=== PATIENT | female | born 1970 | race Hispanic/Latino ===

== ENCOUNTER 2020-04-23 21:50 | Emergency (ER) | payer MEDICAID, SELFPAY ==
--- NOTE | ~2020-04-23 | CT_ITS ---
EXAMINATION: CTA chest PE protocol EXAM DATE: 04/24/2020 01:19 INDICATION: Shortness of breath and elevated d-dimer. TECHNIQUE: Spiral CTA of the chest (pulmonary arteries) was performed with 100 cc Omnipaque 350 intr avenous contrast injection. Images were acquired during the pulmonary arterial phase. Coronal maxi mum intensity projection 3D-reconstructions were created by the technologist on dedicated workstation . Axial, coronal and sagittal reformatted images were reviewed. The dose-length product (DLP) for t his examination was 865.83 mGy-cm. The exposure was tailored according to patient size (auto mA exp osure control), and iterative reconstruction (ASIR) was used as additional dose reduction technique. There is no prior study for comparison. FINDINGS: There are no pulmonary emboli in the 1st through 3rd order (central and interlobar) pulmon kathy arteries. Some loss of attenuation in the segmental pulmonary arteries due to respiratory motion , but no intraluminal filling defects suspected. No thoracic aortic dissection. Small amount of li ngular postinfectious residua. There are no pleural or pericardial effusions. Tracheobronchial sammy e is patent. There is no mediastinal, hilar or axillary lymphadenopathy. There is no pneumothorax . Heart normal in size. No evidence of coronary arterial calcification. Upper abdomen is unremar kable. There is mild to moderate thoracic spondylosis without osteoblastic or osteolytic lesions id entified. IMPRESSION: 1. Limited segmental evaluation, but no pulmonary emboli are suspected. 2. Lingular postinfectious residua. Reviewed, dictated and finalized at location A. OF DATA
--- NOTE | ~2020-04-23 | XR_ITS ---
EXAMINATION: XR chest 2V DATE: 04/23/2020 23:26 INDICATION: Left-sided chest pain TECHNIQUE: PA and lateral views of the chest were obtained. COMPARISON: None FINDINGS: The lungs are clear with no focal airspace opacities, pulmonary edema, pleural effusion or pneumothor ax. The cardiomediastinal silhouette is normal. Moderate thoracolumbar spondylosis. IMPRESSION: 1. No acute cardiopulmonary disease. Reviewed, dictated and finalized at location A. ME TANNER
[2020-04-23 21:53] VITALS: BP 183/88; PULSE 100; RESP 20; TEMP 36.3; O2SAT 100
--- NOTE | 2020-04-23 21:58 | ECG_ITS ---
Measurements Intervals [place] Rate: 94 P: 57 HI: 137 QRS: 3 QRSD: 92 T: 44 QT: 344 QTc: 432 Interpretive Statements SINUS RHYTHM BASELINE ARTIFACT- I, II, III, AVR, AVL, AVF NORMAL ECG Electronically Signed On 04-24-2020 7:07:27 [employer]VEYOR [employer]ENDER by Joseph Causey D.O.
[2020-04-23 22:19] LABS: Basophils Absolute Auto 0.1 K/mm3 (0.0-0.1); Basophils Percent Auto 0.6 % (0.2-1.2); Eosinophils Absolute Auto 0.5 K/mm3 (0-0.3); Eosinophils Percent Auto 5.2 % (0-4.4); Hematocrit 37.6 % (37.0-47.0); Hemoglobin 11.9 g/dL (12.0-15.0); Immature Granulocyte Absolute 0.03 K/mm3 (0.00-0.031); Immature Granulocyte Percent A 0.3 % (0-0.5); Lymphocytes Percent Auto 27.6 % (18.3-44.2); Mean Corpuscular HGB Conc 31.6 g/dl (32-36); Mean Corpuscular Hemoglobin 26.5 pg (26-34); Mean Corpuscular Volume 83.7 fl (80-100); Mean Platelet Volume 8.7 fl (7.4-10.4); Monocytes Absolute Auto 0.7 K/mm3 (0.1-0.6); Neutrophils Absolute Auto 5.1 K/mm3 (1.3-6.7); Neutrophils Percent Auto 58.3 % (45.5-73.1); Platelet Count Result 280 k/mm3 (150-375); Red Blood Count 4.49 M/mm3 (4.2-5.4); Red Cell Distribution Width 13.3 % (11.5-14.5); White Blood Count 8.7 K/mm3 (4.5-10.0)
[2020-04-23 22:25] LABS: Prothrombin Time 13.6 Seconds (11.1-14.7)
[2020-04-23 22:26] LABS: Partial Thromboplastin Time 28.5 SECONDS (22.3-36.8)
[2020-04-23 22:27] LABS: Anion Gap 7 mmol/L (8-16); Blood Urea Nitrogen 22 mg/dL (7-17); Calcium 9.6 mg/dL (8.4-10.2); Carbon Dioxide 30 mmol/L (22-30); Chloride 101 mmol/L (98-107); Estimated CRCL calculation 66 ml/min; Estimated Glomerular Filt Rate 43; Glucose 124 mg/dL (65-105); Potassium 3.5 mmol/L (3.4-5.0); Sodium 138 mmol/L (137-145)
[2020-04-23 22:39] LABS: Troponin I < 0.012 ng/mL (0.000-0.034)
--- NOTE | 2020-04-23 23:03 | ED.CHESTPAIN ---
HPI - Chest Pain General Chief Complaint: Chest Pain Stated Complaint: Right arm pain, cp for 2 weeks Time Seen by Provider: 04/23/20 23:02 Source: patient Mode of arrival: ambulatory Limitations: no limitations History of Present Illness HPI narrative: Patient is a 50-year-old female complaining of right-sided chest pain, sharp, 7 out of 10, radiating to right upper extremity, worse with movement and palpation, that started approximately 2 weeks ago. Patient denies any shortness of breath, abdominal pain, nausea, vomiting, diaphoresis, fever or chills. Patient also complaining of foul smell in her urine. Denies any low back pain, flank pain or hematuria. Related Data Allergies Allergy/AdvReac Type Severity Reaction Status Date / Time No Known Allergies Allergy Verified 04/23/20 21:58 Review of Systems Review of Systems: All systems reviewed & are unremarkable except as noted in HPI and below Constitutional: Constitutional: Denies body ache(s), Denies chills, Denies excessive sweating, Denies fatigue, Denies fever(s), Denies headache(s), Denies lethargy, Denies malaise, Denies weakness and Denies weight loss Eyes: Eyes: Denies blurry vision, Denies change in vision and Denies loss of vision ENT: Denies dizziness, Denies ear discharge, Denies headache(s), Denies lip swelling, Denies epistaxis, Denies nasal congestion, Denies neck pain, Denies throat swelling and Denies tongue swelling Cardiovascular: Cardiovascular: Denies chest pain, Denies chest pain at rest, Denies chest pain with activity, Denies diaphoresis, Denies rapid heart rate, Denies edema, Denies irregular heart rhythm, Denies lightheadedness, Denies palpitations, Denies dyspnea and Denies dyspnea on exertion Respiratory: Respiratory: Denies chest congestion, Denies cough, Denies hemoptysis, Denies dyspnea and Denies dyspnea on exertion Gastrointestinal: Gastrointestinal: Denies abdominal pain, Denies melena, Denies hematochezia, Denies diarrhea, Denies nausea, Denies vomiting and Denies hematemesis Musculoskeletal: Musculoskeletal: Denies abnormal gait, Denies deformity, Denies joint swelling, Denies limited range of motion, Denies neck pain and Denies numbness Neurologic: Denies Abnormal speech present, Denies abnormal gait, Denies confusion, Denies dizziness, Denies headache(s), Denies focal weakness, Denies loss of vision, Denies numbness, Denies Other visual disturbances, Denies Sensory deficit (Neuro) and Denies weakness Psychiatric: Psychiatric: Denies confusion, Denies depression, Denies auditory hallucinations, Denies homicidal ideation and Denies suicidal ideation Endocrine: Endocrine: Denies cold intolerance, Denies excessive sweating, Denies fatigue, Denies heat intolerance and Denies palpitations Hematologic/Lymphatic: Hematologic/Lymphatic: Denies easy bleeding and Denies easy bruising Allergic/Immunologic: Allergic/Immunologic: Denies lip swelling, Denies throat swelling and Denies tongue swelling Exam Const: General: cooperative, healthy appearing, comfortable, no acute distress, well developed, alert and awake; No confusion Orientation/consciousness: oriented to person, oriented to place, oriented to time, patient oriented x3 and No confusion Limitations: no limitations HENMT: Head: normal to inspection, normocephalic and atraumatic Ears: hearing grossly normal bilaterally, TM normal on the right and TM normal on the left General nose exam: Normal external nose present, Normal nares present and No nasal discharge present Face and sinus: normal facial exam Mouth: Yes Normal oral and palatal mucosa present, Yes lip normal, Yes tongue normal and Yes oropharynx normal Throat: posterior oropharynx normal, tonsils normal and uvula midline Eyes: General: appearance normal, both eyes and all related structures Pupils: Equal, round and reactive pupils present EOM: EOMs intact bilaterally Neck: Neck: normal visual inspection, full ROM, no lymphadenopathy and
[2020-04-23 23:16] LABS: D Dimer 1.01 ug/mL (<0.48)
[2020-04-23 23:17] VITALS: O2SAT 98
[2020-04-23] MEDS: ASPIRIN 81 MG CHEWABLE TABLET 324 MG PO (23:17)
[2020-04-23 23:24] LABS: Add Urine Microscopic? YES; Appearance Urine Cloudy (Clear); Bacteria Urine Trace /hpf; Bilirubin Urine Negative (Negative); Blood Urine Negative (Negative); Color Urine Yellow (Yellow); Glucose Urine UA Negative (Negative); Ketones Urine Negative (Negative); Leukocyte Esterase Ur 2+ LEU/UL (Negative); Mucus Urine Rare /lpf; Nitrate Urine Negative (Negative); Protein Urine 2+ mg/dL (Negative); RBC Urine 0-2 /hpf (0-2); Specific Grav Ur 1.017 (1.001-1.035); Squamous Epithelial Cell Urine Many /hpf (Few); Urobilinogen Urine Negative mg/dL (<2.0); WBC Urine >75 /hpf
[2020-04-23 23:36] VITALS: BP 140/91; PULSE 89; RESP 20; O2SAT 99
[2020-04-24 01:35] VITALS: BP 142/97; PULSE 86; RESP 22; O2SAT 97
[2020-04-24 01:53] LABS: Troponin I < 0.012 ng/mL (0.000-0.034)
[2020-04-24 03:00] VITALS: BP 122/80; PULSE 90; RESP 19; O2SAT 97
== END 2020-04-24 03:05 | disposition home or self-care (01) ==
PROVIDERS: Emergency Provider Emergency Medicine
DX: R07.89 Other chest pain (principal); N30.00 Acute cystitis without hematuria
CPT/HCPCS: 36415; 71046; 71275; 80048; 81001; 84484; 85025; 85380; 85610; 85730; 87086; 87088; 93005; 99284; A9270; Q9967

== ENCOUNTER 2020-06-23 19:43 | Emergency (ER) | payer OTHER, SELFPAY ==
[2020-06-23 19:50] VITALS: BP 148/93; PULSE 108; RESP 16; TEMP 36.6; O2SAT 98
--- NOTE | 2020-06-23 21:13 | ED.GENADULT ---
HPI - General Adult General Chief complaint: Urogenital-Female Stated complaint: VAGINAL PROLAPSE? Time Seen by Provider: 06/23/20 19:55 History of Present Illness HPI narrative: Patient is a 50-year-old female who presents the ER with concerns for vaginal prolapse. She started noticing a mass protruding from her vagina 2 months ago. Today became slightly irritated and had some blood and so she opted to come in for evaluation. Did not seek care earlier because she is embarrassed. Patient has history of 3 vaginal deliveries in the past. No vaginal discharge. Related Data Home Medications Medication Instructions Recorded Confirmed No Home Medications 06/23/20 06/23/20 Allergies Allergy/AdvReac Type Severity Reaction Status Date / Time VINEGAR AdvReac Dyspnea / Uncoded 06/23/20 20:03 SOB Review of Systems Review of Systems: All systems reviewed & are unremarkable except as noted in HPI and below Constitutional: Constitutional: Denies chills, Denies fever(s) and Denies weakness Gastrointestinal: Gastrointestinal: Denies abdominal pain, Denies diarrhea, Denies nausea and Denies vomiting Genitourinary: Genitourinary: Denies abnormal vaginal bleeding, Denies nocturia, Denies dysuria, Denies pelvic pain and Denies vaginal discharge Comments: Possible vaginal prolapse PMFSH Past Medical History Medical History (Updated 06/23/20 @ 21:25 by Frank Girard MD) Diabetes Surgical History Surgical History (Updated 06/23/20 @ 21:19 by Frank Girard MD) No pertinent past surgical history Social History Social History (Updated 06/23/20 @ 21:19 by Frank Girard MD) Social History: History of tobacco use Exam Narrative: Exam Narrative: GENERAL: Well-appearing, well-nourished, and in no acute distress. HEAD: Normocephalic, atraumatic. : No dischage, vaginal mass likely cystocele. No tenderness on digital exam. EXTREMITIES: Normal range of motion. No edema. NEURO: Alert and oriented x3. Course Course Emergency Course: Discussed with Dr. Brennen Gustafson. Recommends follow-up this week in clinic. Discharge home. Vital Signs Vital signs: Vital Signs Temperature 98 F 06/23/20 19:50 Pulse Rate 108 H 06/23/20 19:50 Respiratory Rate 16 06/23/20 19:50 Blood Pressure 148/93 H 06/23/20 19:50 Pulse Oximetry 98 06/23/20 19:50 Temperature 98 F 06/23/20 19:50 Pulse Rate 108 H 06/23/20 19:50 Respiratory Rate 16 06/23/20 19:50 Blood Pressure 148/93 H 06/23/20 19:50 Pulse Oximetry 98 06/23/20 19:50 Medical Decision Making Vital Signs Vital Signs: Vital Signs Temperature 98 F 06/23/20 19:50 Pulse Rate 108 H 06/23/20 19:50 Respiratory Rate 16 06/23/20 19:50 Blood Pressure 148/93 H 06/23/20 19:50 Pulse Oximetry 98 06/23/20 19:50 Temperature 98 F 06/23/20 19:50 Pulse Rate 108 H 06/23/20 19:50 Respiratory Rate 16 06/23/20 19:50 Blood Pressure 148/93 H 06/23/20 19:50 Pulse Oximetry 98 06/23/20 19:50 Discharge Plan Discharge Clinical Impression: Cystocele Patient Disposition: Home, Self-Care Condition: Stable Instructions: Cystocele (ED) Additional Instructions: Contact the regulation supervisor listed below to schedule follow-up appointment this week for further evaluation. Return the ER if you have serious pain, you cannot keep down food or water, you have additional concerns. Avoid any heavy lifting. Prescriptions: No Action No Home Medications RF: 0 Follow-up/Referrals: Jay Madrigal MD [Physician] - 1 Week PHYSICIAN,GLASSWARE FINISHER [Primary Care Provider] -
== END 2020-06-23 21:15 | disposition home or self-care (01) ==
PROVIDERS: Emergency Provider Emergency Medicine
DX: N81.10 Cystocele, unspecified (principal); E11.9 Type 2 diabetes mellitus without complications
CPT/HCPCS: 99281

== ENCOUNTER 2021-12-29 15:28 | Inpatient (IN) | payer OTHER, SELFPAY ==
[2021-12-29] VITALS (25 sets, daily range): BP systolic 106–163; BP diastolic 49–104; PULSE 66–128; RESP 13–39; TEMP 36.5–36.7; O2SAT 97–100; BMI 44.2
--- NOTE | ~2021-12-29 | CT_ITS ---
EXAMINATION: CT abdomen pelvis w con DATE: 12/29/2021 18:10 INDICATION: epigastric pain, GI bleed TECHNIQUE: Computed tomography (CT) of the abdomen and pelvis was performed with 100 mL Omnipaque-350 intravenous contrast. Automated exposure control and iterative reconstruction technique were employe d. The dose-length product was 1585.43 mGy-cm. COMPARISON: [facility] 04/24/2020. FINDINGS: Lower thorax: Bilateral scar/atelectasis Liver: Normal. Biliary/Gallbladder: Gallbladder is normal. No bile duct dilation. Pancreas: No mass or duct dilation. Spleen: Normal. Adrenals:No mass. Kidneys: No mass, stone, or hydronephrosis. GI tract: Fluid-filled stomach. No intraluminal hyperdensity to suggest hemorrhage. Mild antral wall edema and inflammatory change, with minimal surrounding free air. No small or large bowel dilation. N ormal appendix. Diverticulosis without diverticulitis. Mesentery/Peritoneum: No ascites, mass, or free air. Retroperitoneum: No mass. Pelvis: Mild bladder wall thickening and inflammatory change. Organs are within normal limits. Soft Tissues: Uncomplicated appearing recent midline surgical incision. Lower abdominal soft tissue a nchors from prior hernia repair. Bones: No acute osseous finding. IMPRESSION: Mild inflammation, fluid and air at the gastric antrum, consistent with history of recent surgery and within range of expected postsurgical change, noting that early perforation or abscess formation can not be excluded. No obvious intraluminal hyperdensity to suggest large volume gastrointestinal bleedi ng.Possible mild cystitis. Reviewed, dictated and finalized at location K. IMPRESSION: Mild inflammation, fluid and air at the gastric antrum, consistent with history of recent surgery and within range of expected postsurgical change, noting paddy t early perforation or abscess formation cannot be excluded. No obvious intralu antwon hyperdensity to suggest large volume gastrointestinal bleeding.Possible m ild cystitis.
[2021-12-29 16:03] LABS: Basophils Absolute Auto 0.1 K/mm3 (0.0-0.1); Basophils Percent Auto 0.6 % (0.2-1.2); Eosinophils Percent Auto 7.1 % (0-4.4); Hematocrit 30.3 % (37.0-47.0); Hemoglobin 9.3 g/dL (12.0-15.0); Immature Granulocyte Absolute 0.05 K/mm3 (0.00-0.031); Immature Granulocyte Percent A 0.3 % (0-0.5); Lymphocytes Absolute Auto 3.07 K/mm3 (0.9-3.2); Lymphocytes Percent Auto 21.4 % (18.3-44.2); Mean Corpuscular HGB Conc 30.7 g/dl (32-36); Mean Corpuscular Hemoglobin 26.9 pg (26-34); Mean Corpuscular Volume 87.6 fl (80-100); Mean Platelet Volume 8.6 fl (7.4-10.4); Monocytes Absolute Auto 1.1 K/mm3 (0.1-0.6); Monocytes Percent Auto 7.5 % (2.6-8.5); Neutrophils Percent Auto 63.1 % (45.5-73.1); Platelet Count Result 345 k/mm3 (150-375); Red Blood Count 3.46 M/mm3 (4.2-5.4); Red Cell Distribution Width 14.6 % (11.5-14.5); White Blood Count 14.3 K/mm3 (4.5-10.0)
[2021-12-29 16:15] LABS: Alanine Aminotransferase 25 U/L (6-35); Albumin Level 4.3 g/dL (3.5-5.1); Alkaline Phosphatase 104 U/L (38-126); Anion Gap 15 mmol/L (8-16); Aspartate Amino Transferase 35 U/L (14-36); Bilirubin,Total 0.3 mg/dL (0.2-1.3); Blood Urea Nitrogen 33 mg/dL (7-17); Calcium 9.9 mg/dL (8.4-10.2); Carbon Dioxide 21 mmol/L (22-30); Chloride 104 mmol/L (98-107); Estimated Glomerular Filt Rate 32; Glucose 110 mg/dL (65-110); INR 1.2; Partial Thromboplastin Time 32.5 SECONDS (22.3-36.8); Potassium 3.4 mmol/L (3.4-5.0); Prothrombin Time 14.5 Seconds (11.1-14.7); Sodium 140 mmol/L (137-145)
--- NOTE | 2021-12-29 17:22 | ED.GIBLEED ---
HPI - GI Bleed General Chief complaint: GI Bleed Stated complaint: black diarrhea Time Seen by Provider: 12/29/21 16:56 Source: patient Mode of arrival: ambulatory Limitations: no limitations History of Present Illness HPI Narrative: This is a 51-year-old female that presents to the emergency department for black stools present since this morning. Reports she recently had surgery last week at [facility] for a perforated gastric ulcer. She had been taking a lot of anti-inflammatories. Reports this morning she started to have some diarrhea that was dark in color. She is not currently taking any anti-inflammatories or on any blood thinners. She called her surgeon and he told her she should go somewhere that had a GI doctor. Reports some nausea. Denies fever or vomiting. Related Data Home Medications Medication Instructions Recorded Confirmed escitalopram oxalate 10 mg tablet mg 12/29/21 gabapentin 300 mg capsule mg 12/29/21 hydrocodone 5 mg-acetaminophen 325 tablet 12/29/21 mg tablet lisinopril 40 mg tablet mg 12/29/21 metformin 500 mg tablet,extended mg PO 12/29/21 release 24 hr semaglutide 0.25 mg or 0.5 mg (2 mg subcut 12/29/21 mg/1.5 mL) subcutaneous pen injector (Ozempic) Allergies Allergy/AdvReac Type Severity Reaction Status Date / Time VINEGAR AdvReac Dyspnea / Uncoded 12/29/21 17:06 SOB Review of Systems Review of Systems: CONSTITUTIONAL: Denies fever GASTROINTESTINAL: Reports abdominal pain, nausea, and diarrhea. GENITOURINARY: Denies dysuria All systems reviewed & are unremarkable except as noted in HPI and below PMFSH Past Medical History Medical History (Updated 12/29/21 @ 21:23 by Rosangela Friedman PA-C) Chronic kidney disease, stage III (moderate) Depression Diabetes Diabetic peripheral neuropathy Essential hypertension Perforated gastric ulcer Surgical History Surgical History (Updated 12/29/21 @ 21:03 by Dominique Blanco DO) History of laparotomy (12/17/21) For repair of gastric ulcer Social History Social History (Updated 12/29/21 @ 17:23 by Rosangela Friedman PA-C) Social History: History of tobacco use Smoking status: Former smoker Alcohol intake: never Substance use: never Exam Narrative: GENERAL: Well-appearing, well-nourished, and in no acute distress. HEAD: Normocephalic, atraumatic. EYES: EOMI. CHEST: Clear to auscultation. No respiratory distress. No wheezes rales or rhonchi HEART: Regular rate and rhythm. No murmur heard. Normal peripheral pulses. ABDOMEN: Soft, nondistended, normal active bowel sounds. Tender to palpation in the epigastrium. Midline, vertical upper abdominal incision with ade present. No surrounding erythema or warmth. No abnormal drainage EXTREMITIES: Normal range of motion. No edema. SKIN: Warm, dry, no rash. NEURO: No focal deficits. Alert and oriented x3. PSYCH: Normal mood and affect RECTAL: Hemoccult positive Course Vital Signs Vital signs: Vital Signs Temperature 98.0 F 12/29/21 15:41 Pulse Rate 107 H 12/29/21 15:41 Respiratory Rate 14 12/29/21 15:41 Blood Pressure 149/71 H 12/29/21 15:41 Pulse Oximetry 100 12/29/21 15:41 Oxygen Delivery Room Air 12/29/21 15:41 Temperature 97.8 F 12/29/21 21:11 Pulse Rate 72 12/29/21 21:11 Respiratory Rate 22 H 12/29/21 21:11 Blood Pressure 112/4 L 12/29/21 21:11 Pulse Oximetry 100 12/29/21 21:11 Oxygen Delivery Room Air 12/29/21 17:03 MDM - GI Bleed MDM Narrative Medical decision making narrative: Patient presents to the emergency department for dark stools noted today. Recently postop from repair of a perforated gastric ulcer. She is afebrile and nontoxic-appearing. Tachycardic upon arrival, this normalized with IV fluid administration. Her blood pressure has remained stable. CBC with leukocytosis to 14.3. Also shows normocytic anemia with hemoglobin of 9.3. Metabolic panel with kidney function that is likely
[2021-12-29] MEDS: PANTOPRAZOLE SODIUM IV 40 MG VIAL IV PUSH (17:45)
[2021-12-29] MEDS: ONDANSETRON INJ 4 MG/2 ML VIAL IV PUSH (17:45)
[2021-12-29] MEDS: SODIUM CHLORIDE 0.9% IV 1,000 ML 999 ML IV CONT (18:12)
[2021-12-29 19:58] LABS: Appearance Urine Clear (Clear); Bilirubin Urine Negative (Negative); Blood Urine 2+ (Negative); Color Urine Yellow (Yellow); Glucose Urine UA Negative (Negative); Ketones Urine Negative (Negative); Leukocyte Esterase Ur Negative LEU/UL (Negative); Nitrate Urine Negative (Negative); Protein Urine Negative (Negative); Specific Grav Ur <= 1.005 (1.001-1.035); Urobilinogen Urine 0.2 mg/dL (<2.0); pH Urine 5.5 (5.0-9.0)
[2021-12-29 20:05] LABS: Bacteria Urine Trace /hpf; Mucus Urine Rare /lpf; RBC Urine 0-2 /hpf (0-2); Squamous Epithelial Cell Urine Few /hpf (Few); WBC Urine 0-3 /hpf
[2021-12-29 20:06] LABS: Add Urine Microscopic? YES
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
[2021-12-29] MEDS: SODIUM CHLORIDE 0.9% IV 1,000 ML 125 ML IV CONT (21:10)
[2021-12-29 22:02] LABS: Hematocrit 27.7 % (37.0-47.0); Hemoglobin 8.5 g/dL (12.0-15.0)
--- NOTE | 2021-12-29 22:30 | ADMGEN ---
This patient, Aliza Handy, was admitted to 2 Medical Room 249-01. Patient/family oriented to hospital policies and general routines including ID bracelet, bed and alarms, visiting hours, pain management, procedures, bathroom and other care routines, personal items, smoking policy, room service/diet, and visiting hours. Information on how to activate the Rapid Response Team has been discussed. Patient/Family are encouraged to report perceived risks to care and to ask questions if they do not understand what they are told or what they should do.
[2021-12-29 23:36] LABS: Glucose Point of Care 76 mg/dl (65-105)
[2021-12-30] VITALS (12 sets, daily range): BP systolic 90–131; BP diastolic 43–110; PULSE 57–73; RESP 16–34; TEMP 36.2–36.8; O2SAT 94–100
[2021-12-30 02:51] LABS: Hematocrit 24.9 % (37.0-47.0); Hemoglobin 7.6 g/dL (12.0-15.0)
[2021-12-30 03:01] LABS: Anion Gap 11 mmol/L (8-16); Blood Urea Nitrogen 28 mg/dL (7-17); Calcium 8.4 mg/dL (8.4-10.2); Carbon Dioxide 21 mmol/L (22-30); Chloride 108 mmol/L (98-107); Estimated CRCL calculation 55 ml/min; Estimated Glomerular Filt Rate 36; Glucose 87 mg/dL (65-110); Potassium 3.6 mmol/L (3.4-5.0); Sodium 140 mmol/L (137-145)
--- NOTE | 2021-12-30 03:27 | PC.NURSE ---
This RN has supervised Karyn Hill and her documentation for the 7pm to 7am shift.
[2021-12-30] MEDS: SODIUM CHLORIDE 0.9% IV 1,000 ML 125 ML IV CONT ×2 (05:11→17:29)
[2021-12-30 05:14] LABS: Glucose Point of Care 80 mg/dl (65-105)
[2021-12-30 05:46] LABS: Hematocrit 25.8 % (37.0-47.0); Hemoglobin 7.8 g/dL (12.0-15.0)
--- NOTE | 2021-12-30 07:43 | WPDGICN ---
Assessment and Plan Assessment and plan (1) Anemia: Qualifiers: Anemia type: iron deficiency Iron deficiency anemia type: chronic blood loss Qualified Code(s): D50.0 - Iron deficiency anemia secondary to blood loss (chronic) Code(s): D64.9 - Anemia, unspecified Status: Acute Assessment and Plan: with her black tarry stools, she almost certainly has an upper gastrointestinal bleed. She had over-sewing of an ulcer 10 days ago and likely is bleeding from that ulcer base. (2) Acute GI bleeding: Code(s): K92.2 - Gastrointestinal hemorrhage, unspecified Status: Acute Assessment and Plan: the melena suggests upper gastrointestinal bleed as does the rise in her BUN. I discussed with the patient bleeding ulcers. I told her that over-sewing the perforation last week would normally be also curative for bleeding but she most likely has bleeding from somewhere along the ulcer base. At any rate we will schedule her for EGD to be done this morning . We will continue to monitor her blood counts. She may need a blood transfusion if her counts drop any further. (3) Acute kidney injury superimposed on chronic kidney disease: Code(s): N17.9 - Acute kidney failure, unspecified; N18.9 - Chronic kidney disease, unspecified Status: Acute Assessment and Plan: creatinine is up to 1.7 but probably partly due to dehydration (4) Perforated gastric ulcer: Code(s): K25.5 - Chronic or unspecified gastric ulcer with perforation Status: Acute Assessment and Plan: this was treated a [facility] 10 days ago. She had an open procedure, laparotomy. Her wound looks good. oddly, she states that she was not sent home with any medication for the ulcer. GI Consult Note Consult date/time: 12/30/21 07:43 HPI: Aliza Handy is a 51 year old female With chronic kidney disease and DJD. She presented to the emergency room yesterday complaining that since early yesterday morning she had been having black tarry stools. She she had presented to the emergency room at [facility] about 10 days ago with severe abdominal pain. They sent her home and told her to take Tylenol. When her pain became excruciating, she took a leave, 3 tablets and repeated this when she was getting no relief. She finally returned to the emergency room and was being dismissed and told there was nothing else that could be done when, after CT scan showed free air in the abdomen, she was then told that she was going to the operating room. She had over-sewing of an ulcer. She believes that she was told it was a gastric ulcer. She had not been using anti-inflammatory medications prior to her surgery, and had never been having stomach problems like an ulcer in the past. She has past history of diabetes for which she is on metformin and Ozempic. On admission here her hemoglobin was initially 9.3 and has dropped to 7.6. She has had no vomiting or nausea. She states that she called her surgeon yesterday morning when she noticed the black tarry stools and was Finally called back several hours later and told that she could not go to [facility] because they did not have the physicians necessary to treat her. Consequently she came here. Today she states that she has only mild abdominal pain. Review of Systems Review of Systems: All systems reviewed & are unremarkable except as noted in HPI and below PMFSH Past Medical History Medical History Anxiety Chronic anemia Chronic kidney disease, stage III (moderate) Degenerative joint disease (DJD) of lumbar spine Depression Diabetes A1c 6.6% on 12/19/2021 Diabetic peripheral neuropathy Essential hypertension Hepatic steatosis Perforated gastric ulcer PTSD (post-traumatic stress disorder) Surgical History Surgical History (Reviewed 12/30/21 @ 07:46
[2021-12-30] MEDS: PANTOPRAZOLE SODIUM IV 40 MG VIAL IV PUSH ×2 (08:16→16:03)
[2021-12-30 08:41] LABS: Glucose Point of Care 79 mg/dl (65-105)
--- NOTE | 2021-12-30 10:36 | PM.IMPN ---
Progress Note: A&P Assessment and Plan (1) Acute GI bleeding: Code(s): K92.2 - Gastrointestinal hemorrhage, unspecified Status: Acute Assessment and Plan: -in setting of recent surgical repair for perforated gastric ulcer. -GI was consulted and patient will go for EGD today. In reading their note they are suspicious that patient has bleeding around the base of the ulceration. -continue to monitor H&H Q 6 hours. -patient may need transfusion based upon results of trending hemoglobins as her hemoglobin this morning was 7.8. -monitor vital signs (2) Anemia: Qualifiers: Anemia type: iron deficiency Iron deficiency anemia type: chronic blood loss Qualified Code(s): D50.0 - Iron deficiency anemia secondary to blood loss (chronic) Code(s): D64.9 - Anemia, unspecified Status: Acute Assessment and Plan: -acute on chronic -patient's hemoglobin has slowly trended down from 11.0. Today it is 7.8. -continue to monitor q.6 hours. -transfuse as needed. -GI has been consulted and patient will have EGD today as a suspect that patient has some continued bleeding around the base of the ulcer. (3) Acute kidney injury superimposed on chronic kidney disease: Code(s): N17.9 - Acute kidney failure, unspecified; N18.9 - Chronic kidney disease, unspecified Status: Acute Assessment and Plan: -in setting of acute dehydration, as evidenced by acute AIDEE -continue IV fluids of normal saline at 125 ml/hour. -monitor daily labs and continue to monitor vital signs. (4) Diabetes mellitus type 2 in obese: Code(s): E11.69 - Type 2 diabetes mellitus with other specified complication; E66.9 - Obesity, unspecified Status: Acute Assessment and Plan: -continue current medication regimen. She has good control as patient's fasting glucose this morning was 87. -hypoglycemic protocol remains in place. -hold Ozempic (5) Essential hypertension: Code(s): I10 - Essential (primary) hypertension Status: Acute Assessment and Plan: -continue to hold lisinopril in setting of AIDEE on chronic kidney disease. -continue to monitor vital signs. -patient currently with normal BP. Time Spent With Patient Time with patient: 15 - 25 minutes (16 minutes) Subjective Date/time seen: 12/30/21 0859 This pt. is examined at the bedside today in interval assessment. She reports that her pain is still present but is less than it was previously and she is starting to feel a little bit better. She has been evaluated by GI service and will go for an EGD today. VSS, and she has no other acute symptoms or complaints such as chest pain, dyspnea, nausea, vomiting, diarrhea, headache, lightheadedness, dizziness. Review of Systems Review of Systems: All systems reviewed & are unremarkable except as noted in HPI and below Exam Const: General: comfortable and no acute distress Other: Lying supine in bed at this time no acute distress HENMT: General nose exam: Normal nares present and no epistaxis Mouth: Yes moist mucous membranes Eyes: General: appearance normal, both eyes and all related structures Sclera: sclerae normal Pupils: Equal, round and reactive pupils present EOM: EOMs intact bilaterally Neck: Neck: supple and no JVD Resp: Effort & Inspection: normal respiratory effort Auscultation: clear to auscultation bilaterally Cardio: Rate: regular rate Rhythm: regular rhythm Heart sounds: no gallops, no murmurs and no rubs GI: Inspection: non-distended GI Palp: Yes Soft to palpation, Yes Tenderness to palpation present (GI) (Secondary to surgical procedure) and No Guarding due to palpation present (GI) Other: [place] midline about the abdomen, tightly approximated without any signs of erythema, edema or dehiscence. There is no drainage from the midline surgical incision. Neuro: General: gait normal Speech: normal speech Motor exam (neuro): 5/5 motor strength present thr
--- NOTE | 2021-12-30 11:26 | PC.NURSE ---
Patient to GI lab at 1120. All questions answered.
[2021-12-30] MEDS: LACTATED RINGERS 1,000 ML 150 ML IV CONT (11:53)
[2021-12-30 11:58] LABS: Glucose Point of Care 80 mg/dl (65-105)
--- NOTE | 2021-12-30 12:11 | WPDANESEPPF ---
Anes - Initial Pre Proc Eval Procedure: Operation Date: 12/30/21 13:30 Proposed Procedures p Esophagogastroduodenoscopy - Rojelio Stephenson MD Date/Time: 12/30/21 12:11 Surgeon: TAMAR Patrick Pre Op Diagnosis: GI bleed Patient Data Age: 51 Gender: F Height: 1.7 m Weight: 128.1 kg Last Vital Signs Temp 98.1 F 12/30/21 11:50 Pulse 58 L 12/30/21 11:50 Resp 18 12/30/21 11:50 BP 112/43 L 12/30/21 11:50 Pulse Ox 98 12/30/21 11:50 O2 Del Method Room Air 12/30/21 08:18 Allergies Allergy/AdvReac Type Severity Reaction Status Date / Time VINEGAR AdvReac Dyspnea / Uncoded 12/29/21 23:08 SOB Home Medications Medication Instructions Recorded Confirmed Type escitalopram oxalate 10 mg tablet 10 mg PO DAILY 12/29/21 12/29/21 History gabapentin 300 mg capsule 300 mg PO TID 12/29/21 12/29/21 History hydrocodone 5 mg-acetaminophen 325 1 tablet PO Q6H PRN Pain 12/29/21 12/29/21 History mg tablet lisinopril 40 mg tablet 40 mg PO DAILY 12/29/21 12/29/21 History metformin 500 mg tablet,extended 500 mg PO DAILY 12/29/21 12/29/21 History release 24 hr semaglutide 0.25 mg or 0.5 mg (2 0.25 mg subcut WEEKLY 12/29/21 12/29/21 History mg/1.5 mL) subcutaneous pen injector (Ozempic) Laboratory Tests 12/29/21 12/29/21 12/29/21 15:52 15:52 15:52 WBC 14.3 K/mm3 H K/mm3 (4.5-10.0) RBC 3.46 M/mm3 L M/mm3 (4.2-5.4) Hgb 9.3 g/dL L g/dL (12.0-15.0) Hct 30.3 % L % (37.0-47.0) MCV 87.6 fl fl (80-100) MCH 26.9 pg pg (26-34) MCHC 30.7 g/dl L g/dl (32-36) RDW 14.6 % H % (11.5-14.5) Plt Count 345 k/mm3 k/mm3 (150-375) MPV 8.6 fl fl (7.4-10.4) Immature Gran % (Auto) 0.3 % % (0-0.5) Neut % (Auto) 63.1 % % (45.5-73.1) Lymph % (Auto) 21.4 % % (18.3-44.2) [place] % (Auto) 7.5 % % (2.6-8.5) Eos % (Auto) 7.1 % H % (0-4.4) Baso % (Auto) 0.6 % % (0.2-1.2) Lymph # (Auto) 3.07 K/mm3 K/mm3 (0.9-3.2) [place] # (Auto) 1.1 K/mm3 H K/mm3 (0.1-0.6) Eos # (Auto) 1.0 K/mm3 H K/mm3 (0-0.3) Baso # (Auto) 0.1 K/mm3 K/mm3 (0.0-0.1) Abs Immat Gran (auto) 0.05 K/mm3 H K/mm3 (0.00-0.031) Absolute Neuts (auto) 9.0 K/mm3 H K/mm3 (1.3-6.7) Absolute Nucleated RBC 0.0 K/mm3 K/mm3 (0.0-0.012) Nucleated RBC % 0.0 % % (0.0-0.2) PT 14.5 Seconds Seconds (11.1-14.7) INR 1.2 APTT 32.5 SECONDS SECONDS (22.3-36.8) Sodium 140 mmol/L mmol/L (137-145) Potassium 3.4 mmol/L mmol/L (3.4-5.0) Chloride 104 mmol/L mmol/L (98-107) Carbon Dioxide 21 mmol/L L mmol/L (22-30) Anion Gap 15 mmol/L mmol/L (8-16) BUN 33 mg/dL H D mg/dL (7-17) Creatinine 1.70 mg/dL H mg/dL (0.7-1.0) Estim Creat Clear Calc Not Reportable Estimated GFR 32 L (59 - ) Glucose 110 mg/dL mg/dL (65-110) POC Capillary Glucose Calcium 9.9 mg/dL mg/dL (8.4-10.2) Total Bilirubin 0.3 mg/dL mg/dL (0.2-1.3) AST 35 U/L U/L (14-36) ALT 25 U/L U/L (6-35) Alkaline Phosphatase 104 U/L U/L (38-126) Total Protein 9.0 g/dL H g/dL (6.3-8.2) Albumin 4.3 g/dL g/dL (3.5-5.1) Urine Color Urine Appearance Urine pH Ur Specific [place] Urine Protein Urine Glucose (UA) Urine Ketones Ur Blood (Man) Urine Nitrate Urine Bilirubin Urine Urobilinogen Leukocyte Esterase Rfl Urine RBC Urine WBC Ur Squamous Epith Cells Urine Bacteria Urine Mucus Blood Type
[2021-12-30] MEDS: EPINEPHrine INJ 1 MG/10 ML SYRINGE XX (12:55)
[2021-12-30] MEDS: fentaNYL CITRATE INJ (*CRX) 100 MCG/2 ML VIAL 25 MCG IV PUSH ×4 (13:04→13:19)
[2021-12-30] MEDS: HYDROmorphone HCL INJ (*CRX) 1 MG/ML SYR 0.25 MG IV PUSH ×2 (13:22→13:33)
[2021-12-30] MEDS: HYDROcodone/acetaminophen (*CRX) 7.5-325 MG TABLET 1 TAB PO ×2 (14:14→20:41)
--- NOTE | 2021-12-30 14:18 | PC.NURSE ---
Patient returned from GI lab. Report received from JLUIS Looney.
[2021-12-30] MEDS: GABAPENTIN 300 MG CAPSULE PO ×2 (14:57→20:59)
[2021-12-30 15:50] LABS: Hematocrit 26.2 % (37.0-47.0)
[2021-12-30 17:20] LABS: Glucose Point of Care 81 mg/dl (65-105)
[2021-12-30 21:03] LABS: Glucose Point of Care 70 mg/dl (65-105)
[2021-12-31] VITALS (14 sets, daily range): BP systolic 80–125; BP diastolic 40–70; PULSE 59–89; RESP 14–21; TEMP 36.1–36.8; O2SAT 96–100
[2021-12-31 01:06] LABS: Glucose Point of Care 84 mg/dl (65-105)
[2021-12-31] MEDS: SODIUM CHLORIDE 0.9% IV 1,000 ML 125 ML IV CONT ×3 (01:38→23:08)
[2021-12-31] MEDS: DEXTROSE 50% 25 GM/50 ML SYRINGE IV PUSH (01:55)
--- NOTE | 2021-12-31 02:05 | PC.NURSE ---
NOTIFIED BY SPA DIRECTOR/FINANCE THAT PT BP WAS LOW AND PT WAS NOT RESPONDING. PT HAD PREVIOUSLY BEEN A&O X3. ENTERED ROOM AND NOTICED PT WAS CLAMMY AND LIMP. CHECKED PT BLOOD SUGAR AND IT WAS 84. ATTEMPTED TO WAKE THE PT AND SHE WOULD NOT RESPOND. STERNAL RUBBED THE PT AND SHE WOKE UP. PT WAS DROWSY BUT DID ANSWER ORIENTATION QUESTIONS AFTER WAKING UP MORE. CALLED DR STEVENS SHE GAVE ME ORDERS FOR A STAT H/H AND TO GIVE A HALF AMP OF D50 ALSO INSTRUCTED ME TO GET A RECTAL TEMP. VITAL SIGNS AFTER AROUSING WERE BP 111/40 RR 16 O2 96 TEMP 98.2 RECTAL. PT IS MORE ALERT SINCE RECEIVING THE AMP OF GLUCOSE CALLING CASE OPERATOR ASKING TO USE THE RESTROOM. H/H RESULT WAS 7.1/23.8
[2021-12-31 02:07] LABS: Basophils Absolute Auto 0.1 K/mm3 (0.0-0.1); Basophils Percent Auto 0.8 % (0.2-1.2); Eosinophils Percent Auto 11.2 % (0-4.4); Hematocrit 23.8 % (37.0-47.0); Hemoglobin 7.1 g/dL (12.0-15.0); Immature Granulocyte Absolute 0.03 K/mm3 (0.00-0.031); Immature Granulocyte Percent A 0.3 % (0-0.5); Lymphocytes Absolute Auto 2.73 K/mm3 (0.9-3.2); Lymphocytes Percent Auto 31.6 % (18.3-44.2); Mean Corpuscular HGB Conc 29.8 g/dl (32-36); Mean Corpuscular Hemoglobin 26.9 pg (26-34); Mean Corpuscular Volume 90.2 fl (80-100); Mean Platelet Volume 8.1 fl (7.4-10.4); Monocytes Absolute Auto 0.6 K/mm3 (0.1-0.6); Monocytes Percent Auto 6.7 % (2.6-8.5); Neutrophils Absolute Auto 4.3 K/mm3 (1.3-6.7); Neutrophils Percent Auto 49.4 % (45.5-73.1); Platelet Count Result 243 k/mm3 (150-375); Red Blood Count 2.64 M/mm3 (4.2-5.4); White Blood Count 8.6 K/mm3 (4.5-10.0)
[2021-12-31 02:08] LABS: Hypochromasia 1+ (NORMAL); Platelet Estimate Adequate (Adequate)
[2021-12-31] MEDS: NALOXONE HCL 0.4 MG/ML VIAL IV PUSH (02:25)
[2021-12-31] MEDS: flumazeniL 0.5 MG/5 ML VIAL 1 MG IV PUSH (02:32)
[2021-12-31 02:36] LABS: Glucose Point of Care 128 mg/dl (65-105)
--- NOTE | 2021-12-31 02:38 | PM.EVENT ---
Event Note Event Note Event Note: rapid response was called to the patient's room after sudden unresponsiveness prior to this patient had been on the call light and wanted to go to the bathroom had received an amp of D50 she is status post EGD which happened during the daytime earlier in the night her glucose was 80 for and was clammy and obtundent receiving D50 prior to calling to use the bathroom. Objective: Patient is unresponsive subjective: Unresponsive general: Patient is laying in bed in supine position looks comfortable maintaining respirations HEENT: Pupils are 1 mm in diameter extraocular movements intact patient offers resistance to opening her eyes. Cardiovascular: Heart sounds of good tone intensity. Respiratory: Clear to auscultation bilaterally no respiratory distress. ABDOMEN: Soft nontender nondistended, hepatosplenomegaly. muscle skeletal: No edema, no deformity. central nervous system: Patient is unresponsive response to painful stimuli sternal rub no focal sensorimotor deficit. skin: warm and moist. assessment and plan 1. Altered mental status: In view the patient had been awake just prior to these on the call light and wanting to use the bathroom after D50 blood glucose was 120, patient responded intermittently to pain stimulation and offer resistance to opening her eyes receive Narcan 0.4 however no response given Romazicon 0.5 mg which patient responded by opening eyes and extension of upper and lower extremity. Neuro checks q.4 hours, continue supplemental oxygen by nasal cannula, a spot check pulse oximeter. Supportive care.
[2021-12-31 02:53] LABS: Alanine Aminotransferase 16 U/L (6-35); Albumin Level 3.1 g/dL (3.5-5.1); Alkaline Phosphatase 71 U/L (38-126); Anion Gap 7 mmol/L (8-16); Aspartate Amino Transferase 24 U/L (14-36); Bilirubin,Total 0.2 mg/dL (0.2-1.3); Blood Urea Nitrogen 14 mg/dL (7-17); Calcium 7.5 mg/dL (8.4-10.2); Carbon Dioxide 21 mmol/L (22-30); Chloride 111 mmol/L (98-107); Estimated CRCL calculation 63 ml/min; Estimated Glomerular Filt Rate 43; Glucose 214 mg/dL (65-110); Magnesium 1.7 mg/dL (1.6-2.3); Potassium 3.5 mmol/L (3.4-5.0); Sodium 139 mmol/L (137-145)
[2021-12-31] MEDS: GABAPENTIN 300 MG CAPSULE PO ×3 (05:14→21:09)
--- NOTE | 2021-12-31 07:11 | WPDGIPROGNO ---
Progress Note: A&P Assessment and Plan (1) Anemia: Qualifiers: Anemia type: iron deficiency Iron deficiency anemia type: chronic blood loss Qualified Code(s): D50.0 - Iron deficiency anemia secondary to blood loss (chronic) Code(s): D64.9 - Anemia, unspecified Status: Acute Assessment and Plan: with her black tarry stools, she almost certainly has an upper gastrointestinal bleed. She had over-sewing of an ulcer 10 days ago and likely is bleeding from that ulcer base. (2) Acute GI bleeding: Code(s): K92.2 - Gastrointestinal hemorrhage, unspecified Status: Acute Assessment and Plan: the melena suggests upper gastrointestinal bleed as does the rise in her BUN. I discussed with the patient bleeding ulcers. I told her that over-sewing the perforation last week would normally be also curative for bleeding but she most likely has bleeding from somewhere along the ulcer base. At any rate we will schedule her for EGD to be done this morning . We will continue to monitor her blood counts. She may need a blood transfusion if her counts drop any further. 03/14 her EGD did reveal several ulcers. The largest was a 2 cm gastric antral ulcer that had evidence of recent bleed at the distal tip. That was injected with epinephrine and cauterized. Although she had pain immediately afterwards, as was suspected, she feels good today. I think we can advance her diet. (3) Acute kidney injury superimposed on chronic kidney disease: Code(s): N17.9 - Acute kidney failure, unspecified; N18.9 - Chronic kidney disease, unspecified Status: Acute Assessment and Plan: creatinine is up to 1.7 but probably partly due to dehydration (4) Perforated gastric ulcer: Code(s): K25.5 - Chronic or unspecified gastric ulcer with perforation Status: Acute Assessment and Plan: this was treated a [facility] 10 days ago. She had an open procedure, laparotomy. Her wound looks good. oddly, she states that she was not sent home with any medication for the ulcer. 12/31/2021 she is not having any significant pain today. Hemoglobin is 7.1. H pylori was negative. I will advance her diet. I told her that she will need a follow-up EGD in 6 weeks to assess ulcer healing Subjective Date/time seen: Aliza Handy is a 51 year old female ? With chronic kidney disease and DJD.? ? She presented to the emergency room yesterday complaining that since early yesterday morning she had been having black tarry stools.? She she had presented to the emergency room at [facility]? about 10 days ago with severe abdominal pain.? They sent her home and told her to take Tylenol.? When her pain became excruciating, she took a leave, 3 tablets and repeated this when she was getting no relief.? She finally returned to the emergency room and was being dismissed and told there was nothing else that could be done when, after CT scan showed free air in the abdomen, she was then told that she was going to the operating room.? She had over-sewing of an ulcer.? She believes that she was told it was a gastric ulcer.? She had not been using anti-inflammatory medications prior to her surgery, and had never been having stomach problems like an ulcer in the past.? She has past history of diabetes for which she is on metformin and Ozempic.? On admission here her hemoglobin was initially 9.3 and has dropped to 7.6.? She has had no vomiting or nausea.? She states that she called her surgeon yesterday morning when she noticed the black tarry stools and was ? Finally called back several hours later and told that she could not go to [facility] because they did not have the physicians necessary to treat her.? 12/31/21 07:11 She feels good this morning. Denies pain except for very slight discomfort where she had her surgery, her incision. The pain she experienced shortly after her EGD
--- NOTE | 2021-12-31 07:42 | WPDANESPN ---
Anes - Prog Note Post-Op Date/Time: 12/31/21 07:42 Cardiovascular status: other (anemia) Respiratory status: normal Airway patency: baseline Mental status: baseline Post-Op hydration status: normal Vital Signs: Last Vital Signs Temp 97.0 F L 12/31/21 05:00 Pulse 59 L 12/31/21 05:00 Resp 21 H 12/31/21 05:00 BP 101/58 L 12/31/21 05:00 Pulse Ox 100 12/31/21 05:00 O2 Del Method Nasal Cannula 12/31/21 02:39 O2 Flow Rate 2 12/31/21 02:39 Pain Score (VAS): 07/31 I/O: Intake & Output 12/30/21 12/30/21 12/31/21 15:59 23:59 07:59 Intake Total 550 1900 1000 Output Total 800 500 Balance 550 1100 500 Laboratory Tests 12/31/21 02:00 12/31/21 02:00 12/29/21 12/30/21 12/30/21 15:52 08:38 11:55 WBC RBC Hgb Hct MCV MCH MCHC RDW Plt Count MPV Immature Gran % (Auto) Neut % (Auto) Lymph % (Auto) [place] % (Auto) Eos % (Auto) Baso % (Auto) Lymph # (Auto) [place] # (Auto) Eos # (Auto) Baso # (Auto) Abs Immat Gran (auto) Absolute Neuts (auto) Absolute Nucleated RBC Nucleated RBC % Platelet Estimate Hypochromasia Sodium Potassium Chloride Carbon Dioxide Anion Gap BUN Creatinine Estim Creat Clear Calc Estimated GFR Glucose POC Capillary Glucose 79 80 Calcium Magnesium Total Bilirubin AST ALT Alkaline Phosphatase Total Protein Albumin Crossmatch See Detail 12/30/21 12/30/21 12/30/21 15:26 17:17 20:37 WBC RBC Hgb 8.0 L Hct 26.2 L MCV MCH MCHC RDW Plt Count MPV Immature Gran % (Auto) Neut % (Auto) Lymph % (Auto) [place] % (Auto) Eos % (Auto) Baso % (Auto) Lymph # (Auto) [place] # (Auto) Eos # (Auto) Baso # (Auto) Abs Immat Gran (auto) Absolute Neuts (auto) Absolute Nucleated RBC Nucleated RBC % Platelet Estimate Hypochromasia Sodium Potassium Chloride Carbon Dioxide Anion Gap BUN Creatinine Estim Creat Clear Calc Estimated GFR Glucose POC Capillary Glucose 81 70 Calcium Magnesium Total Bilirubin AST ALT Alkaline Phosphatase Total Protein Albumin Crossmatch 12/31/21 12/31/21 12/31/21 01:03 02:00 02:00 WBC 8.6 RBC 2.64 L Hgb 7.1 L Hct 23.8 L MCV 90.2 MCH 26.9 MCHC 29.8 L RDW 15.0 H Plt Count 243 MPV 8.1 Immature Gran % (Auto) 0.3 Neut % (Auto) 49.4 Lymph % (Auto) 31.6 [place] % (Auto) 6.7 Eos % (Auto) 11.2 H Baso % (Auto) 0.8 Lymph # (Auto) 2.73 [place] # (Auto) 0.6 Eos # (Auto) 1.0 H Baso # (Auto) 0.1 Abs Immat Gran (auto) 0.03 Absolute Neuts (auto) 4.3 Absolute Nucleated RBC 0.0 Nucleated RBC % 0.0 Platelet Estimate Adequate Hypochromasia 1+ Sodium 139 Potassium 3.5 Chloride 111 H Carbon Dioxide 21 L Anion Gap 7 L BUN 14 D Creatinine 1.30 H Estim Creat Clear Calc 63 Estimated GFR 43 L Glucose 214 H POC Capillary Glucose 84 Calcium 7.5 L Magnesium 1.7 Total Bilirubin 0.2 AST 24 ALT 16 Alkaline Phosphatase 71 Total Protein 6.0 L Albumin 3.1 L Crossmatch 12/31/21 02:17 WBC RBC Hgb Hct MCV MCH MCHC RDW Plt Count MPV Immature Gran % (Auto) Neut % (Auto) Lymph % (Auto) [place] % (Auto) Eos % (Auto) Baso % (Auto) Lymph # (Auto) [place] # (Auto) Eos # (Auto) Baso # (Auto) Abs Immat Gran (auto) Absolute Neuts (auto) Absolute Nucleated RBC Nucleated RBC % Platelet Estimate Hypochromasia Sodium Potassium Chloride Carbon Dioxide Anion Gap BUN Creatinine Estim Creat Clear Calc Estimated GFR Glucose POC Capillary Glucose 128 H Calcium Magnesium Total Bilirubin AST ALT Alkaline Phosphatase Total Protein Albumin Crossmatch Post-procedural complaints:
[2021-12-31] MEDS: HYDROcodone/acetaminophen (*CRX) 7.5-325 MG TABLET 1 TAB PO ×3 (07:58→20:46)
[2021-12-31] MEDS: ESCITALOPRAM OXALATE 10 MG TABLET PO (08:03)
[2021-12-31] MEDS: metFORMIN HCL XR 500 MG TAB.SR.24H PO (08:03)
[2021-12-31] MEDS: PANTOPRAZOLE SODIUM IV 40 MG VIAL IV PUSH ×2 (08:03→16:48)
--- NOTE | 2021-12-31 08:17 | PM.IMPN ---
Progress Note: A&P Assessment and Plan (1) Acute GI bleeding: Code(s): K92.2 - Gastrointestinal hemorrhage, unspecified Status: Acute Assessment and Plan: -in setting of recent surgical repair for perforated gastric ulcer. -Status post EGD yesterday. Multiple ulcerations were identified. Concern for recently bleeding 1 was also identified. Ulceration and question for bleeding was injected with epinephrine as well as cauterized over. - Hemoglobin continued to decline this morning further to 7.1 from what was 8.0 yesterday. Patient Will receive 1 unit of packed red blood cells given the fact that she is likely symptomatic as the events of last Evening occurred with rapid response. -monitor vital signs (2) Anemia: Qualifiers: Anemia type: iron deficiency Iron deficiency anemia type: chronic blood loss Qualified Code(s): D50.0 - Iron deficiency anemia secondary to blood loss (chronic) Code(s): D64.9 - Anemia, unspecified Status: Acute Assessment and Plan: -acute on chronic -patient's hemoglobin has slowly trended down from 11.0. Today it is 7.1 -continue to monitor q.6 hours. -transfuse today - EGD yesterday revealing multiple ulcerations questionable of whether or not 1 was bleeding. It was injected with epinephrine and cauterized. (3) Acute kidney injury superimposed on chronic kidney disease: Code(s): N17.9 - Acute kidney failure, unspecified; N18.9 - Chronic kidney disease, unspecified Status: Acute Assessment and Plan: -in setting of acute dehydration, as evidenced by acute AIDEE -continue IV fluids of normal saline at 125 ml/hour. -monitor daily labs and continue to monitor vital signs. - Improving. Today's creatinine is 1.30 with BUN of 14. (4) Diabetes mellitus type 2 in obese: Code(s): E11.69 - Type 2 diabetes mellitus with other specified complication; E66.9 - Obesity, unspecified Status: Acute Assessment and Plan: -continue current medication regimen. She has good control as patient's fasting glucose this morning was 87. -hypoglycemic protocol remains in place. -hold Ozempic - Fasting glucose this morning, 12/31/2021 is elevated at 214, however patient received an amp of D50 overnight when her glucose was only 80. Will continue to monitor this. (5) Essential hypertension: Code(s): I10 - Essential (primary) hypertension Status: Acute Assessment and Plan: -continue to hold lisinopril in setting of AIDEE on chronic kidney disease. -continue to monitor vital signs. -patient currently with normal BP. 111/48 currently Time Spent With Patient Time with patient: 15 - 25 minutes Subjective Date/time seen: 12/31/21 0730 This 61-year-old female patient was examined at the bedside today in interval assessment status post EGD yesterday in which several peptic ulcerations were identified, 1 of which had been recently bleeding. Overnight patient had a rapid response called on her for apparently being nonresponsive. Patient was found to have a blood glucose of 80 as well as she was felt to be having a response to anesthesia. She was administered Narcan, Romazicon as well as an amp of D50. Symptoms resolved on their own and patient slept the rest of the evening. Her neurological status remained unchanged. This morning she is wide awake upon my entry into the room she does not appear to be in any acute distress, she does not remember any events of last evening. She does complain of some epigastric abdominal pain, however no nausea, vomiting and she does endorse that she is passing flatus. GI has already evaluated her today and they are going to advance her diet to full liquid. In addition patient's hemoglobin further decline today to 7.1 from 8.0 yesterday. She will be administered a unit of packed red blood cells. Patient has no new complaints today such as chest pain, dyspnea, nausea, vomiting, diarrhea, headache,
--- NOTE | 2021-12-31 08:20 | PC.NURSE ---
Spoke with BRITANY Gaona. Patient's AM blood pressure decreased, orders received to hold morning dose of Lisinopril today only.
[2021-12-31 08:33] LABS: Hematocrit 24.1 % (37.0-47.0); Hemoglobin 7.2 g/dL (12.0-15.0)
[2021-12-31 09:02] LABS: Glucose Point of Care 73 mg/dl (65-105)
[2021-12-31] MEDS: SODIUM CHLORIDE 0.9% IV 250 ML 30 ML IV CONT (10:00)
[2021-12-31 11:46] LABS: Glucose Point of Care 87 mg/dl (65-105)
[2021-12-31 15:06] LABS: Hematocrit 28.4 % (37.0-47.0); Hemoglobin 8.3 g/dL (12.0-15.0)
[2021-12-31 16:51] LABS: Glucose Point of Care 96 mg/dl (65-105)
[2021-12-31 20:52] LABS: Glucose Point of Care 81 mg/dl (65-105)
[2022-01-01] MEDS: GABAPENTIN 300 MG CAPSULE PO ×3 (05:33→21:42)
[2022-01-01] MEDS: HYDROcodone/acetaminophen (*CRX) 7.5-325 MG TABLET 1 TAB PO (05:33)
[2022-01-01] MEDS: SODIUM CHLORIDE 0.9% IV 1,000 ML 125 ML IV CONT (05:35)
[2022-01-01 06:00] VITALS: BP 121/85; PULSE 74; RESP 18; TEMP 36.4; O2SAT 96
[2022-01-01 06:30] LABS: Basophils Absolute Auto 0.1 K/mm3 (0.0-0.1); Basophils Percent Auto 0.6 % (0.2-1.2); Eosinophils Percent Auto 11.8 % (0-4.4); Hematocrit 25.8 % (37.0-47.0); Hemoglobin 7.8 g/dL (12.0-15.0); Immature Granulocyte Absolute 0.02 K/mm3 (0.00-0.031); Immature Granulocyte Percent A 0.2 % (0-0.5); Lymphocytes Absolute Auto 2.39 K/mm3 (0.9-3.2); Mean Corpuscular HGB Conc 30.2 g/dl (32-36); Mean Corpuscular Hemoglobin 27.7 pg (26-34); Mean Corpuscular Volume 91.5 fl (80-100); Mean Platelet Volume 8.8 fl (7.4-10.4); Monocytes Absolute Auto 0.7 K/mm3 (0.1-0.6); Neutrophils Absolute Auto 4.2 K/mm3 (1.3-6.7); Neutrophils Percent Auto 50.4 % (45.5-73.1); Platelet Count Result 280 k/mm3 (150-375); Red Blood Count 2.82 M/mm3 (4.2-5.4); Red Cell Distribution Width 15.1 % (11.5-14.5); White Blood Count 8.2 K/mm3 (4.5-10.0)
[2022-01-01 07:03] LABS: Alanine Aminotransferase 14 U/L (6-35); Alkaline Phosphatase 74 U/L (38-126); Anion Gap 9 mmol/L (8-16); Aspartate Amino Transferase 20 U/L (14-36); Bilirubin,Total 0.2 mg/dL (0.2-1.3); Blood Urea Nitrogen 10 mg/dL (7-17); Calcium 7.8 mg/dL (8.4-10.2); Carbon Dioxide 21 mmol/L (22-30); Chloride 110 mmol/L (98-107); Estimated CRCL calculation 68 ml/min; Estimated Glomerular Filt Rate 47; Glucose 86 mg/dL (65-110); Magnesium 1.7 mg/dL (1.6-2.3); Potassium 3.8 mmol/L (3.4-5.0); Sodium 140 mmol/L (137-145)
--- NOTE | 2022-01-01 07:07 | WPDGIPROGNO ---
Progress Note: A&P Assessment and Plan (1) Anemia: Qualifiers: Anemia type: iron deficiency Iron deficiency anemia type: chronic blood loss Qualified Code(s): D50.0 - Iron deficiency anemia secondary to blood loss (chronic) Code(s): D64.9 - Anemia, unspecified Status: Acute Assessment and Plan: with her black tarry stools, she almost certainly has an upper gastrointestinal bleed. She had over-sewing of an ulcer 10 days ago and likely is bleeding from that ulcer base. (2) Acute GI bleeding: Code(s): K92.2 - Gastrointestinal hemorrhage, unspecified Status: Acute Assessment and Plan: the melena suggests upper gastrointestinal bleed as does the rise in her BUN. I discussed with the patient bleeding ulcers. I told her that over-sewing the perforation last week would normally be also curative for bleeding but she most likely has bleeding from somewhere along the ulcer base. At any rate we will schedule her for EGD to be done this morning . We will continue to monitor her blood counts. She may need a blood transfusion if her counts drop any further. 03/14 her EGD did reveal several ulcers. The largest was a 2 cm gastric antral ulcer that had evidence of recent bleed at the distal tip. That was injected with epinephrine and cauterized. Although she had pain immediately afterwards, as was suspected, she feels good today. I think we can advance her diet. (3) Acute kidney injury superimposed on chronic kidney disease: Code(s): N17.9 - Acute kidney failure, unspecified; N18.9 - Chronic kidney disease, unspecified Status: Acute Assessment and Plan: creatinine is up to 1.7 but probably partly due to dehydration (4) Perforated gastric ulcer: Code(s): K25.5 - Chronic or unspecified gastric ulcer with perforation Status: Acute Assessment and Plan: this was treated a [facility] 10 days ago. She had an open procedure, laparotomy. Her wound looks good. oddly, she states that she was not sent home with any medication for the ulcer. 12/31/2021 she is not having any significant pain today. Hemoglobin is 7.1. H pylori was negative. I will advance her diet. I told her that she will need a follow-up EGD in 6 weeks to assess ulcer healing Subjective Date/time seen: Aliza Handy is a 51 year old female ? With chronic kidney disease and DJD.? ? She presented to the emergency room yesterday complaining that since early yesterday morning she had been having black tarry stools.? She she had presented to the emergency room at [facility]? about 10 days ago with severe abdominal pain.? They sent her home and told her to take Tylenol.? When her pain became excruciating, she took a leave, 3 tablets and repeated this when she was getting no relief.? She finally returned to the emergency room and was being dismissed and told there was nothing else that could be done when, after CT scan showed free air in the abdomen, she was then told that she was going to the operating room.? She had over-sewing of an ulcer.? She believes that she was told it was a gastric ulcer.? She had not been using anti-inflammatory medications prior to her surgery, and had never been having stomach problems like an ulcer in the past.? She has past history of diabetes for which she is on metformin and Ozempic.? On admission here her hemoglobin was initially 9.3 and has dropped to 7.6.? She has had no vomiting or nausea.? She states that she called her surgeon yesterday morning when she noticed the black tarry stools and was ? Finally called back several hours later and told that she could not go to [facility] because they did not have the physicians necessary to treat her.? 12/31/21? 07:11? She feels good this morning.? Denies pain except for very slight discomfort where she had her surgery, her incision.? The pain she experienced shortly after her EGD
[2022-01-01 07:46] LABS: Glucose Point of Care 85 mg/dl (65-105)
[2022-01-01 08:42] VITALS: BP 135/70; PULSE 81; O2SAT 98
[2022-01-01] MEDS: metFORMIN HCL XR 500 MG TAB.SR.24H PO (08:44)
[2022-01-01] MEDS: lisinopriL 20 MG TABLET 40 MG PO (08:44)
[2022-01-01] MEDS: ESCITALOPRAM OXALATE 10 MG TABLET PO (08:44)
[2022-01-01 08:45] VITALS: O2SAT 98
[2022-01-01] MEDS: PANTOPRAZOLE 40 MG TABLET PO ×2 (09:08→20:47)
[2022-01-01] MEDS: ACETAMINOPHEN 500 MG TABLET 1000 MG PO (10:26)
[2022-01-01 11:38] LABS: Glucose Point of Care 87 mg/dl (65-105)
--- NOTE | 2022-01-01 12:44 | PM.IMPN ---
Progress Note: A&P Assessment and Plan (1) Acute GI bleeding: Code(s): K92.2 - Gastrointestinal hemorrhage, unspecified Status: Acute (2) Anemia: Qualifiers: Anemia type: iron deficiency Iron deficiency anemia type: chronic blood loss Qualified Code(s): D50.0 - Iron deficiency anemia secondary to blood loss (chronic) Code(s): D64.9 - Anemia, unspecified Status: Acute (3) Acute kidney injury superimposed on chronic kidney disease: Code(s): N17.9 - Acute kidney failure, unspecified; N18.9 - Chronic kidney disease, unspecified Status: Acute (4) Diabetes mellitus type 2 in obese: Code(s): E11.69 - Type 2 diabetes mellitus with other specified complication; E66.9 - Obesity, unspecified Status: Acute (5) Essential hypertension: Code(s): I10 - Essential (primary) hypertension Status: Acute (6) ABLA (acute blood loss anemia): Code(s): D62 - Acute posthemorrhagic anemia Status: Acute Plan 12/31/21 -in setting of recent surgical repair for perforated gastric ulcer. -Status post EGD yesterday.? Multiple ulcerations were identified.? Concern for recently bleeding 1 was also identified.? Ulceration and question for bleeding was injected with? epinephrine as well as cauterized over. - ? Hemoglobin continued to decline this morning further to 7.1 from what was 8.0 yesterday.? Patient ? Will receive 1 unit of packed red blood cells given the fact that she? is likely symptomatic as the events of last Evening occurred with rapid response. -monitor vital signs -ABLA on chronic anemia -patient's hemoglobin has slowly trended down from 11.0.? Today it is? 7.1 -continue to monitor q.6 hours. -transfuse today - EGD yesterday revealing multiple ulcerations questionable of whether or not 1 was bleeding.? It was injected with epinephrine and cauterized. -in setting of acute dehydration, as evidenced by acute AIDEE -continue IV fluids of normal saline at 125 ml/hour. -monitor daily labs and continue to monitor vital signs. - Improving.? Today's creatinine is 1.30 with BUN of 14. -continue current medication regimen.? She has good control as patient's fasting glucose this morning was 87. -hypoglycemic protocol remains in place. -hold Ozempic - ? Fasting glucose this morning, 12/31/2021 is elevated at 214, however patient received an amp of D50 overnight when her glucose was only 80.? Will continue to monitor this. -continue to hold lisinopril in setting of AIDEE on chronic kidney disease. -continue to monitor vital signs. -patient currently with normal BP. 111/48? currently 01/01/22 Hgb stable pt still not feeling at baseline health status AIDEE improving, will decrease IVF rate GI note reviewed, recs appreciated PPI BID PT consulted as pt reporting difficulty ambulating to restroom independently dc planning home in 24-48hrs Subjective Date/time seen: 01/01/22 12:44 Interval history: pt ok states that she still isn't feeling completely well, asks about her treatment acknowledges she is fearful this will happen again no BM no bleeding tolerating PO all meals today Review of Systems Review of Systems: All systems reviewed & are unremarkable except as noted in HPI and below Exam Narrative: GEN: NAD, AAOx3, cooperative, obese HEENT: NCAT, MMM, EOMI Neck: no JVD Heart: S1S2 RRR Lungs: CTA B/l Abd: soft, mild TTP, ND, midline surgical site healing as anticipated w well proximated borders no drainage or erythema bowel sounds normoactive Ext: moves all, no cyanosis, no clubbing, no edema Neuro: slow cognition, CN intact, no focal neuro deficits appreciated Psych: mood and affect congruent Objective Data Vital Signs Vital Signs: Vital Signs - 24 hr 12/31/21 13:02 12/31/21 14:15 12/31/21 20:00 Temperature 97.9 F 97.9 F Pulse Rate 89 84 Respiratory Rate 16 18 Blood Pressure 101/62 100/60 Pulse Oximetry 99 97 Oxygen Delivery Room Air
[2022-01-01] MEDS: SODIUM CHLORIDE 0.9% IV 1,000 ML 70 ML IV CONT (14:00)
[2022-01-01 14:10] VITALS: BP 136/88; PULSE 81; RESP 16; TEMP 37.1; O2SAT 96
[2022-01-01 16:47] LABS: Glucose Point of Care 75 mg/dl (65-105)
[2022-01-01 20:05] VITALS: BP 112/64; PULSE 74; RESP 20; TEMP 36.6; O2SAT 96
[2022-01-01 21:51] LABS: Glucose Point of Care 94 mg/dl (65-105)
[2022-01-02] MEDS: SODIUM CHLORIDE 0.9% IV 1,000 ML 70 ML IV CONT (02:54)
[2022-01-02 04:32] VITALS: BP 128/73; PULSE 85; RESP 20; TEMP 36.7; O2SAT 96
[2022-01-02] MEDS: GABAPENTIN 300 MG CAPSULE PO (05:31)
[2022-01-02 05:44] LABS: Basophils Absolute Auto 0.1 K/mm3 (0.0-0.1); Basophils Percent Auto 0.7 % (0.2-1.2); Eosinophils Absolute Auto 0.9 K/mm3 (0-0.3); Eosinophils Percent Auto 10.4 % (0-4.4); Hematocrit 26.5 % (37.0-47.0); Immature Granulocyte Absolute 0.03 K/mm3 (0.00-0.031); Immature Granulocyte Percent A 0.3 % (0-0.5); Lymphocytes Absolute Auto 1.93 K/mm3 (0.9-3.2); Lymphocytes Percent Auto 22.2 % (18.3-44.2); Mean Corpuscular HGB Conc 30.2 g/dl (32-36); Mean Corpuscular Hemoglobin 27.4 pg (26-34); Mean Corpuscular Volume 90.8 fl (80-100); Mean Platelet Volume 8.8 fl (7.4-10.4); Monocytes Absolute Auto 0.6 K/mm3 (0.1-0.6); Neutrophils Absolute Auto 5.2 K/mm3 (1.3-6.7); Neutrophils Percent Auto 59.4 % (45.5-73.1); Platelet Count Result 314 k/mm3 (150-375); Red Blood Count 2.92 M/mm3 (4.2-5.4); Red Cell Distribution Width 14.9 % (11.5-14.5); White Blood Count 8.7 K/mm3 (4.5-10.0)
[2022-01-02 05:54] LABS: Anion Gap 7 mmol/L (8-16); Blood Urea Nitrogen 8 mg/dL (7-17); Carbon Dioxide 23 mmol/L (22-30); Chloride 111 mmol/L (98-107); Estimated CRCL calculation 74 ml/min; Estimated Glomerular Filt Rate 52; Glucose 88 mg/dL (65-110); Magnesium 1.6 mg/dL (1.6-2.3); Potassium 3.7 mmol/L (3.4-5.0); Sodium 141 mmol/L (137-145)
[2022-01-02] MEDS: ACETAMINOPHEN 500 MG TABLET 1000 MG PO (06:20)
[2022-01-02 07:40] LABS: Glucose Point of Care 95 mg/dl (65-105)
[2022-01-02] MEDS: PANTOPRAZOLE 40 MG TABLET PO (08:42)
[2022-01-02] MEDS: ESCITALOPRAM OXALATE 10 MG TABLET PO (08:42)
[2022-01-02] MEDS: lisinopriL 20 MG TABLET 40 MG PO (08:42)
[2022-01-02] MEDS: metFORMIN HCL XR 500 MG TAB.SR.24H PO (08:42)
[2022-01-02 08:45] VITALS: O2SAT 98
[2022-01-02] MEDS: polyethylene glycoL 3350 17 GM POWD.PACK PO (10:44)
[2022-01-02 11:49] LABS: Glucose Point of Care 105 mg/dl (65-105)
[2022-01-02 14:00] VITALS: BP 136/86; PULSE 81; RESP 16; TEMP 37.1; O2SAT 97
--- NOTE | 2022-01-02 14:27 | PM.DS ---
DS: Admitting Diagnosis Discharge Date 01/02/22 Admitting Diagnosis (1) Acute GI bleeding: : (2) Anemia: (3) Acute kidney injury superimposed on chronic kidney disease: (4) Diabetes mellitus type 2 in obese: (5) Essential hypertension: DS: Discharge Diagnosis Discharge Diagnosis (1) ABLA (acute blood loss anemia): Code(s): D62 - Acute posthemorrhagic anemia Status: Acute (2) Acute kidney injury superimposed on chronic kidney disease: Code(s): N17.9 - Acute kidney failure, unspecified; N18.9 - Chronic kidney disease, unspecified Status: Acute Assessment and Plan: CKD 3 (3) Essential hypertension: Code(s): I10 - Essential (primary) hypertension Status: Acute (4) Diabetes mellitus type 2 in obese: Code(s): E11.69 - Type 2 diabetes mellitus with other specified complication; E66.9 - Obesity, unspecified Status: Acute (5) Acute GI bleeding: Code(s): K92.2 - Gastrointestinal hemorrhage, unspecified Status: Acute DS: Summary Hospital Course Reason for hospitalization: black diarrhea Hospital Course: 12/29/21 Patient had recent repair of perforated gastric ulcer.? On review of external med history does not appear the patient was discharged on PPI therapy.? Patient likely has upper GI bleeding resulting in melena secondary to recent surgery and gastric ulcer.? Patient has been placed on Protonix IV b.i.d..? She is NPO at midnight until evaluated by Gastroenterology.? Dr. Stephenson has been consulted.? Will trend H&H is q.6 hours. Patient does not have any leukocytosis or fever that would raise concern for abscess or postop infection. The patient has chronic anemia likely in part due to anemia chronic disease given her chronic kidney disease.? However she does have an acute component to her anemia with acute blood loss as her hemoglobin on presentation to the outside facility on the was 11 in trended down to 9.1 postoperatively.? Patient's hemoglobin on presentation here was stable but has again trended down with repeat labs down to 8.5.? Will continue to monitor. Due to dehydration.? Will continue IV fluid hydration and repeat electrolyte panel in a.m. She is currently euglycemic.? Her oral hypoglycemics have been placed on hold.? Her Ozempic has been placed on hold.? Will order Accu-Cheks q.6 hours and hypoglycemia protocol has been ordered as needed. Patient's blood pressures are stable.? Patient's lisinopril is on hold due to her acute on chronic kidney injury.? Will continue to monitor. 12/30/21 recent surgical repair for perforated gastric ulcer. -GI was consulted and patient will go for EGD today.? In reading their note they are suspicious that patient has bleeding around the base of the ulceration. -continue to monitor H&H Q 6 hours. -patient may need transfusion based upon results of trending hemoglobins as her hemoglobin this morning was 7.8. -monitor vital signs -acute on chronic -patient's hemoglobin has slowly trended down from 11.0.? Today it is 7.8. -continue to monitor q.6 hours. -transfuse as needed. -GI has been consulted and patient will have EGD today as a suspect that patient has some continued bleeding around the base of the ulcer. -in setting of acute dehydration, as evidenced by acute AIDEE -continue IV fluids of normal saline at 125 ml/hour. -monitor daily labs and continue to monitor vital signs. -continue current medication regimen.? She has good control as patient's fasting glucose this morning was 87. -hypoglycemic protocol remains in place. -hold Ozempic -continue to hold lisinopril in setting of AIDEE on chronic kidney disease. -continue to monitor vital signs. -patient currently with normal BP. 12/31/21 -Status post EGD yesterday.? Multiple ulcerations were identified.? Concern for recently bleeding 1 was also identified.? Ulceration and question for bleeding was injected with? epinephrine as well as cauterized over. - ? Hemoglobin continued to decline
== END 2022-01-02 14:45 | disposition home or self-care (01) | DRG 241 ==
LOC: ANHED 20:40 → ANH2MED 21:51
PROVIDERS: Internal Medicine Gastroenterology; Nurse Practitioner Adult Health; Physician Assistant; Admitting Provider Internal Medicine; Emergency Provider Emergency Medicine; PCP Physician Assistant; Visit Provider Hospitalist
PROC: 0DJ08ZZ Inspection of Upper Intestinal Tract, Via Natural or Artificial Opening Endoscopic (ICD-10-PCS; CPT 43235; principal; 2021-12-30 13:30)
DX: K25.6 Chronic or unspecified gastric ulcer with both hemorrhage and perforation (principal); N17.9 Acute kidney failure, unspecified; Z68.41 Body mass index [BMI] 40.0-44.9, adult; K21.9 Gastro-esophageal reflux disease without esophagitis; R41.82 Altered mental status, unspecified; E11.22 Type 2 diabetes mellitus with diabetic chronic kidney disease; I12.9 Hypertensive chronic kidney disease with stage 1 through stage 4 chronic kidney disease, or unspecified chronic kidney disease; D62 Acute posthemorrhagic anemia; N18.30 Chronic kidney disease, stage 3 unspecified; E86.0 Dehydration; E11.69 Type 2 diabetes mellitus with other specified complication; E66.9 Obesity, unspecified; E11.42 Type 2 diabetes mellitus with diabetic polyneuropathy; M47.896 Other spondylosis, lumbar region; F43.10 Post-traumatic stress disorder, unspecified; F41.9 Anxiety disorder, unspecified; F32.A Depression, unspecified; Z79.84 Long term (current) use of oral hypoglycemic drugs; Z79.899 Other long term (current) drug therapy; Z98.890 Other specified postprocedural states
CPT/HCPCS: 36415; 36430; 74177; 80048; 80053; 81001; 82948; 83735; 85014; 85018; 85025; 85610; 85730; 86850; 86900; 86901; 86920; 87081; 96361; 96365; 96374; 96375; 97161; 99285; A9270; C9113; G0378; G0379; J0131; J0171; J1170; J2310; J2405; J2704; J3010; J7030; J7050; J7120; P9016; Q9967

== ENCOUNTER 2024-04-06 13:27 | Outpatient (CLI) | payer MEDICARE, SELFPAY ==
--- NOTE | 2024-04-06 15:08 | ECG_ITS ---
Test Date: 2024-04-06 15:29:51 Measurements Intervals [place] Rate: 84 P: 10 DE: 106 QRS: 13 QRSD: 81 T: 21 QT: 345 QTc: 409 Interpretive Statements SINUS RHYTHM WITH SINUS ARRHYTHMIA WITH SHORT DE INTERVAL BASELINE ARTIFACT- I, III, AVR, AVL, AVF, V3 BORDERLINE ECG No previous ECG available for comparison Electronically Signed On 04-06-2024 16:42:27 [employer] by Joseph Causey D.O.
[2024-04-06 16:02] LABS: Basophils Absolute Auto 0.1 K/mm3 (0.0-0.1); Basophils Percent Auto 0.6 % (0.2-1.2); Eosinophils Absolute Auto 0.7 K/mm3 (0-0.3); Eosinophils Percent Auto 7.4 % (0-4.4); Hematocrit 39.8 % (37.0-47.0); Hemoglobin 12.6 g/dL (12.0-15.0); Immature Granulocyte Absolute 0.03 K/mm3 (0.00-0.031); Immature Granulocyte Percent A 0.3 % (0-0.5); Lymphocytes Absolute Auto 3.15 K/mm3 (0.9-3.2); Lymphocytes Percent Auto 31.5 % (18.3-44.2); Mean Corpuscular HGB Conc 31.7 g/dl (32-36); Mean Corpuscular Hemoglobin 26.5 pg (26-34); Mean Corpuscular Volume 83.6 fl (80-100); Mean Platelet Volume 8.9 fl (7.4-10.4); Monocytes Absolute Auto 0.5 K/mm3 (0.1-0.6); Monocytes Percent Auto 5.3 % (2.6-8.5); Neutrophils Absolute Auto 5.5 K/mm3 (1.3-6.7); Neutrophils Percent Auto 54.9 % (45.5-73.1); Platelet Count Result 294 k/mm3 (150-375); Red Blood Count 4.76 M/mm3 (4.2-5.4); Red Cell Distribution Width 14.6 % (11.5-14.5)
[2024-04-06 16:14] LABS: INR 0.9; Prothrombin Time 12.6 Seconds (11.1-14.7)
[2024-04-06 16:15] LABS: Partial Thromboplastin Time 27.5 Seconds (22.3-36.8)
[2024-04-06 17:16] LABS: MRSA (PCR) NOT DETECTED (NOT DETECTE)
[2024-04-06 17:27] LABS: Anion Gap 10 mmol/L (4-12); Blood Urea Nitrogen 27 mg/dL (7-17); Calcium 9.5 mg/dL (8.4-10.2); Carbon Dioxide 19 mmol/L (22-30); Chloride 109 mmol/L (98-107); Estimated Glomerular Filt Rate 47; Glucose 150 mg/dL (65-110); Potassium 4.5 mmol/L (3.4-5.0); Sodium 138 mmol/L (137-145)
[2024-04-06 18:19] LABS: Albumin Level 4.5 g/dL (3.5-5.1)
[2024-04-06 18:58] LABS: Hemoglobin A1C 5.5 % (<5.7)
[2024-04-06 19:52] LABS: Urine Cotinine NEGATIVE
== END 2024-04-06 13:28 | disposition home or self-care (01) ==
PROVIDERS: Anesthesiology; PCP Physician Assistant Medical; Visit Provider Orthopaedic Surgery
DX: Z01.818 Encounter for other preprocedural examination (principal); M17.12 Unilateral primary osteoarthritis, left knee; E11.22 Type 2 diabetes mellitus with diabetic chronic kidney disease; N18.9 Chronic kidney disease, unspecified; N17.9 Acute kidney failure, unspecified; E66.9 Obesity, unspecified
CPT/HCPCS: 36415; 80048; 80307; 82040; 83036; 85025; 85610; 85730; 86850; 86900; 86901; 87641; 93005

== ENCOUNTER 2024-04-19 00:31 | Day surgery (SDC) | payer MEDICARE, MEDICAID, SELFPAY ==
[2024-04-06 14:27] VITALS: BMI 37.0
[2024-04-06 14:42] VITALS: BP 151/95; PULSE 86; RESP 16; TEMP 37.2; O2SAT 98
--- NOTE | 2024-04-06 14:44 | PC.NURSE ---
Report to the Outpatient Waiting Room, entrance under the green pavilion located off [facility], at time __06:00am on date _04/19/24 . Planned Procedure Time: _07:30am .? Time changes happen often and if your time is changed the preop area will call you the afternoon before. - You and your visitor will be asked to self-screen and do not enter if you have any COVID symptoms. Please call surgeon if you need to reschedule. - A mask is optional within the hospital at this time. Patients may have clear liquids (water, carbonated beverages, clear teas, apple juice) until 3 hours prior to surgery with a maximum of 20 ounces. - No food from midnight until time of surgery and no smoking. This includes no chewing gum, candy or mints. Take only the following medications with a SIP of water on the morning of surgery: __Escitalopram, Gabapentin, Fluoxetine, Cyclobenzaprine as needed, Hydrocodone as needed, Tyelenol if needed DO NOT STOP ANY OF YOUR OTHER PRESCRIPTION MEDICATIONS PRIOR TO SURGERY EXCEPT THE FOLLOWING Medications to discontinue per physician None Date to take last dose____None Please no make-up, nail lithuanian, hairspray, perfume, deodorant, or body powder the day of surgery.? No jewelry (including any body piercings) or valuables the day of surgery, leave them at home.? Please take a shower or bath the night before, or the morning of, surgery with an antibacterial soap.? Wear comfortable, loose fitting clothing.? Prep Per Dr Medrano. - Jewelry must be removed prior to entering the operating room.? Rings and piercings that are not removed may be cut off. - The hospital will not accept responsibility for valuables.? - Please leave all valuables, including medications, at home the day of surgery. If you are going home after surgery, a licensed dumpcart driver must drive you home.? - NO public transportation without another adult if you receive anesthesia. - We recommend that an adult stay with you for 24 hours following discharge. - We also recommend that you do not drive, make important decision, drink alcoholic beverages, or take any drugs that were not prescribed by your health care provider for at least 24 hours after your discharge time. Follow any additional instructions given to you from your surgeon. Telephone instructions given to ___patient and asked if any additional questions and then verbalized understanding. Patient advised to call surgeon office or pre surgery nurse liaison [phone] if any additional questions.
--- NOTE | 2024-04-18 07:18 | P.HP_ITS ---
H&P: HPI History of Present Illness Date/Time: 04/18/24 07:18 Chief Complaint: Patient has osteoarthritis of the left knee unresponsive to conservative treatment. She would like to proceed with knee replacement surgery. Review of Systems Musculoskeletal: Musculoskeletal: Reports arthralgias, Reports joint swelling and Reports stiffness [facility] Past Medical History Medical History (Reviewed 03/30/24 @ 08:14 by Joanie Villegas [facility]) Anxiety Chronic anemia Chronic kidney disease, stage III (moderate) Degenerative joint disease (DJD) of lumbar spine Depression Diabetes A1c 6.6% on 12/19/2021 Diabetic peripheral neuropathy Essential hypertension Hepatic steatosis Perforated gastric ulcer Perforated gastric ulcer PTSD (post-traumatic stress disorder) Surgical History Surgical History (Reviewed 03/30/24 @ 08:14 by Joanie Villegas [facility]) History of laparotomy (12/17/21) For repair of gastric ulcer History of tubal ligation (1994) History of ventral hernia repair X2 in 2020 Family History Family History (Reviewed 03/30/24 @ 08:14 by Joanie Villegas [facility]) Father Diabetes mellitus Hypertension Mother Diabetes mellitus Hypertension Sibling Diabetes mellitus Hypertension Social History Social History (Updated 03/30/24 @ 09:17 by Sonam Loyola [facility]) Social History: Code status: Full code Surrogate decision maker: Mother Smoking packs per day: 1 Smoking cigarettes per day: 20.0 Years smoked: 20 Smoking pack-years: 20.00 Smoking status: Former smoker Tobacco type: cigarettes Second hand tobacco smoke exposure: Yes Smoking end date: 05/24/20 Additional smoking assessment comments: No nicotine use at all pt denies Alcohol intake: never Substance use: never Substance use type: does not use Do You Feel Safe in your Home?: Yes Lack of Transportation: No Lack of Food: Never True Current Housing: I Have Housing Concerned About Future Housing: No Difficulty Paying Gas/Electric Bills: No Difficulty Paying for Meds: No Currently Unemployed: No Education: High School Diploma/GED Difficulty w/ Childcare or Family Care: No Living arrangements: with family Additional living arrangements comments: She lives with her mother. She has 3 children the youngest of which was born in 1994. Additional occupation/education comments: She dropped out of high school but went back and got her GED. She got various certificate over a 4 year course at the [employer]. 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 She is now on disability due to her chronic kidney disease, diabetes, DJD and osteoarthritis. Spiritual care concerns: No Meds Home Medications and Allergies Home Medications Medication Instructions Recorded Confirmed Type escitalopram oxalate 10 mg tablet 20 mg PO DAILY 12/29/21 04/06/24 History gabapentin 300 mg capsule 300 mg PO TID 12/29/21 04/06/24 History hydrocodone 5 mg-acetaminophen 325 1 tablet PO Q6H PRN Pain 12/29/21 04/06/24 History mg tablet lisinopril 40 mg tablet 40 mg PO DAILY 12/29/21 04/06/24 History metformin 500 mg tablet,extended 500 mg PO DAILY 12/29/21 04/06/24 History release 24 hr semaglutide 0.25 mg or 0.5 mg (2 0.25 mg subcut WEEKLY 12/29/21 04/06/24 History mg/1.5 mL) subcutaneous pen injector (Ozempic) acetaminophen 500 mg tablet 500 mg PO Q6H PRN Mild Pain (1-3) 01/02/22 04/06/24 Rx Or Fever #20 tabs polyethylene glycol 3350 17 gram 17 g PO QAM PRN Constipation 30 01/02/22 04/06/24 Rx oral powder packet (Miralax) days #30 ea ergocalciferol (vitamin D2) 1,250 1,250 mcg PO WEEKLY 04/06/24 04/06/24 History mcg (50,000 unit) capsule fluoxetine 20 mg capsule 20 mg PO DAILY 04/06/24 04/06/24 History Allergies Allergy/AdvReac Type Severity Reaction Status Date / Time VINEGAR AdvReac Intermediate Dyspnea / Uncoded 04/06/24 14:22 SOB Exam Narrative: An On exam she has motion of her knee from about 5-110 degrees. She has valgus deformity. Grinding crepitus and pain with any manipulation. She walks with an antalgic gait. Neurologically she appears to be grossly intact. Eyes: General: appearance normal, both eyes and all related structures Neck: Neck: supple Resp: Effort & Inspection: normal respiratory effort Cardio: Rate: regular rate Rhythm: regular rhythm Radiology Reports: Comments: Patient: Aliza Handy Date of Service: 03/30/24 Results of Diagnostic Exam (Interpreted Today) Interpretation: AP lateral skyline view both knees demonstrate severe degenerative change. She has got a more arthritis medially on the right laterally on the left so she has a windswept appearance. She does have spurring and sclerosis. Orthopedics Result Report 03/30/24 Assessment and Plan Assessment and plan (1) Osteoarthritis of knees, bilateral: Code(s): M17.0 - Bilateral primary osteoarthritis of knee Status: Acute Assessment and Plan: Patient has osteoarthritis both knees. The right and the left. She has varus deformity on the right valgus on the left. She would like to begin with the left knee as she has failed conservative treatment like to proceed with knee replacement surgery. I have discussed this with her risks benefits limitations and alternatives in detail. She understands and agrees. Will proceed per her request.
[2024-04-19] VITALS (13 sets, daily range): BP systolic 107–133; BP diastolic 60–81; PULSE 76–88; RESP 12–20; TEMP 36.2–36.6; O2SAT 97–100
--- NOTE | ~2024-04-19 | XR_ITS ---
EXAMINATION: [id number] DATE: 04/19/2024 09:47 INDICATION: Total left knee arthroplasty. Postop. TECHNIQUE: 2 views of left knee were obtained. COMPARISON: Left knee radiographs 01/26/2024 FINDINGS: There is a total left knee arthroplasty with patellar resurfacing in near-anatomic alignmen t. No fracture. There is gas in the knee joint and soft tissues, consistent with recent surgery. Ante rior skin ade are noted. IMPRESSION: 1. Total left knee arthroplasty in near-anatomic alignment. Reviewed, dictated and finalized at location A. RITIES BROKER
[2024-04-19] MEDS: VANCOMYCIN 1,500 MG/NS 500 ML BAG 250 MG IVPB (06:30)
[2024-04-19] MEDS: TRANEXAMIC ACID 1,000MG/ISO100 1,000 MG/100 ML BAG 200 MG IVPB (06:30)
[2024-04-19] MEDS: LACTATED RINGERS 1,000 ML 30 ML IV CONT ×2 (06:30→09:25)
[2024-04-19 06:36] LABS: Glucose Point of Care 92 mg/dl (65-105)
[2024-04-19] MEDS: ACETAMINOPHEN 500 MG TABLET 1000 MG PO (06:49)
--- NOTE | 2024-04-19 06:50 | WPDHPUPDATE1 ---
History and Physical Update Update Date/Time: 04/19/24 06:50 History and Physical has been reviewed, including an updated exam of the patient. There are NO changes in the patient's condition. Risks, benefits, and alternatives have been discussed and questions answered. Patient agrees to proceed with procedure.
--- NOTE | 2024-04-19 07:03 | WPDANESEPPF ---
Anes - Initial Pre Proc Eval Procedure: Operation Date: 04/19/24 07:30 Proposed Procedures p Left Total Knee Arthroplasty - Alec Medrano MD Date/Time: 04/19/24 07:03 Surgeon: Alec Medrano MD Pre Op Diagnosis: O A Left Knee Patient Data Age: 54 Gender: F Height: 1.7 m Weight: 109.3 kg Last Vital Signs Temp 37.2 C 04/06/24 14:42 Pulse 86 04/06/24 14:42 Resp 16 04/06/24 14:42 BP 151/95 H 04/06/24 14:42 Pulse Ox 98 04/06/24 14:42 O2 Del Method Room Air 04/06/24 14:42 Allergies Allergy/AdvReac Type Severity Reaction Status Date / Time VINEGAR AdvReac Intermediate Dyspnea / Uncoded 04/19/24 06:11 SOB Home Medications Medication Instructions Recorded Confirmed Type escitalopram oxalate 10 mg tablet 20 mg PO DAILY 12/29/21 04/19/24 History gabapentin 300 mg capsule 300 mg PO TID 12/29/21 04/19/24 History hydrocodone 5 mg-acetaminophen 325 1 tablet PO Q6H PRN Pain 12/29/21 04/19/24 History mg tablet lisinopril 40 mg tablet 40 mg PO DAILY 12/29/21 04/19/24 History metformin 500 mg tablet,extended 500 mg PO DAILY 12/29/21 04/19/24 History release 24 hr semaglutide 0.25 mg or 0.5 mg (2 0.25 mg subcut WEEKLY 12/29/21 04/19/24 History mg/1.5 mL) subcutaneous pen injector (Ozempic) acetaminophen 500 mg tablet 500 mg PO Q6H PRN Mild Pain (1-3) 01/02/22 04/06/24 Rx Or Fever #20 tabs polyethylene glycol 3350 17 gram 17 g PO QAM PRN Constipation 30 01/02/22 04/06/24 Rx oral powder packet (Miralax) days #30 ea ergocalciferol (vitamin D2) 1,250 1,250 mcg PO WEEKLY 04/06/24 04/19/24 History mcg (50,000 unit) capsule fluoxetine 20 mg capsule 20 mg PO DAILY 04/06/24 04/19/24 History Laboratory Tests 04/19/24 06:32 POC Capillary Glucose 92 mg/dl (65-105) Patient hx anesthesia problems: none Family hx anesthesia problems: none Results Review: All pre-operative results and documents have been reviewed as part of the pre-operative evaluation. [facility] Past Medical History Medical History (Updated 04/19/24 @ 07:08 by Chuy Lockett DO) Anxiety Chronic anemia Chronic kidney disease, stage III (moderate) Chronic, continuous use of opioids norcox1 daily Degenerative joint disease (DJD) of lumbar spine Depression Diabetes A1c 6.6% on 12/19/2021 Diabetic peripheral neuropathy Essential hypertension Hepatic steatosis Perforated gastric ulcer Perforated gastric ulcer PTSD (post-traumatic stress disorder) Surgical History Surgical History (Reviewed 03/30/24 @ 08:14 by Joanie Villegas [facility] [address]) History of laparotomy (12/17/21) For repair of gastric ulcer History of tubal ligation (1994) History of ventral hernia repair X2 in 2020 Family History Family History (Reviewed 03/30/24 @ 08:14 by Joanie Villegas [facility] [address]) Father Diabetes mellitus Hypertension Mother Diabetes mellitus Hypertension Sibling Diabetes mellitus Hypertension Social History Social History (Updated 03/30/24 @ 09:17 by Sonam Loyola CMA) Social History: Code status: Full code Surrogate decision maker: Mother Smoking packs per day: 1 Smoking cigarettes per day: 20.0 Years smoked: 20 Smoking pack-years: 20.00 Smoking status: Former smoker Tobacco type: cigarettes Second hand tobacco smoke exposure: Yes Smoking end date: 05/24/20 Additional smoking assessment comments: No nicotine use at all pt denies Alcohol intake: never Substance use: never Substance use type: does not use Do You Feel Safe in your Home?: Yes Lack of Transportation: No Lack of Food: Never True Current Housing: I Have Housing Concerned About Future Housing: No Difficulty Paying Gas/Electric Bills: No Difficulty Paying for Meds: No Currently Unemployed: No Education: High School Diploma/GED Difficulty w/ Childcare or Family Care: No Living arrangements: with family Additional living arrangements comments: She lives with her mother. She has 3 children the youngest of which was born in 1994. Additional occupation/education comments: She dropped out of high school but went back and got her GED. She got various certificate over a 4 year course at the [employer]. 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 She is now on disability due to her chronic kidney disease, diabetes, DJD and osteoarthritis. Spiritual care concerns: No Anes - Eval Final PreProcedure Day of Procedure 04/19/24 07:03 Patient weight: obese Heart: regular rate and rhythm Lungs: clear to auscultation Airway: Mallampati scale class 1 Neurological: alert and oriented Last oral intake: >/= 8 hours ASA classification: III Emergent: no Anesthetic plan: proceed Anesthesia type and monitoring: general LMA and standard monitoring Results Review: All pre-operative results and documents have been reviewed as part of the pre-operative evaluation. Informed Consent: The patient's anesthetic plan and its attendant risks and benefits were discussed with the patient/family/POA. Questions were solicited and answers provided to the satisfaction of the patient/family/POA.
--- NOTE | 2024-04-19 07:09 | WPDANESPNB ---
Anes - Peripheral Nerve Block Date/Time: 04/19/24 07:09 I have discussed with the patient/family/POA the placement of a peripheral nerve block for post-operative pain management, including associated risks, benefits, complications, and side effects. Alternative methods of post-operative analgesia were detailed. Questions were solicited and answers provided to the satisfaction of the patient/family/POA. Time-Out: A pre-procedural Time-Out was completed immediately before starting the procedure and confirmed: Patient Identification, Site, Procedure, Patient Position and the Availability of Requisite Equipment. Clinical Indications: Acute post-operative pain management requested by the operative surgeon. Nerve Block Insertion Note Anes-nerve block: adductor canal left Patient position: supine Skin prep: chlorhexidine Needle: 22 gauge, stimulating, insulated echogenic needle. Needle length: 80 mm Technique: ultrasound Injectate: bupivacaine 0.5% with epi 5 mcg/ml (30cc - no epi) Observations: tolerated well Complications: none Procedure start time:: 726 Procedure end time:: 729
[2024-04-19] MEDS: ceFAZolin 2 GM/D5W 50 ML 2 GM/50 ML BAG IVPB ×3 (07:30→23:28)
[2024-04-19] MEDS: SODIUM CHLORIDE 0.9% IV 37.7 ML, MORPHINE SULFATE INJ (*CRX) 2 MG, ROPivacaine HCL 1% 2... INFILTRATE (08:07)
[2024-04-19] MEDS: TRANEXAMIC ACID 1,000 MG/10 ML AMPUL 1000 MG IV PUSH (08:42)
--- NOTE | 2024-04-19 09:00 | P.OP_ITS ---
Procedure Note - Detailed Date of Procedure 04/19/24 Pre-op Diagnosis Osteoarthritis Left Knee Post-op Diagnosis Same Procedure Performed Left total knee arthroplasty Surgeon Alec Medrano MD [employer] Nito Anthony Anesthesia General Indications Pain and Arthritis Description of Procedure The patient was brought to operating room #7. A general anesthetic was administered. Placed on the operating table and sterilely prepped and draped in usual manner. A longitudinal incision was made. Tourniquet inflated to 300 mmHg for a total of 42 minutes. Dissection was carried down to the fascia. Medial parapatellar incision was made and the patella subluxated laterally. Patella cut from 24 to 15 mm and sized for a 34 mm button. The tibia was cut perpendicular to the long axis and femur cut in 7 degrees of valgus. A 65 femur trialed. 67 tibia was felt to fit the best. The soft tissues balanced, hemostasis obtained. All [address], 67 tibia, 65 femur, 34 mm patella, and 11 mm poly. Motion was 0-125 degrees with good stability in both flexion and extension. The wound was closed with #2 Vicryl, 2-0 Vicryl and ade. [employer] Estimated Blood Loss 200 Drains No Packing No Pathology None sent Complications No immediate complications Condition Stable Disposition PACU [facility] Billing Surgery - Charge Forward: Surgery Billing ([id number] Total Knee)
[2024-04-19 09:32] LABS: Glucose Point of Care 137 mg/dl (65-105)
[2024-04-19] MEDS: fentaNYL CITRATE INJ (*CRX) 100 MCG/2 ML VIAL 25 MCG IV PUSH ×6 (09:34→10:01)
[2024-04-19] MEDS: HYDROmorphone HCL INJ (*CRX) 1 MG/ML SYR 0.5 MG IV PUSH (10:19)
--- NOTE | 2024-04-19 11:18 | ADMGEN ---
This patient, Aliza Handy, was admitted to 3 [facility] Surg Room 313-01. Patient/family oriented to hospital policies and general routines including ID bracelet, bed and alarms, visiting hours, pain management, procedures, bathroom and other care routines, personal items, smoking policy, room service/diet, and visiting hours. Information on how to activate the Rapid Response Team has been discussed. Patient/Family are encouraged to report perceived risks to care and to ask questions if they do not understand what they are told or what they should do.
[2024-04-19] MEDS: SODIUM CHLORIDE 0.9% IV 1,000 ML 125 ML IV CONT (11:46)
[2024-04-19] MEDS: HYDROcodone/acetaminophen (*CRX) 7.5-325 MG TABLET 1 TAB PO ×2 (11:59→17:18)
[2024-04-19] MEDS: ESCITALOPRAM OXALATE 10 MG TABLET 20 MG PO (11:59)
[2024-04-19] MEDS: FLUoxetine HCL 20 MG CAPSULE PO (11:59)
--- NOTE | 2024-04-19 12:10 | PM.IMCN ---
Assessment and Plan Assessment and plan (1) Osteoarthritis of knees, bilateral: Qualifiers: Osteoarthritis type: primary Qualified Code(s): M17.0 - Bilateral primary osteoarthritis of knee Code(s): M17.0 - Bilateral primary osteoarthritis of knee Status: Acute Assessment and Plan: Total left knee arthroplasty done on 04/19 with Mitchell KELLEY. Primary management through orthopedic team. - ambulate with assistance and up to chair - use IS - neurovasc checks - see order for intervals - SCDs and TEDs - analgesics and antiemetics p.r.n. - monitor labs in AM - CBC and BMP - bowel regimen: docusate/senna, polyethylene glycol - maintenance fluids: NS 125 mL/hr x8 hrs - PT/OT (2) Anemia: Qualifiers: Anemia type: iron deficiency Iron deficiency anemia type: chronic blood loss Qualified Code(s): D50.0 - Iron deficiency anemia secondary to blood loss (chronic) Code(s): D64.9 - Anemia, unspecified Status: Chronic Assessment and Plan: - hemoglobin 12.6, previously 8.0 in 2021 - monitor (3) Diabetes mellitus type 2 in obese: Code(s): E11.69 - Type 2 diabetes mellitus with other specified complication; E66.9 - Obesity, unspecified Status: Resolved Assessment and Plan: - no home medications - A1C 5.5% on 04/06/2024 (4) Essential hypertension: Code(s): I10 - Essential (primary) hypertension Status: Chronic Assessment and Plan: - chronic, currently 124/81 - no current home medications - monitor Plan Diet: Regular GI Prophylaxis: Not currently indicated DVT Prophylaxis: SCDs, ROBERT. Starting Xarelto on 04/19. Lines: Peripheral Code Status: Full code HPI Date of Consult Consult date: 04/19/24 Requesting Physician: Alec Medrano MD Primary Care Provider: Javi Brewster, PA Consult Narrative Reason for consult: Medical Managment Narrative: 54 y/o F presents here for a left total knee arthroplasty with PMH of chronic anemia, CKD stage 3, DM, HTN, PTSD, and anxiety/depression. The patient presented here for a total left knee arthroplasty which was done on 04/19 with Mitchell KELLEY. The patient pre-operatively reported bilateral knee pain that has been present for over a year. She reports left worse than right. Pain worsens with activity and is partially alleviated by rest. Now having an effect on her ADLs including walking and working around the house. She has previously trialed physial therapy with minimal result. Given these factors she elected to move forward with surgical management. Post-operatively she is reporting that she is feeling well, having a moderate amount of pain to her left knee, and tolerated PT okay. She did have a brief episode of dizziness and drop in her BP that resolved with sitting/resting. Denies any recent changes to her past medical history or home medications. Preop VS: 90.9? F, HR 86, RR 16, 151/95, and 98% on RA. Preop workup: No leukocytosis, hemoglobin 12.6, creatinine 1.2 and GFR 47 (previously 1.1 and GFR 52 in 2021), glucose 150, A1c 5.5%. Review of Systems Review of Systems: All systems reviewed & are unremarkable except as noted in HPI and below PMFSH Past Medical History Medical History (Updated 04/19/24 @ 12:23 by Yola Rasmussen APRN) Anxiety Chronic anemia Chronic kidney disease, stage III (moderate) Chronic, continuous use of opioids norcox1 daily Degenerative joint disease (DJD) of lumbar spine Depression Diabetes A1c 6.6% on 12/19/2021 Diabetic peripheral neuropathy Essential hypertension Hepatic steatosis Perforated gastric ulcer PTSD (post-traumatic stress disorder) Surgical History Surgical History (Updated 04/19/24 @ 12:19 by Yola Rasmussen APRN) History of laparotomy (12/17/21) For repair of gastric ulcer History of total knee arthroplasty (04/19/24) left History of tubal ligation (1994) History of ventral hernia repair X2 in 2020 Family History Family History Father Diabetes mellitus Hypertension Mother Diabetes mellitus Hypertension Sibling Diabetes mellitus Hypertension Social History Social History Social History: Code status: Full code Surrogate decision maker: Mother Smoking packs per day: 1 Smoking cigarettes per day: 20.0 Years smoked: 20 Smoking pack-years: 20.00 Smoking status: Former smoker Tobacco type: cigarettes Second hand tobacco smoke exposure: Yes Additional smoking assessment comments: No nicotine use at all pt denies Alcohol intake: never Substance use: never Substance use type: does not use Do You Feel Safe in your Home?: Yes Lack of Transportation: No Lack of Food: Never True Current Housing: I Have Housing Concerned About Future Housing: No Difficulty Paying Gas/Electric Bills: No Difficulty Paying for Meds: No Currently Unemployed: No Education: High School Diploma/GED Difficulty w/ Childcare or Family Care: No Living arrangements: with family Additional living arrangements comments: She lives with her mother. She has 3 children the youngest of which was born in 1994. Additional occupation/education comments: She dropped out of high school but went back and got her GED. She got various certificate over a 4 year course at the [employer]. 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 She is now on disability due to her chronic kidney disease, diabetes, DJD and osteoarthritis. Spiritual care concerns: No Meds Home Medications and Allergies Home Medications Medication Instructions Recorded Confirmed Type escitalopram oxalate 10 mg tablet 20 mg PO DAILY 12/29/21 04/19/24 History gabapentin 300 mg capsule 300 mg PO TID 12/29/21 04/19/24 History hydrocodone 5 mg-acetaminophen 325 1 tablet PO Q6H PRN Pain 12/29/21 04/19/24 History mg tablet lisinopril 40 mg tablet 40 mg PO DAILY 12/29/21 04/19/24 History metformin 500 mg tablet,extended 500 mg PO DAILY 12/29/21 04/19/24 History release 24 hr semaglutide 0.25 mg or 0.5 mg (2 0.25 mg subcut WEEKLY 12/29/21 04/19/24 History mg/1.5 mL) subcutaneous pen injector (Ozempic) acetaminophen 500 mg tablet 500 mg PO Q6H PRN Mild Pain (1-3) 01/02/22 04/06/24 Rx Or Fever #20 tabs polyethylene glycol 3350 17 gram 17 g PO QAM PRN Constipation 30 01/02/22 04/06/24 Rx oral powder packet (Miralax) days #30 ea ergocalciferol (vitamin D2) 1,250 1,250 mcg PO WEEKLY 04/06/24 04/19/24 History mcg (50,000 unit) capsule fluoxetine 20 mg capsule 20 mg PO DAILY 04/06/24 04/19/24 History Allergies Allergy/AdvReac Type Severity Reaction Status Date / Time VINEGAR AdvReac Intermediate Dyspnea / Uncoded 04/19/24 06:11 SOB Vital Signs Vital Signs - 24 hr 04/19/24 09:25 04/19/24 09:40 04/19/24 09:55 Temperature 97.2 F L Pulse Rate 85 82 77 Respiratory Rate 14 17 12 Blood Pressure 133/69 123/74 120/66 Pulse Oximetry 100 99 100 Oxygen Delivery Simple Face Mask Simple Face Mask Simple Face Mask Oxygen Flow Rate 8 8 8 04/19/24 10:10 04/19/24 10:25 04/19/24 10:40 Temperature 97.2 F L Pulse Rate 78 86 85 Respiratory Rate 12 20 18 Blood Pressure 118/72 124/78 132/77 Pulse Oximetry 97 97 100 Oxygen Delivery Nasal Cannula Nasal Cannula Nasal Cannula Oxygen Flow Rate 2 2 2 04/19/24 10:48 04/19/24 11:03 04/19/24 11:20 Temperature 97.6 F 97.6 F 97.6 F Pulse Rate 76 79 76 Respiratory Rate 16 16 16 Blood Pressure 122/70 132/78 122/70 Pulse Oximetry 100 100 100 Oxygen Delivery Oxygen Flow Rate 04/19/24 11:50 Temperature 97.6 F Pulse Rate 76 Respiratory Rate 16 Blood Pressure 124/81 Pulse Oximetry 100 Oxygen Delivery Oxygen Flow Rate Exam Const: General: comfortable and no acute distress Other: , female, nontoxic appearance HENMT: Face/Nose/Sinus: Normal nares present Mouth: Yes moist mucous membranes Eyes: General: appearance normal, both eyes and all related structures Sclera: sclerae normal Pupils: Equal, round and reactive pupils present EOM: EOMs intact bilaterally Resp: Effort & Inspection: normal respiratory effort Auscultation: clear to auscultation bilaterally Cardio: Rate: regular rate Rhythm: regular rhythm Other: S1-S2 present without murmur, rub, ectopy GI: Other: Abdomen soft, nondistended, nontender. Normal to hypoactive bowel sounds in all quadrants. Skin: General skin exam: normal color and no rashes or lesions noted Wounds: wounds noted (Postoperative incision to left knee. Joe bandage CDI.) Neuro: Speech: normal speech Motor exam (neuro): 5/5 motor strength present throughout Sensory Exam: normal sensation Other: A&O x4. Mild somnolence. Extrem: General: normal exam except as noted Other: Moderate amount of edema to left knee with tenderness. Psych: Mental Status: mental status grossly normal Affect: normal affect Other: Good insight and judgment, pleasant. Quality VTE Prophylaxis VTE prophylaxis: mechanical ordered and pharmacologic ordered Hospitalist MIPS Advance Care Plan I have confirmed that the patient's Advanced Care Plan is present, code status is documented, or surrogate decision maker is listed in patient medical record.: Yes Medication Reconciliation I have utilized all available resources to obtain, update and review the patients current medications (includes all prescriptions, OTC, herbals, cannabis, and nutritional supplements).: Yes
[2024-04-19] MEDS: GABAPENTIN 300 MG CAPSULE PO ×2 (12:33→17:11)
--- NOTE | 2024-04-19 14:20 | PC.NURSE ---
Patient became light headed and returned to bed with therapy.
[2024-04-19] MEDS: CYCLOBENZAPRINE HCL 10 MG TABLET PO (15:43)
[2024-04-19] MEDS: CELECOXIB 200 MG CAPSULE PO (17:11)
[2024-04-19] MEDS: SENNA/DOCUSATE SODIUM TABLET 2 TAB PO (17:11)
[2024-04-19] MEDS: RIVAROXABAN 10 MG TABLET PO (17:12)
[2024-04-19] MEDS: HYDROcodone/acetaminophen (*CRX) 5-325 MG TABLET 1 TAB PO (23:50)
[2024-04-20 00:12] VITALS: BP 105/69; PULSE 91; RESP 16; TEMP 36.6; O2SAT 98
[2024-04-20 04:33] VITALS: BP 103/59; PULSE 92; RESP 18; TEMP 36.4; O2SAT 97
[2024-04-20] MEDS: HYDROcodone/acetaminophen (*CRX) 7.5-325 MG TABLET 1 TAB PO ×2 (06:11→09:43)
[2024-04-20 06:48] LABS: Basophils Percent Auto 0.4 % (0.2-1.2); Eosinophils Absolute Auto 0.1 K/mm3 (0-0.3); Eosinophils Percent Auto 0.6 % (0-4.4); Hematocrit 31.3 % (37.0-47.0); Hemoglobin 9.6 g/dL (12.0-15.0); Immature Granulocyte Absolute 0.02 K/mm3 (0.00-0.031); Immature Granulocyte Percent A 0.2 % (0-0.5); Lymphocytes Absolute Auto 2.05 K/mm3 (0.9-3.2); Lymphocytes Percent Auto 22.1 % (18.3-44.2); Mean Corpuscular HGB Conc 30.7 g/dl (32-36); Mean Corpuscular Hemoglobin 26.1 pg (26-34); Mean Corpuscular Volume 85.1 fl (80-100); Mean Platelet Volume 8.7 fl (7.4-10.4); Monocytes Absolute Auto 0.8 K/mm3 (0.1-0.6); Monocytes Percent Auto 8.4 % (2.6-8.5); Neutrophils Absolute Auto 6.3 K/mm3 (1.3-6.7); Neutrophils Percent Auto 68.3 % (45.5-73.1); Platelet Count Result 248 k/mm3 (150-375); Red Blood Count 3.68 M/mm3 (4.2-5.4); Red Cell Distribution Width 14.9 % (11.5-14.5); White Blood Count 9.3 K/mm3 (4.5-10.0)
[2024-04-20 06:55] LABS: Anion Gap 10 mmol/L (4-12); Blood Urea Nitrogen 30 mg/dL (7-17); Calcium 8.8 mg/dL (8.4-10.2); Carbon Dioxide 19 mmol/L (22-30); Chloride 107 mmol/L (98-107); Estimated CRCL calculation 56 ml/min; Estimated Glomerular Filt Rate 43; Glucose 85 mg/dL (65-110); Potassium 4.3 mmol/L (3.4-5.0); Sodium 136 mmol/L (137-145)
--- NOTE | 2024-04-20 07:47 | P.PNOP_ITS ---
Progress Note: A&P Assessment and Plan (1) History of knee replacement procedure of left knee: Code(s): Z96.652 - Presence of left artificial knee joint Status: Acute Assessment and Plan: S/P TKA for osteoarthritis Left Knee. Doing well. Therapy and then home. Subjective Subjective Date/Time Seen: 04/20/24 07:47 Post Op day: 1 Principal diagnosis: Left Total Knee for osteoarthritis Review of Systems Review of Systems: All systems reviewed & are unremarkable except as noted in HPI and below Exam Narrative: Wiggles toes NVI Dressing intact Resp: Effort & Inspection: normal respiratory effort Cardio: Rate: regular rate Rhythm: regular rhythm Objective Data Vital Signs Vital Signs: Vital Signs - 24 hr 04/19/24 09:25 04/19/24 09:40 04/19/24 09:55 Temperature 97.2 F L Pulse Rate 85 82 77 Respiratory Rate 14 17 12 Blood Pressure 133/69 123/74 120/66 Pulse Oximetry 100 99 100 Oxygen Delivery Simple Face Mask Simple Face Mask Simple Face Mask Oxygen Flow Rate 8 8 8 04/19/24 10:10 04/19/24 10:25 04/19/24 10:40 Temperature 97.2 F L Pulse Rate 78 86 85 Respiratory Rate 12 20 18 Blood Pressure 118/72 124/78 132/77 Pulse Oximetry 97 97 100 Oxygen Delivery Nasal Cannula Nasal Cannula Nasal Cannula Oxygen Flow Rate 2 2 2 04/19/24 10:48 04/19/24 11:03 04/19/24 11:20 Temperature 97.6 F 97.6 F 97.6 F Pulse Rate 76 79 76 Respiratory Rate 16 16 16 Blood Pressure 122/70 132/78 122/70 Pulse Oximetry 100 100 100 Oxygen Delivery Oxygen Flow Rate 04/19/24 11:50 04/19/24 11:15 04/19/24 14:15 Temperature 97.6 F Pulse Rate 76 88 Respiratory Rate 16 Blood Pressure 124/81 109/69 Pulse Oximetry 100 98 Oxygen Delivery Room Air Oxygen Flow Rate 04/19/24 16:00 04/19/24 20:15 04/20/24 00:12 Temperature 97.9 F 97.5 F L 97.9 F Pulse Rate 79 79 91 Respiratory Rate 16 20 16 Blood Pressure 120/68 107/60 105/69 Pulse Oximetry 98 97 98 Oxygen Delivery Oxygen Flow Rate 04/20/24 04:33 Temperature 97.5 F L Pulse Rate 92 Respiratory Rate 18 Blood Pressure 103/59 L Pulse Oximetry 97 Oxygen Delivery Oxygen Flow Rate Intake/Output Intake/Output: Intake & Output 04/17/24 04/18/24 04/19/24 04/20/24 23:59 23:59 23:59 23:59 Intake Total 800 400 Balance 800 400 Meds/Results Medications: Active Medications Generic Name Dose Route Start Last Admin Trade Name Freq PRN Reason Stop Dose Admin Hydrocodone Bitart/Acetaminophen 1 tab 04/19/24 10:48 04/19/24 23:50 Hydrocodone/Acetaminophen (*Crx) 5-325 Mg Tablet PO 1 tab Q4H PRN Administration Pain Rated 4-6 Hydrocodone Bitart/Acetaminophen 1 tab 04/19/24 10:48 04/20/24 06:11 Hydrocodone/Acetaminophen (*Crx) 7.5-325 Mg Tablet PO 1 tab Q4H PRN Administration Pain Rated 7-10 Celecoxib 200 mg 04/19/24 17:00 04/19/24 17:11 Celecoxib 200 Mg Capsule PO 200 mg BIDWM GREG Administration Cyclobenzaprine HCl 10 mg 04/19/24 10:48 04/19/24 15:43 Cyclobenzaprine Hcl 10 Mg Tablet PO 10 mg Q8H PRN Administration Spasms Diphenhydramine HCl 25 mg 04/19/24 10:48 Diphenhydramine Hcl Inj 50 Mg/Ml Vial IV PUSH Q6H PRN Itching Escitalopram Oxalate 20 mg 04/19/24 12:00 04/19/24 11:59 Escitalopram Oxalate 10 Mg Tablet PO 20 mg DAILY GREG Administration Fluoxetine HCl 20 mg 04/19/24 12:00 04/19/24 11:59 Fluoxetine Hcl 20 Mg Capsule PO 20 mg DAILY GREG Administration Gabapentin 300 mg 04/19/24 13:00 04/19/24 17:11 Gabapentin 300 Mg Capsule PO 300 mg TID GREG Administration Hydromorphone HCl 1 mg 04/19/24 10:48 Hydromorphone Hcl Inj (*Crx) 1 Mg/Ml Syr IV PUSH Q2H PRN Breakthrough Pain Rated 7-10 or NPO Hydromorphone HCl 0.5 mg 04/19/24 10:48 Hydromorphone Hcl Inj (*Crx) 1 Mg/Ml Syr IV PUSH Q2H PRN Breakthrough Pain Rated 4-6 or NPO Cefazolin Sodium 2 gm in 50 mls @ 100 mls/hr 04/19/24 16:00 04/20/24 07:43 Ancef 2 Gm/D5w 50 Ml IVPB 04/20/24 08:29 Infused Q8H [facility] Infusion Ibuprofen 800 mg in 200 mls @ 400 mls/hr 04/19/24 10:48 Caldolor 800 Mg/200 Ml IVPB Q6H PRN Breakthrough Pain Rated 1-3 or NPO Lisinopril 40 mg 04/20/24 09:00 Lisinopril 20 Mg Tablet PO DAILY [facility] Metformin HCl 500 mg 04/20/24 09:00 Metformin Hcl Xr 500 Mg Tab.Sr.24h PO DAILY [facility] Miscellaneous Information 1 each 04/19/24 00:01 Ozempic Nonformulary. Can Patient Bring From Home Or Hold Till Discharge? XX 05/19/24 00:00 CLARIFY [facility] Naloxone HCl 0.1 mg 04/19/24 10:48 Naloxone Hcl 0.4 Mg/Ml Vial IV PUSH Q2M PRN Opiate Reversal Non-Formulary Medication 0.25 mg 04/26/24 09:00 Semaglutide [Ozempic] SUB-Q 05/26/24 08:59 WEEKLY [facility] Ondansetron HCl 4 mg 04/19/24 10:48 Ondansetron Inj 4 Mg/2 Ml Vial IV PUSH Q4H PRN Nausea And Vomiting Polyethylene Glycol 17 gm 04/20/24 09:00 Polyethylene Glycol 3350 17 Gm Powd.Pack PO QAM [facility] Rivaroxaban 10 mg 04/19/24 17:00 04/19/24 17:12 Rivaroxaban 10 Mg Tablet PO 04/30/24 17:01 10 mg DAILY@17 [facility] Administration Senna/Docusate Sodium 2 tab 04/19/24 17:00 04/19/24 17:11 Senna/Docusate Sodium Tablet PO 2 tab BID [facility] Administration Tramadol HCl 50 mg 04/19/24 10:48 Tramadol Hcl (*Crx) 50 Mg Tablet PO Q4H PRN Pain Rated 1-3 Radiology Results: ITS Impressions Knee X-Ray 04/19/24 10:01 IMPRESSION: 1. Total left knee arthroplasty in near-anatomic alignment. Labs Labs: Laboratory Results - last 24 hr 04/19/24 04/20/24 09:29 06:23 WBC 9.3 RBC 3.68 L Hgb 9.6 L D Hct 31.3 L MCV 85.1 MCH 26.1 MCHC 30.7 L RDW 14.9 H Plt Count 248 MPV 8.7 Immature Gran % (Auto) 0.2 Neut % (Auto) 68.3 Lymph % (Auto) 22.1 [place] % (Auto) 8.4 Eos % (Auto) 0.6 Baso % (Auto) 0.4 Lymph # (Auto) 2.05 [place] # (Auto) 0.8 H Eos # (Auto) 0.1 Baso # (Auto) 0.0 Abs Immat Gran (auto) 0.02 Absolute Neuts (auto) 6.3 Absolute Nucleated RBC 0.000 Nucleated RBC % 0.0 Sodium 136 L Potassium 4.3 Chloride 107 Carbon Dioxide 19 L Anion Gap 10 BUN 30 H Creatinine 1.30 H Estim Creat Clear Calc 56 Estimated GFR 43 L Glucose 85 POC Capillary Glucose 137 H Calcium 8.8
--- NOTE | 2024-04-20 07:51 | P.DS_ITS ---
DS: Admitting Diagnosis Discharge Date 04/20/2024 Admitting Diagnosis Osteoarthritis Left Knee DS: Discharge Diagnosis Discharge Diagnosis (1) History of knee replacement procedure of left knee: Code(s): Z96.652 - Presence of left artificial knee joint Status: Acute Assessment and Plan: Patient underwent Left Total Knee for Osteoarthritis Left knee. Postoperative course has been typical. Will discharge home today. Full Weight Bearing DS: Summary Hospital Course Hospital Course: Patient underwent Left TKA for Osteoarthritis. Some pain issues, but doing well. Home today. Status at Discharge Functional status at discharge: uses cane/walker Time Spent with Patient Time attestation: Total time spent providing and/or coordinating discharge services: Exam Narrative: Dressing intact NIV Ambulates with a walker Eyes: General: appearance normal, both eyes and all related structures Neck: Neck: supple Resp: Effort & Inspection: normal respiratory effort Cardio: Rate: regular rate Rhythm: regular rhythm DS: Data Data Completed and Pending Labs on day of discharge: Labs from last 24 hours 04/20/24 04/19/24 06:23 09:29 WBC 9.3 RBC 3.68 L Hgb 9.6 L D Hct 31.3 L MCV 85.1 MCH 26.1 MCHC 30.7 L RDW 14.9 H Plt Count 248 MPV 8.7 Immature Gran % (Auto) 0.2 Neut % (Auto) 68.3 Lymph % (Auto) 22.1 [place] % (Auto) 8.4 Eos % (Auto) 0.6 Baso % (Auto) 0.4 Lymph # (Auto) 2.05 [place] # (Auto) 0.8 H Eos # (Auto) 0.1 Baso # (Auto) 0.0 Abs Immat Gran (auto) 0.02 Absolute Neuts (auto) 6.3 Absolute Nucleated RBC 0.000 Nucleated RBC % 0.0 Sodium 136 L Potassium 4.3 Chloride 107 Carbon Dioxide 19 L Anion Gap 10 BUN 30 H Creatinine 1.30 H Estim Creat Clear Calc 56 Estimated GFR 43 L Glucose 85 POC Capillary Glucose 137 H Calcium 8.8 Discharge Plan Discharge Patient Disposition: Home, Self-Care Discharge Instructions: Dr. Alec Medrano M.D [id number] [address] POST-OPERATIVE DISCHARGE INSTRUCTIONS TOTAL KNEE ARTHROPLASTY 1. When resting, do not rest in the chair.When resting, lie on your back, with back flat on the couch or bed, with leg elevated above heart to minimize swelling. You may put a pillow under your head. . Significant swelling could indicate a blood clot and if this occurs call the office (or go to the ER) to have a venous ultrasound. Therefore, do not rest in a chair. 2. At least five times a day spend several minutes stretching your knee into flexion while sitting in the chair and also stretching your knee out straight The abilities to bend your knee fulling and straighten your knee fully are two most important knee functions to focus on during your recovery. 3. It is ok to sit in chair to eat, use the toilet and receive a guest and to do your stretching exercises, but, sitting in a chair will cause your leg to swell. Therefore, avoid additional time sitting in the chair. and don't rest in the chair. 4. Wound Care: Nursing will give you an additional Mepilex dressing at the time of discharge. Patient to remove the dressing and apply a new Mepilex dressing at home 7 days after surgery and leave the dressing on until seen in office. 5. May shower with a Mepilex dressing in place.The water will run off the dressing. 6. Unless you are told otherwise, you may put full weight on your operated leg. Use a walker for balance and practice walking as normally as you can, ideally for a few minutes every hour while you are awake. 7. I would advise against putting ice packs on your knee incision. Ice constricts blood flow which can impar healing of the knee incision. IMPORTANT: Remember not to sit in the chair for more than 30 minutes at a time. As a rule, during the first 14 days after surgery, only sit in the chair to work on the chair knee bending stretch exercise, for meals or for use of the restroom. Sitting in the chair promotes significant swelling in the knee and leg which will make your knee stiff and more painful and which simulates having a blood clot in the veins of the leg. If this type of significant diffuse swelling occurs, an ultrasound at the hospital will be necessary to rule out a blood clot. Be up walking around with the walker for a few minutes every hour while awake and then rest laying on your back on the couch or in bed with your leg elevated on cushions or pillows. Do not rest in the chair. Patient Instructions: Rivaroxaban (By mouth) Follow-up/Referrals: Alec Medrano MD [Physician] - Discharge Medications: New doxycycline hyclate 100 mg tablet 100 mg PO DAILY Qty: 10 0RF hydrocodone-acetaminophen 7.5-325 mg tablet 1 tablet PO Q4H PRN (Reason: pain) Qty: 40 0RF Xarelto 10 mg tablet 10 mg PO DAILY Qty: 10 0RF Rx Instructions: for 35 days Continued gabapentin 300 mg capsule 300 mg PO TID lisinopril 40 mg tablet 40 mg PO DAILY metformin 500 mg tablet extended release 24 hr 500 mg PO DAILY escitalopram oxalate 10 mg tablet 20 mg PO DAILY Ozempic 0.25 mg or 0.5 mg(2 mg/1.5 mL) pen injector 0.25 mg SUBCUT WEEKLY Rx Instructions: PT TAKES EVERY WEDNESDAY polyethylene glycol 3350 [Miralax] 17 gram Powder In Packet 17 g PO QAM PRN (Reason: Constipation) 30 Days Qty: 30 0RF acetaminophen 500 mg Tablet 500 mg PO Q6H PRN (Reason: Mild Pain (1-3) Or Fever) Qty: 20 0RF ergocalciferol (vitamin D2) 1,250 mcg (50,000 unit) capsule 1,250 mcg PO WEEKLY fluoxetine 20 mg capsule 20 mg PO DAILY Discontinued hydrocodone-acetaminophen 5-325 mg tablet 1 tablet PO Q6H PRN (Reason: Pain)
[2024-04-20 07:56] VITALS: BP 98/60; PULSE 82; RESP 16; TEMP 36.2; O2SAT 98
--- NOTE | 2024-04-20 08:55 | PCOTNOTE ---
Attempted OT treatment, patient with PT
[2024-04-20] MEDS: polyethylene glycoL 3350 17 GM POWD.PACK PO (09:42)
[2024-04-20] MEDS: lisinopriL 20 MG TABLET 40 MG PO (09:43)
[2024-04-20] MEDS: CELECOXIB 200 MG CAPSULE PO (09:43)
[2024-04-20] MEDS: ceFAZolin 2 GM/D5W 50 ML 2 GM/50 ML BAG IVPB (09:43)
[2024-04-20] MEDS: SENNA/DOCUSATE SODIUM TABLET 2 TAB PO (09:45)
[2024-04-20] MEDS: metFORMIN HCL XR 500 MG TAB.SR.24H PO (09:46)
[2024-04-20] MEDS: FLUoxetine HCL 20 MG CAPSULE PO (09:46)
[2024-04-20] MEDS: GABAPENTIN 300 MG CAPSULE PO ×2 (09:46→12:11)
[2024-04-20] MEDS: ESCITALOPRAM OXALATE 10 MG TABLET 20 MG PO (09:47)
--- NOTE | 2024-04-20 09:57 | WPDANESPN ---
Anes - Prog Note Post-Op Date/Time: 04/20/24 09:57 Cardiovascular status: normal Respiratory status: normal Airway patency: baseline Mental status: baseline Post-Op hydration status: normal Vital Signs: Last Vital Signs Temp 36.2 C L 04/20/24 07:56 Pulse 82 04/20/24 07:56 Resp 16 04/20/24 07:56 BP 98/60 L 04/20/24 07:56 Pulse Ox 98 04/20/24 07:56 O2 Del Method Room Air 04/19/24 11:15 O2 Flow Rate 2 04/19/24 10:40 Pain Score (VAS): 10 I/O: Intake & Output 04/19/24 04/20/24 04/20/24 23:59 07:59 15:59 Intake Total 600 400 150 Balance 600 400 150 Laboratory Tests 04/20/24 06:23 04/20/24 06:23 04/20/24 06:23 WBC 9.3 RBC 3.68 L Hgb 9.6 L D Hct 31.3 L MCV 85.1 MCH 26.1 MCHC 30.7 L RDW 14.9 H Plt Count 248 MPV 8.7 Immature Gran % (Auto) 0.2 Neut % (Auto) 68.3 Lymph % (Auto) 22.1 [place] % (Auto) 8.4 Eos % (Auto) 0.6 Baso % (Auto) 0.4 Lymph # (Auto) 2.05 [place] # (Auto) 0.8 H Eos # (Auto) 0.1 Baso # (Auto) 0.0 Abs Immat Gran (auto) 0.02 Absolute Neuts (auto) 6.3 Absolute Nucleated RBC 0.000 Nucleated RBC % 0.0 Sodium 136 L Potassium 4.3 Chloride 107 Carbon Dioxide 19 L Anion Gap 10 BUN 30 H Creatinine 1.30 H Estim Creat Clear Calc 56 Estimated GFR 43 L Glucose 85 Calcium 8.8 Post-procedural complaints: none Patient Feedback: Patient satisfied with anesthetic care.
--- NOTE | 2024-04-20 11:39 | PCOTNOTE ---
Attempted OT treatment at 8:55- Pt with PT.
--- NOTE | 2024-04-20 12:02 | PC.NURSE ---
Pt discharged to home. Worked well with PT/OT. Belongings sent with pt. Condition stable.
[2024-04-20] MEDS: traMADol HCL (*CRX) 50 MG TABLET PO (12:11)
[2024-04-20] MEDS: CYCLOBENZAPRINE HCL 10 MG TABLET PO (12:12)
[2024-04-20 12:33] VITALS: BP 94/74; PULSE 77; RESP 16; TEMP 36.6; O2SAT 100
== END 2024-04-20 13:14 | disposition home or self-care (01) ==
LOC: ANHSURGERY 05:54 → ANH3MEDSUR 10:51
PROVIDERS: Orthopaedic Surgery; PCP Physician Assistant Medical; Visit Provider Nurse Practitioner Acute Care
PROC: (CPT 27447; principal; 2024-04-19 07:30)
DX: M17.12 Unilateral primary osteoarthritis, left knee (principal); G89.18 Other acute postprocedural pain; F41.9 Anxiety disorder, unspecified; D64.9 Anemia, unspecified; E11.22 Type 2 diabetes mellitus with diabetic chronic kidney disease; I12.9 Hypertensive chronic kidney disease with stage 1 through stage 4 chronic kidney disease, or unspecified chronic kidney disease; N18.30 Chronic kidney disease, stage 3 unspecified; F32.A Depression, unspecified; E11.42 Type 2 diabetes mellitus with diabetic polyneuropathy; M47.896 Other spondylosis, lumbar region; F43.10 Post-traumatic stress disorder, unspecified; E66.9 Obesity, unspecified; Z68.37 Body mass index [BMI] 37.0-37.9, adult; Z79.891 Long term (current) use of opiate analgesic; Z79.84 Long term (current) use of oral hypoglycemic drugs; Z79.85 Long-term (current) use of injectable non-insulin antidiabetic drugs; Z98.890 Other specified postprocedural states; Z98.51 Tubal ligation status; Z87.891 Personal history of nicotine dependence; Z87.11 Personal history of peptic ulcer disease
CPT/HCPCS: 64447; 27447; 36415; 73560; 80048; 80307; 82040; 82948; 83036; 85025; 85610; 85730; 86850; 86900; 86901; 87641; 93005; 97110; 97116; 97161; 97165; 97530; 97535; A9270; C1713; C1776; J0171; J0690; J1100; J1171; J1885; J1940; J2250; J2270; J2371; J2405; J2704; J2795; J3010; J3370; J7030; J7120

== ENCOUNTER 2024-07-27 10:08 | Outpatient (CLI) | payer MEDICARE, SELFPAY ==
[2024-07-27 11:28] LABS: Basophils Absolute Auto 0.1 K/mm3 (0.0-0.1); Basophils Percent Auto 0.7 % (0.2-1.2); Eosinophils Absolute Auto 0.4 K/mm3 (0-0.3); Eosinophils Percent Auto 4.4 % (0-4.4); Hematocrit 37.3 % (37.0-47.0); Hemoglobin 11.5 g/dL (12.0-15.0); Immature Granulocyte Absolute 0.02 K/mm3 (0.00-0.031); Immature Granulocyte Percent A 0.2 % (0-0.5); Lymphocytes Percent Auto 34.7 % (18.3-44.2); Mean Corpuscular HGB Conc 30.8 g/dl (32-36); Mean Corpuscular Hemoglobin 26.2 pg (26-34); Mean Platelet Volume 8.9 fl (7.4-10.4); Monocytes Absolute Auto 0.7 K/mm3 (0.1-0.6); Monocytes Percent Auto 7.3 % (2.6-8.5); Neutrophils Absolute Auto 4.7 K/mm3 (1.3-6.7); Neutrophils Percent Auto 52.7 % (45.5-73.1); Platelet Count Result 271 k/mm3 (150-375); Red Blood Count 4.39 M/mm3 (4.2-5.4); Red Cell Distribution Width 14.6 % (11.5-14.5); White Blood Count 8.9 K/mm3 (4.5-10.0)
--- OUTSIDE RECORDS SUMMARY | 2024-07-27 11:35 | XMS_ITS | Clinical Summary ---
Author Organization [facility] [employer] Address [address] [place] [address] [place] [address] Care Team Providers Care Warehouse Logistics Manager Name Role Phone Unavailable Primary Care Provider Unavailabl e Source Comments [facility] [employer],non-owned Affiliates and Associated Physician Practices is amultiple site organization consisting of ambulatory clinics and hospital sitesin [place], [place], [place] and [place]. This disclosure is being madepursuant to the Care Everywhere program and may not contain all information available regarding this patient. Last updated 18.[employer] Allergies No known active allergies Medications * Be aware that medications may not be up to date on this document. Alwaysverify current medications with the patient. Medication Sig Dispensed Refills Start Date End Date Status metFORMIN ER 24hr (GLUCOPHAGE XR) 500 MG tablet Take 500 mg by mouth once daily 06/26/2020 Active nicotine (NICODERM CQ) 14 MG/24HR patch Apply 1 (one) patch to skin once daily 28 patch 1 12/31/2020 Active ondansetron (ZOFRAN) 4 MG tablet Take 1 (one) tablet by mouth every 6 hours as needed for Nausea/Vomiting 10 tablet 05/06/2021 Active acetaminophen (MAPAP) 500 MG tablet Mapap Extra Strength 500 mg tablet 01/17/2021 Active ergocalciferol (DRISDOL) 1.25 MG (27465 UT) capsule ergocalciferol (vitamin D2) 1,250 mcg (50,000 unit) capsule 02/17/2021 Active lisinopril (PRINIVIL; ZESTRIL) 40 MG tablet lisinopril 40 mg tablet 02/17/2021 Active oxyCODONE, immediate release, (ROXICODONE) 5 MG tablet Take 1 (one) tablet by mouth every 6 hours as needed for Pain 30 tablet 05/14/2021 Active docusate sodium (COLACE) 50 MG capsule Take 1 (one) capsule by mouth once daily 30 capsule 05/14/2021 Active Active Problems Problem Noted Date Diagnosed Date Periumbilical abdominal pain 12/27/2020 Umbilical hernia without obstruction and without gangrene 12/27/2020 Immunizations Name Administration Dates Next Due Elizabeth [employer] primary monoval ent 12+ yr 0.3mL Purple cap 12/30/2020(Deferred: Patient Refused) INFLUENZA VACCINE 03/07/2021 Family History Medical History Relation Name Comments Cancer - Stomach Daughter Diabetes; unknown type Maternal Aunt 1 Diabetes; unknown type Maternal Aunt 2 Diabetes; unknown type Maternal Aunt 3 Diabetes; unknown type Paternal Aunt 1 Diabetes; unknown type Paternal Aunt 2 Diabetes; unknown type Paternal Aunt 3 Relation Name Status Comments Daughter Maternal Aunt 1 Maternal Aunt 2 Maternal Aunt 3 Paternal Aunt 1 Paternal Aunt 2 Paternal Aunt 3 Social History Tobacco Use Types Packs/Day Years Used Date Smoking Tobacco: Every Day Cigarettes Smokeless Tobacco: Never Tobacco Cessation:Ready to Q uit: Yes; Counseling Given: Yes Alcohol Use Standard Drinks/Week Comments Not Currently 0 (1 standard drink = 0.6 oz pur e alcohol) Sex and Gender Information Value Date Recorded Sex Assigned at Not on file Gender Identity Not on file Sexual Orientation Not on file Last Filed Vital Signs Vital Sign Reading Time Taken Comments Blood Pressure 147/92 07/02/2021 1:34 PM CAN TECHNICIAN Pulse 88 07/02/2021 1:34 PM CAN TECHNICIAN Temperature 36.8 C (98.2 F) 07/02/2021 1:34 PM CAN TECHNICIAN Respiratory Rate 20 07/02/2021 1:34 PM CAN TECHNICIAN Oxygen Saturation 96% 05/14/2021 12:54 PM CAN TECHNICIAN Inhaled Oxygen Concentration - - Weight 127.5 kg (281 lb) 07/02/2021 1:34 PM CAN TECHNICIAN Height 165.1 cm (5' 5 ) 07/02/2021 1:34 PM CAN TECHNICIAN Body Mass Index 46.76 07/02/2021 1:34 PM CAN TECHNICIAN Plan of Treatment Health Maintenance Due Date Last Done Comments COLOGUARD (AGES 45-75) - COLON CA SCREENING 1969 COLON MONITORING 1969 COLONOSCOPY - COLON CA SCREENING 1969 CT COLONOGRAPHY - COLON CA SCREENING 1969 Colorectal Cancer Screening 1969 FIT - COLON CA SCREENING 1969 FLEX SIG - COLON CA SCREENING 1969 LIPID TESTING 1969 MAMMOGRAM 1969 HIV SCREENING 1984 HEPATITIS C SCREENING 04/04/1987 DTAP/TDAP/TD VACCINES (1 - Tdap) 1988 HEPATITIS B VACCINE (1 of 3 - 19+ 3-dose series) 1988 PNEUMOCOCCAL VACCINE 50+ (1 of 2 - PCV) 1988 ZOSTER VACCINE (1 of 2) 2019 COVID-19 VACCINE (1 - 2023- season) 2024 INFLUENZA VACCINE (#1) 2024 03/07/2021 SCREENING FOR DIABETES 05/14/2024 , 05/14/2021, 05/13/2021, Additional history exists DEPRESSION SCREENING 05/24/2024 PAP with HPV 07/11/2025 07/11/2020 HIB VACCINE Aged Out No longer eligi ble based on patient's age to complete this topic HPV VACCINE Aged Out No longer eligi ble based on patient's age to complete this topic MENINGOCOCCAL (Group B) VACCINE Aged Out No longer eligible based on patient's age to complete this topic MENINGOCOCCAL VACCINE Aged Out No syed ivan eligible based on patient's age to complete this topic Medical Devices Implanted Type Area Dehydration Plant Operator Device Identifier Shelf Expiration Date Model / Serial / Lot Mesh Srg Ventralight St Sepra 8x6in Implanted:Qty: 1 on 05/12/2021 by Baldemar Abdi MD at [facility] [employer] 02/18/2022 [id number] / / [id number] Sys Fx 37cm Cpsr Str Ss Peek Perm Hndl Implanted:Qty: 1 on 05/12/2021 by Baldemar Abdi MD at [facility] [employer] 03/20/2023 [id number] / / [id number] Sys Fx Optifix 15 Absb Fstnr Artc Implanted:Qty: 1 on 05/12/2021 by Baldemar Abdi MD at [facility] [employer] 11/18/2022 [id number] / / [id number] Procedures Procedure Name Priority Date/Time Associated Diagnosis Comments GLUCOSE - POINT OF CARE Routine 05/14/2021 11:40 AM CAN TECHNICIAN HPV DETECTION HIGH RISK SOWMYA Routine 07/11/2020 4:00 PM CAN TECHNICIAN Cervical cancer screening from Last 3 Months or Most Recently Relevant to Health Maintenance Results * (ABNORMAL) GLUCOSE - POINT OF CARE (05/14/2021 11:40 AM CAN TECHNICIAN) Pathologist [facility] Glucose WB/POC 118(H) 70 - 106 mg/dL 05/14/2021 11:46 AM CAN TECHNICIAN [facility] Specimen Type Cap Fingerstick 2020 11:46 AM CAN TECHNICIAN [facility] Blood BLOOD SPECIMEN / Unknown 05/14/2021 11:40 AM CAN TECHNICIAN 05/14/2021 11:46 AM CAN TECHNICIAN Baldemar Abdi MD LAB - POINT OF CARE ORDERABLES Performing Organization Address City/State/[facility] Co de Phone Number [facility] [address] [phone] * HPV DETECTION HIGH RISK SOWMYA (07/11/2020 4:00 PM CAN TECHNICIAN) Pathologist [facility] High Risk Human Papilloma Result Not detected Not detected 07/17/2020 2:51 PM CAN TECHNICIAN [facility] High Risk Human Papilloma Interp 07/17/2020 2:51 PM CAN TECHNICIAN [facility] Comment:High Risk Human Ryder lloma Virus was Not Detected. Pathology/Cytolo gy MISCELLANEOUS SAMPLES / Unknown 07/11/2020 4:00 PM CAN TECHNICIAN 07/15/2020 8:50 AM CAN TECHNICIAN Narrative [facility] - 07/17/2020 2:51 PM CAN TECHNICIAN Nucleic acid isolated from the specimen was analyzed with a nucleic acid amplification test (FDA approved Gen-Probe HPV Assay) to detect high risk human papilloma virus (Types: 16, 18, 31, 33, 35, 39, 45, 51, 52, 56, 58, 59, 66, and 68). The reference range is Not Detected . Comment: These test results should not be used as the sole basis for clinical assessment and treatment of patients. These results should always be correlated with other available data (cytology, histology, and clinical information). Ritika Sims MD LAB - MICROBIOLOGY ORDERABLES [facility] [address] [phone] from Last 3 Months or Most Recently Relevant to Health Maintenance Advance Directives * Full Code (Latest Code Status on File) Date Activated Date Inactivated Comments 05/12/2021 6:57 PM 05/14/2021 7:23 PM * Full Code Date Activated Date Inactivated Comments 12/27/2020 8:36 AM 12/30/2020 6:49 PM
--- OUTSIDE RECORDS SUMMARY | 2024-07-27 11:35 | XMS_ITS | Patient Health Summary ---
Author Organization [facility] [employer] Address [address] [place] [address] [place] [address] Care Team Providers Care Ice Rink Attendant Name Role Phone Unavailable Primary Care Provider Unavailabl e Note from [facility] [employer] [facility],non-owned Affiliates and Associated Physician Practices is amultiple site organization consisting of ambulatory clinics and hospital sitesin [place], [place], [place] and [place]. This disclosure is being madepursuant to the Care Everywhere program and may not contain all information available regarding this patient. Last updated 18.[facility] [employer] Allergies No known active allergies Medications * Be aware that medications may not be up to date on this document. Alwaysverify current medications with the patient. * metFORMIN ER 24hr (GLUCOPHAGE XR) 500 MG tablet(Started 06/26/2020) Take 500 mg by mouth once daily * nicotine (NICODERM CQ) 14 MG/24HR patch(Started 12/31/2020) Apply 1 (one) patch to skin once daily 1 refill by 12/30/2021 * ondansetron (ZOFRAN) 4 MG tablet(Started 05/06/2021) Take 1 (one) tablet by mouth every 6 hours as needed for Nausea/Vomiting * acetaminophen (MAPAP) 500 MG tablet(Started 01/17/2021) Mapap Extra Strength 500 mg tablet * ergocalciferol (DRISDOL) 1.25 MG (01060 UT) capsule(Started 02/17/2021) ergocalciferol (vitamin D2) 1,250 mcg (50,000 unit) capsule * lisinopril (PRINIVIL; ZESTRIL) 40 MG tablet(Started 02/17/2021) lisinopril 40 mg tablet * oxyCODONE, immediate release, (ROXICODONE) 5 MG tablet(Started 05/14/2021) Take 1 (one) tablet by mouth every 6 hours as needed for Pain * docusate sodium (COLACE) 50 MG capsule(Started 05/14/2021) Take 1 (one) capsule by mouth once daily Active Problems Problem Noted Date Diagnosed Date Periumbilical abdominal pain 12/27/2020 Umbilical hernia without obstruction and without gangrene 12/27/2020 Immunizations * INFLUENZA VACCINE(Given 03/07/2021) Social History Tobacco Use Types Packs/Day Years [...] Comments Blood Pressure 147/92 07/02/2021 1:34 PM GREENHOUSE WORKER Pulse 88 07/02/2021 1:34 PM GREENHOUSE WORKER Temperature 36.8 C (98.2 F) 07/02/2021 1:34 PM GREENHOUSE WORKER Respiratory Rate 20 07/02/2021 1:34 PM GREENHOUSE WORKER Oxygen Saturation 96% 05/14/2021 12:54 PM GREENHOUSE WORKER Inhaled Oxygen Concentration - - Weight 127.5 kg (281 lb) 07/02/2021 1:34 PM GREENHOUSE WORKER Height 165.1 cm (5' 5 ) 07/02/2021 1:34 PM GREENHOUSE WORKER Body Mass Index 46.76 07/02/2021 1:34 PM GREENHOUSE WORKER Medical Devices Implanted Type Area Data Network Architect Device Identifier Shelf Expiration Date Model / Serial / Lot Mesh Srg Ventralight St Sepra 8x6in Implanted:Qty: 1 on 05/12/2021 by Baldemar Abdi MD at [facility] Abdomen [employer] 02/18/2022 [id number] / / [id number] Sys Fx 37cm Cpsr Str Ss Peek Perm Hndl Implanted:Qty: 1 on 05/12/2021 by Baldemar Abdi MD at [facility] Abdomen [employer] 03/20/2023 [id number] / / [id number] Sys Fx Optifix 15 Absb Fstnr Artc Implanted:Qty: 1 on 05/12/2021 by Baldemar Abdi MD at [facility] Abdomen [employer] 11/18/2022 [id number] / / [id number] Procedures * CARDIAC RHYTHM STRIP ORDER(Performed 05/15/2021) * GLUCOSE - POINT OF CARE(Performed 05/14/2021) * GLUCOSE - POINT OF CARE(Performed 05/14/2021) * GLUCOSE - POINT OF CARE(Performed 05/13/2021) * GLUCOSE - POINT OF CARE(Performed 05/13/2021) * GLUCOSE - POINT OF CARE(Performed 05/13/2021) * GLUCOSE - POINT OF CARE(Performed 05/13/2021) * GLUCOSE - POINT OF CARE(Performed 05/12/2021) * GLUCOSE - POINT OF CARE(Performed 05/12/2021) * ENDOTRACHEAL TUBE NOTE(Performed 05/12/2021) * LAPAROSCOPIC REPAIR INCISIONAL HERNIA(Performed 05/12/2021) Performed for Diagnosis unknown * GLUCOSE - POINT OF CARE(Performed 05/12/2021) * SARS-COV-2 (COVID-19) RAPID(Performed 05/12/2021) Performed for Pre-op testing * CT ABDOMEN PELVIS W CONTRAST(Performed 05/06/2021) Performed for Abdominal pain, generalized * URINALYSIS REFLEX MICROSCOPIC REFLEX CULTURE(Performed 05/06/2021) * LIPASE BLOOD(Performed 05/05/2021) * COMPREHENSIVE METABOLIC PANEL(Performed 05/05/2021) * CBC W AUTO DIFFERENTIAL(Performed 05/05/2021) * CARDIAC RHYTHM STRIP ORDER(Performed 12/31/2020) * GLUCOSE - POINT OF CARE(Performed 12/30/2020) * GLUCOSE - POINT OF CARE(Performed 12/30/2020) * GLUCOSE - POINT OF CARE(Performed 12/29/2020) * GLUCOSE - POINT OF CARE(Performed 12/29/2020) * BASIC METABOLIC PANEL (CALCIUM TOTAL)(Performed 12/29/2020) Performed for Periumbilical abdominal pain * GLUCOSE - POINT OF CARE(Performed 12/29/2020) * GLUCOSE - POINT OF CARE(Performed 12/29/2020) * GLUCOSE - POINT OF CARE(Performed 12/28/2020) * GLUCOSE - POINT OF CARE(Performed 12/28/2020) * GLUCOSE - POINT OF CARE(Performed 12/28/2020) * HEMOGLOBIN A1C(Performed 12/28/2020) Performed for Umbilical hernia without obstruction and without gangrene * MAGNESIUM BLOOD(Performed 12/28/2020) Performed for Umbilical hernia without obstruction and without gangrene * CBC W AUTO DIFFERENTIAL(Performed 12/28/2020) Performed for Umbilical hernia without obstruction and without gangrene * BASIC METABOLIC PANEL (CALCIUM TOTAL)(Performed 12/28/2020) Performed for Umbilical hernia without obstruction and without gangrene * GLUCOSE - POINT OF CARE(Performed 12/27/2020) * GLUCOSE - POINT OF CARE(Performed 12/27/2020) * GLUCOSE - POINT OF CARE(Performed 12/27/2020) * ENDOTRACHEAL TUBE NOTE(Performed 12/27/2020) * HCG BETA BLOOD QUANTITATIVE(Performed 12/27/2020) Performed for Umbilical hernia without obstruction and without gangrene * LAPAROSCOPIC REPAIR INCISIONAL HERNIA(Performed 12/27/2020) * CT ABDOMEN PELVIS W CONTRAST(Performed 12/27/2020) Performed for Periumbilical abdominal pain * LACTIC ACID BLOOD REFLEX TO REPEAT(Performed 12/27/2020) * LACTIC ACID REPEAT REFLEX(Performed 12/26/2020) * LACTIC ACID BLOOD REFLEX TO REPEAT(Performed 12/26/2020) * COMPREHENSIVE METABOLIC PANEL(Performed 12/26/2020) * CBC W AUTO DIFFERENTIAL(Performed 12/26/2020) * NJ PESSARY, NON RUBBER,ANY TYPE(Performed 08/30/2020) Performed for Cystocele, midline, Uterovaginal prolapse, incomplete, Rectocele * NJ FIT/INSERT INTRAVAG SUPPORT DEVICE(Performed 08/30/2020) Performed for Cystocele, midline, Uterovaginal prolapse, incomplete, Rectocele * NJ PESSARY, NON RUBBER,ANY TYPE(Performed 08/02/2020) Performed for Cystocele, midline, Uterovaginal prolapse, incomplete, Rectocele, Mixed stress and urge urinary incontinence * NJ FIT/INSERT INTRAVAG SUPPORT DEVICE(Performed 08/02/2020) Performed for Cystocele, midline, Uterovaginal prolapse, incomplete, Rectocele, Mixed stress and urge urinary incontinence * NJ BIOPSY OF CERVIX(Performed 07/11/2020) Performed for Cervical polyp * NJ INSERT NON-INDWELLING BLADDER(Performed 07/11/2020) Performed for Mixed stress and urge urinary incontinence * PATHOLOGY TISSUE(Performed 07/11/2020) Performed for Cervical polyp * URINALYSIS W/MICROSCOPIC NO CULTURE(Performed 07/11/2020) Performed for Abnormal urinalysis * CULTURE URINE COMPREHENSIVE(Performed 07/11/2020) Performed for Abnormal urinalysis * PAP IMAGE-GUIDED W HPV(Performed 07/11/2020) Performed for Cervical cancer screening * HPV DETECTION HIGH RISK SOWMYA(Performed 07/11/2020) Performed for Cervical cancer screening * URINALYSIS AUTO - POINT OF CARE (AMB) SLU(Performed 07/11/2020) Performed for Mixed stress and urge urinary incontinence Results * CARDIAC RHYTHM STRIP ORDER (05/15/2021 4:42 PM GREENHOUSE WORKER) Only the most recent of2 resultswithin the time period is included. Narrative 05/15/2021 4:42 PM GREENHOUSE WORKER Ordered by an unspecified provider. Scanned Document CARDIAC SERVICES ORD ERABLES * (ABNORMAL) GLUCOSE - POINT OF CARE (05/14/2021 11:40 AM GREENHOUSE WORKER) Only the most recent of21 resultswithin the time period is included. Glucose WB/POC 118(H) 70 - 106 mg/dL 05/14/2021 11:46 AM GREENHOUSE WORKER [facility] Specimen Type Cap Fingerstick 2020 11:46 AM GREENHOUSE WORKER [facility] Blood BLOOD SPECIMEN / Unknown 05/14/2021 11:40 AM GREENHOUSE WORKER 05/14/2021 11:46 AM GREENHOUSE WORKER Baldemar Abdi MD LAB - POINT OF CARE ORDERABLES [facility] [address] [place] [address] * ETT LINE PERFORMABLE (05/12/2021 3:36 PM GREENHOUSE WORKER) Narrative Marlon Muro APRN-CRNA - 05/12/2021 3:36 PM GREENHOUSE WORKER Marlon Muro APRN-CRNA 05/12/2021 3:37 PM Endotracheal Tube Placement: Patient Location: OR. Intubation Event Date/Time: 05/12/2021 3:24 PM Procedure: intubation ([id number]). Procedure Section: Sedation: under general anesthesia. Indications for Airway Management: anesthesia Induction: modified rapid sequence Patient Position: supine Mask Ventilation: easy. Blade Type: Reji Blade Size: 3 Laryngoscopy View: grade 2 (partial cords) Intubation Adjuncts: stylet Tube: endotracheal tube Placement: oral Tube type: cuff - inflated Tube Size (MM): 7 Depth of Insertion (CM): 20 Measured From: teeth Cuff volume (mL): 4 Cuff Inflated With: air Number of Attempts: 1. Placement Verified By: direct visualization, bilateral breath sounds, chest auscultation and CO2 monitor Tube secured with: adhesive tape. Dentition unchanged? Yes Difficult Airway? No. Procedure Start Time: 05/12/2021 3:24 PM. Procedure End Time: 05/12/2021 3:25 PM. Procedure Total Time: 1 minutes. Staff Section Anesthesia Provider: Marlon Muro APRN-SAJI, Performed the procedure Zoltan Orellana MD GENERAL ANESTHESIA ORDERABLES * SARS-COV-2 (COVID-19) RAPID (05/12/2021 1:02 PM GREENHOUSE WORKER) COVID-19 PCR Not detected Not detected 05/12/20 2:08 PM GREENHOUSE WORKER [facility] Microbiology SPECIMEN FROM NASOPHARYNGEAL STRUCTURE / Unknown Collection / Unknown 05/12/2021 1:02 PM GREENHOUSE WORKER 05/12/2021 1:25 PM GREENHOUSE WORKER Narrative [facility] - 05/12/2021 2:08 PM GREENHOUSE WORKER The Cepheid Xpert Xpress SARS-COV-2 has been authorized by the Food and Drug Administration (FDA) under an Emergency Use Authorization (EUA). This test has been validated in accordance with the FDA's guidance document Policy for Diagnostic Testing in Laboratories Certified to perform High Complexity Testing under CLIA prior to Emergency Use Authorization for Coronavirus Disease-2019 during the Public Health Emergency issued on July 22, 2019. FDA independent review of this validation is pending. This test is only authorized for the duration of the time the declaration that circumstances exist justifying the authorization of emergency use of in vitro diagnostic tests for detection of SARS-COV-2 virus and/or diagnosis of COVID-19 infection under 564(b) (1) of the Act. 21 U.S.C. 360bbb-3 (b) (1), unless the authorization is terminated or revoked sooner. Fact Sheets for this EUA assay are available upon request. Baldemar Abdi MD LAB - MICROBIOLOGY O RDERABLES [facility] [address] [place], [place] [id number] * CT ABDOMEN AND PELVIS WITH IV CONTRAST - Acute Abdomen (05/06/2021 4:26 AM GREENHOUSE WORKER) Only the most recent of2 resultswithin the time period is included. Anatomical Region Laterality Modality Abdomen, Pelvis Computed Tomogra phy 05/06/2021 8:37 AM GREENHOUSE WORKER Impressions 05/06/2021 9:11 AM GREENHOUSE WORKER 1. Fatty infiltration of the liver. 2. Lobulated appearance of the kidneys may be related to prior scarring. Consider sonogram for follow-up if clinically indicated. 3. No evidence of acute appendicitis. Edited by Alysa Motley on 05/06/2021 8:54 AM *Reading Radiologist: Tuan Hernández on 05/06/2021 at 9:11 AM Narrative 05/06/2021 9:[address] ABDOMEN AND PELVIS WITH CONTRAST TECHNIQUE: Multislice helical was performed after the administration of 100 mL of Isovue-370. HISTORY: Abdominal pain. FINDINGS: No focal consolidation is seen. The heart appears normal in size. There is diffuse hepatic steatosis. The kidneys have a lobulated contour but otherwise appear unremarkable. No hydronephrosis is seen in the kidneys. A large fat-containing periumbilical hernia is noted. The appendix appears normal. The urinary bladder is normal. The uterus is unremarkable. Bone windows demonstrate no definite destructive lesions. Procedure Note Tuan Hernández MD - 05/06/2021 CT ABDOMEN AND PELVIS WITH CONTRAST TECHNIQUE: Multislice helical was performed after the administration of 100 mL of Isovue-370. HISTORY: Abdominal pain. FINDINGS: No focal consolidation is seen. The heart appears normal in size. There is diffuse hepatic steatosis. The kidneys have a lobulated contour but otherwise appear unremarkable. No hydronephrosis is seen in the kidneys. A large fat-containing periumbilical hernia is noted. The appendix appears normal. The urinary bladder is normal. The uterus is unremarkable. Bone windows demonstrate no definite destructive lesions. IMPRESSION 1. Fatty infiltration of the liver. 2. Lobulated appearance of the kidneys may be related to prior scarring. Consider sonogram for follow-up if clinically indicated. 3. No evidence of acute appendicitis. Edited by Alysa Motley on 05/06/2021 8:54 AM *Reading Radiologist: Tuan Hernández on 05/06/2021 at 9:11 AM Jacquelinemary Schmittnetolory [employer] CT ORDERABLE S * URINALYSIS REFLEX MICROSCOPIC REFLEX CULTURE (05/06/2021 1:35 AM GREENHOUSE WORKER) Color UA Yellow Straw, Yellow 05/06/2021 1:50 AM GREENHOUSE WORKER [facility] Clarity UA Clear Clear 05/06/2021 1:50 AM GREENHOUSE WORKER [facility] Glucose UA Negative Negative 05/06/2021 1:50 AM GREENHOUSE WORKER [facility] Bilirubin UA Negative Negative 05/06/2021 1:50 AM GREENHOUSE WORKER [facility] Ketone UA Negative Negative 05/06/2021 1:50 AM GREENHOUSE WORKER [facility] Specific [place] UA 1.013 1.005 - 1.030 05/06/2021 1:50 AM GREENHOUSE WORKER [facility] Blood UA Negative Negative 05/06/2021 1:50 AM GREENHOUSE WORKER [facility] pH UA 5.0 5.0 - 8.0 pH 05/06/2021 1:50 AM GREENHOUSE WORKER [facility] Protein UA Negative Negative 05/06/2021 1:50 AM GREENHOUSE WORKER [facility] Urobilinogen UA Negative Negative mg/dL 05/06/2021 1:50 AM GREENHOUSE WORKER [facility] Nitrite UA Negative Negative 05/06/2021 1:50 AM GREENHOUSE WORKER [facility] Leukocyte UA Negative Negative 05/06/2021 1:50 AM GREENHOUSE WORKER [facility] Urine Microscopy Urine microscopy not indicated 05/06/2021 1:50 AM GREENHOUSE WORKER [facility] Reflex Status Culture not indicated 05/06/2021 1:50 AM GREENHOUSE WORKER [facility] Urine URINE SPECIMEN OBTAINED BY CLEAN CATCH PROCEDURE / Unknown Collection / Unknown 05/06/2021 1:35 AM GREENHOUSE WORKER 05/06/2021 1:44 AM GREENHOUSE WORKER Narrative [facility] - 05/06/2021 1:50 AM GREENHOUSE WORKER Jacqueline Christopher APRN-[employer]AN[employer] LAB - URINAL YSIS ORDERABLES [facility] [address] [place] [id number] * (ABNORMAL) CBC W AUTO DIFFERENTIAL (05/05/2021 11:12 PM GREENHOUSE WORKER) Only the most recent of3 resultswithin the time period is included. WBC 8.4 4.4 - 10.7 x10E9/L 05/05/2021 11:[address] [facility] WBC Corrected 05/05/2021 11:[address] [facility] RBC 4.14 3.80 - 5.20 x10E12/L 05/05/2021 11:[address] [facility] Hemoglobin 11.5(L) 12.0 - 15.6 gm/dL 05/05/2021 11:[address] [facility] Hematocrit 36.8 35.9 - 45.5 % 05/05/2021 11:[address] [facility] MCV 88.9 80.7 - 98.3 fl 05/05/2021 11:[address] [facility] MCH 27.8 26.7 - 34.0 pg 05/05/2021 11:[address] [facility] MCHC 31.3 30.8 - 35.9 gm/dL 05/05/2021 11:[address] [facility] Platelet Count 265 153 - 416 x10E9/L 05/05/2021 11:[address] [facility] RDW-CV 13.8 12.1 - 14.9 % 05/05/2021 11:[address] [facility] MPV 9.2(L) 9.4 - 12.9 fl 05/05/2021 11:[address] [facility] Neutrophils % 55.0 44.0 - 73.0 % 05/05/2021 11:[address] [facility] Lymphocytes % 32.8 20.0 - 43.0 % 05/05/2021 11:[address] [facility] Monocytes % 5.3 5.0 - 13.0 % 05/05/2021 11:[address] [facility] Eosinophils % 6.0 0.0 - 6.0 % 05/05/2021 11:[address] [facility] Basophils % 0.7 0.0 - 2.0 % 05/05/2021 11:[address] [facility] Immature Granulocytes 0.2 0 - 1 % 05/05/2021 11:[address] [facility] Neutrophil Absolute 4.59 2.01 - 7.14 x10E9/L 05/05/2021 11:[address] [facility] Lymphocytes Absolute 2.74 1.07 - 3.94 x10E9/L 05/05/2021 11:[address] [facility] Monocytes Absolute 0.44 0.26 - 1.07 x10E9/L 05/05/2021 11:[address] [facility] Eosinophils Absolute 0.50(H) 0 - 0.47 x10E9/L 05/05/2021 11:[address] [facility] Basophils Absolute 0.06 0 - 0.08 x10E9/L 05/05/2021 11:[address] [facility] Immature Granulocytes Absolute 0.02 0.00 - 0.06 x10E9/L 05/05/2021 11:[address] [facility] nRBC Auto 0 /100 WBC 05/05/2021 11:[address] [facility] Blood BLOOD SPECIMEN / Unknown Venipuncture / Unknown 05/05/2021 11:12 PM GREENHOUSE WORKER 05/05/2021 11:43 PM [facility] Jacqueline Christopher [employer] LAB - HEMATO LOGY ORDERABLES [facility] [address] [place] [address] * (ABNORMAL) COMPREHENSIVE METABOLIC PANEL (05/05/2021 11:12 PM GREENHOUSE WORKER) Only the most recent of2 resultswithin the time period is included. [facility] Signature Glucose 108(H) 70 - 105 mg/dL 05/05/2021 11:[address] [facility] Sodium 135(L) 136 - 145 mmol/L 05/05/2021 11:[address] [facility] Potassium 4.9 3.5 - 5.1 mmol/L 05/05/2021 11:[address] [facility] Chloride 106 98 - 107 mmol/L 05/05/2021 11:[address] [facility] CO2 16(L) 23 - 31 mmol/L 05/05/2021 11:[address] [facility] Calcium 9.4 8.4 - 10.4 mg/dL 05/05/2021 11:[address] [facility] Anion Gap 13 8 - 18 mmol/L 05/05/2021 11:[address] [facility] BUN 25(H) 9.8 - 20.1 mg/dL 05/05/2021 11:[address] [facility] Creatinine 1.72(H) 0.57 - 1.11 mg/dL 05/05/2021 11:[address] [facility] Alkaline Phosphatase 101 40 - 150 U/L 05/05/2021 11:[address] [facility] ALT 27 0 - 61 U/L 05/05/2021 11:[address] [facility] AST 27 5 - 34 U/L 05/05/2021 11:[address] [facility] Protein Total 8.4(H) 6.4 - 8.3 gm/dL 05/05/2021 11:[address] [facility] Albumin 4.1 3.5 - 5.2 gm/dL 05/05/2021 11:[address] [facility] Bilirubin Total 0.4 0.2 - 1.2 mg/dL 05/05/2021 11:[address] [facility] eGFR by MDRD 31(L) >60 mL/min/1.7 3m2 05/05/2021 11:[address] [facility] eGFR by MDRD 38(L) >60 mL/min/1.7 3m2 05/05/2021 11:[address] [facility] Blood BLOOD SPECIMEN / Unknown Venipuncture / Unknown 05/05/2021 11:12 PM GREENHOUSE WORKER 05/05/2021 11:22 PM [facility] Jacqueline Christopher [employer] LAB - CHEMIS TRY ORDERABLES Performing Organization Address City/[facility]/ZIP Co de Phone Number [facility] [address] [place] [address] * LIPASE BLOOD (05/05/2021 11:12 PM GREENHOUSE WORKER) [facility] Lipase 58 8 - 78 U/L 05/05/2021 11:45 PM GREENHOUSE WORKER [facility] Blood BLOOD SPECIMEN / Unknown Venipuncture / Unknown 05/05/2021 11:12 PM GREENHOUSE WORKER 05/05/2021 11:22 PM GREENHOUSE WORKER Jacqueline Tiera Ashwin [employer] LAB - CHEMIS TRY ORDERABLES Performing Organization Address [facility] Co de Phone Number [facility] [address] [place] [address] * (ABNORMAL) BASIC METABOLIC PANEL (CALCIUM TOTAL) (12/29/2020 2:01 PM CDT) Only the most recent of2 resultswithin the time period is included. [facility] Glucose 137(H) 70 - 105 mg/dL 12/29/2020 2:32 PM CDT [facility] Sodium 139 136 - 145 mmol/L 12/29/2020 2:32 PM CDT [facility] Potassium 3.8 3.5 - 5.1 mmol/L 12/29/2020 2:32 PM CDT [facility] Chloride 104 98 - 107 mmol/L 12/29/2020 2:32 PM CDT [facility] CO2 20(L) 23 - 31 mmol/L 12/29/2020 2:32 PM CDT [facility] Calcium 8.9 8.4 - 10.4 mg/dL 12/29/2020 2:32 PM CDT [facility] Anion Gap 15 8 - 18 mmol/L 12/29/2020 2:32 PM CDT [facility] BUN 26(H) 9.8 - 20.1 mg/dL 12/29/2020 2:32 PM CDT [facility] Creatinine 1.40(H) 0.57 - 1.11 mg/dL 12/29/2020 2:32 PM CDT [facility] eGFR by MDRD 40(L) >60 mL/min/1.7 3m2 12/29/2020 2:32 PM CDT [facility] eGFR by MDRD 48(L) >60 mL/min/1.7 3m2 12/29/2020 2:32 PM CDT [facility] Blood BLOOD SPECIMEN / Unknown Lab Venipuncture / Unknown 12/29/2020 2:01 PM CDT 12/29/2020 2:11 PM CDT Silvia Green MD LAB - CHEMISTRY SANTIAGO HERNANDEZ [facility] [address] [place] [address] * (ABNORMAL) HEMOGLOBIN A1C (12/28/2020 3:28 AM CDT) Hemoglobin A1c 6.2(H) 4.2 - 5.6 % 12/28/2020 4:31 AM CDT [facility] Estimated Average Glucose 131 mg/dL 12/28/2020 4:31 AM CDT [facility] Blood BLOOD SPECIMEN / Unknown Lab Venipuncture / Unknown 12/28/2020 3:28 AM CDT 12/28/2020 3:56 AM CDT Narrative [facility] - 12/28/2020 4:31 AM CDT The following cutoff levels are recommended by [place] [employer]. A1c > 6.5% : considered as diabetes if two separate tests >6.5% or in an appropriate clinical setting. A1c 5.7% - 6.4% : considered as prediabetes (suggest increased risk for diabetes and cardiovascular disease) Control target level: Should be individualized. < 7 for general (non-) , < 8% less stringent goal, < 6.5 more stringent goal. Hemoglobin A1c measurements are used as an aid in the diagnosis of diabetic mellitus, as an aid to identify patients who may be at the risk for developing diabetic mellitus, and for the monitoring long-term blood glucose control in individuals with diabetes mellitus. This test should not replace glucose testing for patients with Type 1 diabetes, pediatric patients, or women. Falsely low HbA1c results may be observed in patients with clinical conditions that shorten erythrocyte life span or decrease mean erythrocyte age such as the presence of unstable hemoglobin variants, elevated hemoglobin F level or other causes of hemolytic anemia . HbA1c may not accurately reflect glycemic control when clinical conditions that affect erythrocyte survival are present. Severe Iron deficiency anemia may yield falsely high results. Hemoglobin A1c assay should not be used to diagnose or monitor diabetes in patients with malignancy, recent blood transfusion, chronic kidney or liver disease. This method may yield falsely low results when hemoglobin (HbF) exceeds 5% in the specimen. Johanna Nichols APRN-[employer] [employer] LAB - CHEMIS TRY ORDERABLES Performing Organization Address [facility] de Phone Number [facility] [address] [place] [id number] * MAGNESIUM BLOOD (12/28/2020 3:28 AM CDT) [facility] Magnesium 2.1 1.6 - 2.6 mg/dL 12/28/2020 4:31 AM CDT [facility] Blood BLOOD SPECIMEN / Unknown Lab Venipuncture / Unknown 12/28/2020 3:28 AM CDT 12/28/2020 3:56 AM CDT Johanna Nichols [id number] LAB - CHEMIS TRY ORDERABLES Performing Organization Address [facility] de Phone Number [facility] [address] [place] [id number] * ETT LINE PERFORMABLE (12/27/2020 12:00 PM CDT) Narrative Rubia Iglesias APRN-CRNA - 12/27/2020 12:00 PM CDT Rubia Iglesias APRN-CRNA 12/27/2020 12:01 PM Endotracheal Tube Placement: Patient Location: OR. Intubation Event Date/Time: 12/27/2020 11:36 AM Procedure: intubation (46065). Procedure Section: Sedation: under general anesthesia. Indications for Airway Management: anesthesia Induction: standard IV Patient Position: supine and sniffing Mask Ventilation: easy. Blade Type: Reji Blade Size: 3 Laryngoscopy View: grade 1 (full cords) Intubation Adjuncts: stylet Tube: endotracheal tube Placement: oral Tube type: cuff - inflated Tube Size (MM): 7 Depth of Insertion (CM): 22 Measured From: lips Cuff volume (mL): 7 Cuff inflation pressure (CM H20): 20 Cuff Inflated With: air Number of Attempts: 1. Placement Verified By: direct visualization, bilateral breath sounds, chest auscultation and CO2 monitor Tube secured with: adhesive tape. Procedure Start Time: 12/27/2020 11:36 AM. Staff Section Anesthesia Provider: Rubia Iglesias APRN-SAJI, Performed the procedure Additional Comments: Atraumatic intubation. All mouth, lips, tongue, teeth same condition as baseline. Ritika Valencia MD GENERAL ANESTHESIA O RDERABLES * HCG BETA BLOOD QUANTITATIVE (12/27/2020 10:42 AM CDT) hCG Quantitative <1.20 mIU/mL 12/28/19 21 11:16 AM CDT [facility] Blood BLOOD SPECIMEN / Unknown Venipuncture / Unknown 12/27/2020 10:42 AM CDT 12/27/2020 10:41 AM CDT Narrative [facility] - 12/27/2020 11:16 AM CDT hCG Reference Range, mIU/mL: Males 0-2.0 Non Females 0-6.0 Perimenopausal Females ages 41-55* 0-7.7 Postmenopausal Females age >55* 0-14 Females, Weeks after Last Menstrual Period 0.2-1 week 5-50 1 - 2 weeks 50-500 2 - 3 weeks 100-5000 3 - 4 weeks 500-10,000 4 - 5 weeks 1000-50,000 5 - 6 weeks 10,000-100,000 6 - 8 weeks 15,000-200,000 2 - 3 months 10,000-100,000 Trophoblastic Disease >100,000 *In higher than expected hCG in females > age 40, a serum FSH >20 IU/L makes unlikely. Baldemar Abdi MD LAB - CHEMISTRY SANTIAGO HERNANDEZ [facility] Organization Address City/State/ZIP Co de Phone Number [facility] [address] [place] [address] * LACTIC ACID BLOOD REFLEX TO REPEAT (12/27/2020 12:38 AM CDT) Only the most recent of2 resultswithin the time period is included. Lactic Acid 1.6 0.5 - 2.2 mmol/L 12/27/2020 12:55 AM CDT [facility] Blood BLOOD SPECIMEN / Unknown Venipuncture / Unknown 12/27/2020 12:38 AM CDT 12/27/2020 12:44 AM CDT Cheri Elena PA-C LAB - CHEMISTRY OR DERABLES Performing Organization Address [facility] de Phone Number [facility] [address] [place] [phone] * LACTIC ACID REPEAT REFLEX (12/26/2020 8:56 PM CDT) Pathologist [facility] Lactic Acid Repeat Reflex Order LACTIC ACID REPEAT HAS BEEN ORDERED 12/26/2020 11:00 PM CDT [facility] Blood BLOOD SPECIMEN / Unknown Venipuncture / Unknown 12/26/2020 8:56 PM CDT 12/26/2020 9:27 PM CDT Cheri Elena PA-C LAB - CHEMISTRY OR DERABLES Performing Organization Address [facility] de Phone Number [facility] [address] [place] [phone] * NJ FIT/INSERT INTRAVAG SUPPORT DEVICE, NJ PESSARY, NON RUBBER,ANY TYPE (08/30/2020 2:49 PM CDT) Narrative Ritika Sims MD - 08/30/2020 2:49 PM CDT Ritika Sims MD 08/30/2020 4:26 PM Pessary Fitting: She was fitted with: 2 1/2 LSG which fit comfortably without pain/undue tension on the vaginal tissues. She ambulated around the clinic and was able to retain the pessary comfortably. > attempted to fit with a 2 3/4 SSG which was uncomfortable and had flipped in the vagina. Ritika Sims MD PROCEDURE/MINOR ELISHA GICAL ORDERABLES * NJ FIT/INSERT INTRAVAG SUPPORT DEVICE, NJ PESSARY, NON RUBBER,ANY TYPE (08/02/2020 5:46 PM GREENHOUSE WORKER) Ritika Lanier MD - 08/02/2020 5:46 PM GREENHOUSE WORKER Ritika Sims MD 08/04/2020 2:42 PM Pessary Fitting: She was fitted with: # 3 RWS with knob which fit comfortably without pain/undue tension on the vaginal tissues. She ambulated around the clinic and was able to retain the pessary comfortably. Attempted to fit with a #4 RWS with knob but it was uncomfortable. Ritika Sims MD PROCEDURE/MINOR ELISHA GICAL ORDERABLES * NJ BIOPSY OF CERVIX (07/11/2020 6:02 PM GREENHOUSE WORKER) Ritika Lanier MD - 07/11/2020 6:02 PM GREENHOUSE WORKER Ritika Sims MD 07/11/2020 6:23 PM There was a 1cm polyp arising from 6 o'clock at the external os. Verbal consent for removal was obtained. The cervix was prepped with betadine. A tanya clamp was used to grasp the polyp and twist. The stalk of the polyp was transected with scissors. Silver nitrate and monsels was used for hemostasis and excellent hemostasis was achieved. The patient tolerated the procedure well. Ritika Sims MD PROCEDURE/MINOR ELISHA GICAL ORDERABLES * NJ INSERT NON-INDWELLING BLADDER (07/11/2020 6:01 PM GREENHOUSE WORKER) Ritika Lanier MD - 07/11/2020 6:01 PM GREENHOUSE WORKER Ritika Sims MD 07/11/2020 6:23 PM Procedure note: Straight catheterization was performed after swabbing the urethra with betadine. A 14 Fr urethral catheter was inserted without difficulty and the bladder was drained for 120 mL. The patient tolerated the procedure well. Ritika Sims MD PROCEDURE/MINOR ELISHA GICAL ORDERABLES * PATHOLOGY TISSUE (07/11/2020 4:49 PM GREENHOUSE WORKER) Case Report Surgical Pathology Report Case: [id number] Authorizing Provider: Ritika Sims MD Collected: 07/11/2020 04:49 PM Ordering Location: [facility] Obstetrics Received: 07/15/2020 11:00 AM Gynecology and Women's Health Pathologist: Jose Juan Kolb MD Specimen: Cervix, 6:00 07/16/2020 9:38 AM [facility] Final Diagnosis Cervix, polypectomy: - Benign cervical polyp with squamous metaplasia and reactive changes. - Negative for intraepithelial lesions and carcinoma. 07/16/2020 9:38 AM [facility] Microscopic Description and Comment Microscopic examination substantiates the final diagnosis. 07/16/2020 9:38 AM [facility] Clinical History The patient is a 50-year-old woman with a cervical polyp. 07/16/2020 9:38 AM [facility] Gross Description The requisition and specimen(s) are identified with the patient's name, Aliza Handy. Received in formalin, labeled cervical biopsy specimen A, is a 1.2 x 1.0 x 0.3 cm singh-white smooth irregular nodule with a prominent clamp srinivasan. A distinct resection margin is not identified. The specimen is sectioned and entirely submitted in cassette A1. 07/16/2020 9:38 AM [facility] Disclaimer The performance characteristics of all immunohistochemical and indirect immunofluorescence stains (if any) cited in this report were determined by the Histopathology Laboratory of [facility]. Some of these tests were developed by our own laboratory and have not been cleared or approved by the US Food and Drug Administration. The FDA does not require this test to go through premarket FDA review. These tests are used for clinical purposes. They should not be regarded as investigational or for research. This laboratory is certified under the Clinical Laboratory Improvement Amendments (CLIA) as qualified to perform high complexity clinical laboratory testing. This case has been personally reviewed and interpreted by the attending (teaching) pathologist. 07/16/2020 9:38 AM [facility] Embedded Images 07/16/2020 9:38 AM [facility] Pathology/Cytolo gy PART OF UTERINE CERVIX / Unknown 07/11/2020 4:49 PM GREENHOUSE WORKER 07/15/2020 11:00 AM GREENHOUSE WORKER Ritika Sims MD LAB - PATHOLOGY/CYT OLOGY ORDERABLES Performing Organization Address City/State/[facility] Co de Phone Number [facility] [address] [phone] * (ABNORMAL) URINALYSIS W/MICROSCOPIC NO CULTURE (07/11/2020 4:48 PM GREENHOUSE WORKER) Color UA YELLOW YELLOW [facility] Appearance CLOUDY(A) CLEAR [facility] Specific [place] UA 1.014 1.001 - 1.035 [facility] pH UA 6.0 5.0 - 8.0 [facility] Glucose UA NEGATIVE NEGATIVE [facility] Bilirubin UA NEGATIVE NEGATIVE [facility] Ketone UA NEGATIVE NEGATIVE [facility] Blood UA NEGATIVE NEGATIVE [facility] Protein UA 1+(A) NEGATIVE [facility] Nitrite UA POSITIVE(A) NEGATIVE [facility] Leukocyte UA 2+(A) NEGATIVE [facility] WBC UA > OR = 60(A) < OR = 5 /HPF [facility] RBC UA NONE SEEN < OR = 2 /HPF [facility] Epithelial Cell UA NONE SEEN < OR = 5 /HPF [facility] Bacteria UA MANY(A) NONE SEEN /HPF [facility] Hyaline Casts NONE SEEN NONE SEEN /LPF [facility] Comment: Test Performed at: [facility] [id number] GERRY GIL MD Urine URINE SPECIMEN COLLECTION, CATHETERIZED / Unknown 07/11/2020 4:48 PM GREENHOUSE WORKER 07/12/2020 2:12 AM GREENHOUSE WORKER Ritika Sims MD LAB - URINALYSIS OR DERABLES Performing Organization Address [facility] Co de Phone Number [address] [address] * (ABNORMAL) CULTURE URINE COMPREHENSIVE (07/11/2020 4:48 PM GREENHOUSE WORKER) Culture (A) [facility] Comment: CULTURE, URINE, SPECIAL Micro Number: [id number] Test Status: Final Specimen Source: URINE, CATHETER Specimen Quality: Adequate Result: Greater than 100,000 CFU/mL of Escherichia coli E.coli INT GEMA AMOX/CLAVULANATE S 8 AMPICILLIN R >=32 AMP/SULBACTAM I 16 CEFAZOLIN NR <=4 2 CEFEPIME S <=1 CEFTRIAXONE S <=1 CIPROFLOXACIN S <=0.25 ERTAPENEM S <=0.5 GENTAMICIN S <=1 IMIPENEM S <=0.25 LEVOFLOXACIN S <=0.12 NITROFURANTOIN S <=16 PIP/TAZOBACTAM S <=4 TOBRAMYCIN S <=1 TRIMETHOPRIM/SULFA R >=320 S=Susceptible I=Intermediate R=Resistant * = Not Tested NR = Not Reported NN = See Therapy Comments THERAPY COMMENTS Note 1: For infections other than uncomplicated UTI caused by E. coli, K. pneumoniae or P. mirabilis: Cefazolin is resistant if GEMA > or = 8 mcg/mL. (Distinguishing susceptible versus intermediate for isolates with GEMA < or = 4 mcg/mL requires additional testing.) Note 2: For uncomplicated UTI caused by E. coli, K. pneumoniae or P. mirabilis: Cefazolin is susceptible if GEMA <32 mcg/mL and predicts susceptible to the oral agents cefaclor, cefdinir, cefpodoxime, cefprozil, cefuroxime, cephalexin and loracarbef. Test Performed at: [facility] [address] GERRY GIL MD Microbiology URINE SPECIMEN COLLECTION, CATHETERIZED / Unknown 07/11/2020 4:48 PM GREENHOUSE WORKER 07/12/2020 2:12 AM GREENHOUSE WORKER Ritika Sims MD LAB - MICROBIOLOGY ORDERABLES [address] [address] * HPV DETECTION HIGH RISK SOWYMA (07/11/2020 4:00 PM GREENHOUSE WORKER) High Risk Human Papilloma Result Not detected Not detected 07/17/2020 2:51 PM GREENHOUSE WORKER [facility] High Risk Human Papilloma Interp 07/17/2020 2:51 PM GREENHOUSE WORKER [facility] Comment:High Risk Human Ryder lloma Virus was Not Detected. Pathology/Cytolo gy MISCELLANEOUS SAMPLES / Unknown 07/11/2020 4:00 PM GREENHOUSE WORKER 07/15/2020 8:50 AM GREENHOUSE WORKER Narrative [facility] - 07/17/2020 2:51 PM GREENHOUSE WORKER Nucleic acid isolated from the specimen was [...] Ritika Sims MD LAB - MICROBIOLOGY ORDERABLES [facility] [address] [phone] * PAP IMAGE-GUIDED W HPV (07/11/2020 4:00 PM GREENHOUSE WORKER) Case Report Gynecologic Cytology Report Case: [id number] Authorizing Provider: Ritika Sims MD Collected: 07/11/2020 04:00 PM Ordering Location: [facility] Obstetrics Received: 07/15/2020 08:50 AM Gynecology and Women's Health First Screen: Dion Wolfe Pathologist: Jose Juan Kolb MD Specimen: THINPREP - NON IMAGE GUIDED, Cervix/Endocervix 07/16/2020 9:33 AM [facility] LMP 2019 07/16/2020 9:33 AM [facility] Menstrual Status Postmenopausal 06/25 9:33 AM [facility] Specimen Adequacy Satisfactory for evaluation, endocervical/trans formation zone component present. 07/16/2020 9:33 AM [facility] Categorization Epithelial cell abnormality. 07/16/2020 9:33 AM [facility] Interpretation DIRECTOR OF MEDICAL STAFF SERVICES Atypical squamous cells of undetermined significance (ASC-US). 07/16/2020 9:33 AM [facility] Pap Footnote The Pap Smear is a screening test. False positive and false negative results occur. Negative results do not preclude abnormalities, thus clinical correlation is required. This specimen was evaluated by the ThinPrep Imaging System along with an additional manual rescreening by a pants closer and/or pathologist. 07/16/2020 9:33 AM GREENHOUSE WORKER [facility] Embedded Images 9:33 AM GREENHOUSE WORKER [facility] Pathology/Cytolo gy MISCELLANEOUS SAMPLES / Unknown 07/11/2020 4:00 PM GREENHOUSE WORKER 07/15/2020 8:50 AM GREENHOUSE WORKER Ritika Sims MD LAB - PATHOLOGY/CYT OLOGY ORDERABLES Performing Organization Address City/State/[facility] Co de Phone Number [facility] [address] [place] [address], [facility] [phone] * URINALYSIS AUTO - POINT OF CARE (AMB) [facility] (07/11/2020) Glucose UA N Bilirubin UA POCT N Ketones UA POCT N Specific [place] UA 1.020 Blood Urine POCT N pH UA 6.0 Protein UA TRACE Urobilinogen UA N Nitrite UA + WBC UA N Urine URINE / Unknown 07/11/2020 Ritika Sims MD LAB - POINT OF CARE ORDERABLES
--- OUTSIDE RECORDS SUMMARY | 2024-07-27 11:35 | XMS_ITS | Referral Summary ---
Author Organization [facility] [employer] Address [address] [place] [address] [place] [address] Care Team Providers Care Nutritional Yeast Supervisor Name Role Phone Unavailable Primary Care Provider Unavailabl e Source Comments [facility] [employer],non-owned Affiliates and Associated Physician Practices is amultiple site organization consisting of ambulatory clinics and hospital sitesin [place], [place], [place] and [place]. This disclosure is being madepursuant to the Care Everywhere program and may not contain all information available regarding this patient. Last updated 18.[employer] Allergies No known active allergies Medications * [...] tablet 01/17/2021 Active ergocalciferol (DRISDOL) 1.25 MG (74713 UT) capsule ergocalciferol (vitamin D2) 1,250 mcg [...] Immunizations Name Administration Dates Next Due Elizabeth Fontenot primary monoval ent 12+ yr 0.3mL Purple cap 12/30/2020(Deferred: Patient Refused) INFLUENZA VACCINE 03/07/2021 Social History Tobacco Use Types Packs/Day Years [...] Comments Blood Pressure 147/92 07/02/2021 1:34 PM AIRCRAFT ENGINE TECHNICIAN Pulse 88 07/02/2021 1:34 PM AIRCRAFT ENGINE TECHNICIAN Temperature 36.8 C (98.2 F) 07/02/2021 1:34 PM AIRCRAFT ENGINE TECHNICIAN Respiratory Rate 20 07/02/2021 1:34 PM AIRCRAFT ENGINE TECHNICIAN Oxygen Saturation 96% 05/14/2021 12:54 PM AIRCRAFT ENGINE TECHNICIAN Inhaled Oxygen Concentration - - Weight 127.5 kg (281 lb) 07/02/2021 1:34 PM AIRCRAFT ENGINE TECHNICIAN Height 165.1 cm (5' 5 ) 07/02/2021 1:34 PM AIRCRAFT ENGINE TECHNICIAN Body Mass Index 46.76 07/02/2021 1:34 PM AIRCRAFT ENGINE TECHNICIAN Functional Status Functional Status Response Date of Assess ment Is person deaf or have serious hearing difficult y? No 05/13/2021 Is person blind or have serious difficulty seein g? No 05/13/2021 Does person have serious dif ficulty walking/climbing stairs? No 05/13/2021 Does person have difficulty dressing/bathing? No 05/13/2021 Does person have difficulty doing errands alone? No 05/13/2021 Cognitive Status Response Date of Assessm ent Does person have difficulty concentrating/remembering/making decisions? No 05/13/2021 Plan of Treatment Not on file Medical Devices Implanted Type Area Cement Side Laster Device Identifier Shelf Expiration Date Model / Serial / Lot Mesh Srg Ventralight St Sepra 8x6in Implanted:Qty: 1 on 05/12/2021 by Baldemar Abdi MD at [facility] Abdomen [employer] 02/18/2022 [id number] / / [id number] Sys Fx 37cm Cpsr Str Ss Peek Perm Hndl Implanted:Qty: 1 on 05/12/2021 by Baldemar Abdi MD at [facility] [employer]dom[employer] 03/20/2023 [id number] / / [id number] Sys Fx Optifix 15 Absb Fstnr Artc Implanted:Qty: 1 on 05/12/2021 by Baldemar Abdi MD at [facility] [employer]domen [employer] 11/18/2022 [id number] / / [id number] Procedures Procedure Name Priority Date/Time Associated Diagnosis Comments GLUCOSE - POINT OF CARE Routine 05/14/2021 11:40 AM AIRCRAFT ENGINE TECHNICIAN HPV DETECTION HIGH RISK SOWMYA Routine 07/11/2020 4:00 PM AIRCRAFT ENGINE TECHNICIAN Cervical cancer screening from Last 3 Months or Most Recently Relevant to Health Maintenance Results * (ABNORMAL) GLUCOSE - POINT OF CARE (05/14/2021 11:40 AM AIRCRAFT ENGINE TECHNICIAN) [facility] Glucose WB/POC 118(H) 70 - 106 mg/dL 05/14/2021 11:46 AM AIRCRAFT ENGINE TECHNICIAN [facility] Specimen Type Cap Fingerstick 2020 11:46 AM AIRCRAFT ENGINE TECHNICIAN [facility] Blood BLOOD SPECIMEN / Unknown 05/14/2021 11:40 AM AIRCRAFT ENGINE TECHNICIAN 05/14/2021 11:46 AM AIRCRAFT ENGINE TECHNICIAN Baldemar Abdi MD LAB - POINT OF CARE ORDERABLES [facility] [address] [place] [address] * HPV DETECTION HIGH RISK SOWMYA (07/11/2020 4:00 PM AIRCRAFT ENGINE TECHNICIAN) High Risk Human Papilloma Result Not detected Not detected 07/17/2020 2:51 PM AIRCRAFT ENGINE TECHNICIAN [facility] High Risk Human Papilloma Interp 07/17/2020 2:51 PM AIRCRAFT ENGINE TECHNICIAN [facility] Comment:High Risk Human Ryder lloma Virus was Not Detected. Pathology/Cytolo gy MISCELLANEOUS SAMPLES / Unknown 07/11/2020 4:00 PM AIRCRAFT ENGINE TECHNICIAN 07/15/2020 8:50 AM AIRCRAFT ENGINE TECHNICIAN Narrative [facility] - 07/17/2020 2:51 PM AIRCRAFT ENGINE TECHNICIAN Nucleic acid isolated from the specimen [...] Ritika Sims MD LAB - MICROBIOLOGY ORDERABLES [facility] [address] [phone] from Last 3 Months or Most Recently Relevant to Health Maintenance Advance Directives * Full Code (Latest Code Status on File) Date Activated Date Inactivated Comments 05/12/2021 6:57 PM 05/14/2021 7:23 PM * Full Code Date Activated Date Inactivated Comments 12/27/2020 8:36 AM 12/30/2020 6:49 PM
--- OUTSIDE RECORDS SUMMARY | 2024-07-27 11:35 | XMS_ITS | CONTINUITY OF CARE DOCUMENT ---
Author Name luc calle Address Unknown Organization [facility] Address [address] [place] [address] Phone [phone] Care Team Providers Care Curtain Fitter Name Role Phone Willy Cleaning MD Unavailable [phone] BRE LINDA MD Unavailable [phone] INSURANCE PROVIDERS Payer name Policy type / Coverage type Funmilayo red democrat [place] FAY MEDICAID Medicaid [id number]
--- OUTSIDE RECORDS SUMMARY | 2024-07-27 11:35 | XMS_ITS | Referral Summary ---
Author Organization [facility] al Address [address] [place] [address] Care Team Providers Care Junior Mechanical Engineer Name Role Phone Leonor Graves Primary Care Provider [phone] Allergies Active Allergy Reactions Criticality Noted Date Comments Other Shortness of breath High 02/25/2022 Vinegar Hyperventilate and pass out Medications metFORMIN XR (GLUCOPHAGE XR) 500 mg 24 hr tabletIndication s:type 2 diabetes mellitus Take 1 tablet (500 mg total) by mouth daily with breakfast 1 Active atorvastatin (LIPITOR) 40 mg tabletIndication s:hyperlipidemia Take 1 tablet (40 mg total) by mouth nightly [address] (PROTONIX) 40 mg EC tablet Take 1 tablet (40 mg total) by mouth 2 (two) times a day Active gabapentin (NEURONTIN) 300 mg capsuleIndicatio ns:Diabetic Peripheral Neuropathy Take 1 capsule (300 mg total) by mouth 3 (three) times a day Active lancets 30 gauge [facility] OneTouch Delica Plus Lancet 30 gauge USE TO CHECK BLOOD SUGAR EVERY DAY Active blood-glucose meter [facility] OneTouch Verio Flex Meter USE TO CHECK BLOOD SUGAR EVERY DAY Active alcohol swabs pads, medicated USE TO CLEAN THE INJECTION SITE OF INSULIN AND WHEN CHECKING BLOOD SUGAR 3 Active OneTouch Verio test strips strip USE TO CHECK BLOOD SUGAR EVERY DAY 3 Active cyclobenzaprine (FLEXERIL) 10 mg tabletIndication s:Muscle Spasm Take 1 tablet (10 mg total) by mouth nightly 3 Active ergocalciferol (VITAMIN D) 50,000 unit capsuleIndicatio ns:Vitamin D Deficiency Take 1 capsule (50,000 Units total) by mouth once a week Wednesday 4 Active FLUoxetine (PROzac) 20 mg capsuleIndicatio ns:depression Take 1 capsule (20 mg total) by mouth company controller before breakfast 4 Active triamcinolone (KENALOG) 0.1 % ointmentIndicati ons:Skin Inflammation Apply 1 Application topically 2 (two) times a day as needed for irritation 4 Active Ozempic 2 mg/dose (8 mg/3 mL) pen injector injectionIndicat ions:type 2 diabetes mellitus Inject 2 mg under the skin once a week 4 Active acetaminophen 500 mg capsule Take 2 capsules (1,000 mg total) by mouth 3 (three) times a day 4 Active bisacodyl EC (DULCOLAX EC) 5 mg EC tabletIndication s:constipation Take 1 tablet (5 mg total) by mouth daily 4 Active heparin 5,000 unit/mL injectionIndicat ions:Deep Vein Thrombosis Prevention Inject 1 mL (5,000 Units total) under the skin every 8 (eight) hours 4 Active Additional Information Patient not taking.Reported on 12/15/2023 oxyCODONE (ROXICODONE) 5 mg immediate release tabletIndication s:Pain Take 1 tablet (5 mg total) by mouth every 4 (four) hours as needed for pain 20 tablet 4 Active dextrose 15 gram/32 mL gel in packetIndication s:hypoglycemic disorder Take 32 mL (15 g total) by mouth every 15 (fifteen) minutes as needed (blood glucose less than 70 mg/dL) 4 Active HYDROcodone-acet aminophen (NORCO) 5-325 mg per tabletIndication s:Pain Take 1 tablet by mouth every 4 (four) hours as needed for pain Active cyclobenzaprine (FLEXERIL) 5 mg tabletIndication s:Muscle spasm TAKE 1 TABLET(5 MG) BY MOUTH THREE TIMES DAILY NEEDED FOR MUSCLE SPASMS 30 tablet 4 Active Active Problems Problem Noted Date Diagnosed Date Intra-abdominal fluid collection 11/17/2023 Assessment & Plan (11/17/2023 8:12 AM CDT): 11/15 hold on IR drain placement, surgical drain near abdominal fluid collection 11/16 surgical STEVE drain dislodged overnight; IR consulted for drain placement Wound dehiscence 11/16/2023 Assessment & Plan (11/19/2023 11:00 AM CDT): S/p open repair of incarcerated abdominal hernia with resection of omentum, TAR, retrorectus mesh placement (09/26, [facility]). Readmitted for purulent, foul- smelling drainage from middle of lower transverse incision. CT with abdominal rim enhancing lesion c/f abscess vs seroma with drain adjacent to collection. - wound care: WTD Vaschristina santadrianne 11/15 continue antibiotic and local wound care 11/17 updated pictures, wound care on rounds 11/18 Pt educated on wound care and HH consulted for wound care Antibiotics: Vancomycin 11/14-11/18 Cefepime 11/14-11/18 Flagyl 11/14-11/18 Antibiotics titrated to PO Bactrim for DC, Pathology NGTD and she was added to the Pathology list. Cultures: Blood 11/14: pending HLD (hyperlipidemia) 11/16/2023 Assessment & Plan (11/16/2023 12:26 AM CDT): Resume home atorvastin Abscess after procedure 11/15/2023 Encounter for medication review 10/01/2023 Assessment & Plan (11/16/2023 9:52 AM CDT): 5/10 home medications confirmed and updated in ADMISSIONS tab Assessment & Plan (10/01/2023 10:28 AM CDT): 5/10 home medications confirmed and updated in ADMISSIONS tab Hypovolemic shock 09/29/2023 Assessment & Plan (09/30/2023 12:55 PM CDT): 5/8 hypotensive overnight requiring initiation of neosynephrine, 1L LR (3L total/24h) + scheduled 25% albumin for prerenal fena, PRBC x1 for drop in hgb without signs of active bleeding, weaned joaquim to 0.2 today, continue albumin, echo ordered, UA positive however favor non-infectious etiology of hypotension CV: echo pending, weaning from neosynephrine, improved UOP, art line + IVC POCUS if unable to wean off Heme: no e/o active bleeding, hgb drop after 2L IVFs, hgb stable after 1un PRBC overnight, JPs low output serosang, recheck H&H ID: wbc 16, afebrile, blood ngtd, urine ngtd - continue ceftriaxone pending cultures 09/29 Tmax 102 overnight, HDS off of pressors, bcx ngtd, ucx negative - stop rocephin, no signs of active bleeding s/p PRBC x1 yesterday SHOCK RESOLVED Leukocytosis 09/29/2023 Assessment & Plan (10/01/2023 10:47 AM CDT): 09/28 hypotensive overnight with ulytes grossly pre-renal, UA and blood cultures obtained iso wbc 16 in 24h periop period, UA+ and reflex to culture, rocephin initiated, patient remains afebrile 09/29 Tmax 102 overnight, improved with IS utlization, wbc 10 from 12, stable on 1L NC with nonproductive cough, Ucx negative - stop rocephin, vac intact, JPs serosang 09/30 afebrile, wbc 11 from 10, weaned to RA RESOLVED CULTURES 09/27 blood: NGTD 09/27 urine: negative ANTIBIOTICS 09/27 periop erta 09/27 intra-op clinda+gent 09/27-09/29 Ceftriaxone Acute pain 09/29/2023 Assessment & Plan (10/04/2023 12:18 PM CDT): 09/28 periop epidural placed, decreased to 1ml/h for hypotension, continue BATTERY CHARGER TESTER 09/29 pain controlled, epidural resumed @ 6ml/h + BATTERY CHARGER TESTER 09/30 hypotensive with epidural titration, discussed with pain team, plan to remove today, oralizing regimen 10/01 Oxycodone 5-10 mg PO Q 3 hr PRN, pain well controlled. 10/03 Pain controlled on PO regimen Drop in hemoglobin 09/29/2023 Assessment & Plan (10/04/2023 12:19 PM CDT): 09/28 PRBC x1 overnight for hgb 9.2 from 11 iso hypotension - no e/o active bleeding, hgb decreased iso multiple LR boluses, JPs low output serosang, repeat H&H today 09/29 overnight hgb 7.1, repeat 7.8, off pressors, AIDEE resolved, transfuse for <7 10 hgb 7.5 from 7.7, remains off pressors, Cr baseline, transfuse for <7 10/01 HGB remains stable 8.8 10/03 Hgb stable, 8.5 Depression 09/28/2023 Assessment & Plan (11/16/2023 12:25 AM CDT): Resume home fluoxetine Assessment & Plan (10/01/2023 10:40 AM CDT): Home regimen: prozac (held while NPO) - resumed 09/30 Chronic pain 09/28/2023 Assessment & Plan (11/16/2023 12:26 AM CDT): Resume home flexeril: 10mg qhs, 5mg TID PRN Home medication: oxycodone 5mg q8h Assessment & Plan (10/01/2023 10:41 AM CDT): Home regimen: flexeril, gabapentin, lidocaine, norco (held while NPO) 09/30 flexeril and gabapentin resumed Discharge planning issues 09/28/2023 Assessment & Plan (11/18/2023 2:20 PM CDT): 11/15 wound dehiscence abdominal fluid collection, continue antibiotics, blood cultures pending 11/17: medical mgmt, IV antibiotics and local wound care, Cultures in process. Health Insurance Coverage: [facility] Medicare Solutions and IDPA Prescription Coverage: yes Pharmacy: [id number] - [place] [address] [id number] [place] [place] [facility] [phone] No PCP noted Assessment & Plan (10/04/2023 3:06 PM CDT): Per case management, patient's mother assists with decision making but is not formal POA 09/27 PT/OT post-op eval, ARBF, ADD early next week 09/28 no change 09/29 OT recommendation: SNF, pending PT eval, ADD early next week 09/30 pending PT eval for coordination of dispo, ADD early next week 10/01 WV removed. Awaiting bowel function and placement in SNF next week. 10/02 Tolerating diet. Ready for SNF on Tuesday 10/03. 10/03 Patient is medically stable for discharge, SW/CM updated. Discharge pending facility bed availability > can dispo today Ventral hernia without obstruction or gangrene 0 08/31/2023 Assessment & Plan (10/04/2023 3:05 PM CDT): 09/26 OR ([facility]icchio): open repair of incarcerated abdominal hernia with resection of omentum, bilateral posterior component separation with TAR, retrorectus mesh --- NPO/NGT, epidural, public interviewer, hernandez, arbf 09/27 AFVSS, wbc 9 from , hgb 11 from 13, no signs of active bleeding, NGT 100cc/24h, no flatus, vac intact, STEVE L 86cc/24h serosang, STEVE R 105cc/24h serosang 09/28 afebrile, wbc 16, hgb 8.4, no signs of active bleeding, NGT 125cc/24h, no nausea, no flatus, vac intact, STEVE L 97cc/24h serosang, STEVE R 75cc/24h serosang 09/29 Tmax 102, wbc 10 from 12, NGT 425cc/24h - clamp trial, no nausea, +flatus, L STEVE 102cc/24h serosang, R STEVE 101cc/24h serosang, vac intact 09/30 afebrile, wbc 11 from , NGT removed yesterday, hgb stable, L STEVE 95cc/24h serosang, R STEVE 151cc/24h serosang, +flatus, advance diet, vac intact, binder 10/01 WV removed today. Mid abdomen bruising noted. STEVE drains bloody tinged 60 (L) and 265 ml (R) output. Tolerating a carb consistent diet, passing flatus but no BM. Bisacodyl started. 10/02 Mid abdomen incision has bruising and some tissue loss above incision in mid abdomen. Steve drains SS. Tolerating a diet. Passing flatus and having BM. 10/03 POD7, pain controlled, tolerating regular diet, +BM, STEVE drains serous output; incision clean. Dispo pending SNF Follow up with Dr Jha for post-op check and potential STEVE drain removal CULTURES 09/27 blood: NG final 09/27 urine: negative ANTIBIOTICS 09/27 periop erta 09/27 intra-op clinda+gent 09/27-09/29 Ceftriaxone PATHOLOGY: none Abdominal pain 12/10/2022 Assessment & Plan (12/11/2022 12:53 PM CDT): Presents with chronic abdominal pain with intermittent flares primarily located in upper abdominal area in the region of ventral hernia. Seems like her symptoms are likely related to hernia. She is scheduled to see surgery team outpatient in March but presented to ED with flares of abdominal pain and surgical input given that her appointment is too far out. - On admission, CT abdomen pelvis without contrast shows ventral abdominal hernia above the level of prior abdominal wall mesh repair containing loops of nonobstructed small and large bowel. No evidence of bowel obstruction noted. Labs with normal white count, normal liver chemistries, normal lipase and AIDEE (likely prerenal). - Pt positive for UTI in 10/2022- completed 7 day course of MacroBid - UA completed on 12/10/22-- awaiting culture results. - Pt is asymptomatic for UTI. - Continue pain control with p.r.n. Tylenol, Nuevo - General surgery consulted in ED, per Surgery note no acute intervention needed, recommended continued wt.loss and f/u as outpatient. Acute kidney injury superimposed on chronic kidn ey disease 12/10/2022 Assessment & Plan (10/01/2023 10:49 AM CDT): Baseline Cr 1.2-1.6 09/27 Cr 2.1 from 1.8, received 1L bolus yesterday and 1L bolus this AM, continue hernandez, daily labs 09/28 Cr 2.6 from 2.1, 1L LR bolus + scheduled albumin overnight, FENa: prerenal, continue hernandez, UOP improving 09/29 Cr at baseline, UOP adequate - RESOLVED AIDEE, Cr remains at/below baseline Assessment & Plan (12/11/2022 12:38 PM CDT): Labs notable for AIDEE with creatinine of 2.7 compared to baseline of around 1.6, elevated BUN of 48. Likely prerenal. CT abdomen without evidence of hydro and decompressed bladder. - Follows Nephrology as outpatient - Received LR x 2L upon admission - BUN/Creat down trending to 43/2.05 - Give LR 1L bolus today and repeat BMP this afternoon HTN (hypertension) 12/10/2022 Assessment & Plan (10/04/2023 3:05 PM CDT): Home regimen: lisinopril - IV surrogates PRN - resume as indicated pending VS trend, liberalization of PO intake and renal function 10/01 Holding home lisinopril due to SBP 80-110, will resume when improves. 10/03 continue to hold, HDS Follow up with PCP for potential restarting of medication Assessment & Plan (12/10/2022 11:54 PM CDT): Hold home lisinopril in view of AIDEE. Resume when appropriate. T2DM (type 2 diabetes mellitus) 12/10/2022 Assessment & Plan (11/16/2023 12:23 AM CDT): Insulin: lantus 16u, LDSSI Assessment & Plan (10/01/2023 10:49 AM CDT): 09/09/23 A1c: 5.4 Home regimen: metformin (held), ozempic (held) BG goal <180, SSI Assessment & Plan (12/11/2022 12:54 PM CDT): Taking metformin and Ozempic (not refilled recently due to multiple pharmacies being out of stock)-- patient reports Ozempic was prescribed for weight loss, she is working to find at other local pharmacies - Hold home medications - Continue to monitor glucose on BMP UTI symptoms 11/16/2022 Hyperkalemia 10/24/2022 Vaginal atrophy 04/14/2021 Pelvic floor dysfunction in female 04/14/2021 Obesity (BMI 35.0-39.9 without comorbidity) 03/25 Assessment & Plan (11/16/2023 9:51 AM CDT): BMI 36.68 kg/m Assessment & Plan (09/28/2023 1:35 PM CDT): Body mass index is 38.53 kg/m . Periumbilical abdominal pain 12/27/2020 Umbilical hernia without obstruction and without gangrene 12/27/2020 Resolved Problems Problem Noted Date Diagnosed Date Resolved Date GERD (gastroesophageal reflux disease) 09/28/2023 11/16/2023 Assessment & Plan (11/16/2023 9:56 AM CDT): Home protonix 40mg BID resumed- stopped, patient no longer takes Assessment & Plan (09/28/2023 1:38 PM CDT): Home regimen: PPI (continued) Obesity 12/10/2022 11/18/2023 Assessment & Plan (11/16/2023 12:23 AM CDT): BMI 36.68 Assessment & Plan (12/11/2022 12:55 PM CDT): Has obesity with BMI of 43.85. Reports that she lost some weight on Ozempic but has been having some trouble getting it refilled. She did not mention she had adverse effects from the medicine. Given that she has osteoarthritis of knees and chronic low back pain from degenerative disc disease, weight loss strategy predominantly needs to be dietary over physical activity. - Encouraged patient to follow up for Ozempic outpatient as able - Consulted RD for a diet plan for weight loss Postoperative state 07/23/2022 11/17/19 23 Post-operative state 11/27/2021 022 Uterovaginal prolapse 04/14/20212022 Mixed stress and urge urinary incontinence 04/14/2021 11/16/2022 Social History Tobacco Use Types Packs/Day Years Used Date Smoking Tobacco: Former Cigarettes 0.1 21.9 2 002 - 04/23/2023 Passive Smoke Exposure: Current Smokeless Tobacco: Never Tobacco Cessation:Counseling Given: Not Answered [facility] Utilities Answer Date Recorded In the past 12 months has e Rupture, gas, oil, or water [employer] threatened to shut off services in your home? No 10/03/2023 Humiliation, Afraid, Rape, and Kick questionnair e Answer Date Recorded Within the last year, have y ou been afraid of your partner or ex-partner? No 10/03/2023 Within the last year, have y ou been humiliated or emotionally abused in other ways by your partner or ex-partner? No Within the last year, have y ou been kicked, hit, slapped, or otherwise physically hurt by your partner or ex-partner? No 10/03/2023 Within the last year, have y ou been raped or forced to have any kind of sexual activity by your partner or ex-partner? No 10/03/2023 Social Connection and Isolat ion Panel [NHANES] Answer Date Recorded In a typical week, how many times do you talk on the phone with family, friends, or neighbors? More than three times a week 10/03/2023 How often do you get togethe r with friends or relatives? More than three times a week 10/03/2023 How often do you attend chur ch or religion services? Never 10/03/2023 Do you belong to any clubs o r organizations such as zoroastrianism groups, unions, fraternal or athletic groups, or school groups? No 10/03/2023 How often do you attend meet ings of the clubs or organizations you belong to? Never 10/03/2023 Are you , , di vorced, , never , or living with a partner? 10/03/2023 AUDIT-C Answer Date Recorded Q1: How often do you have a drink containing alcohol? Never 12/01/2023 Q2: How many drinks containi ng alcohol do you have on a typical day when you are drinking? Patient does not drink Q3: How often do you have si x or more drinks on one occasion? Never 12/01/2023 Overall Financial Resource Strain (CARDIA) Answe r Date Recorded How hard is it for you to pa y for the very basics like food, housing, medical care, and heating? Not very hard 10/03/2023 [facility] - Occupational Stress Questionnaire Answer Date Recorded Do you feel stress - tense, restless, nervous, or anxious, or unable to sleep at night because your mind is troubled all the time - these days? To some extent 10/03/2023 Exercise Vital Sign Answer Date Recorde d On average, how many days pe r week do you engage in moderate to strenuous exercise (like a brisk walk)? 0 days 10/03/2023 On average, how many minutes do you engage in exercise at this level? 0 min 10/03/2023 Hunger Vital Sign Answer Date Recorded Within the past 12 months, y ou worried that your food would run out before you got the money to buy more. Never true 10/03/19 24 Within the past 12 months, t he food you bought just didn't last and you didn't have money to get more. Never true 10/03/2023 PRAPARE - Transportation Answer Date Re corded In the past 12 months, has l ack of transportation kept you from medical appointments or from getting medications? No 09/21 In the past 12 months, has l ack of transportation kept you from meetings, work, or from getting things needed for daily living? No 10/03/2023 Housing Stability Vital Sign Answer Odell e Recorded In the last 12 months, was t here a time when you were not able to pay the mortgage or rent on time? Yes 10/03/2023 In the last 12 months, how many places have you lived? 1 10/03/2023 In the last 12 months, was t here a time when you did not have a steady place to sleep or slept in a custodial (including now)? No 10/03/2023 Personal Safety Answer Date Recorded Have you ever been in or are you currently in a harmful physical or emotional relationship or is someone making you feel afraid or unsafe? Denies 12/15/2023 Comments No Sex and Gender Information Value Date Recorded Sex Assigned at Not on file Legal Sex Female 7:01 PM [employer]IP MECH[employer] Gender Identity Not on file Sexual Orientation Not on file Last Filed Vital Signs Vital Sign Reading Time Taken Comments Blood Pressure 148/88 03/21/2024 9:58 AM CDT Pulse 94 03/21/2024 9:58 AM CDT Temperature 36.4 C (97.6 F) 03/21/2024 9:58 AM CDT Respiratory Rate 16 03/21/2024 9:58 AM CDT Oxygen Saturation 99% 03/21/2024 9:58 AM CDT Inhaled Oxygen Concentration - - Weight 106.6 kg (235 lb) 03/21/2024 9:58 AM CDT Height 170.2 cm (5' 7 ) 03/21/2024 9:58 AM CDT Body Mass Index 36.81 03/21/2024 9:58 AM CDT Plan of Treatment Not on file Medical Devices Implanted Type Area Brick Tosser Device Identifier Shelf Expiration Date Model / Serial / Lot [employer]/C R Bard [id number] Monofilament Soft Lightweight Low Profile Square - [id number] Implanted:Qty: 1 on 09/27/2023 by Benito Jha MD at [facility] N/A: Abdomen [employer] [id number] 12/19/2027 [id number] / / [id number] Procedures Procedure Name Priority Date/Time Associated Diagnosis Comments EGFR Routine 11/19/2023 3:07 AM CDT POCT HEMOGLOBIN A1C Routine 09/09/2023 3 :08 PM CDT LIPID PANEL Routine 07/24/2022 5:20 AM WEATHER STRIP MECHANIC PAP AND HIGH RISK HPV, REFLEX TO GENOTYPING Routine 10/06/2021 1:55 PM CDT Uterovaginal prolapse from Last 3 Months or Most Recently Relevant to Health Maintenance Results * (ABNORMAL) eGFR (11/19/2023 3:07 AM CDT) eGFR 45(L) >=60 mL/min/1. 73 m2 Comment: Interpretive Data Reference Interval Normal >/= 90 mL/min/1.73m2 Mildly decreased* 60 - 89 mL/min/1.73m2 Mildly to moderately decreased 45 - 59 mL/min/1.73m2 Moderately to severely decreased 30 - 44 mL/min/1.73m2 Severely decreased 15 - 29 mL/min/1.73m2 Kidney Failure < 15 mL/min/1.73m2 *Relative to young adult level Estimated glomerular filtration rate is determined by the 2020 CKD-EPI equation recommended by the National Kidney Foundation (A Unifying Approach to GFR Estimation: Recommendations of the NKF-ASK Task Force on Reassessing the Inclusion of Race in Diagnosing Kidney Disease, JASN 2020). The CKD-EPI equation should not be used for patients with unstable renal function and has not been validated in children and those over 70. Current interpretive data was last reviewed 2021. Blood 11/19/2023 3:07 AM CDT 11/19/2023 3:40 AM CDT Jesus Kelley MD LAB BLOOD ORDERABLES Final Result [facility] [place] [address] * POCT hemoglobin A1c (09/09/2023 3:08 PM CDT) Hgb A1C, POC 5.4 4.0 - 5.6 % Est Average Gluc POC 108 mg/dL [facility] Comment: The ADA recommends reporting an estimated Average Glucose (eAG) with all Hemoglobin A1c results using the equation derived from a study of 507 normal and diabetic adults. Minority populations were underrepresented and children were not included. (Diabetes Care 31:5641-6645, 2008). The eAG is not equivalent to a fasting glucose. Blood 09/09/2023 3:08 PM CDT 09/09/2023 3:08 PM CDT Benito Grady Jha MD POINT OF CARE TEST O RDERABLES Final Result [facility] [place] [address] * (ABNORMAL) Lipid panel (07/24/2022 5:20 AM WEATHER STRIP MECHANIC) Cholesterol 135 30 - 199 mg/dL [facility] Comment: Interpretive Data Ages < or = 19 years Acceptable: <170 mg/dL Borderline high: 170-199 mg/dL High: >or= 200 mg/dL Ages > or = 20 years Desirable: <200 mg/dL Borderline high: 200-239 mg/dL High: >or= 240 mg/dL Literature References: 1. Expert Panel on Integrated Guidelines for Cardiovascular Health and Risk Reduction in Children and Adolescents. Pediatrics 2011;128:S213 2. NCEP Expert Panel. Circulation 2004;110:227 Current Interpretive Data was last revised on 2018. Triglycerides 155(H) <=149 mg/dL [facility] Comment: Interpretive Data Ages < or = 9 years Acceptable: <75 mg/dL Borderline high: 75-99 mg/dL High: >or= 100 mg/dL Ages 10 to 20 years Acceptable: <90 mg/dL Borderline high: 90-129 mg/dL High: >or= 130 mg/dL Ages > or = 20 years Desirable: <150 mg/dL Borderline high: 150-199 mg/dL High: 200-499 mg/dL Very high: >or= 499 mg/dL Literature References: 1. Expert Panel on Integrated Guidelines for Cardiovascular Health and Risk Reduction in Children and Adolescents. Pediatrics 2011;128:S213 2. NCEP Expert Panel. Circulation 2004;110:227 Current Interpretive Data was last revised on 2018. HDL 36(L) >=40 mg/dL [facility] Comment: Interpretive Data Ages < or = 19 years Acceptable: >45 mg/dL Borderline low: 40-45 mg/dL Low: <40 mg/dL Ages > or = 20 years Desirable: >or= 60 mg/dL Low: <40 mg/dL Literature References: 1. Expert Panel on Integrated Guidelines for Cardiovascular Health and Risk Reduction in Children and Adolescents. Pediatrics 2011;128:S213 2. NCEP Expert Panel. Circulation 2004;110:227 Current Interpretive Data was last revised on 2018. LDL, calculated 68 <=129 mg/dL [facility] Comment: Interpretive Data Ages < or = 19 years Acceptable: <110 mg/dL Borderline high: 110-129 mg/dL High: >or= 130 mg/dL Ages > or = 20 years Optimal: <100 mg/dL Near optimal: 100-129 mg/dL Borderline high: 130-159 mg/dL High: >160 mg/dL Literature References: 1. Expert Panel on Integrated Guidelines for Cardiovascular Health and Risk Reduction in Children and Adolescents. Pediatrics 2011;128:S213 2. NCEP Expert Panel. Circulation 2004;110:227 Current Interpretive Data was last revised on 2018. Non-HDL Cholesterol 99 mg/dL HAYDEE TERRAZAS Comment: Interpretive Data Ages < or = 19 years Acceptable: <120 mg/dL Borderline high: 120-144 mg/dL High: >145 mg/dL Ages > or = 20 years When triglycerides are >200 mg/dL, Non-HDL cholesterol is a secondary target of therapy with treatment goals that are 30 mg/dL greater than the LDL cholesterol target. Literature References: 1. Expert Panel on Integrated Guidelines for Cardiovascular Health and Risk Reduction in Children and Adolescents. Pediatrics 2011;128:S213 2. NCEP Expert Panel. Circulation 2004;110:227 Current Interpretive Data was last revised on 2018. Chol/HDL ratio 4 [facility] Blood 07/24/2022 5:20 AM WEATHER STRIP MECHANIC 07/24/2022 6:24 AM WEATHER STRIP MECHANIC us Jamie Reyes MD LAB BLOOD ORDERABLES Final Result HAYDEE TERRAZAS [facility] [place] [address] * Pap and High Risk HPV, reflex to Genotyping (10/06/2021 1:55 PM CDT) Thin prep (Pap test) 10/06/2021 1:55 PM CDT 10/06/2021 3:55 PM CDT Narrative PATHOLOGY [facility] - 10/10/2021 2:16 PM CDT EPIC results best viewed via link to PDF [facility] [place] [address] Note to Patients: This report may contain a detailed description of human tissue sent by a health care provider to the laboratory for pathologic evaluation. The content of this report is essential for diagnosis and may provide important critical findings. This information may be unfamiliar to patients to review without a medical professional present. It is advised that the patient review this report in the presence of a health care provider who can answer questions and explain the details. CYTOPATHOLOGY REPORT FINAL Patient Name: ALTA HANDY Gender: F : 1970 (Age: 51) Address: [address] [place] [address] Hospital #: [id number] Service: MEDICAL NUMERICAL CONTROL OPERATOR Location: [facility] Patient Type: [facility] Ref Lab Taken: 10/06/2021 Received: 10/06/2021 Accessioned: 10/07/2021 Reported: 10/10/2021 Physician(s): Ama Byrnes M.D. FINAL INTERPRETATION SOURCE OF SPECIMEN: Liquid based Thin Prep pap with HPV STATEMENT OF ADEQUACY: - Satisfactory for evaluation - Endocervical cells/transformation zone sample present GENERAL CATEGORY: - Negative for squamous intraepithelial lesion or malignancy DESCRIPTION: - Acute inflammation Comments HPV Result: NEGATIVE for high risk types of Human Papilloma Virus (HPV) RNA This probe detects the presence of HPV types: 16, 18, 31, 33, 35, 39, 45, 51, 52, 56, 58, 59, 66 and 68. This HPV test was performed at [facility] in [place], [place] utilizing the Gen-Probe Aptima assay. j/10/10/2021 14:16 MARION Loyd(ASCP), CMIA Report Electronically Reviewed and Signed Out By MARION Loyd(ASCP), CMIAC 10/10/2021 14:16:07 Cervicovaginal Cytology (Pap Test) Disclaimer: The Pap test is a screening test used to detect cervical cancer and its precursors; it is not a diagnostic procedure. False negative and false positive results do occur. Pap test results should be interpreted in the context of pertinent clinical information and biopsy results as indicated. Gross Description A. Liquid based Thin Prep pap with HPV: Cervical/vaginal - Screening ThinPrep Clinical Diagnosis and History Last Menstrual Period: unknown Menstrual History: Post-menopausal The patient is a 51 year old female with ASCUS HPV negative. The HPV test was performed by [facility], [address] [place] [address]. Report Images and scanned documents, if included only viewable in PDF version The performance characteristics of some immunohistochemical stains, in-situ hybridization and fluorescence in-situ hybridization tests and immunophenotyping by flow cytometry cited in this report (if any) were determined by the Surgical Pathology Department at [facility] as part of an ongoing quality assurance tester program and in compliance with federally mandated regulations drawn from the Clinical Laboratory Improvement Act of 1988 (CLIA '88). Some of these tests rely on the use of analyte specific reagents and are subject to specific labeling requirements by the US Food and Drug Administration. Such diagnostic tests may only be performed in a facility that is certified by the Department of Health and Human Services as a high complexity laboratory under CLIA '88. The FDA has determined that such clearance or approval is not necessary. This test is used for clinical purposes. It should not be regarded as investigational or for research. Nevertheless, federal rules concerning the medical use of analyte specific reagents require that the following disclaimer be attached to the report: This test was developed and its performance characteristics determined by the Surgical Pathology Department of [facility]. It has not been cleared or approved by the U. S. Food and Drug Administration. Ama Byrnes MD LAB CYTOLOGY ORDERABLES Final Re sult PATHOLOGY [facility] 3rd Floor [place], [place] [phone] from Last 3 Months or Most Recently Relevant to Health Maintenance Insurance MEDICARE SOLUTIONS MEDICARE SOLUTIONS Advance Directives For more information, please contact: [phone] * Full Code (Latest Code Status on File) Date Activated Date Inactivated Comments 12/15/2023 10:53 AM 12/16/2023 5:23 AM * Full Code Date Activated Date Inactivated Comments 12/01/2023 9:33 AM 12/02/2023 5:23 AM * Full Code Date Activated Date Inactivated Comments 11/15/2023 11:24 PM 11/19/2023 8:03 PM * Full Code Date Activated Date Inactivated Comments 09/27/2023 8:07 PM 10/04/2023 9:53 PM * Full Code Date Activated Date Inactivated Comments 12/10/2022 11:20 PM 12/11/2022 8:38 PM Care Teams Junior Mechanical Engineer Relationship Specialty [place] [address] [place] [address] PCP - General 03/04/21
--- OUTSIDE RECORDS SUMMARY | 2024-07-27 11:35 | XMS_ITS | Clinical Summary ---
Author Organization [facility] Address [address] [place] [address] Care Team Providers Care Pond Tender Name Role Phone Leonor Graves Primary Care Provider [phone] Allergies Active Allergy Reactions Criticality Noted Date [...] times a day Active lancets 30 gauge [facility] OneTouch Delica Plus Lancet 30 gauge USE TO CHECK BLOOD SUGAR EVERY DAY Active blood-glucose meter [facility] OneTouch Verio Flex Meter USE TO CHECK [...] 1 capsule (20 mg total) by mouth insole bottom filler before breakfast 4 Active triamcinolone (KENALOG) 0.1 [...] placed, decreased to 1ml/h for hypotension, continue MOBILE QA TESTER 09/29 pain controlled, epidural resumed @ 6ml/h + MOBILE QA TESTER 09/30 hypotensive with epidural titration, discussed [...] care, Cultures in process. Health Insurance Coverage: [facility] Medicare Solutions and IDPA Prescription Coverage: yes Pharmacy: [id number] - [place] [address] [address] [facility] [phone] No PCP noted Assessment & Plan (10/04/2023 [...] with TAR, retrorectus mesh --- NPO/NGT, epidural, cocktail server, hernandez, arbf 09/27 AFVSS, wbc 9 from [...] - Continue pain control with p.r.n. Tylenol, [place] - General surgery consulted in ED, per [...] stress and urge urinary incontinence 04/14/2021 11/16/2022 Surgical History Surgery Date Site/Laterality Comments UMBILICAL HERNIA REPAIR 12/22/2020 - 01/21/2021 COLONOSCOPY EXPLORATORY LAPAROTOMY 2021 VAGINAL HYSTERECTOMY INCISIONAL HERNIA REPAIR 04/23/2021 - 05/23/2021 FLUID DRAIN SOFT TISSUE 11/17/2023 N/A ABSCESS CATHETER INJECTION 12/01/2023 N/A ABSCESS CATHETER INJECTION 12/15/2023 N/A Medical History Medical History Date Comments T2DM (type 2 diabetes mellitus) (HCC) Peripheral neuropathy Bilateral knee pain Steatosis of liver Galactorrhea Mixed stress and urge urinary incontinence History of tobacco abuse CKD (chronic kidney disease) stage 3, GFR 30-59 ml/min (HCC) Obesity HTN (hypertension) Ventral hernia GERD (gastroesophageal reflux disease) Social History Tobacco Use Types Packs/Day Years Used Date Smoking Tobacco: Former Cigarettes 0.1 21.9 2 002 - 04/23/2023 Passive Smoke Exposure: Current Smokeless Tobacco: Never Tobacco Cessation:Counseling Given: Not Answered [employer] Answer Date Recorded In the past 12 months has [employer] gas, oil, or water [employer] threatened to shut off services in your [...] often do you attend chur ch or church services? Never 10/03/2023 Do you belong to any clubs o r organizations such as scientologist groups, unions, fraternal or athletic groups, or [...] care, and heating? Not very hard 10/03/2023 [facility] - Occupational Stress [...] place to sleep or slept in a fci (including now)? No 10/03/2023 Personal Safety Answer Date Recorded Have you ever been in or are you currently in a harmful physical or emotional relationship or is someone making you feel afraid or unsafe? Denies 12/15/2023 Comments No Sex and Gender Information Value Date Recorded Sex Assigned at Not on file Legal Sex Female 7:01 PM BUREAU DIRECTOR Gender Identity Not on file Sexual Orientation Not on file Obstetrics History Para Term AB IAB SAB Ectopic Multiple Livin g Live Births 3 3 3 3 Date Outcome GA Total Labor Labor/2nd/3rd Weight Sex Type Anes PTL Kanchan A1 A5 Name Clin Para Vag-S pont Living Para Vag-S pont Living Para CS-Un spec Living Last Filed Vital Signs Vital Sign Reading [...] 03/21/2024 9:58 AM CDT Plan of Treatment Health Maintenance Due Date Last Done Comments Albumin Creatinine Ratio, Urine 1970 Breast Cancer Screening-Mammogram 1970 Colon Cancer Screening-Colonoscopy 1970 Depression Screening 1970 Hepatitis C Screening 1970 Dilated Eye Exam 1970 Foot Exam 1969 DTaP/Tdap/Td Vaccine (1 - Tdap) 1980 Hepatitis B Screening 1987 Regular Well Visit/Exam 18-64 1987 Pneumococcal vaccine <65 (1 of 2 - PCV) 1988 Zoster Vaccine (1 of 2) 2019 Cervical Cancer Screening 10/06/2022 10/06/2021 Lipid Panel 07/25/2023 07/24/2022, 01/16/2021 Influenza Vaccine (#1) 2024 03/07/2021 Hemoglobin A1C 03/10/2024 09/09/2023, 06/0 08/2022, 07/10/2022, Additional history exists eGFR 11/18/2024 11/19/2023, 10/23, 11/17/2023, Additional history exists Medical Devices Implanted Type Area Melter Operator Device Identifier Shelf Expiration Date Model / Serial / Lot [employer]/C R Bard [id number] Monofilament Soft Lightweight Low Profile Square - [id number] Implanted:Qty: 1 on 09/27/2023 by Benito Jha MD at [facility] N/A: Abdomen [employer]/C R Bard [id number] 12/19/2027 [id number] / / [id number] Procedures Procedure Name Priority Date/Time Associated Diagnosis Comments EGFR Routine 11/19/2023 3:07 AM CDT POCT HEMOGLOBIN A1C Routine 09/09/2023 3 :08 PM CDT LIPID PANEL Routine 07/24/2022 5:20 AM BUREAU DIRECTOR PAP AND HIGH RISK HPV, REFLEX TO [...] Kelley MD LAB BLOOD ORDERABLES Final Result [facility] [place] [address] * POCT hemoglobin A1c (09/09/2023 3:08 PM CDT) Hgb A1C, POC 5.4 4.0 - 5.6 % Est Average Gluc POC 108 mg/dL HAYDEE [facility] Comment: The ADA recommends reporting an estimated Average Glucose (eAG) with all Hemoglobin A1c results using the equation derived from a study of 507 normal and diabetic adults. Minority populations were underrepresented and children were not included. (Diabetes Care 31:6221-7163, 2008). The eAG is not equivalent to a fasting glucose. Blood 09/09/2023 3:08 PM CDT 09/09/2023 3:08 PM CDT us Benito Grady Jha MD POINT OF CARE TEST O RDERABLES Final Result HAYDEE TERRAZAS [facility] [place] [address] * (ABNORMAL) Lipid panel (07/24/2022 5:20 AM BUREAU DIRECTOR) Cholesterol 135 30 - 199 mg/dL HAYDEE [...] on 2018. HDL 36(L) >=40 mg/dL HAYDEE [facility] Comment: Interpretive Data Ages < or = [...] 2018. LDL, calculated 68 <=129 mg/dL HAYDEE [facility] Comment: Interpretive Data Ages < or = [...] revised on 2018. Non-HDL Cholesterol 99 mg/dL [facility] Comment: Interpretive Data Ages < or = [...] last revised on 2018. Chol/HDL ratio 4 [facility] Blood 07/24/2022 5:20 AM BUREAU DIRECTOR 07/24/2022 6:24 AM BUREAU DIRECTOR us Jamie Reyes MD LAB BLOOD ORDERABLES Final Result [facility] [place] [address] * Pap and High Risk HPV, reflex to Genotyping (10/06/2021 1:55 PM CDT) Thin prep (Pap test) 10/06/2021 1:55 PM CDT 10/06/2021 3:55 PM CDT Narrative PATHOLOGY [facility] - 10/10/2021 2:16 PM CDT EPIC results best viewed via link to PDF [facility] Carly Maher Laboratory [place] [address] Note to Patients: This report may contain [...] Gender: F : 1970 (Age: 51) Address: [address] [place] [address] Hospital #: [id number] Service: PIG HANDLER Location: [facility] Patient Type: [facility] Ref Lab Taken: 10/06/2021 Received: 10/06/2021 Accessioned: [...] 67. This HPV test was performed at [facility] in [place], [place] utilizing the Gen-Probe Aptima assay. j/10/10/2021 [...] negative. The HPV test was performed by [facility], [address] [place] [address]. Report Images and scanned documents, if included only viewable in PDF version The performance characteristics of some immunohistochemical stains, in-situ hybridization and fluorescence in-situ hybridization tests and immunophenotyping by flow cytometry cited in this report (if any) were determined by the Surgical Pathology Department at [facility] as part of an ongoing advanced quality engineer program and in compliance with federally mandated [...] determined by the Surgical Pathology Department of [facility]. It has not been cleared or approved by the U. S. Food and Drug Administration. Ama Byrnes MD LAB CYTOLOGY ORDERABLES Final Re sult PATHOLOGY [facility] 3rd Floor [place], [place] [phone] from Last 3 Months or Most Recently Relevant to Health Maintenance Insurance MEDICARE SOLUTIONS MEDICARE SOLUTIONS Advance Directives For more information, please contact: [phone] * Full Code (Latest Code Status on [...] 11:20 PM 12/11/2022 8:38 PM Care Teams Pond Tender Relationship Specialty [place] [address] [place] [address] PCP - General 03/04/21
--- OUTSIDE RECORDS SUMMARY | 2024-07-27 11:36 | XMS_ITS | Clinical Summary ---
Author Organization [facility] Facility Address [address] [place] [address] Care Team Providers Care Electronics Mechanic Apprentice Name Role Phone Leonor Graves PA-C Primary Care Provider [phone] Allergies No known active allergies Medications acetaminophen (TYLENOL) 500 MG tablet Take 1,000 mg by mouth every 8 (eight) hours Active metFORMIN (GLUCOPHAGE) 500 MG tablet Take 500 mg by mouth 2 (two) times a day Active famotidine (PEPCID) 20 MG tablet Take 20 mg by mouth every 12 (twelve) hours Active Alcohol Swabs pads Active ergocalciferol 1.25 MG (20354 UT) capsule Take 50,000 Units by mouth 1 (one) time per week Active lisinopril 40 MG tablet Take 40 mg by mouth 1 (one) time each day Active glucose blood test strip 1 each by Other route if needed Use as instructed Active TRUEplus Lancets 33G misc Active HYDROcodone-jennifer taminophen (NORCO) 5-325 MG per tablet Take 1 tablet by mouth every 6 (six) hours if needed for moderate pain Active cyclobenzaprine (FLEXERIL) 10 MG tablet Take 10 mg by mouth every night Active escitalopram (LEXAPRO) 10 MG tablet Take 10 mg by mouth 1 (one) time each day Active Semaglutide,0.2 5 or 0.5MG/DOS, (Ozempic, 0.25 or 0.5 MG/DOSE,) 2 MG/1.5ML solution pen-injector Inject under the skin per week Active hydrocortisone 0.5 % cream Apply topically 2 (two) times a day Active oxyCODONE-aceta minophen (PERCOCET) 10-325 MG per tablet Take 1 tablet by mouth 1 (one) time each day if needed for moderate pain Active metroNIDAZOLE (METROCREAM) 0.75 % cream Apply topically 2 (two) times a day Active amoxicillin (AMOXIL) 875 MG tablet Take 875 mg by mouth in the morning and 875 mg in the evening. Oral abscess. Active HYDROcodone-jennifer taminophen (NORCO) 5-325 MG per tablet Take 1 tablet by mouth every 6 (six) hours if needed for moderate pain Active Active Problems No known active problems Family History Medical History Relation Comments Cancer Daughter Diabetes Father Hypertension Father Diabetes Maternal Grandmother Diabetes Mother Hypertension Mother Relation Status Comments Daughter Alive Father Alive Maternal Grandmother Mother Alive Social History Tobacco Use Types Packs/Day Years Used Date Smoking Tobacco: Former Cigarettes 1 - 05/23/2021 Smokeless Tobacco: Never Tobacco Cessation:Counseling Given: Not Answered Alcohol Use Standard Drinks/Week Comments Yes 0 (1 standard drink = 0.6 oz pur e alcohol) Comments Unknown Sex and Gender Information Value Date Recorded Sex Assigned at Not on file Legal Sex Female 7:57 PM EDT Gender Identity Not on file Sexual Orientation Not on file Last Filed Vital Signs Vital Sign Reading Time Taken Comments Blood Pressure 142/93 09/01/2022 1:46 PM CDT Pulse 110 09/01/2022 1:46 PM CDT Temperature 36.7 C (98.1 F) 09/01/2022 1:46 PM CDT Respiratory Rate - - Oxygen Saturation 98% 09/01/2022 1:46 PM CDT Inhaled Oxygen Concentration - - Weight 124 kg (273 lb) 09/01/2022 1:46 PM CDT Height 170.2 cm (5' 7 ) 09/01/2022 1:46 PM CDT Body Mass Index 42.76 09/01/2022 1:46 PM CDT Plan of Treatment Health Maintenance Due Date Last Done Comments Breast Cancer Screening 1970 Pneumococcal Vaccine: Pediat rics (0 to 5 Years) and At-Risk Patients (6 to 64 Years) (1 of 2 - PCV) 1975 Hepatitis B Vaccine (1 of 3 - 19+ 3-dose series) 1988 Colorectal Cancer Screening: Annual FOBT 2018 Colorectal Cancer Screening: Colonoscopy 2018 Colorectal Cancer Screening: Sigmoidoscopy 2018 Diabetes: Ophthalmology Exam 03/04/2021 Diabetes: Pedal Pulse Checked 03/04/2021 Diabetes: Sensory Foot Exam 03/04/2021 Diabetes: Visual Foot Exam 03/04/2021 Diabetes: Hemoglobin A1C 12/09/2023 024, 10/25/2022, 08/28/2022, Additional history exists Influenza Vaccine (#1) 2024 03/07/2021 Procedures Procedure Name Priority Date/Time Associated Diagnosis Comments HEMOGLOBIN A1C Routine 08/28/2022 from Last 3 Months or Most Recently Relevant to Health Maintenance Results * Hemoglobin A1c (08/28/2022) Hemoglobin A1C 5.7 4.0 - 6.0 Blood (Blood, Venous) 08/28/2022 [facility] Provider LAB BLOOD ORDERABLES Juani l Result from Last 3 Months or Most Recently Relevant to Health Maintenance Insurance [employer] Care Teams Electronics Mechanic Apprentice Relationship Specialty Start Date End Date Leonor Graves PA-C PCP - General Physician Duct Maker 04/15/21
--- OUTSIDE RECORDS SUMMARY | 2024-07-27 11:36 | XMS_ITS | Data Portability ---
Author Organization [facility] Address [address] [place] [address] Care Team Providers Care Tip Printer Name Role Phone [facility] Orthopedist JAVI BREWSTER Primary Care Provider [phone] Assessment Encounter Date Assessment Date Assessment LastModified by Organization Details LastModified Time 05/03/2024 05/03/2024 ROGER Khalil [email or web address] Not available 05/03/2024 14:59:53 Plan of Treatment Reminders Order Date Submit Date Provider Last Modified By Organization Details Last Modified Time Details Appointments ANY 30 2024 02:30P M JAVI BREWSTER PA-C Not available Not available Not available Lab HbA1c (hemogl obin A1c), blood 2024 025 [email or web address] In-Office Order, Internal Use Only DO Not Attach Compendium DO Not Attach Compendium, Do Not Delete/merge, [id number] 07/24/2024 16:45:58 albumin /creati nine, mass ratio, urine 2024 025 [facility], [address], [address], [place], [address], 07/24/2024 16:46:05 CMP, serum or plasma 2024 025 [facility], [address], [address], [place], [address], 07/24/2024 16:46:04 CBC w/ auto diff 2024 025 [facility], [address], [address], [place], [address], 07/24/2024 16:46:04 TSH, ultra-s ensitiv e, serum 2024 025 [facility], [address] [place] [address], [address], [place], [address], 07/24/2024 16:46:03 lipid panel, serum 2024 025 [facility], [address] [place], [place] [address]plac[address] Alan[address], [address], [place], [address], 07/24/2024 16:46:04 drug screen, urine 2023 024 [facility], [address] [place] [address], [address], [place], [address], 05/05/2024 06:17:07 culture , wound 2023 024 [facility], [address] [place], [place] [address], [address], [place], [address], 10/19/2023 13:08:09 Referral diabeti c ophthal mology referra l 2024 025 [facility], [address], [place], [address], 07/26/2024 11:00:53 Procedures None recorde d. Surgeries None recorde d. Imaging None recorde d. Medication Orders Ozempic 2 mg/dose (8 mg/3 mL) subcuta neous pen injecto r 2024 025 [facility]80, [address], [place], [place], [id number], 07/24/2024 16:46:17 metform in ER 500 mg tablet, extende d release 24 hr 2024 025 [facility] #87873, [address] , [place], [place], [id number], 07/24/2024 16:46:28 atorvas tatin 40 mg tablet 2024 025 [facility] #78213, [address] , [place], [place], [id number], 07/24/2024 16:46:28 hydroco done 5 mg-acet aminoph en 325 mg tablet 2024 025 [facility] #71291, [address] [place], [place], [id number], 07/24/2024 16:46:49 ergocal ciferol (vitami n D2) 1,250 mcg (50,000 unit) capsule 2024 025 [facility]99361, [address] [place], [place], [id number], 07/24/2024 16:46:16 lisinop ril 40 mg tablet 2024 025 [facility] #16306, [address], [id number], 07/24/2024 16:46:19 fluoxet ine 20 mg capsule 2024 025 [facility] #70401, [address] [place], [place], [id number], 07/24/2024 16:46:27 gabapen tin 300 mg capsule 2024 025 [facility] #64004, [address] [place], [place], [id number], 07/24/2024 16:46:18 cyclobe nzaprin e 10 mg tablet 2024 025 [facility] #37501, [address], [place], [place], [id number], 07/24/2024 16:46:17 hydroco done 5 mg-acet aminoph en 325 mg tablet 2023 024 [facility] #25506, [address], [place], [place], [id number], 05/03/2024 15:06:28 hydroco done 5 mg-acet aminoph en 325 mg tablet 2023 024 [facility] #08524, [address], [place], [place], [id number], 05/03/2024 14:36:18 Mederma topical gel 2023 025 [facility] #22880, [address], [place], [place], [id number], 07/24/2024 16:42:10 hydroco done 5 mg-acet aminoph en 325 mg tablet 2023 024 [facility] #93480, [address], [place], [place], [id number], 05/03/2024 14:36:18 Ozempic 2 mg/dose (8 mg/3 mL) subcuta neous pen injecto r 2023 024 [facility] #98215, [address], [place], [place], [id number], 10/12/2023 15:22:29 metform in ER 500 mg tablet, extende d release 24 hr 2023 024 [facility] #16863, [address] , [place], [place], [id number], 10/12/2023 15:22:26 atorvas tatin 40 mg tablet 2023 024 [facility] #12469, [address], [id number], 10/12/2023 15:22:31 mupiroc in 2 % topical ointmen t [email or web address] [facility]73147, [address] [place], [id number], 07/24/2024 16:41:39 cephale cody 500 mg capsule 2023 024 [facility] #05371, [address], [place], [id number], 12/06/2023 14:32:24 ergocal ciferol (vitami n D2) 1,250 mcg (50,000 unit) capsule 2023 024 [facility] #66349, [address], [place], [id number], 10/12/2023 15:22:27 lisinop ril 40 mg tablet 2023 024 [facility] #24966, [address], [place], [id number], 10/12/2023 15:22:30 fluoxet ine 20 mg capsule 2023 024 [facility] #94469, [address], [place], [id number], 10/12/2023 15:22:28 gabapen tin 300 mg capsule 2023 024 [facility]88833, [address] , [place], [place], [id number], 10/12/2023 15:22:29 Patient TargetsNo targets recorded. Patient Instructions Encounter Date Encounter Id Patient Instructions Last Modified By Organization Details Last Modified Time 10/12/2023 [id number] knee arthritis: care instructions Not available 10/12/2023 15:22:17 learning about type 2 diabetes [email or web address] Not available 10/12/2023 15:22:16 type 2 diabetes: care instructions [email or web address] Not available 10/12/2023 15:22:16 hernia: care instructions [email or web address] Not available 10/12/2023 15:22:16 When You Want to Lose Weight: Care Instructions [email or web address] Not available 10/12/2023 15:22:16 12/06/2023 [id number] opened cut after surgery: care instructions [email or web address] Not available 12/06/2023 15:19:36 A healthy lifestyle: care instructions [email or web address] Not available 12/06/2023 15:19:36 01/13/2024 [id number] A healthy lifestyle: care instructions [email or web address] Not available 01/13/2024 10:59:50 05/03/2024 [id number] A healthy lifestyle: care instructions [email or web address] Not available 05/03/2024 15:06:11 07/24/2024 [id number] learning about type 2 diabetes [email or web address] Not available 07/24/2024 16:45:58 type 2 diabetes: care instructions [email or web address] Not available 07/24/2024 16:45:58 A healthy lifestyle: care instructions [email or web address] Not available 07/24/2024 16:45:59 Reason for Referral Diabetic Ophthalmology Refer ral for Type 2 diabetes mellitus Referring Physician: Javi Brewster, Family Medicine, Encounter Date: 07/24/2024 Results Created Date Observation Date Name Description Value Unit Range Abnormal Flag Note LastModifiedBy Organization Detail LastModifiedTime 10/12/19 24 10/18/2023 ANAER OBIC AND AEROB IC CULTU RE aerobic culture FINAL REPORT abnormal Not Available [facility] ([facility]) [address] [facility], [place], [address], 10/19/2023 13:08:09 10/12/19 24 10/18/2023 ANAER OBIC AND AEROB IC CULTU RE result 1 COMMEN T abnormal Staph yloco ccus epide rmidi s Based on resis tance to oxaci llin this isola te would be resis tant to all curre ntly avail able beta- lacta m antim icrob ial agent s, with the excep tion of the newer cepha lospo rins with anti- MRSA activ ity, such as Cefta rolin e Moder ate growt h Not Available [facility] ([facility]) [address], [place], [address], 10/19/2023 13:08:09 10/12/19 24 10/18/2023 ANAER OBIC AND AEROB IC CULTU RE result 2 STAPHY LOCOCC US AUREUS abnormal Moder ate growt h Based on susce ptibi lity to oxaci llin this isola te would be susce ptibl e to: *Peni cilli nase- stabl e penic illin s, such as: Cloxa cilli n, Diclo xacil gissel, Nafci llin *Beta -lact am combi natio n agent s, such as: Amoxi cilli n-cla vulan ic acid, Ampic illin -sulb actam , Piper acill in-ta zobac villegas *Oral cephe ms, such as: Cefac brian, Cefdi stanford, Cefpo doxim e, Cefpr ozil, Cefur oxime , Cepha lexin , Lorac arbef *Pare ntera l cephe ms, such as: Cefaz gosia, Cefep alyx, Cefot axime , Cefot ronald, Cefta rolin e, Cefti zoxim e, Ceftr iaxon e, Cefur oxime *Carb apene ms, such as: Dorip enem, Ertap enem, Imipe nem, Merop enem Most isola shonna of Staph yloco ccus sp. produ ce a beta- lacta yasmeen enzym e rende ring them resis tant to penic illin . Pleas e conta ct the labor atory if penic illin is being consi dered for thera py. Not Available [facility] ([facility]) [address] [facility], [place], [address], 10/19/2023 13:08:09 10/12/19 24 10/18/2023 ANAER OBIC AND AEROB IC CULTU RE result 3 ENTERO COCCUS FAECAL IS abnormal For Enter ococc us speci es, amino glyco sides (exce pt for high- level resis tance scree tyrell) , cepha lospo rins, clind amyci n, and trime thopr im-tinoco lfame thoxa zole are not effec tive clini jules . (CLSI , M100- S26, 2016) Moder ate growt h Not Available [facility] ([facility]) [address] [facility], [place], [address], 10/19/2023 13:08:09 10/12/19 24 10/18/2023 ANAER OBIC AND AEROB IC CULTU RE result 4 CANDID A ALBICA NS abnormal Moder ate growt h Not Available [facility] ([facility]) [address] [facility], [place], [address], 10/19/2023 13:08:09 10/12/19 24 10/18/2023 ANAER OBIC AND AEROB IC CULTU RE antimicrobia l susceptibili ty COMMEN T S = Susce ptibl e; I = Inter media te; R = Resis tant P = Posit dawson; N = Negat dawson MICS are expre ssed in micro grams per mL Antib iotic RSLT# 1 RSLT# 2 RSLT# 3 RSLT# 4 Cipro floxa olegario R S Clind amyci n R R Eryth romyc in R R Genta micin S R Levof loxac in I S Linez olid S S Moxif loxac in I S Oxaci llin R S Penic illin R S Quinu prist in/Da lfopr istin S S Rifam pin S S Tetra cycli ne S S Trime thopr im/Tinoco lfa R S Vanco mycin S S S Not Available [facility] ([facility]) [address] [facility], [place], [address], 10/19/2023 13:08:09 10/12/19 24 10/19/2023 ANAER OBIC AND AEROB IC CULTU RE anaerobic culture FINAL REPORT Not Available [facility] ([facility]) [address] [facility], [place], [address], 10/19/2023 13:08:09 10/12/19 24 10/19/2023 ANAER OBIC AND AEROB IC CULTU RE result 1 COMMEN T No anaer obic growt h in five days. Not Available [facility] ([facility]) [address] [facility], [place], [address], 10/19/2023 13:08:09 05/03/20 24 05/04/2024 [id number] 9 10 DRUG- BUND amphetamines , urine NEGATI VE NG/mL cutoff =1000 Amphe tamin e test inclu karli Amphe tamin e and Metha mphet amine . Not Available [facility] ([facility]) [address] [facility], [place], [address], 05/05/2024 06:17:07 05/03/20 24 05/04/2024 [id number] 9 10 DRUG- BUND barbiturates NEGATI VE NG/mL cutoff =200 Not Available [facility] ([facility]) [address] [facility], [place], [address], 05/05/2024 06:17:07 05/03/20 24 05/04/2024 [id number] 9 10 DRUG- BUND benzodiazepi ananth NEGATI VE NG/mL cutoff =200 Not Available [facility] ([facility]) [address] [facility], [place], [address], 05/05/2024 06:17:07 05/03/20 24 05/04/2024 [id number] 9 10 DRUG- BUND cannabinoid NEGATI VE NG/mL cutoff =50 Not Available [facility] ([facility]) [address] [place], [address], 05/05/2024 06:17:07 05/03/20 24 05/04/2024 [id number] 9 10 DRUG- BUND cocaine (metab.) NEGATI VE NG/mL cutoff =300 Not Available [facility] ([facility]) [address] [place], [address], 05/05/2024 06:17:07 05/03/20 24 05/04/2024 [id number] 9 10 DRUG- BUND methaqualone NEGATI VE NG/mL cutoff =300 Not Available [facility] ([facility]) [address] [place], [address], 05/05/2024 06:17:07 05/03/20 24 05/04/2024 [id number] 9 10 DRUG- BUND opiates NEGATI VE NG/mL cutoff =2000 Opiat e test inclu karli Codei ne and Morph ine only. Not Available [facility] ([facility]) [address] [place], [address], 05/05/2024 06:17:07 05/03/20 24 05/04/2024 [id number] 9 10 DRUG- BUND phencyclidin e NEGATI VE NG/mL cutoff =25 Not Available [facility] ([facility]) [address] [place], [address], 05/05/2024 06:17:07 05/03/20 24 05/04/2024 [id number] 9 10 DRUG- BUND methadone screen, urine NEGATI VE NG/mL cutoff =300 Not Available [facility] ([facility]) [address] [place], [address], 05/05/2024 06:17:07 05/03/20 24 05/04/2024 [id number] 9 10 DRUG- BUND propoxyphene , urine NEGATI VE NG/mL cutoff =300 Not Available [facility] ([facility]) [address] [place], [address], 05/05/2024 06:17:07 07/25/19 25 07/24/2024 HbA1c (hemo globi n A1c), blood HbA1c 5.7% Not Available In-Office Order Internal Use Only DO Not Attach Compendium DO Not Attach Compendium, Do Not Delete/merge, [id number] 07/24/2024 16:27:31 04/19/20 24 04/19/2024 XR, knee No observ ation record ed. [address], [place], [address], 04/25/2024 17:44:01 Result Notes None recorded. Problems Name Problem SNOMED Code Status Onset Date Resolution Date Notes Provider Name and Address Organization Details Recorded Time Liver enzymes level above referenc e range 124721240 Active 2019 Not Available [facility] 4 15:41:48 Type 2 diabetes mellitus 35717067 Active 2019 Not Available [facility] 4 15:41:48 History of pneumoni a 672591018 Active 2019 Not Available [facility] 4 15:41:47 Smoker 30509004 Active 2019 Not Available [facility] 4 15:41:48 Nodule of lung 649394788 Active 2019 4.5 mm RUL noncalci fied pulmonar y nodule seen at the hospital Not Available [facility] 4 15:41:48 Steatosi s of liver 131327747 Active [address] in the hospital . Negative hepatiti s panel. 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 34170934 Active 2019 Not Available [facility] 4 15:41:48 Umbilica l hernia 458501010 Active 2019 Not Available [facility] 4 15:41:48 Osteoart hritis of knee 568305339 Active 2020 Not Available [facility] 4 15:41:48 Uterine prolapse 96759789 Active 2021 Not Available [facility] 4 15:41:48 Degenera tion of lumbar interver tebral disc 43053831 Active 2021 Not Available [facility] 4 15:41:48 Bilatera l arthriti s of sacroili ac joint 46366246411 867349 Active 2021 Not Available [facility] 4 15:41:47 Chronic kidney disease stage 3 371668366 Active 2021 Not Available [facility] 4 15:41:48 Anemia of chronic disease 126969073 Active 2021 Not Available [facility] 4 15:41:47 Morbid obesity 840638885 Active 2022 Not Available [facility] 4 15:41:47 Rosacea 854740131 Active 2022 JAVI BREWSTER PA-C Attn: Accounting ,[address] [place], [place], [address] [place] [address] , [place] - [facility] 4 10:50:28 Ventral incision al hernia 788159796 Active 2022 Not Available [facility] 4 15:41:48 History of total hysterec ana paula 473756726 Active 2022 Not Available [facility] 4 15:41:48 Urinary complica tion 08995988 Active 2023 JAVI BREWSTER PA-C Attn: Accounting ,[address] [place], [place], [address] [place] [address] , [place] [facility] 4 15:50:30 Urinary incontin ence 123172225 Active 2023 AJVI BREWSTER PA-C Attn: Accounting ,[address] [place], [place], [address] [place] [address] , [place] [facility] 4 15:50:39 History of total knee arthropl asty 69681493813 05 Active 2024 JAVI BREWSTER PA-C Attn: Accounting ,[address] [place] [address] , [place] - [facility] 5 16:32:20 [facility]icky 49534222 Active 2024 JAVI BREWSTER PA-C Attn: Accounting ,[address] [facility], [place], [address] , [facility] - [facility] 5 16:34:20 Disorder of nipple 639391538 Active 2014 both breasts Not Available [facility] 4 15:41:47 Galactor tawnya [facility]at [facility] 85960243 Active Not Available [facility] 4 15:41:48 Urinary tract infectio us disease 49739062 Completed 12/06/2019 BRITANY VALENTINO Attn: Accounting ,[address] [facility], [place], [address] , [facility] - [facility] 0 15:19:10 Notes:Some problems listed i n Documents: #[id number], #[id number] could not be added to this patient's chart. Please review these documents and add these problems to the patient's chart manually as needed. Problem Notes None recorded. Procedures Surgical History Date Name Laterality Status Provider Name and Address Organization Details Recorded Time 04/19/20 24 Knee Surgery completed Yelena Sinclair [place] 05/03/2024 14:37:55 09/27/19 24 Hernia Repair completed Zaida Gomez [place] 10/12/2023 14:37:03 07/24/19 23 total hysterectomy via vaginal approach completed BRITANY VAELNTINO Attn: Accounting,[address] [facility], [place], [address], [place] [facility] 07/24/2022 14:05:30 05/12/20 21 Hernia repair w/mesh completed BRITANY VALENTINO Attn: Accounting,[address] [facility], [place], [address], [facility] - [facility] 05/29/2021 19:06:01 01/10/20 21 hernia repair completed BRITANY VALENTINO Attn: Accounting,[address] [facility], [place], [address], [facility] - [facility] 01/16/2021 13:14:09 02/07/20 15 Date of Last Pap Smear completed Yelena Sinclair [place] 02/06/2015 13:07:19 05/13/19 94 Caesarean Section completed Yelena Sinclair [place] 02/06/2015 10:46:24 Imaging Results Imaging Date Name Status LastModified by Organiz ation Details LastModified Time 04/19/2024 XR, knee [address], [place], [address], 04/25/2024 17:44:01 Procedure Notes None recorded. Medical Equipment None Reported. Allergies No known drug allergies Medications Name Sig Start Date Stop Date Status Note LastModified by Organization Details LastModified Time Prescriptio n - Change 02/09 completed Not Available Not Available Not Available cyclobenzap rine 10 mg tablet Take 1 tablet every day by oral route at bedtime for 30 days. 2024 active Not Available Not Available Not Avai lable atorvastati n 40 mg tablet Take 1 tablet every day by oral route at bedtime for 30 days. 2024 active Not Available Not Available Not Avai lable metformin 500 mg tablet Take 1 tablet twice a day by oral route. 10/11 completed Not Available Not Available Not Available nystatin 100,000 unit/mL oral suspension take 5ml BY MOUTH FOUR TIMES DAILY DIRECTED FOR SEVEN DAYS 11/27 completed Not Available Not Available Not Available nicotine 14 mg/24 hr daily transdermal patch UNWRAP AND APPLY 1 PATCH TO SKIN ONCE DAILY 10/10 completed Not Available Not Available Not Available hydrocodone 5 mg-acetamin ophen 325 mg tablet TAKE ONE TABLET BY MOUTH EVERY DAY NEEDED FOR SEVERE pain, must last 30 DAYS 2024 active Not Available Not Available Not Avai lable ondansetron HCl 8 mg tablet TAKE ONE TABLET BY MOUTH AT 11AM FOR NAUSEA. TAKE ONE ADDITIONA L TABLET EVERY 6 HOURS NEEDED FOR NAUSEA 05/03 completed Not Available Not Available Not Available dextrometho morris-guaif enesin 10 mg-100 mg/5 mL oral liquid Take 10 mL every 4 hours by oral route as needed for 7 days. 01/16 completed Not Available Not Available Not Available ondansetron HCl 4 mg tablet TAKE 1 TABLET BY MOUTH EVERY 6 HOURS NEEDED FOR NAUSEA OR VOMITING 05/29 completed Not Available Not Available Not Available metronidazo le 500 mg tablet TAKE TWO TABLETS BY MOUTH AT 1PM, 2PM, AND 10PM THE DAY PRIOR TO SURGERY DIRECTED 10/11 completed Not Available Not Available Not Available ciprofloxac in 250 mg tablet 05/05 completed Not Available Not Available Not Available ciprofloxac in 500 mg tablet Take 1 tablet every 12 hours by oral route as directed for 7 days. 04/21 completed Not Available Not Available Not Available sulfamethox azole 800 mg-trimetho prim 160 mg tablet TAKE 1 TABLET BY MOUTH TWICE DAILY FOR 7 DAYS 07/24 completed Not Available Not Available Not Available tramadol 50 mg tablet TAKE 1 TABLET BY MOUTH EVERY DAY FOR PAIN 10/10 completed Not Available Not Available Not Available acetaminoph en 500 mg tablet TAKE ONE TABLET BY MOUTH EVERY 6 HOURS NEEDED FOR mild pain (1-3) OR FEVER 10/11 completed Not Available Not Available Not Available oxycodone-a cetaminophe n 5 mg-325 mg tablet TAKE 1 TABLET BY MOUTH EVERY 6 HOURS NEEDED FOR PAIN 04/21 completed Not Available Not Available Not Available amoxicillin 875 mg tablet TAKE 1 TABLET BY MOUTH TWICE DAILY UNTIL ALL TAKEN 10/11 completed Not Available Not Available Not Available famotidine 20 mg tablet TAKE 1 TABLET BY MOUTH EVERY 12 HOURS 01/16 completed Not Available Not Available Not Available benzonatate 100 mg capsule Take 1 capsule 3 times a day by oral route as needed for 7 days. 06/17 completed Not Available Not Available Not Available doxycycline monohydrate 100 mg capsule TAKE 1 CAPSULE BY MOUTH EVERY 12 HOURS FOR 5 DAYS 01/16 completed Not Available Not Available Not Available hydrocodone 7.5 mg-acetamin ophen 325 mg tablet 06/06 completed Not Available Not Available Not Available cephalexin 500 mg capsule TAKE 1 CAPSULE BY MOUTH EVERY 6 HOURS FOR 7 DAYS 12/05 completed Not Available Not Available Not Available pantoprazol e 40 mg tablet,elissa yed release TAKE 1 TABLET BY MOUTH EVERY 12 HOURS 03/02 completed Not Available Not Available Not Available cyanocobala min (vit B-12) 1,000 mcg/mL injection solution Inject 1 mL every month by subcutane ous route. 05/03 completed Not Available Not Available Not Available fluoxetine 20 mg tablet 10/11 completed Not Available Not Available Not Available triamcinolo ne acetonide 0.1 % topical ointment APPLY THIN LAYER TO AFFECTED AREAS TWICE DAILY FOR 7 DAYS TAKE 7 DAY BREAK BETWEEN USE 07/24 completed Not Available Not Available Not Available lidocaine 5 % topical patch APPLY ONE PATCH TO THE SKIN EVERY DAY (MAY WEAR UP TO 12 HOURS) 05/03 completed Not Available Not Available Not Available metronidazo le 0.75 % topical cream APPLY THIN LAYER TO AFFECTED AREAS TOPICALLY TWICE DAILY IN THE MORNING AND EVENING AVOID THE EYES 10/11 completed Not Available Not Available Not Available gabapentin 300 mg capsule TAKE 1 CAPSULE BY MOUTH THREE TIMES DAILY DIRECTED 2024 active Not Available Not Available Not Avai lable hydrocortis one 2.5 % topical cream apply a thin layer TO AFFECTED AREAS TWICE DAILY FOR 7 to 10 DAYS during flare, take break between USE 08/25 completed Not Available Not Available Not Available bisacodyl 5 mg tablet,elissa yed release TAKE TWO TABLETS BY MOUTH AT 10AM AND 12 NOON THE DAY BEFORE SURGERY DIRECTED 05/03 completed Not Available Not Available Not Available Mederma topical gel Apply 1 applicati on every day by topical route for 30 days. 07/24 completed Not Available Not Available Not Available mupirocin 2 % topical ointment APPLY A SMALL AMOUNT TO THE TO THE AFFECTED AREA THREE TIMES DAILY 07/24 completed Not Available Not Available Not Available ergocalcife rol (vitamin D2) 1,250 mcg (50,000 unit) capsule TAKE 1 CAPSULE BY MOUTH KELSEY FOR VITAMIN DEFICIENC Y 2024 active Not Available Not Available Not Avai lable polyethylen e glycol 3350 17 gram/dose oral powder MIX 17 GRAMS (1 CAPFUL) IN 8 OUNCES OF LIQUID AND DRINK STARTING AT 11AM, MIX AND DRINK 17GM EVERY 15 MINUTES UNTIL ENTIRE BOTTLE IS GONE DIRECTED 05/03 completed Not Available Not Available Not Available estradiol 0.01% (0.1 mg/gram) vaginal cream 02/09 completed Not Available Not Available Not Available levofloxaci n 750 mg tablet Take 1 tablet every day by oral route around the clock for 7 days. 03/02 completed Not Available Not Available Not Available methylpredn isolone 4 mg tablets in a dose pack FOLLOW PACKAGE DIRECTION S 12/08 completed Not Available Not Available Not Available neomycin 500 mg tablet 01/12 completed Not Available Not Available Not Available lisinopril 40 mg tablet TAKE 1 TABLET BY MOUTH EVERY DAY TO LOWER BLOOD PRESSURE 2024 active Not Available Not Available Not Avai lable ondansetron 4 mg disintegrat ing tablet DISSOLVE ONE TABLET BY MOUTH EVERY 6 NEEDED FOR FORNAUSEA AND VOMITING 04/21 completed Not Available Not Available Not Available fluoxetine 20 mg capsule Take 1 capsule every day by oral route for 30 days. 2024 active Not Available Not Available Not Avai lable metformin ER 500 mg tablet,exte nded release 24 hr TAKE 1 TABLET EVERY DAY BY MOUTH WITH A MEAL FOR DIABETES 2024 active Not Available Not Available Not Avai lable heparin (porcine) 5,000 unit/mL injection solution 07/24 completed Not Available Not Available Not Available doxycycline hyclate 100 mg tablet 07/24 completed Not Available Not Available Not Available nicotine 7 mg/24 hr daily transdermal patch Apply 1 patch every day by transderm al route as directed for 14 days. 01/16 completed Not Available Not Available Not Available oxycodone 5 mg tablet TAKE TWO TABLETS BY MOUTH EVERY 4 HOURS NEEDED FOR PAIN 01/12 completed Not Available Not Available Not Available escitalopra m 10 mg tablet TAKE ONE TABLET BY MOUTH EVERY MORNING 11/27 completed Not Available Not Available Not Available escitalopra m 20 mg tablet TAKE 1 TABLET BY MOUTH EVERY MORNING 10/11 completed Not Available Not Available Not Available cyclobenzap rine 5 mg tablet 06/06 completed Not Available Not Available Not Available Alcohol Prep Pads USE TO CLEAN INJECTION SITE OF INSULIN AND WHEN CHECKING BLOOD SUGAR active Not Available Not Available No t Available nitrofurant oin monohydrate /macrocryst als 100 mg capsule TAKE ONE CAPSULE BY MOUTH TWICE DAILY FOR 7 DAYS 11/27 completed Not Available Not Available Not Available diclofenac 1 % topical gel APPLY 2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 herself. Umbilical hernia 1976263 07 K42.9 Patient underwent umbilical hernia repair on 12/26/20. Surgery went well, but she presents today with severe pain in the umbilical region x 2 weeks. Worse with valsalva and standing, admits to having diarrhea only x 2 weeks since pain started. On PE: large umbilical hernia noted, severely TTP, skin appears bruised- Patient advised to go to ED due to severe pain Morbid obesity 512091691 E66.01 BMI 44.8 todayAurelia is approved for a Gastric Sleeve and is suppose to schedule the procedure with [facility] in April 2021. Reports that the surgery has been delayed, and she needs to lose 50 lbs before it can be done. Patient provided healthy lifestyle modificati ons to aid in weight loss. Osteoarthr itis of knee [id number] M17.9 Patient is asking for a parking placard today for osteoarthr itis, but we have no record of imaging.- Notes and imaging to be requested from orthopedis t.- will fill out temporary parking placard once ortho notes are reviewed and then will mail to patient Depressive disorder [phone] B79.A Patient became tearful while talking about her current medical situation, and admitted to suicidal thoughts. She does not currently have a plan.Not interested in medication at this time but rather counseling - Discussed at length with patient about the importance of good mental health. Encouraged follow up with counselor and discussed medication adjuncts.- will reach out to counseling to see if they can see her adrian- f/u in 2 weeks, sending to ER today for magnus [id number] BRITANY VALENTINO (Adult Med) [address] [place] [address] 04/28/2021 10:00:36 04/29/2021 10:40:45 Umbilical hernia [id number] K42.9 Patient underwent umbilical hernia repair on 12/26/20. Went to ER on 04/21/[address] abdomen/pe lvis. She reports abdominal pain has worsened since last visit. Pain is located at her umbilicus with radiation laterally on both sides.Pain is worse with bowel movements, urination, and any movement. She has been having ongoing diarrhea since last visit. Notes 3 episodes of emesis yesterday. Denies any hematemesi s or hematochez ia. She has an appointmen t to see the surgeon on 05/01/2021. CT 04/21/2021 : Large umbilical fat filled hernia without bowel content. Fascial defect measuring 2.4 cm in AP direction and 5.3 cm in transverse direction. On PE: large umbilical hernia noted, severely TTP, skin appears bruised - Appointmen t with surgeon on 05/01/2021. - if symptoms get worse before appointmen t with surgeon, go to the ER Cramp in lower limb 3190 [id number] R25.2 Bilateral leg cramping x 1-1.5 weeks. Cramping is located in anterior portion of lower extremity below the knee and into her forefoot. Cramping is episodic, occurring 3-4x/day and lasting about 15 minutes. Cramping occurs at rest and with activity, perhaps occurring more at night. She endorses paresthesi a of bilateral feet that is not new. She states she has been drinking plenty of fluids. When she feels cramps coming on, she tries to move her feet around or eat mustard to prevent the cramps. - Will check electrolyt es given ongoing diarrhea- Check CK given cramping in the setting of CKD 3- Instructed patient to stay hydrated Pain of le ft ankle joint [id number] M25.572 Left ankle pain x 2-3 weeks. Denies known injury, but has been bed bound for the past month. No warmth, or erythema noted. XR done by ER on 04/21/2021 . Pain stable since last visit. XR: OA of ankle with Achilles tendinosis - Order Left lower extremity doppler to rule out DVT since immobile over the last month Diarrhea 15548624 R19.7 Ongoing diarrhea x few weeks with umbilical hernia. Will check labs to assess hydration status. Scheduled to see surgeon for hernia repair on 05/01/2021. Depressive disorder 8165 9001 F32.A Mood remains unchanged. Notes days of praying she doesn't wake up due to pain and medical conditions . - Discussed at length with patient about the importance of good mental health. Encouraged follow up with counselor and discussed medication adjuncts.- Appointmen t with counseling in 2 days. Re-iterate d importance that patient keeps this appointmen t. [id number] BRITANY VALENTINO (Adult Med) [address] [place] [phone] 05/29/2021 10:32:04 05/30/2021 13:24:37 Umbilical hernia [id number] K42.9 Patient underwent umbilical hernia repair on 12/26/20.CT 04/21/2021 : Large umbilical fat filled hernia without bowel content. Fascial defect measuring 2.4 cm in AP direction and 5.3 cm in transverse direction. Hernia repaired for a second time at [facility] [place] on 05/12/21 by same physician who performed her first surgery, states mesh was used this time. Surgery went well, was released a few days later with oxycodone. She has been doing well at home, surgical scar is healing well, and still having mild pain near her surgery site.Ran out of her pain medication a few days ago, tylenol not helping. Does not have a f/u appointmen t scheduled with surgeon.St ill having diarrhea like she was before the surgery.- will send short course of tramadol to help with residual pain but pain should only continue to improve over the next few weeks- f/u with me after quarantine so I can evaluate post-op Cramp in lower limb 8054 47870 R25.2 Was complainin g of bilateral leg cramping after being in bed for almost an entire month due to the pain from the herniaCK and Cr both elevated but levels were improving with fluids, stopping cholestero l medication , and increased movement- plan to repeat labs again to monitor once she can return to office after quarantine SARS-CoV-2 [id number] U07 .1 She had COVID exposure over the weekend and then developed symptoms of COVID herself on Wednesday including weakness, sore throat, hot sweats, body aches, cough and worsening stomach pain. She took a home COVID test which came back positive yesterday. She has not taken anything besides tylenol for her symptoms.- cough medication sent to pharmacy- due to her multiple co-morbidi ties including T2DM, HLD, recent surgery, and morbid obesity, will get her scheduled for BAM infusion Vitamin D deficiency 347 20334 E55.9 -cont Vit. D supplement s- plan to recheck levels in 6 months [id number] BRITANY VALENTINO (Adult Med) [address] [place] [address] 06/17/2021 13:50:12 06/18/2021 11:41:33 Pkgxe-vo-pitdcpx renal failure 156798052 N17.9 She went to [facility] ER about 1 week ago for severe low back pain and dysuria, CT scan showed no acute findings, labs showed AIDEE, and urine showed possible UTI. IV fluids given in the ER- plans to call nepology for f/u appointmen t- UA and repeat BMP today to check levels and make sure they came back down Creatine k inase level above reference range 749061082 R74.8 CK recently elevated to 700 after being immobile due to complicati ons from 1st hernia surgeryRec ent AIDEE again in the hospital- recheck again today with other labs- She needs to avoid being immobile in the bed, that will increase the risk of developing rhabdo (severe break down of muscles), blood clots, etc. She needs to continue to stay active. Please drink lots of water 8-10 glasses per day to stay hydrated. Please hold her cholestero l medication for now.- repeat in 1 week Low back pain 438992429 M54.50 She went to [facility] ER about 1 week ago for severe low back pain and dysuria, CT scan showed no acute findings, labs showed AIDEE, and urine showed possible UTI.Sent home on oral abx for the UTI, states her urinary symptoms improved with the medication which she did finish but her back pain is still present and causing her lots of pain.The back pain is keeping her from sleeping at night. Tylenol is not helping, even took some OTC ibuprofen which also did not help.ON PE: lumbar spine and paraspinal muscles TTP- will get xray of lumbar spine- avoid NSAIDs due to CKD- tramadol daily for pain, needs to sign pain contract at next visit- topical diclofenac okay to use on low back and knees- topical lidocaine also to use as needed- will likely need PT Acute urin kathy tract infection [id number] N39.0 She went to [facility] ER about 1 week ago for severe low back pain and dysuria, CT scan showed no acute findings, labs showed AIDEE, and urine showed possible UTI.Sent home on oral abx for the UTI, states her urinary symptoms improved with the medication which she did finish but her back pain is still present and causing her lots of pain.- explained low back pain not likely from the UTI, will repeat UA and get xray of lumbar spine Uterine prolapse 2882780 5 N81.4 History of uterine prolapse, plan is to complete hysterecto my after she completed her hernia repair surgery- encouraged her to call OBGYN for f/u, plan to get this surgery completed next Osteoarthr itis of knee 592879119 M17.9 Severe OA of both knees causing severe pain, patient has to walk with walkerWork ing with disability currentlyF ollowing with ortho, knee surgery is possible but patient needs weight loss before procedure- after hysterecto my, plan to help patient with weight loss via medication to get her in range goal per ortho's recs so she can have knee replacemen t surgery [id number] BRITANY VALENTINO (Adult Med) [address] [place] [phone] 10/10/2021 15:00:09 10/13/2021 17:47:21 Degeneration of lumbar intervertebral disc 93485320 M51.36 MRI of lumbar spine showed Severe DDD with disc herniation of each disc and foraminal stenosisPM and neurosurge ry referrals given to patient at last appointmen t, she had to cancel her recent PM appointmen t because she could not walk on painful feet to get to appointmen t. She does not remember hearing from neurosurge ry referral.- will help treat acute pain for now- plan to get appointmen ts reschedule d once pain is better controlled for patient and she can ambulate without severe pain Neuropathy [id number] G62 .9 Patient says since last visit 4 months ago she has experience d intermitte nt severe foot pain. She says she is in a current flare up of foot pain that is described as walking on glass, feels like the bottom of my feet are bubbling up. Feet do not typically hurt at the same time, one foot will hurt one week and then she will have a few days without pain and then the other foot will begin to hurt. She notices the pain is worse when her feet get swollen. Now she feels like she cannot even walk to the bathroom due to severe pain.Went to ER 07/2021 for severe left foot pain, xray of foot show no acute injury, mild OA and calcaneal bone spur, was discharged home with hydrocodon e which did help the painShe took a hydrocodon e 10mg pill from an unknown source and says that helped with her pain but has not taken it since. She has not tried ibuprofen due to poor kidney function. She also has not seen pain specialist since last visit due to not being able to walk because of foot pain. - start gabapentin 300mg TID- start hydrocodon e 5mg-acetam inophen 325mg q6 as needed for pain, d/c tramadol for now, continue to avoid NSAIDS- start medrol 4mg dose pack to help with possible acute inflammati on- plan to call patient Wednesday to check in on response to medication s prescribed today before the weekend [id number] BRITANY VALENTINO (Adult Med) [address] [place] [address] 12/08/2021 10:38:56 12/09/2021 09:04:52 Fatigue 57372124 R53.83 Pt has been fatigued for several months. Pt endorses that she is not able to participat e in ADLs because she becomes dyspneic so easily. Increased shortness of breath performing any activities outside of bed. Pt endorses to feel depressed and has only been outside of her room in the past several months. Is depressed about not having surgeries as well. Needs to lose additional weight to have surgery. -Order CBC for evaluate for anemia. Given increased depressed mood, Rx Escitalopr am to improve mood and motivation to perform ADLs, this option will avoid additional weight gain as well. Rx Ozempic to facilitate further weight loss.- PT referral given to patient to help build strength and help with philomena santillan Swelling of lower leg 44 8515978 R22.40 Pt endorses swelling of bilateral legs for 3wks. Pt has been elevating legs frequently to alleviate swelling. Upon physical exam, left lower extremity is minimally swollen at medial portion at left ankle. Negative for pitting edema.- Monitor leg swelling and f/u if worsens.- plan to check labs to ensure labs are stable- need to get up and move around more, PT to help with deconditio tyrell Creatine k inase level above reference range 962464334 R74.8 CK was elevated to 700 after being immobile due to complicati ons from 1st hernia surgery. Last CK 245 on 06-17-2021 .Recent AIDEE again in the hospital- recheck again today with other labs- She needs to avoid being immobile in the bed, that will increase the risk of developing rhabdo (severe break down of muscles), blood clots, etc. She needs to continue to stay active. Please drink 8-10 glasses of water per day to stay hydrated. Uterine prolapse 9385013 5 N81.4 History of uterine prolapse, plan is to complete hysterecto my after she completed her hernia repair surgery.Sa ramos OBOSMANN 09/2021, plan is for surgery but patient is upset because she has not heard from them regarding scheduling surgery yet after a few months- per OBGYN note, appears possible surgery clearance is needed. Unsure if that is all they are waiting on, will call OBGYN and ask what they all need from me and will get labs for pre-op testing if needed Osteoarthr itis of knee [id number] M17.9 Severe OA of both knees causing severe pain, patient has to walk with walkerWork ing with disability currently. Following with ortho, knee surgery is possible but patient needs weight loss before procedure. - Rx Ozempic to facilitate weight loss, per orthopedic s recs Type 2 margo betes mellitus 02623674 E11.9 Last Hgb A1C: 6.1 ( 1), 6.8 (01/14/21) 6.6 (11/2019) Fasting BS: patient is checking sugars w/ afternoon values approximat rosemary low 200s. Current Therapy: Metformin 500 mg qD Statin: Atorvastat in 40 mg qd JEMIMA/ARB: lisinopril 40 mg qd Foot Exam: Completed performed 01/16/21, slightly abnormal Microalbum in: slightly elevated 02/17/2021 Eye exam: none yet completed, referral placed Pneumovax 23: Will ask at next visit Diet: pt cont to decrease bread consumptio n, and has incorporat ed more veggies and fruits into diet Encouraged regular exercise of 30-60 minutes most days of the week. Pt was encouraged to get yearly diabetic eye exams and feet exams as well. Continue with lifestyle changes and Metformin 500 mg, daily.- Will provide patient with glucometer , test strips, and lancets as needed.- held atorvastat in 40 mg due to rhado concern, will check levels- refilled Metformin 500 mg qD for continued blood sugar control-Rx Ozempic 0.25mg weekly to facilitate weight loss. Weight loss recommende d for future surgeries. Depressive disorder 4831 6735 F32.A Mood continues to remain in a depressed state. Pt endorses she does not leave room very often, has little motivation , and does not feel motivated to engage in normal ADLs given continued condition. - Agreeable to starting SSRI; discussed common AE including worsening depression /anxiety. Call if any prob w/ meds. Call or go to ER if she feels she is a danger to self or others.- started her with escitalopr am, patient aware to be patient because it takes 4-6 weeks for drug to reach full efficacy, and do not stop drug without contacting us first- f/u in 1 month Essential hypertension 71143343 I10 BP today 110/72. -Continue w/ lisinopril 40mg Neuropathy 394828241 G62 .9 Severe DDD with disc herniation and foraminal stenosis at lumbar level. PM and neurosurge ry referrals given at lat visit.H/o intermitte nt severe foot pain. Previous flare up of foot pain described as walking on glass, feels like the bottom of my feet are bubbling up. - Continue gabapentin 300mg TID- Continue Hydrocodon e 5mg-acetam inophen 325mg PRN for pain. Avoid NSAIDS.- Work on weight loss Vitamin D deficiency 347 21279 E55.9 -cont Vit. D supplement s- plan to recheck levels as needed. Chronic ki dney disease stage 3 815041059 N18.30 Uncontroll ed HTN and controlled diabetes- keep blood pressure controlled w/ lisinopril 40mg qd- Continue following with Nephrology , who are currently treating CKD- will try to get recent records from Nephrology and labs, need to consider stopping Metformin due kidney function [id number] BRITANY VALENTINO (Adult Med) [address] [place] [phone] 01/09/2022 10:55:07 01/13/2022 08:32:24 Gastric ulcer with perforation 3651027 K25.5 Pt presenting for f/u from ER visit. Pt admitted on 01/02/22 due to melena s/p emergency stomach ulcer perforatio n surgery done on 12/19/21. In ER, pt underwent EGD which noted numerous stomach ulcers that were cauterized . Pt also had transfusio n due to Hgb level of 7.1. Pt was discharged the next day. Pt states she has GI appt 01/30/22. Today pt reports persistent abdominal pain. Abdomen TTP in all quadrants. Scar on abdomen appears to be healing well and is not showing any signs of active infection. -pantopraz ole rx renewed as below-Hydr ocodone-ac etaminophe n rx as below for pain; pt educated that constipati on is a common side effect and encouraged to drink lots of water and eat fiber-rich foods while taking medication -Pt educated to not use high amounts of NSAIDs as these will exacerbate ulcers-RTC in 1 month to assess sx-Go to ER if abdominal pain worsens Anemia 725388845 D64.9 While in hospital, pt;s Hgb dropped to 7.1 and she received a transfusio n.-Repeat labs as below to assess for persistent vs resolved anemia; will contact pt with results and proceed accordingl y Serum crea tinine above reference range 073571772 R79.89 At hospital; serum creatinine raised to 1.30-Repea t BMP to assess for persistent vs resolved elevation of serum creatinine Muscle weakness 19732775 M62.81 Pt reporting muscle weakness due to continual abdominal pain and inability to ambulate well-PT referral sent [id number] BRITANY VALENTINO (Adult Med) [facility] [place] [address] 02/09/2022 11:19:20 02/10/2022 08:58:23 Osteoarthritis of knee 563726733 M17.9 Severe OA of both knees causing severe pain, patient has to walk with walkerWork ing with disability currently. Following with ortho, knee surgery is possible but patient needs weight loss before procedure. - Rx Ozempic to facilitate weight loss, per orthopedic s recs- c/w pain medication PRN for now, pt states it is helping- c/w PT Type 2 margo betes mellitus 73993810 E11.9 Last Hgb A1C: 6.5 (12/10/21), 6.1 (), 6.8 (01/14/21) 6.6 (11/2019) Fasting BS: patient is checking sugars w/ afternoon values approximat rosemary low 200s. Current Therapy: Metformin 500 mg qD Statin: Atorvastat in 40 mg qd JEMMIA/ARB: lisinopril 40 mg qd Foot Exam: Completed performed 01/16/21, slightly abnormal Microalbum in: slightly elevated 02/17/2021 Eye exam: none yet completed, referral placed Pneumovax 23: Will ask at next visit Diet: pt cont to decrease bread consumptio n, and has incorporat ed more veggies and fruits into diet Encouraged regular exercise of 30-60 minutes most days of the week. Pt was encouraged to get yearly diabetic eye exams and feet exams as well. Continue with lifestyle changes and Metformin 500 mg, daily.- Will provide patient with glucometer , test strips, and lancets as needed.- atorvastat in 40 mg removed due to rhado concern. Will restart in future once patient gets stronger and more mobile.- refilled Metformin 500 mg qD for continued blood sugar control-Rx Ozempic 0.25mg weekly to facilitate weight loss. Weight loss recommende d for future surgeries. Gastric ul cer with perforation 0287523 K25.5 Pt admitted on 01/02/22 due to melena s/p emergency stomach ulcer perforatio n surgery done on 12/19/21. In ER, pt underwent EGD which noted numerous stomach ulcers that were cauterized . Pt also had transfusio n due to Hgb level of 7.1. Pt was discharged the next day. Taking PPI and following with GI. Surgical wound healed well since last visit, no longer having pain at this location. -pantopraz ole rx renewed as below-Pt educated to not use high amounts of NSAIDs as these will exacerbate ulcers Anemia 010985211 D64.9 While in hospital, pt;s Hgb dropped to 7.1 and she received a transfusio n.Hgb back to 10.1 01/09/22Sti ll complainin g of generalize d weakness and fatigue- will repeat levels to ensure they did not drop again Serum crea tinine above reference range 121644580 R79.89 At hospital; serum creatinine raised to 1.30, repeat was 1.25- will check today with other labs Muscle weakness 26989021 M62.81 Has been attending regularly to help regain strength. States she has been able to walk faster, better.- keep up with PT and home exercises Morbid obesity 351638992 E66.01 BMI 41.6 today, lost 18 pounds in the last month by eating healthyShe was approved for Gastric Sleeve 05/13 but was told she needed to lose 50 lbs before it can be done. Patient provided healthy lifestyle modificati ons to aid in weight loss.- c/w good work Depressive disorder 2028 1190 F32.A Escitalopr am helping greatly, feeling more positive and has more motivation to get her health back on track. Patient appears overall very happy today and in great spirits compared to prior visits - c/w medication Atopic dermatitis 957239 01 L20.9 Complainin g of new onset of itchy, red, and flaky rash on entire face, extending to bilateral ears.Tried Vaseline, which only helps reducing flakes. Started after her last surgery.On PE: scattered patches of erythemato us, dry skin on face including nose, hairline, jaw, cheeks and external ears. Flakes present with excoriatio n also present- appears inflammato ry, atopic dermatitis vs psoriasis. Will start with topical hydrocorti sone cream, use daily during flares. Use good face lotion such as Cetaphil, Aquaphor, etc.- avoid long-term daily use of steroid cream- f/u if rash does not improve [id number] BRITANY VALENTINO (Adult Med) [address] [place] [phone] 03/04/2022 10:47:50 03/05/2022 11:14:39 Chronic kidney disease stage 3 [id number] N18.30 Uncontroll ed HTN and controlled diabetesSp amaya to nephrology team about AIDEE, Dr. Cervantes was unable to discuss patient and recommenda tions because he only saw patient once 07/2021, missed her last appointmen t while hospitaliz ed, and missing a few tests for a complete CKD work-up- keep blood pressure controlled w/ lisinopril 40mg qd- need to get back in tough with nephrology for further labs and evaluation after surgery Uterine prolapse [id number] 5 N81.4 History of uterine prolapse, [facility] tomorrowFe eling well today with no complaints , vitals are stable in the office today Acute inju ry of kidney [id number] N17.9 Acute on chronic kidney diseaseAKI seen on pre-op labs, Cr jumped up to 2.2Pre-op labs also showed + Ecoli UTICurrent ly being treated for UTI with cephalexin , already seen an improvemen t in her symptomsRe peat labs yesterday showed Cr back down to 1.56 and eGFR 40Rental US normal- discussed results with patient- will fax records to [facility] team- c/w abx [id number] BRITANY VALENTINO (Adult Med) [address] [place] [phone] 03/18/2022 11:01:34 03/19/2022 12:08:53 Chronic kidney disease stage 3 [id number] N18.30 Uncontroll ed HTN and controlled diabetesSa w Dr. Cervantes once 07/2021, missed her last appointmen t while hospitaliz ed, and missing a few tests for a complete CKD work-upCom pleted a few tests last week and scheduled for an appointmen t next week- keep blood pressure controlled w/ lisinopril 40mg qd- keep upcoming appointmen t, stay positive and hopefully after nephrology work-up is complete, hysterecto my can be reconsider ed Uterine prolapse [id number] 5 N81.4 She was scheduled for a total hysterecto my at [facility] for her uterine prolapse a few weeks ago but it got cancelled last minute which really upset her. She was really looking forward to having the surgery. She has not followed up with them yet for pessary care, having trouble getting a hold of them.- will contact her surgeon to see if they can reach out to patient for f/u appointmen t- bring old pessary with her to clinic so they are aware of which one she has already tried Morbid obesity [id number] E66.01 Gained a few pounds back since last visit, admits her mood has been decreased since surgery was cancelled which has caused her to eat differentl y and move lessShe was approved for Gastric Sleeve 05/13 but was told she needed to lose 50 lbs before it can be done. Patient provided healthy lifestyle modificati ons to aid in weight loss.- encouraged her to stay positive, keep moving, eat healthy, c/w ozempic Osteoarthr itis of knee [id number] M17.9 Severe OA of both knees causing severe pain, patient has to walk with walkerWork ing with disability currently. Following with ortho, knee surgery is possible but patient needs weight loss before procedure. - Rx Ozempic to facilitate weight loss, per orthopedic s recs- c/w pain medication PRN for now, pt states it is helping- c/w PT Cramp in lower limb [id number] R25.2 Having cramps in her lower extremitie s at night intermitte ntly after long days of traveling or walking- discussed supportive care to help with muscle spasms including massage, stretching , gradual increase in activity, and muscle relaxer PRN at night Atopic dermatitis 131651 01 L20.9 - appears inflammato ry, atopic dermatitis vs psoriasis. C/w topical hydrocorti sone cream PRN, use daily during flares. Use good face lotion such as Cetaphil, Aquaphor, etc.- avoid long-term daily use of steroid cream- f/u if rash does not improve [id number] BRITANY VALENTINO (Adult Med) [facility] [place] [address] 07/16/2022 12:11:54 07/20/2022 14:16:16 Osteoarthritis of knee 326985025 M17.9 Severe OA of both knees causing severe pain, patient has to walk with walkerWork ing with disability currently. Following with ortho, knee surgery is possible but patient needs weight loss before procedure. - Rx Ozempic to facilitate weight loss, per orthopedic s recs- c/w pain medication PRN for now, pt states it is helping Type 2 margo betes mellitus 66161985 E11.9 Last Hgb A1C: 5.8 today (07/16/2022 ) 6.5 (12/10/21), 6.1 (), 6.8 (01/14/21) 6.6 (11/2019) Fasting BS: patient is checking sugars w/ afternoon values approximat rosemary low 200s. Current Therapy: Metformin 500 mg qD and Ozempic .5 mg weekly Statin: Atorvastat in 40 mg qd JEMIMA/ARB: lisinopril 40 mg qd Foot Exam: Completed performed 01/16/21, slightly abnormal. due at next visit Microalbum in: slightly elevated 02/17/2021, due at next visit, consider Farxiga for kidney protection Eye exam: none yet completed, referral placed Pneumovax 23: Will ask at next visit Diet: pt cont to decrease bread consumptio n, and has incorporat ed more veggies and fruits into diet Encouraged regular exercise of 30-60 minutes most days of the week. Pt was encouraged to get yearly diabetic eye exams and feet exams as well. Continue with lifestyle changes and Metformin 500 mg, daily.- Will provide patient with glucometer , test strips, and lancets as needed.- c/w atorvastat in 40 mg- refilled Metformin 500 mg qD for continued blood sugar control- c/w Rx Ozempic to 0.5 mg weekly to facilitate weight loss. Weight loss recommende d for future surgeries. Uterine prolapse 1027762 5 N81.4 She is scheduled for her hysterecto my finally 07/23/2022, she is very excited to get this surgery completed. She has completed all the necessary steps and believes surgery clearance has already been approved.- f/u with me in 08/2022 after surgery and after f/u with OBGYN team early 08/2022 Morbid obesity 363601099 E66.01 Gained a few pounds back since last visit, admits her mood has been decreased since surgery was cancelled which has caused her to eat differentl y and move lessShe was approved for Gastric Sleeve 05/13 but was told she needed to lose 50 lbs before it can be done. Patient provided healthy lifestyle modificati ons to aid in weight loss.- encouraged her to stay positive, keep moving, eat healthy, c/w ozempic for now- plan to work more on weight loss after her upcoming surgery Sore throat [id number] J0 2.9 Complainin g of sore throat x 2 months. States the pain is worse at night and in the mornings. No other symptoms including fever, chills, LAD, nasal congestion , ear pain, or cough.- rapid strep negative- other swab completed in the office today for yeast but it was incorrect swab, start oral nystatin due to concern for candidiasi s. Have her reach out in a few days to let us know if any better Neuropathy [id number] G62 .9 Severe DDD with disc herniation and foraminal stenosis at lumbar level. PM and neurosurge ry referrals given at lat visit.H/o intermitte nt severe foot pain. Previous flare up of foot pain described as walking on glass, feels like the bottom of my feet are bubbling up. - Continue gabapentin 300mg TID- Continue Hydrocodon e 5mg-acetam inophen 325mg PRN for pain. Avoid NSAIDS.- Work on weight loss Essential hypertension 85439796 I10 BP today 124/80 -Continue w/ lisinopril 40mg Vitamin D deficiency 347 71667 E55.9 -cont Vit. D supplement s- plan to recheck levels as needed. Depressive disorder 8086 2606 F32.A Escitalopr am helping greatly, feeling more positive and has more motivation to get her health back on track. Patient appears overall very happy today and in great spirits compared to prior visits - c/w medication [id number] [facility] (Adult Med) [address] [place] [address] 08/25/2022 10:18:50 08/31/2022 10:06:16 Uterine prolapse 82581378 N81.4 She underwent a total hysterecto my and pelvic floor reconstruc tion on 07/23/2022 with [facility]. The procedure went well and has upcoming apt with OBGYN. She is still having mild urinary incontinen ce but much improved compared to before her surgery.- keep upcoming f/u with OBGYN team Gay [id number] L71.9 Hx of intermitte nt redness and pimples to her cheeks on her face over the last few years. States she has been trying to put hydorcorti sone cream on the bumps but states it is making her skin burn.- likely rosacea- stop the steroid cream on the face- start metronidaz ole cream BID Ventral in cisional hernia 587748722 K43.2 About 1 week after surgery she developed a large painful knot in her abdomen above her belly-butt on, states it is most noticeable when changing positions and that is usually when it is most painful too. Hx of multiple abdominal surgeries and prior hernias.- likely ventral hernia- will order CT scan of abdomen due to body habitus- discussed red flag symptoms to watch out for in the meantime, if they develop, go to the ER Xerostomia [id number] R68. 2 Complainin g of very dry mouth over the last few weeks, states she has been drinking much more water recently due to the dry mouth.Taki ng oxycodone over the last few weeks for her pain from surgery- likely due to the pain medication , patient is titrating off them currently so advised to monitor for improvemen t of dry mouth Morbid obesity 128243726 E66.01 Gained a few pounds back since last visit, has been less mobile after her surgeryShe was approved for Gastric Sleeve 05/13 but was told she needed to lose 50 lbs before it can be done. Patient provided healthy lifestyle modificati ons to aid in weight loss.- encouraged her to stay positive, keep moving, eat healthy, c/w ozempic for now- plan to work more on weight loss after her upcoming surgery [id number] BRITANY VALENTINO (Adult Med) [address] [place] [address] 11/27/2022 10:10:57 11/30/2022 16:14:14 Ventral incisional hernia 606947495 K43.2 About 1 week after surgery she developed a large painful knot in her abdomen above her belly-butt on, states it is most noticeable when changing positions and that is usually when it is most painful too. Hx of multiple abdominal surgeries and prior hernias.CT showed 10 cm ventral incisional hernia - [facility], frustrated with prolonged wait for surgical repair, and saw second surgeon- advised to wait for [place] surgeon instead of [place] for safety concerns with size of herniation , but do not cancel [place] appointmen t in case need comes up- will consider abdominal binder to aid in slowing increase in size- Reviewed red flags (fever, drastic increase in pain, prolonged time without pooping) that would mean she needs to go to the ER- will increase amount of hydrocodon e short-term until hernia surgery Acute inju ry of kidney [id number] 7840529 N17.9 Acute on chronic kidney diseaseAKI seen in the ER, recommende d f/u BMP after dischargeP rior renal US normal- redraw labs today History of total hysterectomy 798119962 Z90.710 States went well without complicati ons, had recent f/u with OBGYN which went well Depressive disorder 3548 9007 F32.A Escitalopr am no longer helping, struggling with mood and hope during these health complicati ons. - increase dose from 10mg to 20mg Constipation 74060670 K5 9.00 Current narcotic pain medication while awaiting surgical fixation of hernia, having to strain for BMs with possible hemorrhoid s, Miralax has provided relief. Samples given in office as well. Type 2 margo betes mellitus 78664934 E11.9 Needs medication s refilled today, will recheck her levels again at next visit Neuropathy 210599361 G62 .9 Severe DDD with disc herniation and foraminal stenosis at lumbar level. PM and neurosurge ry referrals given at lat visit.H/o intermitte nt severe foot pain. Previous flare up of foot pain described as walking on glass, feels like the bottom of my feet are bubbling up. - Continue gabapentin 300mg TID- Continue Hydrocodon e 5mg-acetam inophen 325mg PRN for pain. Avoid NSAIDS.- Work on weight loss Vitamin D deficiency 347 08006 E55.9 -cont Vit. D supplement s- plan to recheck levels as needed. Essential hypertension 95484575 I10 BP today 118/78 -Continue w/ lisinopril 40mg Osteoarthr itis of knee 865052441 M17.9 Severe OA of both knees causing severe pain, patient has to walk with walkerWork ing with disability currently. Following with ortho, knee surgery is possible but patient needs weight loss before procedure. - Rx Ozempic to facilitate weight loss, per orthopedic s recs- c/w pain medication PRN for now, pt states it is helping Gastric ul cer with perforation 6498289 K25.5 Hx of ulcer on 01/02/22 due to melena s/p emergency stomach ulcer perforatio n surgery done on 12/19/21. Taking PPI and following with GI. -pantopraz ole rx renewed as below-Pt educated to not use high amounts of NSAIDs as these will exacerbate ulcers Nummular eczema 42238493 L30.0 Physical exam suggestive of nummular eczema, did not resolve with topical hydrocodon e.-begin triamcinol one applicatio ns, take week break between use and avoid eyelids Morbid obesity 303743794 E66.01 - encouraged her to stay positive, keep moving, eat healthy, c/w ozempic for now- plan to work more on weight loss after her upcoming surgery [id number] BRITANY VALENTINO (Adult Med) [address] [place] [phone] 03/02/2023 14:47:57 03/05/2023 14:57:14 Ventral incisional hernia 488092417 K43.2 CT showed 10 cm ventral incisional herniaSaw the general surgeon who is willing to complete surgery but needs to have BMI less than 40 before. Patient notes the surgeon is also willing to do a tummy tuck at the time of the procedure so she is really wanting to get this done. She has lost 7 pounds since last visit. Admits to general fatigue but feels like she is doing well otherwise. Wearing abdominal binder which is helping.- keep up awesome work on weight loss- c/w abdominal binder- increase ozempic and add b12 injection today to see if we can help with energy a bit over the next month Type 2 margo betes mellitus 10833528 E11.9 HgbA1c is 5.9 todayCurre nt taking Ozempic 0.5 mg once weekly and metformin 500 mg once dailyStati n: atorvastat in 40 mgACE: lisinopril 40 mgFoot exam: NL today, 03/03/2023 Eye exam: 11/24/2021No longer drinking soda and has stopped eating fast food- keep up awesome work- increase ozempic up to 1 mg once weekly to help with weight loss, consider coming off Metformin if needed Neuropathy 225811538 G62 .9 Severe DDD with disc herniation and foraminal stenosis at lumbar level. PM and neurosurge ry referrals given at lat visit.H/o intermitte nt severe foot pain. Previous flare up of foot pain described as walking on glass, feels like the bottom of my feet are bubbling up. - Continue gabapentin 300mg TID- Continue Hydrocodon e 5mg-acetam inophen 325mg PRN for pain. Avoid NSAIDS.- Work on weight loss Osteoarthr itis of knee 792158128 M17.9 Severe OA of both knees causing severe pain, patient has to walk with walkerWork ing with disability currently. Following with ortho, knee surgery is possible but patient needs weight loss before procedure. - Rx Ozempic to facilitate weight loss, per orthopedic s recs- c/w pain medication PRN for now, pt states it is helping Morbid obesity 235391063 E66.01 - encouraged her to stay positive, keep moving, eat healthy, c/w ozempic for now- plan to work more on weight loss after her upcoming surgery- b12 injection given today to help with energy and metabolism Long-term current use of opiate analgesic drug [id number] 61474 Z79.891 Due for UDS- ordered today [id number] LATA MI (Adult Med) [facility] [place] [address] 06/03/2023 10:58:36 06/04/2023 15:53:56 Type 2 diabetes mellitus 18267089 E11.9 A1C: 5.8 today, 5.9 (03/02/23) Current taking Ozempic 1 mg once weekly and metformin 500 mg once dailyStati n: atorvastat in 40 mgACE: lisinopril 40 mgFoot exam: NL 03/03/2023 Eye exam: 11/24/2021No longer drinking soda and has stopped eating fast food- keep up great work- increase ozempic up to 2 mg once weekly to help with weight loss, consider coming off Metformin if needed Morbid obesity 869919923 E66.01 Has lost 4 pounds since last visit in FebruaryMI 41.8 Depression screening 171 852275 Z13.31 PHQ9- Positive (17 out of 27) [facility] screening 899188425 Z13.39 GAD7- Positive (13 out of 21) Osteoarthr itis of knee 928627826 M17.9 Severe OA of both knees causing severe pain, patient has to walk with walkerWork ing with disability currently. Following with ortho, knee surgery is possible but patient needs weight loss before procedure. - Rx Ozempic to facilitate weight loss, per orthopedic s recs- c/w pain medication PRN for now, pt states it is helping- patient to get drug screen done today and will send RX once normal results come in-Sign new pain med agreement- Discussed water aerobics to help with joint health and weight loss Neuropathy 662537041 G62 .9 Essential hypertension 77882910 I10 BP 122/84BP Goal: {{Less than 140/90* Le ss than 150/90}}BP Controlled : {{yes* no} }Healthy Weight: {{4'10= 91-118 lbs 4'11= 94-123 lbs 5'= 97-127 lbs 5'1= 100-131 lbs 5'2= 104-135 5' 3= 107-140 lbs 5'4= 110-144 lbs 5'5= 115-149 lbs 5'6= 118-154 lbs 5'7= 121-158 lbs* 5'8= 125-163 lbs 5'9= 128-168 lbs 5'10= 132-173 lbs 5'11= 136-178 lbs 6'= 140-183 lbs 6'1= 144-188 lbs 6'2= 148-193 lbs 6'3= 152-199 lbs 6'4= 156-204 lbs}}Discu ssed: Low sodium balanced diet, moderate exercise at least 3-4 times per week for an average of 40 minutes, limiting alcohol to 1 drink per day (F) or 2 drinks per day (M), and smoking cessation if currently smoking. Next Visit: {{1 2 3 4 5 6* 7 8 9 10 11 12} }{{week(s) month(s)* }} Uncontroll ed Hypertensi on potential risks, heart attack, , stroke, kidney failure etc. Hypertensi on is the silent Killer Take your Hypertensi on medication daily keep appointmen ts stop concentrat ed sugars--fo llow 1500 meal plan exercise 50-60 minutes daily on most days see eye doctor once a year see dentist every 6 months Depressive disorder 0237 9431 F32.A Be physically active. Getting 30 minutes of exercise each day is good for your body and your mind. Begin slowly if it is hard for you to get started, If you already exercise, keep it up. Plan something pleasant for yourself every day. Include activities that you have enjoyed in the past. Get enough sleep. Eat a balanced diet. If you do not feel hungry, eat small snacks rather than large meals. Do not drink alcohol, use illegal drugs, or take medicines that your doctor has not prescribed for you. They may interfere with your treatment. Spend time with family and friends. It may help to speak openly about your depression with people you trust. Take your medicines exactly as prescribed . Do not make major life decisions while you are depressed. Depression may change the way you think. You will be able to make better decisions after you feel better. Think positively . Challenge negative thoughts with statements such as I am hopeful ; Things will get better ; and I can ask for the help I need. Write down these statements and read them often, even if you don't believe them yet. Be patient with yourself. It took time for your depression to develop, and it will take time for your symptoms to improve. Do not take on too much or be too hard on yourself. Learn all you can about depression from written and online materials. Check out behavioral health classes to learn more about dealing with depression . Keep the numbers for these national suicide hotlines: 0-615-273- TALK (9-107-506 -7519) and 0-974-SUIC CARLOS (5-756-590 -5321). If you or someone you know talks about suicide or feeling hopeless, get help right away. -D/C escitalopr am-start fluoxetine 20mg-rtc 6 weeks Vitamin D deficiency 347 34456 E55.9 Ventral in cisional hernia 293454624 K43.2 CT showed 10 cm ventral incisional hernia Saw the general surgeon who is willing to complete surgery but needs to have BMI less than 40 before. Patient notes the surgeon is also willing to do a tummy tuck at the time of the procedure so she is really wanting to get this done. She has lost 4 pounds since last visit. Admits to general fatigue but feels like she is doing well otherwise. Wearing abdominal binder which is helping. - keep up awesome work on weight loss- c/w abdominal binder- increase ozempic to help with weight loss goal [id number] LATA MI (Adult Med) [address] [place] [phone] 07/15/2023 14:25:27 07/20/2023 12:23:32 Depression screening 942508947 Z13.31 PHQ9- Positive (14 out of 27) Mental [facility]a lth screening 535636130 Z13.39 GAD7- Positive (16 out of 21) Body mass index 30+ - obesity 282759561 Z68.39 BMI 39.4 was 41.8 on 06/03/23-16 lbs since last visit on 06/14/23 Depressive disorder 8708 9007 F32.A Be physically active. Getting 30 minutes of exercise each day is good for your body and your mind. Begin slowly if it is hard for you to get started, If you already exercise, keep it up. Plan something pleasant for yourself every day. Include activities that you have enjoyed in the past. Get enough sleep. Eat a balanced diet. If you do not feel hungry, eat small snacks rather than large meals. Do not drink alcohol, use illegal drugs, or take medicines that your doctor has not prescribed for you. They may interfere with your treatment. Spend time with family and friends. It may help to speak openly about your depression with people you trust. Take your medicines exactly as prescribed . Do not make major life decisions while you are depressed. Depression may change the way you think. You will be able to make better decisions after you feel better. Think positively . Challenge negative thoughts with statements such as I am hopeful ; Things will get better ; and I can ask for the help I need. Write down these statements and read them often, even if you don't believe them yet. Be patient with yourself. It took time for your depression to develop, and it will take time for your symptoms to improve. Do not take on too much or be too hard on yourself. Learn all you can about depression from written and online materials. Check out behavioral health classes to learn more about dealing with depression . Keep the numbers for these national suicide hotlines: 0-257-859- TALK () and 4-232-SUIC CARLOS (9-249-875 -9143). If you or someone you know talks about suicide or feeling hopeless, get help right away. - fluoxetine 20mg-rtc 3 months Osteoarthr itis of knee 320879216 M17.9 Severe OA of both knees causing severe pain, patient has to walk with walkerWork ing with disability currently. Following with ortho, knee surgery is possible but patient needs weight loss before procedure. - Rx Ozempic to facilitate weight loss, per orthopedic s recs- has lost 16 pounds since 06/03/23- was told she needs to lose 10 more pounds- c/w pain medication PRN for now, pt states it is helping-Di scussed water aerobics to help with joint health and weight loss [id number] [facility] [address] [place] [phone] 10/12/2023 14:26:09 10/15/2023 14:30:15 Type 2 diabetes mellitus 75890205 E11.9 A1C: 5.8 (06/03/23), 5.9 (03/02/23) Current taking Ozempic 1 mg once weekly and metformin 500 mg once dailyStati n: atorvastat in 40 mgACE: lisinopril 40 mgFoot exam: NL 03/03/2023 Eye exam: 11/24/2021 No longer drinking soda and has stopped eating fast food- keep up great work- C/w ozempic 2 mg once weeklyRTC 6 months Essential hypertension 71761340 I10 BP today: 128/82BP Goal: {{Less than 140/90* Le ss than 150/90}}BP Controlled : {{yes* no} }Healthy Weight: {{4'10= 91-118 lbs 4'11= 94-123 lbs 5'= 97-127 lbs 5'1= 100-131 lbs 5'2= 104-135 5' 3= 107-140 lbs 5'4= 110-144 lbs 5'5= 115-149 lbs 5'6= 118-154 lbs 5'7= 121-158 lbs* 5'8= 125-163 lbs 5'9= 128-168 lbs 5'10= 132-173 lbs 5'11= 136-178 lbs 6'= 140-183 lbs 6'1= 144-188 lbs 6'2= 148-193 lbs 6'3= 152-199 lbs 6'4= 156-204 lbs}}Discu ssed: Low sodium balanced diet, moderate exercise at least 3-4 times per week for an average of 40 minutes, limiting alcohol to 1 drink per day (F) or 2 drinks per day (M), and smoking cessation if currently smoking. Next Visit: {{1 2 3 4 5 6* 7 8 9 10 11 12} }{{week(s) month(s)* }} Uncontroll ed Hypertensi on potential risks, heart attack, , stroke, kidney failure etc. Hypertensi on is the silent Killer Take your Hypertensi on medication daily keep appointmen ts stop concentrat ed sugars--fo llow 1500 meal plan exercise 50-60 minutes daily on most days see eye doctor once a year see dentist every 6 months Osteoarthr itis of knee [id number] M17.9 Severe OA of both knees causing severe pain, patient has to walk with walkerWork ing with disability currently. Following with ortho, knee surgery is possible but patient needs weight loss before procedure. - Rx Ozempic to facilitate weight loss, per orthopedic s recs- c/w pain medication PRN for now, pt states it is helping- patient to get drug screen done today and will send RX once normal results come in-Discuss ed water aerobics to help with joint health and weight loss Will refill pain medication today, last refill 09/15/23 Morbid obesity 629934283 E66.01 Has lost 44 pounds since last visit in June3BMI 37.2 Neuropathy 359755913 G62 .9 Ventral in cisional hernia 031479066 K43.2 CT showed 10 cm ventral incisional hernia-Her maylin was repaired Depressive disorder 0180 1580 F32.A Be physically active. Getting 30 minutes of exercise each day is good for your body and your mind. Begin slowly if it is hard for you to get started, If you already exercise, keep it up. Plan something pleasant for yourself every day. Include activities that you have enjoyed in the past. Get enough sleep. Eat a balanced diet. If you do not feel hungry, eat small snacks rather than large meals. Do not drink alcohol, use illegal drugs, or take medicines that your doctor has not prescribed for you. They may interfere with your treatment. Spend time with family and friends. It may help to speak openly about your depression with people you trust. Take your medicines exactly as prescribed . Do not make major life decisions while you are depressed. Depression may change the way you think. You will be able to make better decisions after you feel better. Think positively . Challenge negative thoughts with statements such as I am hopeful ; Things will get better ; and I can ask for the help I need. Write down these statements and read them often, even if you don't believe them yet. Be patient with yourself. It took time for your depression to develop, and it will take time for your symptoms to improve. Do not take on too much or be too hard on yourself. Learn all you can about depression from written and online materials. Check out behavioral health classes to learn more about dealing with depression . Keep the numbers for these national suicide hotlines: 9-495-124- TALK (5-413-199 -4138) and 4-108-SUIC CARLOS (8-047-199 -9470). If you or someone you know talks about suicide or feeling hopeless, get help right away. -C/W fluoxetine 20mg Vitamin D deficiency 347 33558 E55.9 Depression screening 171 721731 Z13.31 PHQ9- {{Negative Positive Mild Moder ate* Sever e}} (11 out of 27) Mental [facility] screening 523173131 Z13.39 GAD7- {{Negative * Positive Mild Mode rate Sever e}} (0 out of 21) Wound of skin 693376176 T14.8XXA Culture of wound taken and sent to labWound cleaned using normal saline and bandaged- instructed patient to clean with warm water and soapPt to call surgeons office to get seen sooner than Wednesday10/15/23Sta rt mupirocin 2% TIDStart cephalexin 500mg every 6 hours x 7 days [id number] [facility] (Adult Med) [address] [place] [address] [phone] 12/06/2023 14:25:53 12/11/2023 15:13:25 Depression screening 260007129 Z13.31 PHQ9- {{Negative Positive Mild Moder ate* Sever e}} (15 out of 27) Mental hea lt screening 633902204 Z13.39 GAD7- {{Negative Positive Mild* Mode rate Sever e}} (8 out of 21) Obesity 642537152 E66.8 BMI 35.3 History of hernia repair 4548261188 9109 Z98.890 Ventral hernia repair on 09/27/23Woun d dehiscence - admitted to [place] 11/15/23- Dehiscence of surgical wound 57108899 T81.30XA Ventral hernia repair wound dehiscence , 2cmPatient to keep clean and packedAdvi sed patient to return to ER if signs of infectionC /W antibiotic s given at hospitalKe ep appointmen t on Wednesday12/10/23 with surgeon [id number] [facility] (Adult Med) [address] [place] [address] [phone] 01/13/2024 10:04:11 01/14/2024 12:14:18 Osteoarthritis of knee 827086349 M17.9 Severe OA of both knees causing severe pain, patient has to walk with walkerWork ing with disability currently. - Rx Ozempic to facilitate weight loss, per orthopedic s recs- c/w pain medication PRN for now, pt states it is helping- patient to get drug screen done today and will send RX once normal results come in-Discuss ed water aerobics to help with joint health and weight loss Will refill pain medication today-Pt to call ortho and start process for knee replacemen t Scar of skin 16245740 L9 0.5 Apply mederma topical gel daily x 8 weeks. Obesity 704006852 E66.8 BMI 35.1 Depression screening 171 408409 Z13.31 PHQ9- {{Negative Positive Mild Moder ate Severe *}} (20 out of 27) Mental hea lth screening 815297764 Z13.39 GAD7- {{Negative Positive Mild Moder ate Severe *}} (16 out of 21) [id number] [facility] (Adult [facility]) [address] [place] [address] [phone] 05/03/2024 14:23:02 05/04/2024 14:50:27 Obesity 002453817 E66.9 BMI 37.5 History of total knee arthroplasty 9661115010 105 Z96.659 L knee- c/w PT and with appts with orthoNo signs of infectionP t taking 2 hydrocodon e 7.5 mg every 2 hours for pain currentlyW ill increase hydrocodon e 5mg to BID instead of ONCE a day for 30 days.Labs ordered today Depression screening 171 500864 Z13.31 PHQ9- {{Negative Positive Mild Moder ate* Sever e}} (13 out of 27) Mental hea lth screening 633183807 Z13.39 GAD7- {{Negative Positive Mild Moder ate* Sever e}} (11 out of 21) [id number] [facility] (Adult Med) [address] [place] [address] [phone] 07/24/2024 15:45:50 07/25/2024 13:45:34 Type 2 diabetes mellitus 79663780 E11.9 A1C: 5.7 (07/24/24), 5.8 (06/03/23), 5.9 (03/02/23) Current taking Ozempic 2mg once weekly and metformin 500 mg once dailyStati n: atorvastat in 40 mgACE: lisinopril 40 mgFoot exam: NL 03/03/2023 Eye exam: 11/24/2021 No longer drinking soda and has stopped eating fast food- keep up great work- C/w ozempic 2 mg once weeklyRTC 6 months Essential hypertension 68088072 I10 BP today: 134/82BP Goal: {{Less than 140/90* Le ss than 150/90}}BP Controlled : {{yes* no} }Healthy Weight: {{4'10= 91-118 lbs 4'11= 94-123 lbs 5'= 97-127 lbs 5'1= 100-131 lbs 5'2= 104-135 5' 3= 107-140 lbs 5'4= 110-144 lbs 5'5= 115-149 lbs 5'6= 118-154 lbs 5'7= 121-158 lbs* 5'8= 125-163 lbs 5'9= 128-168 lbs 5'10= 132-173 lbs 5'11= 136-178 lbs 6'= 140-183 lbs 6'1= 144-188 lbs 6'2= 148-193 lbs 6'3= 152-199 lbs 6'4= 156-204 lbs}}Discu ssed: Low sodium balanced diet, moderate exercise at least 3-4 times per week for an average of 40 minutes, limiting alcohol to 1 drink per day (F) or 2 drinks per day (M), and smoking cessation if currently smoking. Next Visit: {{1 2 3 4 5 6* 7 8 9 10 11 12} }{{week(s) month(s)* }} Uncontroll ed Hypertensi on potential risks, heart attack, , stroke, kidney failure etc. Hypertensi on is the silent Killer Take your Hypertensi on medication daily keep appointmen ts stop concentrat ed sugars--fo llow 1500 meal plan exercise 50-60 minutes daily on most days see eye doctor once a year see dentist every 6 months Neuropathy 240924479 G62 .9 Depressive disorder 3548 9007 F32.A Be physically active. Getting 30 minutes of exercise each day is good for your body and your mind. Begin slowly if it is hard for you to get started, If you already exercise, keep it up. Plan something pleasant for yourself every day. Include activities that you have enjoyed in the past. Get enough sleep. Eat a balanced diet. If you do not feel hungry, eat small snacks rather than large meals. Do not drink alcohol, use illegal drugs, or take medicines that your doctor has not prescribed for you. They may interfere with your treatment. Spend time with family and friends. It may help to speak openly about your depression with people you trust. Take your medicines exactly as prescribed . Do not make major life decisions while you are depressed. Depression may change the way you think. You will be able to make better decisions after you feel better. Think positively . Challenge negative thoughts with statements such as I am hopeful ; Things will get better ; and I can ask for the help I need. Write down these statements and read them often, even if you don't believe them yet. Be patient with yourself. It took time for your depression to develop, and it will take time for your symptoms to improve. Do not take on too much or be too hard on yourself. Learn all you can about depression from written and online materials. Check out behavioral health classes to learn more about dealing with depression . Keep the numbers for these national suicide hotlines: 8-821-273- TALK (3-140-729 -9976) and 2-632-SUIC CARLOS (0-013-124 -8814). If you or someone you know talks about suicide or feeling hopeless, get help right away. -C/W fluoxetine 20mg Vitamin D deficiency 347 39547 E55.9 Depression screening 171 758575 Z13.31 PHQ9- {{Negative Positive Mild* Mode rate Sever e}} (6 out of 27) Mental [facility] screening 208585564 Z13.39 GAD7- {{Negative * Positive Mild Mode rate Sever e}} (3 out of 21) History of total knee arthroplasty 9004698739 105 Z96.659 L knee- c/w PT and with appts with orthoNo signs of infectionc /w hydrocodon e 5mg to BID instead of ONCE a day for 30 days. Obesity 934643386 E66.9 BMI 37.9 Health Concerns Section Related Observation LastModified by Organization Detai ls LastModified Time None Recorded Concern Status LastModified by Organization Details LastModified Time None Recorded Advance Directives Directive N: Payers Encounter Date Sequence Insurance Name Policy Number Policy Gilmore Covered Member ID Gilmore Member ID Guarantor Name 10/12/2023 2 [place] WHEN MEDICARE OR MEDICARE REPLACEMENT PRIMARY) Aliza Handy [id number] Aliza Handy 10/12/2023 1 [facility] (MEDICARE REPLACEMENT/AD VANTAGE - PPO) [id number] Aliza M Handy [id number] Aliza Handy 12/06/2023 2 [place] WHEN [place]ARE [place] MEDICARE REPLACEMENT [place]) Aliza Handy [id number] Aliza Handy 12/06/2023 1 [facility] (MEDICARE REPLACEMENT/AD VANTAGE - PPO) [id number] Aliza M Handy [id number] Aliza Handy 01/13/2024 2 [place] WHEN [place] OR MEDIC[place]PLACEMENT PRIMARY) Aliza Handy [id number] Aliza Handy 01/13/2024 1 [facility] (MEDICARE REPLACEMENT/AD VANTAGE - PPO) [id number] Aliza M Handy [id number] Aliza Handy 05/03/2024 2 [place] OR MEDICARE REPLACEMENT [place]IMARY) Aliza Handy [id number] Aliza Handy 05/03/2024 1 [facility] (MEDICARE REPLACEMENT/AD VANTAGE - PPO) [id number] Aliza M Handy [id number] Aliza Handy 07/24/2024 1 [facility] (MEDICARE REPLACEMENT/AD VANTAGE - PPO) [id number] Aliza M Handy [id number] Aliza Handy Notes Date Note Type Note Provider Name and Address Organization Details Recorded Time 10/12/2023 text/html 53 y/o F here fo r IM f/u. Pt has been taking medication as prescribed, no complaints.Pt had hernia repair at the beginning of September, was in rehab for 1 week post surgery and signed herself out, states they did not clean her wound or anything in the time that she was in there. Pt has f/u with surgeon on 10/15/23. Pt states has had a little bit of pain since last night, but is not able to check herself. JAVI BREWSTER PA-C Attn: Accounting[address] [place], [address], [place] [facility] 10/12/2023 15:22:37 12/06/2023 text/html 53 y/o F here fo r hospitalization f/u. Pt went to ER as advised after last OV and results from wound culture. Pt states she was sent home after 15 hours in ER and told she did not have an infection. She then went back and was admitted for her drainage tube being clogged. She was given antibiotics and had some procedure done. Was discharged and told to keep her wound clean. States she has not had issues since discharge. Does admit that her appetite has been less since leaving the hospital. Denies fever, chills, SOB, CP, MAGALLANES, N/V/D. JAVI BREWSTER PA-C Attn: Accounting, [address] [place], [address], [facility] - [facility] 12/06/2023 15:20:06 01/13/2024 text/html 53 y/o F here fo r f/u wound care. Pt is worried d/t her wound not closing. She is also wanting to get refills on pain medication. JAVI BREWSTER PA-C Attn: Accounting, [address] [place], [address], [facility] - [facility] 01/13/2024 11:00:46 05/03/2024 text/html A 54 y/o Hispani c F is here for a f/u on L knee reconstruction surgery. Pt has no complaints with the recovery so far. Pt states she saw physical therapy and her flexion was at 85 degrees when there goal was 70 degrees, so above goal. She sees ortho tomorrow for her first follow up. Pt says she was told to take 1 hydrocodone 7.5 mg every 4 hours, but she needs to take 2 every two hours to cope with the pain. Pt denies CP, SOB, NVD, MAGALLANES JAVI BREWSTER PA-C Attn: Accounting, [address] [place], [address], [place] [facility] 05/03/2024 17:20:04 07/24/2024 text/html 54 y/o F here for f/u chronic conditions. Pt states she is doing well on all current medications. Pt has surgery scheduled for this month for R knee replacement. Pt denies SOB, CP, MAGALLANES, N/V/D at this time. JAVI BREWSTER PA-C Attn: Accounting, [address] [place], [address], [place] [facility] 07/24/2024 16:47:03 OBGyn Episode No OBEpisode recorded.
--- OUTSIDE RECORDS SUMMARY | 2024-07-27 11:36 | XMS_ITS | Encounter Summary ---
Author Organization [facility] Address [address] [facility] [place] [address] Care Team Providers Care Hospice Admitting Clerk Name Role Phone Unavailable Primary Care Provider Unavailabl e Encounter Details Date Type Department Care Team (Late st Contact Info) Description 05/08/2021 Telephone [facility] [address] [place] [address] Baldemar Abdi MD [address] [facility] [address] [facility] [place] [phone] Social History Tobacco Use Types Packs/Day Years Used Date Smoking Tobacco: Every Day Cigarettes Smokeless Tobacco: Never Alcohol Use Standard Drinks/Week Comments Not Currently 0 (1 standard drink = 0.6 oz pur e alcohol) Sex and Gender Information Value Date Recorded Sex Assigned at Not on file Gender Identity Not on file Sexual Orientation Not on file documented as of this encounter Plan of Treatment Not on file documented as of this encounter Visit Diagnoses Not on filedocumented in this encounter
--- OUTSIDE RECORDS SUMMARY | 2024-07-27 11:36 | XMS_ITS | Encounter Summary ---
Author Organization [facility] Address [address] [facility] [place] [address] Care Team Providers Care Corporate Statistical Financial Analyst Name Role Phone Unavailable Primary Care Provider Unavailabl e Encounter Details Date Type Department Care Team (Late st Contact Info) Description 05/09/2021 Telephone [facility] [address] [place] [address] Baldemar Abdi MD [address] [facility] [address] [facility] [place] [phone] Social History Tobacco Use Types Packs/Day Years [...]
--- OUTSIDE RECORDS SUMMARY | 2024-07-27 11:36 | XMS_ITS | Clinical Summary ---
Author Organization [facility] Address [address] [place] [address] Phone Care Team Providers Care Aluminum Shingle Roofer Name Role Phone Star Leonor Brett PAC Primary Care Provider Social History Tobacco Use Types Packs/Day Years Used Date Smoking Tobacco: Never Assessed Comments Unknown Sex and Gender Information Value Date Recorded Sex Assigned at Not on file Legal Sex Female 3:01 PM CDT Gender Identity Not on file Sexual Orientation Not on file Plan of Treatment Health Maintenance Due Date Last Done Comments Hepatitis C Virus (HCV) Screening 1970 TdaP Immunization 1970 Hepatitis B Immunization (1 of 3 - 19+ 3-dose series) 1988 Pap Smear 1990 Cervical Cancer Screening (CCS) 1999 HPV/Cotest 1999 Colonoscopy 2014 Colorectal Cancer Screening 2014 Cologuard 2019 Immunochemical Fecal Occult Blood 2019 Mammogram 2019 Pneumococcal Immunization (5 0+ years) (1 of 1 - PCV) 2019 Zoster Immunization (1 of 2) 2019 Influenza Immunization (#1) 2024 SARS-COV-2 Immunization ( - season) 2024 Respiratory Syncytial Virus (RSV) Immunization (Adult) (1 - 1-dose 75+ series) 2044 Meningococcal Immunization (ACWY) Aged Out No longer eligible based on patient's age to complete this topic Pneumococcal Immunization Combined Aged Out No longer eligible based on patient's age to complete this topic Rotavirus Immunization Aged Out No lo nger eligible based on patient's age to complete this topic Insurance [place]ICAID [place] Care Teams Aluminum Shingle Roofer Relationship Specialty Start Date End Date Leonor Graves, PAC [address] [place] [address] PCP - General Physician Metal Rolling Mill Operator 03/07/21
[2024-07-27 11:38] LABS: Albumin Level 4.2 g/dL (3.5-5.1)
[2024-07-27 11:40] LABS: Anion Gap 14 mmol/L (4-12); Blood Urea Nitrogen 27 mg/dL (7-17); Calcium 9.6 mg/dL (8.4-10.2); Carbon Dioxide 21 mmol/L (22-30); Chloride 104 mmol/L (98-107); Estimated Glomerular Filt Rate 42; Glucose 88 mg/dL (65-110); Potassium 4.2 mmol/L (3.4-5.0); Sodium 139 mmol/L (137-145)
[2024-07-27 11:41] LABS: Prothrombin Time 13.9 Seconds (11.1-14.7)
[2024-07-27 11:42] LABS: Partial Thromboplastin Time 26.7 Seconds (22.3-36.8)
[2024-07-27 12:49] LABS: Urine Cotinine NEGATIVE
[2024-07-27 12:57] LABS: MRSA (PCR) NOT DETECTED (NOT DETECTE)
[2024-07-27 15:29] LABS: Hemoglobin A1C 5.4 % (<5.7)
== END 2024-07-27 10:09 | disposition home or self-care (01) ==
LOC: ANHSURGERY 10:15
PROVIDERS: Anesthesiology; PCP Physician Assistant Medical; Visit Provider Orthopaedic Surgery
DX: Z01.812 Encounter for preprocedural laboratory examination (principal); M17.11 Unilateral primary osteoarthritis, right knee; N17.9 Acute kidney failure, unspecified; E11.9 Type 2 diabetes mellitus without complications
CPT/HCPCS: 36415; 80048; 80307; 82040; 83036; 85025; 85610; 85730; 86850; 86900; 86901; 87641

== ENCOUNTER 2024-10-11 12:40 | Outpatient (CLI) | payer MEDICARE, SELFPAY ==
--- OUTSIDE RECORDS SUMMARY | 2024-10-11 12:45 | XMS_ITS | CONTINUITY OF CARE DOCUMENT ---
Author Name luc calle Address Unknown Organization [facility] Address [address] [place] [address] Phone [phone] Care Team Providers Care Special Events Fundraiser Name Role Phone Willy Cleaning MD Unavailable BRE LINDA MD Unavailable INSURANCE PROVIDERS Payer name Policy type / Coverage type [employer] red libertarian [place] Medicaid [id number]
--- OUTSIDE RECORDS SUMMARY | 2024-10-11 12:45 | XMS_ITS | Referral Summary ---
Author Organization [facility] al Address [address] [place] [address] Care Team Providers Care Drug Department Worker Name Role Phone Leonor Graves Primary Care Provider [phone] Encounters Date Type Department Care Team Description 09/02/2024 10:35 AM CDT Lab [address] [phone] from Last 3 Months Allergies Active Allergy Reactions Criticality Noted Date [...] times a day Active lancets 30 gauge [facility] OneTouch Delica Plus Lancet 30 gauge USE TO CHECK BLOOD SUGAR EVERY DAY Active blood-glucose meter [facility] OneTouch Verio Flex Meter USE TO CHECK [...] 1 capsule (20 mg total) by mouth manufacturing technician before breakfast 4 Active triamcinolone (KENALOG) 0.1 [...] DAILY NEEDED FOR MUSCLE SPASMS 30 tablet Active Active Problems Problem Noted Date Diagnosed [...] of omentum, TAR, retrorectus mesh placement (09/26, Yudelka). Readmitted for purulent, foul- smelling drainage from middle of lower transverse incision. CT with abdominal rim enhancing lesion c/f abscess vs seroma with drain adjacent to collection. - wound care: WTD irving Thompson 11/15 continue antibiotic and local wound care [...] Assessment & Plan (09/30/2023 12:55 PM CDT): / hypotensive overnight requiring initiation of neosynephrine, 1L [...] placed, decreased to 1ml/h for hypotension, continue MITTEN SEWER 09/29 pain controlled, epidural resumed @ 6ml/h + MITTEN SEWER 09/30 hypotensive with epidural titration, discussed with [...] off pressors, AIDEE resolved, transfuse for <7 09/30 hgb 7.5 from 7.7, remains off pressors, [...] care, Cultures in process. Health Insurance Coverage: [facility] Medicare Solutions and IDPA Prescription Coverage: yes Pharmacy: [id number] - [place], [place] - [address] [facility] [phone] No PCP noted Assessment & Plan (10/04/2023 [...] with TAR, retrorectus mesh --- NPO/NGT, epidural, engagement director, hernandez, arbf 09/27 AFVSS, wbc 9 from 10, hgb 11 from 13, no signs of [...] vac intact 09/30 afebrile, wbc 11 from 10, NGT removed yesterday, hgb stable, L STEVE [...] - Continue pain control with p.r.n. Tylenol, [place] - General surgery consulted in ED, per [...] - Encouraged patient to follow up for [facility] outpatient as able - Consulted RD for [...] Tobacco: Never Tobacco Cessation:Counseling Given: Not Answered [facility] Utilities Answer Date Recorded In the past 12 months has e [employer], gas, oil, or water [employer] threatened to shut off services in your [...] often do you attend chur ch or worship services? Never 10/03/2023 Do you belong to any clubs o r organizations such as taoist groups, unions, fraternal or athletic groups, or [...] care, and heating? Not very hard 10/03/2023 [facility] - Occupational [...] place to sleep or slept in a long term (including now)? No 10/03/2023 Personal Safety Answer Date Recorded Have you ever been in or are you currently in a harmful physical or emotional relationship or is someone making you feel afraid or unsafe? 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 Gender Identity Not on file Sexual Orientation [...] on file Medical Devices Implanted Type Area Bottle Capping Machine Operator Device Identifier Shelf Expiration Date Model / Serial / Lot [employer]/C R Bard [id number] Bard [id number] Monofilament Soft Lightweight Low Profile Square - [id number] Implanted:Qty: 1 on 09/27/2023 by Benito Jha MD at [facility] N/A: Abdomen [employer]/C R Bard [id number] 12/19/2027 [id number] / / [id number] Procedures Procedure Name Priority Date/Time Associated Diagnosis Comments EGFR Routine 09/02/2024 10:47 AM CDT EGFR Routine 09/02/2024 10:47 AM CDT URINALYSIS, MICROSCOPIC ONLY Routine 09/02/2024 10:47 AM CDT DIFFERENTIAL AUTO Routine 09/02/2024 10: 47 AM CDT HEMOGLOBIN A1C Routine 09/02/2024 10:47 AM CDT CREATININE Routine 09/02/2024 10:47 AM CDT URINALYSIS AND REFLEX TO MICROSCOPIC Routine 09/02/2024 10:47 AM CDT PROTEIN / CREATININE RATIO, URINE, RANDOM Routine 09/02/2024 10:47 AM CDT IRON PROFILE W/ IBC Routine 09/02/2024 1 0:47 AM CDT CBC WITH AUTO DIFFERENTIAL Routine 09/02/2024 10:47 AM CDT PTH Routine 09/02/2024 10:47 AM CDT RENAL FUNCTION PANEL Routine 09/02/2024 10:47 AM CDT VOLUME AND PERIOD, URINE, 24 HOUR Routine 09/02/2024 9:06 AM CDT CREATININE CLEARANCE, URINE, 24 HOUR RESULT Routine 09/02/2024 9:06 AM CDT LIPID PANEL Routine 07/24/2022 5:20 AM NAIL ASSEMBLY MACHINE OPERATOR PAP AND HIGH RISK HPV, REFLEX TO GENOTYPING Routine 10/06/2021 1:55 PM CDT Uterovaginal prolapse from Last 3 Months or Most Recently Relevant to Health Maintenance Results * (ABNORMAL) eGFR (09/02/2024 10:47 AM CDT) eGFR 51(L) >=60 mL/min/1. 73 m2 Comment: Interpretive Data Reference Interval Normal >/= 90 mL/min/1.73m2 Mildly decreased* 60 - 89 mL/min/1.73m2 Mildly to moderately decreased 45 - 59 mL/min/1.73m2 Moderately to severely decreased 30 - 44 mL/min/1.73m2 Severely decreased 15 - 29 mL/min/1.73m2 Kidney Failure < 15 mL/min/1.73m2 *Relative to young adult level Estimated glomerular filtration rate is determined by the 202 CKD-EPI equation recommended by the National Kidney Foundation (A Unifying Approach to GFR Estimation: Recommendations of the NKF-ASK Task Force on Reassessing the Inclusion of Race in Diagnosing Kidney Disease, JASN 2021). The CKD-EPI equation should not be used for patients with unstable renal function and has not been validated in children and those over 70. Current interpretive data was last reviewed 2021. Blood 09/02/2024 10:4 7 AM CDT 09/02/2024 11:07 AM CDT us Murray Cervantes MD LAB BLOOD ORDERABLES Final Re sult [facility] ([place]) 1 [facility] Department of Laboratories [place], [place] [id number] * (ABNORMAL) eGFR (09/02/2024 10:47 AM CDT) eGFR 51(L) >=60 mL/min/1. 73 m2 Comment: Interpretive Data Reference Interval Normal >/= 90 mL/min/1.73m2 Mildly decreased* 60 - 89 mL/min/1.73m2 Mildly to moderately decreased 45 - 59 mL/min/1.73m2 Moderately to severely decreased 30 - 44 mL/min/1.73m2 Severely decreased 15 - 29 mL/min/1.73m2 Kidney Failure < 15 mL/min/1.73m2 *Relative to young adult level Estimated glomerular filtration rate is determined by the 202 CKD-EPI equation recommended by the National Kidney Foundation (A Unifying Approach to GFR Estimation: Recommendations of the NKF-ASK Task Force on Reassessing the Inclusion of Race in Diagnosing Kidney Disease, JASN 2021). The CKD-EPI equation should not be used for patients with unstable renal function and has not been validated in children and those over 70. Current interpretive data was last reviewed 2021. Urine/Blood 09/02/2024 10:4 7 AM CDT 09/02/2024 11:07 AM CDT us Murray Cervantes MD LAB BLOOD ORDERABLES Final Re sult HAYDEE [facility] ([place]) 1 [facility] [place] [address] * Differential, auto (09/02/2024 10:47 AM CDT) Neutrophil abs 6.00 1.50 - 6.50 K/cumm Imm gran abs 0.03 0.00 - 0.10 K/cumm [facility] ([place]) Lymphocyte abs 3.15 0.80 - 3.30 K/cumm [facility] ([place]) Monocyte abs 0.60 0.20 - 0.80 K/cumm [facility] ([place]) Eosinophil abs 0.43 0.00 - 0.50 K/cumm [facility] ([place]) Basophil abs 0.06 0.00 - 0.10 K/cumm [facility] ([place]) Neutrophil pct 58.4 % [facility] ([place]) Comment: Interpretive Data Percent cell count reference ranges are not reported, since discordance with absolute values may lead to misinterpretation of CBC data. Current Interpretive Data was last revised on 2017. Imm gran pct 0.3 % [facility] ([place]) Comment: Interpretive Data Percent cell count reference ranges are not reported, since discordance with absolute values may lead to misinterpretation of CBC data. Current Interpretive Data was last revised on 2017. Lymphocyte pct 30.7 % [facility] ([place]) Comment: Interpretive Data Percent cell count reference ranges are not reported, since discordance with absolute values may lead to misinterpretation of CBC data. Current Interpretive Data was last revised on 2017. Monocyte pct 5.8 % [facility] ([place]) Comment: Interpretive Data Percent cell count reference ranges are not reported, since discordance with absolute values may lead to misinterpretation of CBC data. Current Interpretive Data was last revised on 2017. Eosinophil pct 4.2 % [facility] ([place]) Comment: Interpretive Data Percent cell count reference ranges are not reported, since discordance with absolute values may lead to misinterpretation of CBC data. Current Interpretive Data was last revised on 2017. Basophil pct 0.6 % [facility] ([place]) Comment: Interpretive Data Percent cell count reference ranges are not reported, since discordance with absolute values may lead to misinterpretation of CBC data. Current Interpretive Data was last revised on 2017. Blood 09/02/2024 10:4 7 AM CDT 09/02/2024 11:07 AM CDT Murray Cervantes MD LAB BLOOD ORDERABLES Final Re sult Performing Organization Address City/[facility]/ZIP Co de Phone Number HAYDEE M[facility]DE[facility] ([place]) [address] [place] [address] [place] [address] * (ABNORMAL) Iron profile w/ IBC (09/02/2024 10:47 AM CDT) Iron 58 35 - 145 mcg/dL TIBC 332 250 - 400 mcg/dL [facility] ([place]) Transferrin saturation 17(L) 20 - 50 % [facility] ([place]) Blood 09/02/2024 10:4 7 AM CDT 09/02/2024 11:07 AM CDT Murray Cervantes MD LAB BLOOD ORDERABLES Final Re sult Performing Organization Address City/[facility]/ZIP Co de Phone Number [facility]E [facility]DE[facility] ([place]) [address] [place] [address] [place] [address] * (ABNORMAL) Urinalysis reflex to microscopic (09/02/2024 10:47 AM CDT) Color, ur Yellow Yellow Clarity, ur Clear Clear [facility]E [facility] ([place]) Specific gravity, ur 1.016 1.003 - 1.030 [facility] ([place]) pH, urine 6.5 [facility] ([place]) Comment: Interpretive Data U rine pH is affected by diet, medications, systemic acid-base disturbances, and renal tubular function. pH may affect urinary stone formation. For example, urine pH below 6.0 may help reduce the tendency for calcium phosphate stones and pH greater than 6.0 may reduce the tendency for uric acid stone formation. Source: [facility] t-Art Current Interpretive Data was last revised on 2017 Protein, ur ql Trace Negative [facility] ([place]) Glucose, ur ql Negative Negative [facility] ([place]) Ketones, ur Negative Negative [facility] ([place]) Bilirubin, ur Negative Negative [facility] ([place]) Blood, ur Negative Negative [facility] ([place]) Urobilinogen, ur <2.0 <2.0 mg/dL [facility] ([place]) Nitrite, ur Negative Negative [facility] ([place]) Leukocyte esterase, ur 2+(A) Negative [facility] ([place]) UA reflex comment Reflex to microscopic UA will be performed. [facility] ([place]) Urine 09/02/2024 10:4 7 AM CDT 09/02/2024 11:23 AM CDT us Murray Cervantes MD LAB URINE ORDERABLES Final Re sult [facility] ([place]) 1 [facility] [place] [address] * (ABNORMAL) CBC with auto differential (09/02/2024 10:47 AM CDT) WBC 10.27(H) 3.80 - 9.90 K/cumm Hgb 12.5 11.9 - 15.5 g/dL [facility] ([place]) Hct 39.2 35.6 - 45.5 % [facility] ([place]) Plt 242 150 - 400 K/cumm [facility] ([place]) MPV 8.8(L) 9.1 - 12.3 fL [facility] ([place]) RBC 4.69 3.90 - 5.20 M/cumm [facility] ([place]) MCV 83.6 81.3 - 96.4 fL [facility] ([place]) MCH 26.7(L) 27.1 - 33.3 pg [facility] ([place]) MCHC 31.9(L) 32.3 - 35.7 g/dL [facility] ([place]) RDW CV 14.5 11.1 - 14.9 % [facility] ([place]) RDW SD 43.8 35.7 - 48.1 fL [facility] ([place]) NRBC abs 0.00 0.00 - 0.01 K/cumm [facility] ([place]) Blood 09/02/2024 10:4 7 AM CDT 09/02/2024 11:07 AM CDT Murray Cervantes MD LAB BLOOD ORDERABLES Final Re sult Performing Organization Address City/[facility]/ZIP Co de Phone Number [facility] ([place]) 1 [facility] [address] [place] [address] * (ABNORMAL) Protein / creatinine ratio, urine, random (09/02/2024 10:47 AM CDT) Protein, ur, quant 32.3 mg/dL Comment: Interpretive Data No reference range established. Current interpretive data was last revised 2018. Creatinine Ur 144.5 mg/dL [facility] ([place]) Comment: Interpretive Data No reference range established. Current interpretive data was last revised 2018. Protein/creatinin e ratio 223.5(H) 0.0 - 180.0 mg/g CR [facility] ([place]) Urine 09/02/2024 10:4 7 AM CDT 09/02/2024 11:23 AM CDT Murray Cervantes MD LAB URINE ORDERABLES Final Re sult [facility] ([place]) 1 [facility] [place] [address] * (ABNORMAL) Urinalysis, microscopic only (09/02/2024 10:47 AM CDT) WBC, ur 11-20(A) 0 - 5 /HPF RBC, ur 0-2 0 - 2 /HPF [facility] ([place] Epithelial cells, squamous, ur 1-5 0 - 5 /HPF [facility] ([place]) Bacteria, ur 1+(A) [facility] ([place]) Mucous, ur Present(A) [facility] ([place]) Hyaline casts, ur 1-5 0 - 10 /LPF [facility] ([place]) Urine 09/02/2024 10:4 7 AM CDT 09/02/2024 11:23 AM CDT Murray Cervantes MD LAB URINE ORDERABLES Final Re sult [facility] ([place]) 1 [facility] [place] [address] * (ABNORMAL) PTH (09/02/2024 10:47 AM CDT) PTH 66(H) 15 - 65 pg/mL Blood 09/02/2024 10:4 7 AM CDT 09/02/2024 11:07 AM CDT Murray Cervantes MD LAB BLOOD ORDERABLES Final Re sult Performing Organization Address [facility] Co de Phone Number [facility] ([place] 1 [facility] [place] [address] * Hemoglobin A1c (09/02/2024 10:47 AM CDT) Hgb A1C 5.4 4.0 - 5.6 % Estimated Average Glucose 108 mg/dL [facility] ([place]) Comment: The ADA recommends reporting an estimated Average Glucose (eAG) with all Hemoglobin A1c results using the equation derived from a study of 507 normal and diabetic adults. Minority populations were underrepresented and children were not included. (Diabetes Care 31:2001-5654, 2008). The eAG is not equivalent to a fasting glucose. Blood 09/02/2024 10:4 7 AM CDT 09/02/2024 11:07 AM CDT us Murray Cervantes MD LAB BLOOD ORDERABLES Final Re sult [facility]DEE MENDE[facility] ([place]) [address] [facility] [place] [address] * (ABNORMAL) Creatinine (09/02/2024 10:47 AM CDT) Creatinine 1.25(H) 0.60 - 1.10 mg/dL Urine/Blood 09/02/2024 10:4 7 AM CDT 09/02/2024 11:07 AM CDT Murray Cervantes MD LAB BLOOD ORDERABLES Final Re sult Performing Organization Address [facility] Co de Phone Number [facility]E [facility]DE[facility] ([place]) [address] [facility] [place] [address] * (ABNORMAL) Renal function panel (09/02/2024 10:47 AM CDT) Sodium 137 135 - 145 mmol/L Potassium, pl 4.5 3.3 - 4.9 mmol/L [facility] ([place]) Chloride 101 97 - 110 mmol/L [facility] ([place]) CO2 23 22 - 32 mmol/L [facility] [place]) Anion gap 14 2 - 15 mmol/L [facility] ([place]) BUN 25 6 - 25 mg/dL [facility] ([place]) Creatinine 1.24(H) 0.60 - 1.10 mg/dL [facility] ([place]) Glucose 97 70 - 199 mg/dL [facility] Comment: Interpretive Data Fasting glucose >/= 126 mg/dl is diagnostic for diabetes. Fasting is defined as no caloric intake for at least 8 hours. Fasting glucose between 100 mg/dl to 125 mg/dl is diagnostic of prediabetes. In a patient with classic symptoms of hyperglycemia or hyperglycemic crisis, a random glucose >/= 200 mg/dl is diagnostic for diabetes. In the absence of unequivocal hyperglycemia, results should be confirmed by repeat testing. The classification and Diagnosis of Diabetes Diabetes Care 2021; 46: S19-S40. Current interpretive data was last revised 2022. Calcium 9.5 8.5 - 10.3 mg/dL [facility] ([place]) Phosphorus, pl 3.3 2.3 - 4.5 mg/dL [facility] ([place]) Albumin 3.9 3.5 - 5.0 g/dL [facility] ([place]) Blood 09/02/2024 10:4 7 AM CDT 09/02/2024 11:07 AM CDT Murray Cervantes MD LAB BLOOD ORDERABLES Final Re sult [facility] ([place]) 1 [facility] [place] [address] * Volume and period, urine, 24 hour (09/02/2024 9:06 AM CDT) Volume, ur 2,300 mL Period, Urine Collection 1,416 min [facility] ([place]) Urine/Blood 09/02/2024 9:06 AM CDT 09/02/2024 12:06 PM CDT Murray Cervantes MD LAB URINE ORDERABLES Final Re sult Performing Organization Address [facility] Co de Phone Number [facility] ([place]) 1 [facility] [place] [address] * Creatinine clearance, urine, 24 hour (09/02/2024 9:06 AM CDT) Creatinine Clearance 73 60 - 130 mL/min Creatinine, 24 hr, ur 1.3 0.6 - 1.5 g/24H [facility] ([place]) Urine/Blood 09/02/2024 9:06 AM CDT 09/02/2024 12:06 PM CDT us Murray Cervantes MD LAB URINE ORDERABLES Final Re sult Performing Organization Address City/[facility]/ZIP Co de Phone Number [facility]E [facility] ([place]) [address] [facility] [place] [address] * (ABNORMAL) Lipid panel (07/24/2022 5:20 AM NAIL ASSEMBLY MACHINE OPERATOR) Cholesterol 135 30 - 199 mg/dL [facility] Comment: Interpretive Data Ages < or = [...] revised on 2018. Triglycerides 155(H) <=149 mg/dL [facility] Comment: Interpretive Data Ages < or = [...] revised on 2018. HDL 36(L) >=40 mg/dL [facility] Comment: Interpretive Data Ages < or = [...] 2018. LDL, calculated 68 <=129 mg/dL HAY[facility] Comment: Interpretive Data Ages < or = [...] revised on 2018. Non-HDL Cholesterol 99 mg/dL [facility] Comment: Interpretive Data Ages < [...] [facility] Blood 07/24/2022 5:20 AM NAIL ASSEMBLY MACHINE OPERATOR 07/24/2022 6:24 AM NAIL ASSEMBLY MACHINE OPERATOR us Jamie Reyes MD LAB BLOOD ORDERABLES Final Result [facility] Department [place] [address] * Pap and High Risk HPV, reflex to Genotyping (10/06/2021 1:55 PM CDT) Thin prep (Pap test) 10/06/2021 1:55 PM CDT 10/06/2021 3:55 PM CDT Narrative PATHOLOGY [facility] - 10/10/2021 2:16 PM CDT EPIC results best viewed via link to PDF [facility] [place] [address] Note to Patients: This report may contain [...] Gender: F : 1970 (Age: 51) Address: [address] [place] [address] Hospital #: [id number] Service: MANAGER ANDROID Location: [facility] Patient Type: [facility] Ref Lab Taken: 10/06/2021 Received: 10/06/2021 Accessioned: [...] 67. This HPV test was performed at [facility] in [place], [place] utilizing the Gen-Probe Aptima assay. jx/10/10/2021 14:16 MARION Loyd(ASCP), CMIAC Report Electronically Reviewed and Signed Out By [...] negative. The HPV test was performed by [facility], [address] [place] [address]. Report Images and scanned documents, if included only viewable in PDF version The performance characteristics of some immunohistochemical stains, in-situ hybridization and fluorescence in-situ hybridization tests and immunophenotyping by flow cytometry cited in this report (if any) were determined by the Surgical Pathology Department at [facility] as part of an ongoing coding quality coordinator program and in compliance with federally mandated [...] determined by the Surgical Pathology Department of [facility]. It has not been cleared or approved by the U. S. Food and Drug Administration. Ama Byrnes MD LAB CYTOLOGY ORDERABLES Final Re sult PATHOLOGY [facility] 3rd Floor [place], [place] [phone] from Last 3 Months or Most Recently Relevant to Health Maintenance Insurance [facility] MEDICARE ADVANTAGE [facility] MEDICARE ADVANTAGE [facility] Address: [address] [address] [place] [address] Advance Directives For more information, please contact: [phone] * Full Code (Latest Code Status on [...] 11:20 PM 12/11/2022 8:38 PM Care Teams Drug Department Worker Relationship Specialty [place] [address] [place] [id number] PCP - General 03/04/21
--- OUTSIDE RECORDS SUMMARY | 2024-10-11 12:45 | XMS_ITS | Clinical Summary ---
Author Organization [facility] Address [address] [place] [address] Care Team Providers Care Aerotriangulation Specialist Name Role Phone Leonor Graves Primary Care Provider [phone] Allergies Active Allergy Reactions Criticality Noted Date [...] times a day Active lancets 30 gauge [facility] OneTouch Delica Plus Lancet 30 gauge USE TO CHECK BLOOD SUGAR EVERY DAY Active blood-glucose meter [facility] OneTouch Verio Flex Meter USE TO CHECK [...] 1 capsule (20 mg total) by mouth regional marketing director before breakfast 4 Active triamcinolone (KENALOG) 0.1 [...] placed, decreased to 1ml/h for hypotension, continue STRATEGIC ACCOUNT MANAGER 09/29 pain controlled, epidural resumed @ 6ml/h + STRATEGIC ACCOUNT MANAGER 09/30 hypotensive with epidural titration, discussed [...] care, Cultures in process. Health Insurance Coverage: [facility] Medicare Solutions and IDPA Prescription Coverage: yes Pharmacy: [id number] - [place] [address] [facility] [id number] No PCP noted Assessment & Plan (10/04/2023 [...] with TAR, retrorectus mesh --- NPO/NGT, epidural, cement tester assistant, hernandez, arbf 09/27 AFVSS, wbc 9 from [...] - Continue pain control with p.r.n. Tylenol, [place] - General surgery consulted in ED, per [...] stress and urge urinary incontinence 04/14/2021 11/16/2022 Encounters Date Type Department Care Team Description 09/02/2024 10:35 AM CDT Lab [address] [phone] from Last 3 Months Surgical History Surgery Date Site/Laterality Comments UMBILICAL [...] Tobacco: Never Tobacco Cessation:Counseling Given: Not Answered [facility] hereOities Answer Date Recorded In the past [address] [facility] [employer], oil, or water [employer] threatened to shut off services in your [...] 10/03/2023 How often do you attend chur or mu-ism services? Never 10/03/2023 Do you belong to any clubs o r organizations such as baptism groups, unions, fraternal or athletic groups, or [...] care, and heating? Not very hard 10/03/2023 [facility] [place] [facility] - Occupational Stress Questionnaire Answer Date [...] place to sleep or slept in a care home (including now)? No 10/03/2023 Personal Safety Answer Date Recorded Have you ever been in or are you currently in a harmful physical or emotional relationship or is someone making you feel afraid or unsafe? Denies 12/15/2023 Comments No Sex and Gender Information Value Date Recorded Sex Assigned at Not on file Legal Sex Female 7:01 PM ADMIRALTY LAWYER Gender Identity Not on file Sexual Orientation [...] Lipid Panel 07/25/2023 07/24/2022, 01/16/2021 Influenza Vaccine (Season Ended) 2025 03/07/20 21 Hemoglobin A1C 03/04/2025 09/02/2024, 08/22, 10/25/2022, Additional history exists eGFR 09/02/2025 09/02/2024, 08/22, 11/19/2023, Additional history exists Medical Devices Implanted Type Area Senior Pensions Administrator Device Identifier Shelf Expiration Date Model / Serial / Lot [employer]ol Inc/C R Bard [id number] Monofilament Soft Lightweight Low Profile Square - [id number] Implanted:Qty: 1 on 09/27/2023 by Benito Jha MD at [facility] N/A: Abdomen [employer]/C R Bard [id number] 12/19/2027 [id number] / / [id number] Procedures Procedure Name Priority Date/Time Associated Diagnosis [...] CDT LIPID PANEL Routine 07/24/2022 5:20 AM ADMIRALTY LAWYER PAP AND HIGH RISK HPV, REFLEX TO [...] LAB BLOOD ORDERABLES Final Re sult [facility] ([place]) 1 [facility] [place] [address] * (ABNORMAL) eGFR (09/02/2024 10:47 AM CDT) [...] CDT 09/02/2024 11:07 AM CDT us Murray Cervatnes MD LAB BLOOD ORDERABLES Final Re sult [facility] ([place]) 1 [facility] [place] [address] * Differential, auto (09/02/2024 10:47 AM CDT) Neutrophil abs 6.00 1.50 - 6.50 K/cumm Imm gran abs 0.03 0.00 - 0.10 K/cumm [facility] ([place]) Lymphocyte abs 3.15 0.80 - 3.30 K/cumm [facility] ([place]) Monocyte abs 0.60 0.20 - 0.80 K/cumm [facility] ([place]) Eosinophil abs 0.43 0.00 - 0.50 K/cumm [facility] ([place]) Basophil abs 0.06 0.00 - 0.10 K/cumm [facility] ([place]) Neutrophil pct 58.4 % [facility] ([place]) Comment: Interpretive Data Percent cell count reference ranges are not reported, since discordance with absolute values may lead to misinterpretation of CBC data. Current Interpretive Data was last revised on 2017. Imm gran pct 0.3 % [facility] ([place]) Comment: Interpretive Data Percent cell count reference ranges are not reported, since discordance with absolute values may lead to misinterpretation of CBC data. Current Interpretive Data was last revised on 2017. Lymphocyte pct 30.7 % [facility] ([place]) Comment: Interpretive Data Percent cell count reference ranges are not reported, since discordance with absolute values may lead to misinterpretation of CBC data. Current Interpretive Data was last revised on 2017. Monocyte pct 5.8 % [facility] ([place]) Comment: Interpretive Data Percent cell count reference ranges are not reported, since discordance with absolute values may lead to misinterpretation of CBC data. Current Interpretive Data was last revised on 2017. Eosinophil pct 4.2 % [facility] ([place]) Comment: Interpretive Data Percent cell count reference ranges are not reported, since discordance with absolute values may lead to misinterpretation of CBC data. Current Interpretive Data was last revised on 2017. Basophil pct 0.6 % [facility] ([place]) Comment: Interpretive Data Percent cell count reference ranges are not reported, since discordance with absolute values may lead to misinterpretation of CBC data. Current Interpretive Data was last revised on 2017. Blood 09/02/2024 10:4 7 AM CDT 09/02/2024 11:07 AM CDT Murray Cervantes MD LAB BLOOD ORDERABLES Final Re sult Performing Organization Address [facility] Co de Phone Number [facility] ([place]) 1 [facility] [place] [address] * (ABNORMAL) Iron profile w/ IBC (09/02/2024 10:47 AM CDT) Iron 58 35 - 145 mcg/dL TIBC 332 250 - 400 mcg/dL [facility] ([place]) Transferrin saturation 17(L) 20 - 50 % [facility] ([place]) Blood 09/02/2024 10:4 7 AM CDT 09/02/2024 11:07 AM CDT Murray Cervantes MD LAB BLOOD ORDERABLES Final Re sult Performing Organization Address [facility] Co de Phone Number [facility] ([place] 1 [facility] [place] [address] * (ABNORMAL) Urinalysis reflex to microscopic (09/02/2024 10:47 AM CDT) Color, ur Yellow Yellow Clarity, ur Clear Clear [facility] Michelle ([place]) Specific gravity, ur 1.016 1.003 - 1.030 [facility] ([place]) pH, urine 6.5 [facility] ([place]) Comment: Interpretive Data U rine pH is affected by diet, medications, systemic acid-base disturbances, and renal tubular function. pH may affect urinary stone formation. For example, urine pH below 6.0 may help reduce the tendency for calcium phosphate stones and pH greater than 6.0 may reduce the tendency for uric acid stone formation. Source: [facility] Current Interpretive Data was last revised on [...] MD LAB URINE ORDERABLES Final Re sult [facility] ([place]) 1 [facility] [place] [address] * (ABNORMAL) CBC with auto differential (09/02/2024 10:47 AM CDT) WBC 10.27(H) 3.80 - 9.90 K/cumm Hgb 12.5 11.9 - 15.5 g/dL [facility] ([place]) Hct 39.2 35.6 - 45.5 % [facility] ([place]) Plt 242 150 - 400 K/cumm [facility] ([place]) MPV 8.8(L) 9.1 - 12.3 fL [facility] ([place]) RBC 4.69 3.90 - 5.20 M/cumm [facility] ([place]) MCV 83.6 81.3 - 96.4 fL [facility] ([place]) MCH 26.7(L) 27.1 - 33.3 pg [facility] ([place]) MCHC 31.9(L) 32.3 - 35.7 g/dL [facility] ([place]) RDW CV 14.5 11.1 - 14.9 % [facility] ([place]) RDW SD 43.8 35.7 - 48.1 fL [facility] ([place]) NRBC abs 0.00 0.00 - 0.01 K/cumm [facility] ([place]) Blood 09/02/2024 10:4 7 AM CDT 09/02/2024 11:07 AM CDT Murray Cervantes MD LAB BLOOD ORDERABLES Final Re sult Performing Organization Address City/[facility]/ZIP Co de Phone Number [facility] ([place]) 1 [facility] [place] [address] * (ABNORMAL) Protein / creatinine ratio, urine, random (09/02/2024 10:47 AM CDT) Protein, ur, quant 32.3 mg/dL Comment: Interpretive Data No reference range established. Current interpretive data was last revised 2018. Creatinine Ur 144.5 mg/dL [facility] ([place]) Comment: Interpretive Data No reference range established. Current interpretive data was last revised 2018. Protein/creatinin e ratio 223.5(H) 0.0 - 180.0 mg/g CR [facility] ([place]) Urine 09/02/2024 10:4 7 AM CDT 09/02/2024 11:23 AM CDT Murray Cervantes MD LAB URINE ORDERABLES Final Re sult [facility] ([place]) 1 [facility] [employer] [place] [address] * (ABNORMAL) Urinalysis, microscopic only (09/02/2024 10:47 AM CDT) WBC, ur 11-20(A) 0 - 5 /HPF RBC, ur 0-2 0 - 2 /HPF [facility] ([place]) Epithelial cells, squamous, ur 1-5 0 - 5 /HPF [facility] ([place]) Bacteria, ur 1+(A) [facility] ([place]) Mucous, ur Present(A) [facility] A ([place]) Hyaline casts, ur 1-5 0 - 10 /LPF [facility] ([place]) Urine 09/02/2024 10:4 7 AM CDT 09/02/2024 11:23 AM CDT Murray Cervantes MD LAB URINE ORDERABLES Final Re sult Performing Organization Address [email or web address]] de Phone Number [facility] ([place]) 1 [facility] [place] [address] * (ABNORMAL) PTH (09/02/2024 10:47 AM CDT) PTH 66(H) 15 - 65 pg/mL Blood 09/02/2024 10:4 7 AM CDT 09/02/2024 11:07 AM CDT Murray Cervantes MD LAB BLOOD ORDERABLES Final Re sult Performing Organization Address [facility] de Phone Number [facility] ([place]) 1 [facility] [place] [address] * Hemoglobin A1c (09/02/2024 10:47 AM CDT) Hgb A1C 5.4 4.0 - 5.6 % Estimated Average Glucose 108 mg/dL [facility] ([place]) Comment: The ADA recommends reporting an estimated Average Glucose (eAG) with all Hemoglobin A1c results using the equation derived from a study of 507 normal and diabetic adults. Minority populations were underrepresented and children were not included. (Diabetes Care 31:8303-2249, 2008). The eAG is not equivalent to a fasting glucose. Blood 09/02/2024 10:4 7 AM CDT 09/02/2024 11:07 AM CDT us Murray Cervantes MD LAB BLOOD ORDERABLES Final Re sult [facility] ([place]) 1 [facility] [place] [address] * (ABNORMAL) Creatinine (09/02/2024 10:47 AM CDT) Creatinine 1.25(H) 0.60 - 1.10 mg/dL Urine/Blood 09/02/2024 10:4 7 AM CDT 09/02/2024 11:07 AM CDT Murray Cervantes MD LAB BLOOD ORDERABLES Final Re sult Performing Organization Address City/[facility]/ZIP Co de Phone Number [facility] ([place]) 1 [facility] [place] [address] * (ABNORMAL) Renal function panel (09/02/2024 10:47 AM CDT) Sodium 137 135 - 145 mmol/L Potassium, pl 4.5 3.3 - 4.9 mmol/L [facility] ([place]) Chloride 101 97 - 110 mmol/L [facility] ([place]) CO2 23 22 - 32 mmol/L [facility] ([place]) Anion gap 14 2 - 15 mmol/L [facility] ([place]) BUN 25 6 - 25 mg/dL [facility] ([place]) Creatinine 1.24(H) 0.60 - 1.10 mg/dL [facility] ([place]) Glucose 97 70 - 199 mg/dL [facility] ([place]) Comment: Interpretive Data Fasting glucose [...] 2022. Calcium 9.5 8.5 - 10.3 mg/dL [facility] ([place]) Phosphorus, pl 3.3 2.3 - 4.5 mg/dL [facility] ([place]) Albumin 3.9 3.5 - 5.0 g/dL [facility] ([place]) Blood 09/02/2024 10:4 7 AM CDT 09/02/2024 11:07 AM CDT Murray Cervantes MD LAB BLOOD ORDERABLES Final Re sult [facility] ([place]) 1 [facility] [place] [address] * Volume and period, urine, 24 hour (09/02/2024 9:06 AM CDT) Volume, ur 2,300 mL Period, Urine Collection 1,416 min [facility] ([place]) Urine/Blood 09/02/2024 9:06 AM CDT 09/02/2024 12:06 PM CDT Murray Cervantes MD LAB URINE ORDERABLES Final Re sult Performing Organization Address [facility] Co de Phone Number [facility] ([place]) 1 [facility] [place] [address] * Creatinine clearance, urine, 24 hour (09/02/2024 9:06 AM CDT) Creatinine Clearance 73 60 - 130 mL/min Creatinine, 24 hr, ur 1.3 0.6 - 1.5 g/24H [facility] ([place]) Urine/Blood 09/02/2024 9:06 AM CDT 09/02/2024 12:06 PM CDT Murray Cervantes MD LAB URINE ORDERABLES Final Re sult Performing Organization Address City/[facility]/ZIP Co de Phone Number [facility] ([place]) 1 [facility] [place] [address] * (ABNORMAL) Lipid panel (07/24/2022 5:20 AM ADMIRALTY LAWYER) Cholesterol 135 30 - 199 mg/dL [facility] Comment: Interpretive Data Ages < or = [...] revised on 2018. Triglycerides 155(H) <=149 mg/dL [facility] Comment: Interpretive Data Ages < or = [...] revised on 2018. HDL 36(L) >=40 mg/dL [facility] Comment: Interpretive Data Ages < or = [...] on 2018. LDL, calculated 68 <=129 mg/dL [facility] Comment: Interpretive Data Ages < or = [...] revised on 2018. Non-HDL Cholesterol 99 mg/dL [facility] Comment: Interpretive Data Ages < or = [...] last revised on 2018. Chol/HDL ratio 4 [facility] Blood 07/24/2022 5:20 AM ADMIRALTY LAWYER 07/24/2022 6:24 AM ADMIRALTY LAWYER Jamie Reyes MD LAB BLOOD ORDERABLES Final Result 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 This HPV test was performed at [facility] in [place], [place] utilizing the Gen-Probe Aptima assay. jx/10/10/2021 [...] negative. The HPV test was performed by [facility], [address] [place] [address]. Report Images and scanned documents, if included only viewable in PDF version The performance characteristics of some immunohistochemical stains, in-situ hybridization and fluorescence in-situ hybridization tests and immunophenotyping by flow cytometry cited in this report (if any) were determined by the Surgical Pathology Department at [facility] as part of an ongoing senior software quality analyst program and in compliance with [...] determined by the Surgical Pathology Department of [facility]. It has not been cleared or approved by the U. S. Food and Drug Administration. Ama Byrnes MD LAB CYTOLOGY ORDERABLES Final Re sult PATHOLOGY [facility] 3rd Floor [place], [place] [phone] from Last 3 Months or Most Recently Relevant to Health Maintenance Insurance [facility] MEDICARE [facility] Address: [address] [address] [place] [address] [facility] MEDICARE [facility] Address: [facility] [address] [place] [address] Advance Directives For more information, please contact: [phone] * Full Code (Latest Code Status on [...] 11:20 PM 12/11/2022 8:38 PM Care Teams Aerotriangulation Specialist Relationship Specialty [place] [address] [place] [id number] PCP - General 03/04/21
--- OUTSIDE RECORDS SUMMARY | 2024-10-11 12:45 | XMS_ITS | Clinical Summary ---
Author Organization [facility] [employer] Address [address] [place] [address] [place] [address] Care Team Providers Care Sheet Metal Work Furnace Installer Name Role Phone Unavailable Primary Care Provider Unavailabl e Source Comments [facility] [employer],non-owned Affiliates and Associated Physician Practices is amultiple site organization consisting of ambulatory clinics and hospital sitesin [place], [place], [place] and [place]. This disclosure is being madepursuant to the Care Everywhere program and may not contain all information available regarding this patient. Last updated 18.[employer] Allergies No known active allergies Medications * Be aware that medications may not be up to date on this document. Alwaysverify current medications with the patient. metFORMIN ER 24hr (GLUCOPHAGE XR) 500 MG tablet Take 500 mg by mouth once daily 1 Active nicotine (NICODERM CQ) 14 MG/24HR patch Apply 1 (one) patch to skin once daily 28 patch 1 1 Active ondansetron (ZOFRAN) 4 MG tablet Take 1 (one) tablet by mouth every 6 hours as needed for Nausea/Vomiting 10 tablet 1 Active acetaminophen (MAPAP) 500 MG tablet Mapap Extra Strength 500 mg tablet 1 Active ergocalciferol (DRISDOL) 1.25 MG (29426 UT) capsule ergocalciferol (vitamin D2) 1,250 mcg (50,000 unit) capsule 1 Active lisinopril (PRINIVIL; ZESTRIL) 40 MG tablet lisinopril 40 mg tablet 1 Active oxyCODONE, immediate release, (ROXICODONE) 5 MG tablet Take 1 (one) tablet by mouth every 6 hours as needed for Pain 30 tablet Active docusate sodium (COLACE) 50 MG capsule Take 1 (one) capsule by mouth once daily 30 capsule 1 Active Active Problems Problem Noted Date Diagnosed Date Periumbilical abdominal pain 12/27/2020 Umbilical hernia without obstruction and without gangrene 12/27/2020 Immunizations Immunization Administration Dates Next Due Giant Swarm primary monoval ent 12+ yr 0.3mL Purple [...] = 0.6 oz pur e alcohol) Comments No Sex and Gender Information Value Date Recorded Sex Assigned at Not on file Legal Sex Female 6:14 AM TRAUMA DIRECTOR Gender Identity Not on file Sexual Orientation Not on file Last Filed Vital Signs Vital Sign Reading Time Taken Comments Blood Pressure 147/92 07/02/2021 1:34 PM TRAUMA DIRECTOR Pulse 88 07/02/2021 1:34 PM TRAUMA DIRECTOR Temperature 36.8 C (98.2 F) 07/02/2021 1:34 PM TRAUMA DIRECTOR Respiratory Rate 20 07/02/2021 1:34 PM TRAUMA DIRECTOR Oxygen Saturation 96% 05/14/2021 12:54 PM TRAUMA DIRECTOR Inhaled Oxygen Concentration - - Weight 127.5 kg (281 lb) 07/02/2021 1:34 PM TRAUMA DIRECTOR Height 165.1 cm (5' 5 ) 07/02/2021 1:34 PM TRAUMA DIRECTOR Body Mass Index 46.76 07/02/2021 1:34 PM TRAUMA DIRECTOR Plan of Treatment Health Maintenance Due Date Last Done Comments FELICITY (AGES 45-75) - COLON CA SCREENING 1970 [...] series) 1988 PNEUMOCOCCAL VACCINE 50+ (1 of 1 - PCV) 2019 ZOSTER VACCINE (1 of 2) 2019 COVID-19 VACCINE (1 - 2023- season) 2024 SCREENING FOR DIABETES 05/14/2024 , 05/14/2021, 05/13/2021, Additional history exists DEPRESSION SCREENING 05/24/2024 INFLUENZA VACCINE (Season Ended) 2025 03/07/2021 PAP with HPV 07/11/2025 07/11/2020 HIB VACCINE [...] this topic Medical Devices Implanted Type Area Call Center Recruiter Device Identifier Shelf Expiration Date Model / Serial / Lot Mesh Srg Ventralight St Sepra 8x6in Implanted:Qty: 1 on 05/12/2021 by Baldemar Abdi MD at [facility] Abdomen [employer] 02/18/2022 [id number] / / [id number] Sys Fx 37cm Cpsr Str Ss Peek Perm Hndl Implanted:Qty: 1 on 05/12/2021 by Baldemar Abdi MD at [facility] Abdomen [employer] 03/20/2023 [id number] / / [id number] Sys Fx Optifix 15 Absb Fstnr Artc Implanted:Qty: 1 on 05/12/2021 by Baldemar Abdi MD at [facility] Abdomen [employer] 11/18/2022 [id number] / / [id number] Procedures Procedure Name Priority Date/Time Associated Diagnosis Comments GLUCOSE - POINT OF CARE Routine 05/14/2021 11:40 AM TRAUMA DIRECTOR HPV DETECTION HIGH RISK SOWMYA Routine 07/11/2020 4:00 PM TRAUMA DIRECTOR Cervical cancer screening from Last 3 Months or Most Recently Relevant to Health Maintenance Results * (ABNORMAL) GLUCOSE - POINT OF CARE (05/14/2021 11:40 AM TRAUMA DIRECTOR) Pathologist [facility] Glucose WB/POC 118(H) 70 - 106 mg/dL 05/14/2021 11:46 AM TRAUMA DIRECTOR [facility] Specimen Type Cap Fingerstick 2020 11:46 AM TRAUMA DIRECTOR [facility] Blood BLOOD SPECIMEN / Unknown 05/14/2021 11:40 AM TRAUMA DIRECTOR 05/14/2021 11:46 AM TRAUMA DIRECTOR Baldemar Abdi MD LAB - POINT OF CARE ORDERABLES F inal Result Performing Organization Address City/State/[facility] Co de Phone Number [facility] [address] [place] [address] * HPV DETECTION HIGH RISK SOWMYA (07/11/2020 4:00 PM TRAUMA DIRECTOR) [facility] High Risk Human Papilloma Result Not detected Not detected 07/17/2020 2:51 PM TRAUMA DIRECTOR [facility] High Risk Human Papilloma Interp 07/17/2020 2:51 PM TRAUMA DIRECTOR [facility] Comment:High Risk Human Ryder lloma Virus was Not Detected. Pathology/Cytolo gy MISCELLANEOUS SAMPLES / Unknown 07/11/2020 4:00 PM TRAUMA DIRECTOR 07/15/2020 8:50 AM TRAUMA DIRECTOR Narrative [facility] PATHOLOGY LAB - 07/17/2020 2:51 PM TRAUMA DIRECTOR Nucleic acid isolated from the specimen was [...] information). Ritika Sims MD LAB - MICROBIOLOGY ORDERABL ES Final Result [facility] LAB [address] [facility] [place] [address], [facility] [phone] from Last 3 Months or Most Recently Relevant to Health Maintenance Insurance Advance Directives * Full Code (Latest Code Status on File) Date Activated Date Inactivated Comments 05/12/2021 6:57 PM 05/14/2021 7:23 PM * Full Code Date Activated Date Inactivated Comments 12/27/2020 8:36 AM 12/30/2020 6:49 PM
--- OUTSIDE RECORDS SUMMARY | 2024-10-11 12:46 | XMS_ITS | Data Portability ---
Author Organization [facility] Address [address] [place] [address] Care Team Providers Care Wood Grinder Name Role Phone [facility] Orthopedist JAVI BREWSTER Primary Care Provider Assessment Encounter Date Assessment Date Assessment LastModified by Organization Details LastModified Time 05/03/2024 05/03/2024 ROGER Khalil [email or web address] Not available 05/03/2024 14:59:53 Plan of Treatment Reminders Order Date Submit Date Provider Last Modified By Organization Details Last Modified Time Details Appointments ANY 30 2024 02:30P M JAVI BREWSTER PA-C Not available Not available Not available Lab noninva sive colorec mary cancer DNA + occult blood screeni ng, QL, stool [facility]24 [facility] [address], [address], [place], [address], 09/11/2024 16:35:29 uric acid, serum or plasma 2024 025 [facility], [address] [facility], [address], [place], [address], 08/24/2024 08:29:54 HbA1c (hemogl obin A1c), blood 2024 025 [email or web address] In-Office Order, Internal Use Only DO Not Attach Compendium DO Not Attach Compendium, Do Not Delete/merge, [id number] 07/24/2024 16:45:58 albumin /creati nine, mass ratio, urine 2024 025 FELIPE [facility], [address], [address], [place], [address], 08/24/2024 11:14:48 CMP, serum or plasma 2024 025 [facility], [address] [place], [place] [address], [address], [place], [address], 08/24/2024 11:14:50 CBC w/ auto diff 2024 025 [facility], [address] [place] [address], [address], [place], [address], 08/24/2024 11:14:53 TSH, ultra-s ensitiv e, serum 2024 025 [facility], [address] [place] [address], [address], [place], [address], 08/24/2024 11:14:52 lipid panel, serum 2024 025 [facility], [address] [place], [place] [address], [address], [place], [address], 08/24/2024 11:14:49 drug screen, urine 2023 024 F[facility], [address] [place] [address], [address], [place], [address], 05/05/2024 06:17:07 Referral nutriti onist/d nelsy mccarthy 2024 025 [facility] Rifle Case Repairer, [address] [place] [address], [address], 10/05/2024 10:56:50 diabeti c ophthal mology referra l 2024 025 FELIPE [facility], [address] , [place], [address], 09/15/2024 14:32:03 Procedures None recorde d. Surgeries None recorde d. Imaging MAMMO, screeni ng, bilater al [email or web address] ([facility]), [address], [place], [address], 10/11/2024 10:30:32 Medication Orders Depo-Me drol 40 mg/mL suspens ion for injecti on 2024 025 [email or web address] Not available 08/23/2024 10:48:01 colchic ine 0.6 mg tablet 2024 025 [facility] #98479, [address], [place], [place], [id number], 08/23/2024 10:26:20 allopur inol 100 mg tablet 2024 025 [facility] #30931, [address], [place], [place], [id number], 08/02/2024 16:34:58 hydroco done 5 mg-acet aminoph en 325 mg tablet 2024 025 [facility] #45213, [address], [place], [place], [id number], 08/02/2024 16:43:06 ketocon azole 2 % topical cream 2024 025 [facility] #36764, [address], [place], [place], [id number], 08/02/2024 16:34:58 Ozempic 2 mg/dose (8 mg/3 mL) subcuta neous pen injecto r 2024 025 [facility] #27145, [address] , [place], [place], [id number], 07/24/2024 16:46:17 metform in ER 500 mg tablet, extende d release 24 hr 2024 [facility] #70260, [address] , [place], [place], [id number], 07/24/2024 16:46:28 atorvas tatin 40 mg tablet 2024 [facility] #39885, [address] , [place], [place], [id number], 07/24/2024 16:46:28 hydroco done 5 mg-acet aminoph en 325 mg tablet 2024 [facility] #71287, [address] , [place], [place], [id number], 07/24/2024 16:46:49 ergocal ciferol (vitami n D2) 1,250 mcg (50,000 unit) capsule 2024 [facility] #66155, [address] , [place], [place], [id number], 07/24/2024 16:46:16 lisinop ril 40 mg tablet 2024 [facility] #43522, [address] , [place], [place], [id number], 07/24/2024 16:46:19 fluoxet ine 20 mg capsule 2024 025 [facility] #82084, [address] , [place], [place], [id number], 07/24/2024 16:46:27 gabapen tin 300 mg capsule 2024 025 [facility] #81963, [address], [place], [place], [id number], 07/24/2024 16:46:18 cyclobe nzaprin e 10 mg tablet 2024 025 [facility] #10312, [address], [place], [place], [id number], 07/24/2024 16:46:17 hydroco done 5 mg-acet aminoph en 325 mg tablet 2023 024 [facility] #14236, [address], [place], [place], [id number], 05/03/2024 15:06:28 Patient TargetsNo targets recorded. Patient Instructions Encounter Date Encounter Id Patient Instructions Last Modified By Organization Details Last Modified Time 05/03/2024 [id number] A healthy lifestyle: care instructions [email or web address] Not available 05/03/2024 15:06:11 07/24/2024 [id number] learning about type 2 diabetes [email or web address] Not available 07/24/2024 16:45:58 type 2 diabetes: care instructions Not available 07/24/2024 16:45:58 A healthy lifestyle: care instructions [email or web address] Not available 07/24/2024 16:45:59 08/02/2024 [id number] gout: care instructions [email or web address] Not available 08/02/2024 16:34:49 A healthy lifestyle: care instructions Not available 08/02/2024 17:55:07 seborrheic dermatitis: care instructions [email or web address] Not available 08/02/2024 16:34:50 08/23/2024 [id number] A healthy lifestyle: care instructions [email or web address] Not available 08/23/2024 17:39:11 gout: care instructions [email or web address] Not available 08/23/2024 10:27:13 purine-restricte d diet: care instructions [email or web address] Not available 08/23/2024 10:27:13 09/11/2024 [id number] A healthy lifestyle: care instructions Not available 09/11/2024 16:35:19 mammogram: about this test Not available 09/11/2024 16:35:19 tooth decay: car e instructions [email or web address] Not available 09/11/2024 16:35:19 learning about type 2 diabetes [email or web address] Not available 09/11/2024 16:35:19 type 2 diabetes: care instructions [email or web address] Not available 09/11/2024 16:35:19 Reason for Referral Diabetic Ophthalmology Refer ral for Type 2 diabetes mellitus Referring Physician: Javi Brewster [facility], Encounter Date: 07/24/2024 Lacquer Pin Press Operator/dietitian Refer ral for Obesity Referring Physician: Javi Brewster [facility], Encounter Date: 09/11/2024 Results Created Date Observation Date Name Description Value Unit Range Abnormal Flag Note LastModifiedBy Organization Detail LastModifiedTime 05/03/20 24 05/04/2024 [id number] 9 10 DRUG- BUND amphetamines , urine NEGATI VE NG/mL cutoff =1000 Amphe tamin e test inclu karli Amphe tamin e and Metha mphet amine . Not Available [facility] ([facility]) [address] [place], [address], 05/05/2024 06:17:07 05/03/20 24 05/04/2024 [id number] 9 10 DRUG- BUND barbiturates NEGATI VE NG/mL cutoff =200 Not Available [facility] ([facility]) [address] [place], [address], 05/05/2024 06:17:07 05/03/20 24 05/04/2024 [id number] 9 10 DRUG- BUND benzodiazepi ananth NEGATI VE NG/mL cutoff =200 Not Available [facility] ([facility]) [address] [place], [address], 05/05/2024 06:17:07 05/03/20 24 05/04/2024 [id number] 9 10 DRUG- BUND cannabinoid NEGATI VE NG/mL cutoff =50 Not Available [facility] ([facility]) [address] [place], [address], 05/05/2024 06:17:07 05/03/20 24 05/04/2024 [id number] 9 10 DRUG- BUND cocaine (metab.) NEGATI VE NG/mL cutoff =300 Not Available [facility] ([facility]) [address] [facility], [place], [address], 05/05/2024 06:17:07 05/03/20 24 05/04/2024 [id number] 9 10 DRUG- BUND methaqualone NEGATI VE NG/mL cutoff =300 Not Available [facility] ([facility]) [address] [facility], [place], [address], 05/05/2024 06:17:07 05/03/20 24 05/04/2024 [id number] 9 10 DRUG- BUND opiates NEGATI VE NG/mL cutoff =2000 Opiat e test inclu karli Codei ne and Morph ine only. Not Available [facility] ([facility]) [address] [place], [address], 05/05/2024 06:17:07 05/03/20 24 05/04/2024 [id number] 9 10 DRUG- BUND phencyclidin e NEGATI VE NG/mL cutoff =25 Not Available [facility] ([facility]) [address] [place], [address], 05/05/2024 06:17:07 05/03/20 24 05/04/2024 [id number] 9 10 DRUG- BUND methadone screen, urine NEGATI VE NG/mL cutoff =300 Not Available [facility] ([facility]) [address] [place], [address], 05/05/2024 06:17:07 05/03/20 24 05/04/2024 [id number] 9 10 DRUG- BUND propoxyphene , urine NEGATI VE NG/mL cutoff =300 Not Available [facility] ([facility]) [address] [facility], [place], [address], 05/05/2024 06:17:07 07/25/19 25 07/24/2024 HbA1c (hemo globi n A1c), blood HbA1c 5.7% Not Available In-Office Order Internal Use Only DO Not Attach Compendium DO Not Attach Compendium, Do Not Delete/merge, [id number] 07/24/2024 16:27:31 08/24/19 25 08/24/2024 URIC ACID uric acid 9.1 mg/dL 3.0-7. 2 above high normal Thera peuti c targe t for gout patie nts: <6.0 Not Available [facility] ([facility]) [address] [facility], [place], [address], 08/24/2024 08:29:53 08/24/19 25 08/24/2024 ALBUM IN/CR EATIN INE RATIO ,URIN E creatinine, urine 168.5 mg/dL notest ab. Not Available [facility] ([facility]) [address] [place], [address], 08/24/2024 11:14:48 08/24/19 25 08/24/2024 ALBUM IN/CR EATIN INE RATIO ,URIN E albumin, urine 173.9 ug/mL notest ab. Not Available [facility] ([facility]) [address] [place], [address], 08/24/2024 11:14:48 08/24/19 25 08/24/2024 ALBUM IN/CR EATIN INE RATIO ,URIN E alb/creat ratio 103 mg/g_ creat 0-29 above high normal Kareen l: 0 - 29 Moder ately incre ased: 30 - 300 Sever rosemary incre ased: >300 Not Available [facility] ([facility]) [address] [place], [address], 08/24/2024 11:14:48 08/24/19 25 08/24/2024 LIPID PANEL cholesterol, total 191 mg/dL 100-19 9 Not Available [facility] ([facility]) [address] [place], [address], 08/24/2024 11:14:49 08/24/19 25 08/24/2024 LIPID PANEL triglyceride s 150 mg/dL 0-149 above high normal Not Available [facility] ([facility]) [address] [place], [address], 08/24/2024 11:14:49 08/24/19 25 08/24/2024 LIPID PANEL HDL cholesterol 50 mg/dL >39 Not Available [facility] ([facility]) [address] [place], [address], 08/24/2024 11:14:49 08/24/19 25 08/24/2024 LIPID PANEL VLDL cholesterol rolanda 26 mg/dL 5-40 Not Available [facility] ([facility]) [address] [place], [address], 08/24/2024 11:14:49 08/24/19 25 08/24/2024 LIPID PANEL LDL chol calc ([facility]) 115 mg/dL 0-99 above high normal Not Available [facility] ([facility]) [address] [place], [address], 08/24/2024 11:14:49 08/24/19 25 08/24/2024 COMP. METAB OLIC PANEL (14) glucose 80 mg/dL 70-99 Not Available [facility] ([facility]) [address] [place], [address], 08/24/2024 11:14:50 08/24/19 25 08/24/2024 COMP. METAB OLIC PANEL (14) BUN 16 mg/dL 6-24 Not Available [facility] ([facility]) [address] [place], [address], 08/24/2024 11:14:50 08/24/19 25 08/24/2024 COMP. METAB OLIC PANEL (14) creatinine 1.04 mg/dL 0.57-1 .00 above high normal Not Available [facility] ([facility]) [address] [facility], [place], [address], 08/24/2024 11:14:50 08/24/19 25 08/24/2024 COMP. METAB OLIC PANEL (14) eGFR 63 mL/mi n/1.7 3 >59 Not Available [facility] ([facility]) [address] [facility], [place], [address], 08/24/2024 11:14:50 08/24/19 25 08/24/2024 COMP. METAB OLIC PANEL (14) BUN/creatini ne ratio 15 9-23 Not Available [facility] ([facility]) [address] [facility], [place], [address], 08/24/2024 11:14:50 08/24/19 25 08/24/2024 COMP. METAB OLIC PANEL (14) sodium 140 mmol/ L 134-14 4 Not Available [facility] ([facility]) [address] [place], [address], 08/24/2024 11:14:50 08/24/19 25 08/24/2024 COMP. METAB OLIC PANEL (14) potassium 4.6 mmol/ L 3.5-5. 2 Not Available [facility] ([facility]) [address] [place], [address], 08/24/2024 11:14:50 08/24/19 25 08/24/2024 COMP. METAB OLIC PANEL (14) chloride 104 mmol/ L 96-106 Not Available [facility] ([facility]) [address] [place], [address], 08/24/2024 11:14:50 08/24/19 25 08/24/2024 COMP. METAB OLIC PANEL (14) carbon dioxide, total 21 mmol/ L 20-29 Not Available [facility] ([facility]) [address] [facility], [place], [address], 08/24/2024 11:14:50 08/24/19 25 08/24/2024 COMP. METAB OLIC PANEL (14) calcium 9.6 mg/dL 8.7-10 .2 Not Available [facility] ([facility]) [address] [facility], [place], [address], 08/24/2024 11:14:50 08/24/19 25 08/24/2024 COMP. METAB OLIC PANEL (14) protein, total 8.4 g/dL 6.0-8. 5 Not Available [facility] ([facility]) [address] [facility], [place], [address], 08/24/2024 11:14:50 08/24/19 25 08/24/2024 COMP. METAB OLIC PANEL (14) albumin 3.9 g/dL 3.8-4. 9 Not Available [facility] ([facility]) [address] [facility], [place], [address], 08/24/2024 11:14:50 08/24/19 25 08/24/2024 COMP. METAB OLIC PANEL (14) globulin, total 4.5 g/dL 1.5-4. 5 Not Available [facility] ([facility]) [address] [facility], [place], [address], 08/24/2024 11:14:50 08/24/19 25 08/24/2024 COMP. METAB OLIC PANEL (14) bilirubin, total <0.2 mg/dL 0.0-1. 2 Not Available [facility] ([facility]) [address] [facility], [place], [address], 08/24/2024 11:14:50 08/24/19 25 08/24/2024 COMP. METAB OLIC PANEL (14) alkaline phosphatase 93 IU/L 44-121 Not Available [facility] ([facility]) [address] [facility], [place], [address], 08/24/2024 11:14:50 08/24/19 25 08/24/2024 COMP. METAB OLIC PANEL (14) AST (SGOT) 18 IU/L 0-40 Not Available [facility] ([facility]) [address] [facility], [place], [address], 08/24/2024 11:14:50 08/24/19 25 08/24/2024 COMP. METAB OLIC PANEL (14) ALT (SGPT) 11 IU/L 0-32 Not Available [facility] ([facility]) [address] [facility], [place], [address], 08/24/2024 11:14:50 08/24/19 25 08/24/2024 TSH RFX ON ABNOR MAL TO FREE T4 TSH 1.560 uIU/m L 0.450- 4.500 Not Available [facility] ([facility]) [address] [facility], [place], [address], 08/24/2024 11:14:52 08/24/19 25 08/24/2024 CBC WITH DIFFE RENTI AL/PL ATELE T WBC 8.6 x10e3 /uL 3.4-10 .8 Not Available [facility] ([facility]) [address] [facility], [place], [address], 08/24/2024 11:14:53 08/24/19 25 08/24/2024 CBC WITH DIFFE RENTI AL/PL ATELE T RBC 4.47 x10e6 /uL 3.77-5 .28 Not Available [facility] ([facility]) [address] [facility], [place], [address], 08/24/2024 11:14:53 08/24/19 25 08/24/2024 CBC WITH DIFFE RENTI AL/PL ATELE T hemoglobin 11.9 g/dL 11.1-1 5.9 Not Available [facility] ([facility]) [address] [facility], [place], [address], 08/24/2024 11:14:53 08/24/19 25 08/24/2024 CBC WITH DIFFE RENTI AL/PL ATELE T hematocrit 37.5 % 34.0-4 6.6 Not Available [facility] ([facility]) [address] [facility], [place], [address], 08/24/2024 11:14:53 08/24/19 25 08/24/2024 CBC WITH DIFFE RENTI AL/PL ATELE T MCV 84 fL 79-97 Not Available [facility] ([facility]) [address] [facility], [place], [address], 08/24/2024 11:14:53 08/24/19 25 08/24/2024 CBC WITH DIFFE RENTI AL/PL ATELE T MCH 26.6 pg 26.6-3 3.0 Not Available [facility] ([facility]) [address] [facility], [place], [address], 08/24/2024 11:14:53 08/24/19 25 08/24/2024 CBC WITH DIFFE RENTI AL/PL ATELE T MCHC 31.7 g/dL 31.5-3 5.7 Not Available [facility] ([facility]) [address] [facility], [place], [address], 08/24/2024 11:14:53 08/24/19 25 08/24/2024 CBC WITH DIFFE RENTI AL/PL ATELE T RDW 14.6 % 11.7-1 5.4 Not Available [facility] ([facility]) [address] [facility], [place], [address], 08/24/2024 11:14:53 08/24/19 25 08/24/2024 CBC WITH DIFFE RENTI AL/PL ATELE T platelets 346 x10e3 /uL 150-45 0 Not Available [facility] ([facility]) [address] [facility], [place], [address], 08/24/2024 11:14:53 08/24/19 25 08/24/2024 CBC WITH DIFFE RENTI AL/PL ATELE T neutrophils 55 % notest ab. Not Available [facility] ([facility]) [address] [facility], [place], [address], 08/24/2024 11:14:53 08/24/19 25 08/24/2024 CBC WITH DIFFE RENTI AL/PL ATELE T lymphs 31 % notest ab. Not Available [facility] ([facility]) [address] [facility], [place], [address], 08/24/2024 11:14:53 08/24/19 25 08/24/2024 CBC WITH DIFFE RENTI AL/PL ATELE T monocytes 7 % notest ab. Not Available [facility] ([facility]) [address] [facility], [place], [address], 08/24/2024 11:14:53 08/24/19 25 08/24/2024 CBC WITH DIFFE RENTI AL/PL ATELE T eos 6 % notest ab. Not Available [facility] ([facility]) [address] [facility], [place], [address], 08/24/2024 11:14:53 08/24/19 25 08/24/2024 CBC WITH DIFFE RENTI AL/PL ATELE T basos 1 % notest ab. Not Available [facility] ([facility]) [address] [facility], [place], [address], 08/24/2024 11:14:53 08/24/19 25 08/24/2024 CBC WITH DIFFE RENTI AL/PL ATELE T neutrophils (absolute) 4.7 x10e3 /uL 1.4-7. 0 Not Available [facility] ([facility]) [address] [facility], [place], [address], 08/24/2024 11:14:53 08/24/19 25 08/24/2024 CBC WITH DIFFE RENTI AL/PL ATELE T lymphs (absolute) 2.6 x10e3 /uL 0.7-3. 1 Not Available [facility] ([facility]) [address] [facility], [place], [address], 08/24/2024 11:14:53 08/24/19 25 08/24/2024 CBC WITH DIFFE RENTI AL/PL ATELE T monocytes(ab solute) 0.6 x10e3 /uL 0.1-0. 9 Not Available [facility] ([facility]) [address] [facility], [place], [address], 08/24/2024 11:14:53 08/24/19 25 08/24/2024 CBC WITH DIFFE RENTI AL/PL ATELE T eos (absolute) 0.5 x10e3 /uL 0.0-0. 4 above high normal Not Available [facility] ([facility]) [address] [facility], [place], [address], 08/24/2024 11:14:53 08/24/19 25 08/24/2024 CBC WITH DIFFE RENTI AL/PL ATELE T baso (absolute) 0.1 x10e3 /uL 0.0-0. 2 Not Available [facility] ([facility]) [address] [facility], [place], [address], 08/24/2024 11:14:53 08/24/19 25 08/24/2024 CBC WITH DIFFE RENTI AL/PL ATELE T immature granulocytes 0 % notest ab. Not Available [facility] ([facility]) [address] [facility], [place], [address], 08/24/2024 11:14:53 08/24/19 25 08/24/2024 CBC WITH DIFFE RENTI AL/PL ATELE T immature grans (abs) 0.0 x10e3 /uL 0.0-0. 1 Not Available [facility] ([facility]) [address], [place], [address], 08/24/2024 11:14:53 04/19/20 24 04/19/2024 XR, knee No observ ation record ed. [email or web address], [place], [address], 04/25/2024 17:44:01 07/31/19 25 07/30/2024 XR, hand No observ ation record ed. [email or web address], [place], [address], 08/02/2024 16:20:09 Result Notes None recorded. Problems Name Problem SNOMED Code Status Onset Date Resolution Date Notes Provider Name and Address Organization Details Recorded Time Liver enzymes level above referenc e range 918621595 Active 2019 Not Available [facility] 4 15:41:48 Type 2 diabetes mellitus 41838108 Active 2019 Not Available [facility] 4 15:41:48 History of pneumoni a 138589371 Active 2019 Not Available [facility] 4 15:41:47 Smoker 76836693 Active 2019 Not Available [facility] 4 15:41:48 Nodule of lung 708362690 Active 2019 4.5 mm RUL noncalci fied pulmonar y nodule seen at the hospital Not Available [facility] 4 15:41:48 Steatoti c liver disease 333170926 Active [address] in the hospital . Negative hepatiti s panel. 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 30824577 Active 2019 Not Available [facility] 4 15:41:48 Umbilica l hernia 653446789 Active 2019 Not Available [facility] 4 15:41:48 Osteoart hritis of knee 112226064 Active 2020 Not Available [facility] 4 15:41:48 Uterine prolapse 78120767 Active 2021 Not Available [facility] 4 15:41:48 Degenera tion of lumbar interver tebral disc 60284762 Active 2021 Not Available [facility] 4 15:41:48 Bilatera l arthriti s of sacroili ac joint 61624681273 526694 Active 2021 Not Available [facility] 4 15:41:47 Chronic kidney disease stage 3 642041620 Active 2021 Not Available [facility] 4 15:41:48 Anemia of chronic disease 488088209 Active 2021 Not Available [facility] 4 15:41:47 Morbid obesity 999501687 Active 2022 Not Available [facility] 4 15:41:47 Rosacea 737015452 Active 2022 JAVI BREWSTER PA-C Attn: Accounting ,[address], [place], [address] [place] [address] , [facility] 4 10:50:28 Ventral incision al hernia 044929291 Active 2022 Not Available [facility] 4 15:41:48 History of total hysterec ana paula 875456760 Active 2022 Not Available [facility] 4 15:41:48 Urinary complica tion 72768092 Active 2023 JAVI BREWSTER PA-C Attn: Accounting ,[address], [place], [address] [place] [address] , [facility] 4 15:50:30 Urinary incontin ence 049984938 Active 2023 JAVI BREWSTER PA-C Attn: Accounting ,[address], [place], [address] [place] [address] , [facility] 4 15:50:39 History of total knee arthropl asty 06874069530 05 Active 2024 JAVI BREWSTER PA-C Attn: Accounting ,[address] [place], [address] , [place] [facility] 5 16:32:20 [facility] hyper[facility]icky 89181430 Active 2024 JAVI BREWSTER PA-C Attn: Accounting ,[address] [facility], [place], [address] , [facility] 5 16:34:20 Disorder of nipple 178786410 Active 2014 both breasts Not Available [facility] 4 15:41:47 Galactor [facility]wnya [facility] 0[facility] Active Not Available [facility] 4 15:41:48 Urinary tract infectio us disease 07598603 Completed 12/06/2019 BRITANY VALENTINO Attn: Accounting ,[address] [facility], [place], [address] , [facility] 0 15:19:10 Notes:Some problems listed i n Documents: #[id number], #[id number] could not be added to this patient's chart. Please review these documents and add these problems to the patient's chart manually as needed. Problem Notes None recorded. Procedures Surgical History Date Name Laterality Status Provider Name and Address Organization Details Recorded Time 04/19/20 24 Knee Surgery completed [place]elena Sinclair [place] 05/03/2024 14:37:55 09/27/19 24 Hernia Repair completed Zaida Gomez [place] 10/12/2023 14:37:03 07/24/19 23 total hysterectomy via vaginal approach completed BRITANY VALENTINO Attn: Accounting,[address] [facility], [place], [address], [place] [facility] 07/24/2022 14:05:30 05/12/20 21 Hernia repair w/mesh completed BRITANY VALENTINO Attn: Accounting,[address] [facility], [place], [address], [facility] - [facility] 05/29/2021 19:06:01 01/10/20 21 hernia repair completed BRITANY VALENTINO Attn: Accounting,[address] [facility], [place], [address], [facility] - [facility] 01/16/2021 13:14:09 02/07/20 15 Date of Last Pap Smear completed Yelena Sinclair [place] 02/06/2015 13:07:19 05/13/19 94 Caesarean Section completed Yelena Sinclair [place] 02/06/2015 10:46:24 Imaging Results Imaging Date Name Status LastModified by Organiz ation Details LastModified Time 04/19/2024 [facility] [address] [facility] [address], [place], [address], 04/25/2024 17:44:01 07/30/2024 XR, hand completed [email or web address] [facility] [address] [place], [address], 08/02/2024 16:20:09 Procedure Notes None recorded. Medical [...] t Available atorvastati n 40 mg tablet TAKE 1 TABLET BY MOUTH EVERY DAY AT BEDTIME active Not Available Not Available No t Available metformin 500 mg tablet Take 1 tablet [...] completed Not Available Not Available Not Available Depo-Medrol 40 mg/mL suspension for injection Take 2 mL every day by injection route. 2024 active Not Available Not Available Not Avai lable hydrocodone 5 mg-acetamin ophen 325 mg tablet TAKE 1 TABLET BY MOUTH EVERY DAY NEEDED FOR SEVERE PAIN active Not Available Not Available No t Available ondansetron HCl 8 mg tablet TAKE ONE [...] Available Not Available colchicine 0.6 mg tablet 1.2 mg PO x1, then 0.6 mg PO 1h later x1 active Not Available Not Available No t Available ketoconazol e 2 % topical cream APPLY TOPICALLY TO THE AFFECTED AREA DAILY active Not Available Not Available No t Available lisinopril 40 mg tablet TAKE 1 TABLET BY MOUTH EVERY DAY FOR BLOOD PRESSURE active Not Available Not Available No t Available ondansetron 4 mg disintegrat ing tablet DISSOLVE ONE TABLET BY MOUTH EVERY 6 NEEDED FOR FORNAUSEA AND VOMITING 04/21 completed Not Available Not Available Not Available fluoxetine 20 mg capsule TAKE 1 CAPSULE BY MOUTH EVERY DAY active Not Available Not Available No t Available metformin ER 500 mg tablet,exte nded release 24 hr TAKE 1 TABLET BY MOUTH EVERY DAY WITH A MEAL FOR DIABETES active Not Available Not Available No t Available heparin (porcine) 5,000 unit/mL injection solution 07/24 [...] (8 mg/3 mL) subcutaneou s pen injector INJECT 2 MG UNDER THE SKIN ONE DAY A WEEK active Not Available Not Available No t Available Ozempic 0.25 mg or 0.5 mg [...] Updated DateTime 4 170.18 cm 37.5 kg/m2 660764. 33 g 99 % 99 % 101 /min 100 mm[Hg] 72 mm[Hg] Yelena Sinclair [place] [facility] 4 14:39:40 Date Recorded Body height Body mass index (BMI) Body weight Oxygen saturation Oxygen saturation in Arterial blood by Pulse oximetry Heart rate Systolic blood pressure Diastolic blood pressure Provider Name and Address Organization Details Last Updated DateTime 5 170.18 cm 37.9 kg/m2 695707. 35 g 96 % 96 % 98 /min 134 mm[Hg] 82 mm[Hg] Zaida Gomez MA [facility] 5 16:21:03 Date Recorded Body height Body mass index (BMI) Body weight Body temperature Oxygen saturation Oxygen saturation in Arterial blood by Pulse oximetry Heart rate Systolic blood pressure Diastolic blood pressure Provider Name and Address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 hernia 843407436 K43.2 About 1 week after surgery she [...] they develop, go to the ER Xerostomia 33273663 R68. 2 Complainin g of very dry [...] improvemen t of dry mouth Morbid obesity 735829599 E66.01 Gained a few pounds back since [...] on weight loss after her upcoming surgery [id number] BRITANY VALENTINO [facility] (Adult Med) [address] [place] [address] 11/27/2022 10:10:57 11/30/2022 16:14:14 Ventral incisional hernia 177901151 K43.2 About 1 week after surgery she [...] saw second surgeon- advised to wait for [facility] surgeon instead of [facility] for safety concerns with size of herniation , but do not cancel [facility] appointmen t in case need comes up- will consider abdominal binder to aid in slowing increase in size- Reviewed red flags (fever, drastic increase in pain, prolonged time without pooping) that would mean she needs to go to the ER- will increase amount of hydrocodon e short-term until hernia surgery Acute inju ry of kidney 8682671637 9137238 N17.9 Acute on chronic kidney diseaseAKI seen in the ER, recommende d f/u BMP after dischargeP rior renal US normal- redraw labs today History of total hysterectomy 393601930 Z90.710 States went well without complicati ons, had recent f/u with OBGYN which went well Depressive disorder 5953 6757 F32.A Escitalopr am no longer helping, struggling with mood and hope during these health complicati ons. - increase dose from 10mg to 20mg Constipation 22007369 K5 9.00 Current narcotic pain medication while awaiting surgical fixation of hernia, having to strain for BMs with possible hemorrhoid s, Miralax has provided relief. Samples given in office as well. Type 2 margo tracy mellitus 85581147 E11.9 Needs medication s refilled today, will recheck her levels again at next visit Neuropathy 559945119 G62 .9 Severe DDD with disc herniation [...] on weight loss Vitamin D deficiency 347 37857 E55.9 -cont Vit. D supplement s- plan to recheck levels as needed. Essential hypertension 83044242 I10 BP today 118/78 -Continue w/ lisinopril 40mg Osteoarthr itis of knee 747575444 M17.9 Severe OA of both knees causing severe pain, patient has to walk with walkerWork ing with disability currently. Following with ortho, knee surgery is possible but patient needs weight loss before procedure. - Rx Ozempic to facilitate weight loss, per orthopedic s recs- c/w pain medication PRN for now, pt states it is helping Gastric ul cer with perforation 2458600 K25.5 Hx of ulcer on 01/02/22 due to melena s/p emergency stomach ulcer perforatio n surgery done on 12/19/21. Taking PPI and following with GI. -pantopraz ole rx renewed as below-Pt educated to not use high amounts of NSAIDs as these will exacerbate ulcers Nummular eczema 55377505 L30.0 Physical exam suggestive of nummular eczema, did not resolve with topical hydrocodon e.-begin triamcinol one applicatio ns, take week break between use and avoid eyelids Morbid obesity 020283217 E66.01 - encouraged her to stay positive, keep moving, eat healthy, c/w ozempic for now- plan to work more on weight loss after her upcoming surgery [id number] BRITANY VALENTINO (Adult Med) [address] [place] [address] 03/02/2023 14:47:57 03/05/2023 14:57:14 Ventral incisional hernia 567954286 K43.2 CT showed 10 cm ventral incisional [...] next month Type 2 margo betes mellitus 50620724 E11.9 HgbA1c is 5.9 todayCurre nt taking [...] consider coming off Metformin if needed Neuropathy 920331185 G62 .9 Severe DDD with disc herniation [...] on weight loss Osteoarthr itis of knee 761902723 M17.9 Severe OA of both knees causing severe pain, patient has to walk with walkerWork ing with disability currently. Following with ortho, knee surgery is possible but patient needs weight loss before procedure. - Rx Ozempic to facilitate weight loss, per orthopedic s recs- c/w pain medication PRN for now, pt states it is helping Morbid obesity 804407401 E66.01 - encouraged her to stay positive, keep moving, eat healthy, c/w ozempic for now- plan to work more on weight loss after her upcoming surgery- b12 injection given today to help with energy and metabolism Long-term current use of opiate analgesic drug 0226890795 80992 Z79.891 Due for UDS- ordered today [id number] Callie Carty MD [facility] (Adult Med) [address] [place] [address] 06/03/2023 10:58:36 06/04/2023 15:53:56 Type 2 diabetes mellitus 44768103 E11.9 A1C: 5.8 today, 5.9 (03/02/23) Current [...] coming off Metformin if needed Morbid obesity 502894546 E66.01 Has lost 4 pounds since last visit in FebruaryMI 41.8 Depression screening 171 904617 Z13.31 PHQ9- Positive (17 out of 27) Mental hea lt screening 600908704 Z13.39 GAD7- Positive (13 out of 21) Osteoarthr itis of knee 663363108 M17.9 Severe OA of both knees causing [...] with joint health and weight loss Neuropathy 122059226 G62 .9 Essential hypertension 93616322 I10 BP 122/84BP Goal: {{Less than 140/90* [...] see dentist every 6 months Depressive disorder 4839 6127 F32.A Be physically active. Getting 30 minutes [...] the numbers for these national suicide hotlines: 7-051-226- TALK (4-188-334 -7699) and 3-902-SUIC CARLOS (8-521-903 -4362). If you or someone you know talks about suicide or feeling hopeless, get help right away. -D/C escitalopr am-start fluoxetine 20mg-rtc 6 weeks Vitamin D deficiency 347 38776 E55.9 Ventral in cisional hernia 285978062 K43.2 CT showed 10 cm ventral incisional [...] ozempic to help with weight loss goal [id number] Callie Carty MD [facility] (Adult Med) [address] [place] [phone] 07/15/2023 14:25:27 07/20/2023 12:23:32 Depression screening 492441748 Z13.31 PHQ9- Positive (14 out of 27) Mental hea lt screening 936373148 Z13.39 GAD7- Positive (16 out of 21) Body mass index 30+ - obesity 200085868 Z68.39 BMI 39.4 was 41.8 on 06/03/23-16 lbs since last visit on 06/14/23 Depressive disorder 7957 9007 F32.A Be physically active. Getting 30 [...] the numbers for these national suicide hotlines: 1-924-891- TALK (4-405-887 -3887) and 0-185-SUIC CARLOS (4-290-891 -4373). If you or someone you know talks about suicide or feeling hopeless, get help right away. - fluoxetine 20mg-rtc 3 months Osteoarthr itis of knee 958971497 M17.9 Severe OA of both knees causing [...] help with joint health and weight loss [id number] Callie Carty MD [facility] (Adult Med) [address] [place] [phone] 10/12/2023 14:26:09 10/15/2023 14:30:15 Type 2 diabetes mellitus 56666266 E11.9 A1C: 5.8 (06/03/23), 5.9 (03/02/23) Current taking Ozempic 1 mg once weekly and metformin 500 mg once dailyStati n: atorvastat in 40 mgACE: lisinopril 40 mgFoot exam: NL 03/03/2023 Eye exam: 11/24/2021 No longer drinking soda and has stopped eating fast food- keep up great work- C/w ozempic 2 mg once weeklyRTC 6 months Essential hypertension 52399612 I10 BP today: 128/82BP Goal: {{Less than [...] every 6 months Osteoarthr itis of knee 255601465 M17.9 Severe OA of both knees causing [...] medication today, last refill 09/15/23 Morbid obesity 228952440 E66.01 Has lost 44 pounds since last visit in JuneMI 37.2 Neuropathy 465934401 G62 .9 Ventral in cisional hernia 618740702 K43.2 CT showed 10 cm ventral incisional hernia-Her maylin was repaired Depressive disorder 8816 9097 F32.A Be physically active. Getting 30 minutes [...] the numbers for these national suicide hotlines: 6-462-369- TALK (7-334-142 -9106) and 8-981-SUIC CARLOS (7-694-213 -6888). If you or someone you know talks about suicide or feeling hopeless, get help right away. -C/W fluoxetine 20mg Vitamin D deficiency 347 23666 E55.9 Depression screening 171 564553 Z13.31 PHQ9- {{Negative Positive Mild Moder ate* Sever e}} (11 out of 27) Mental hea lth screening 605096728 Z13.39 GAD7- {{Negative * Positive Mild Mode rate Sever e}} (0 out of 21) Wound of skin 991248259 T14.8XXA Culture of wound taken and sent to labWound cleaned using normal saline and bandaged- instructed patient to clean with warm water and soapPt to call surgeons office to get seen sooner than Wednesday10/15/23Sta rt mupirocin 2% TIDStart cephalexin 500mg every 6 hours x 7 days [id number] MD Gokul Webb (Adult Med) [address] [place] [phone] 12/06/2023 14:25:53 12/11/2023 15:13:25 Depression screening 520023623 Z13.31 PHQ9- {{Negative Positive Mild Moder ate* Sever e}} (15 out of 27) Mental hea lth screening 880864892 Z13.39 GAD7- {{Negative Positive Mild* Mode rate Sever e}} (8 out of 21) Obesity 294346974 E66.8 BMI 35.3 History of hernia repair 4989744116 9109 Z98.890 Ventral hernia repair on 09/27/23Woun d dehiscence - admitted to [facility] 11/15/23- Dehiscence of surgical wound 75440025 T81.30XA Ventral hernia repair wound dehiscence , 2cmPatient to keep clean and packedAdvi sed patient to return to ER if signs of infectionC /W antibiotic s given at hospitalKe ep appointmen t on Wednesday12/10/23 with surgeon [id number] MD Gokul Webb (Adult Med) [address] [place] [address] 01/13/2024 10:04:11 01/14/2024 12:14:18 Osteoarthritis of knee 196317410 M17.9 Severe OA of both knees causing [...] for knee replacemen t Scar of skin 76596318 L9 0.5 Apply mederma topical gel daily x 8 weeks. Obesity 706260755 E66.8 BMI 35.1 Depression screening 171 865326 Z13.31 PHQ9- {{Negative Positive Mild Moder ate Severe *}} (20 out of 27) Mental hea lth screening 500003013 Z13.39 GAD7- {{Negative Positive Mild Moder ate Severe *}} (16 out of 21) [id number] Callie Carty MD [facility] (Adult Med) [address] [place] [address] 05/03/2024 14:23:02 05/04/2024 14:50:27 Obesity 858443062 E66.9 BMI 37.5 History of total knee arthroplasty 6933114053 105 Z96.659 L knee- c/w PT and with appts with orthoNo signs of infectionP t taking 2 hydrocodon e 7.5 mg every 2 hours for pain currentlyW ill increase hydrocodon e 5mg to BID instead of ONCE a day for 30 days.Labs ordered today Depression screening 171 940573 Z13.31 PHQ9- {{Negative Positive Mild Moder ate* Sever e}} (13 out of 27) Mental hea lth screening 213147875 Z13.39 GAD7- {{Negative Positive Mild Moder ate* Sever e}} (11 out of 21) [id number] [facility] [address] [place] [address] 07/24/2024 15:45:50 07/25/2024 13:45:34 Type 2 diabetes mellitus 61072174 E11.9 A1C: 5.7 (07/24/24), 5.8 (06/03/23), 5.9 (03/02/23) Current taking Ozempic 2mg once weekly and metformin 500 mg once dailyStati n: atorvastat in 40 mgACE: lisinopril 40 mgFoot exam: NL 03/03/2023 Eye exam: 11/24/2021 No longer drinking soda and has stopped eating fast food- keep up great work- C/w ozempic 2 mg once weeklyRTC 6 months Essential hypertension 29723995 I10 BP today: 134/82BP Goal: {{Less than [...] year see dentist every 6 months Neuropathy 793358369 G62 .9 Depressive disorder 9978 9007 F32.A Be physically active. Getting 30 [...] the numbers for these national suicide hotlines: 1-562-757- TALK (4-338-286 -9253) and 0-550-SUIC CARLOS (5-215-970 -0988). If you or someone you know talks about suicide or feeling hopeless, get help right away. -C/W fluoxetine 20mg Vitamin D deficiency 347 84203 E55.9 Depression screening 171 172174 Z13.31 PHQ9- {{Negative Positive Mild* Mode rate Sever e}} (6 out of 27) Mental hea [facility] screening 225051039 Z13.39 GAD7- {{Negative * Positive Mild Mode rate Sever e}} (3 out of 21) History of total knee arthroplasty 2224029981 105 Z96.659 L knee- c/w PT and with appts with orthoNo signs of infectionc /w hydrocodon e 5mg to BID instead of ONCE a day for 30 days. Obesity 337377532 E66.9 BMI 37.9 [id number] MD Gokul Webb (Adult Med) [address] [place] [address] 08/02/2024 15:56:22 08/03/2024 12:59:44 Gout 14849283 M10.9 Labs todaystart allopurino l 100mg Seborrheic dermatitis 50 609659 L21.9 Start ketoconazo le once daily History of total knee arthroplasty 3283980060 105 Z96.659 L knee- c/w PT and with appts with orthoc/w hydrocodon e 5mg to BID instead of ONCE a day for 30 days. Depression screening 171 075810 Z13.31 PHQ9- {{Negative Positive Mild Moder ate* Sever e}} (11 out of 27) Mental hea lth screening 953236835 Z13.39 GAD7- {{Negative Positive Mild* Mode rate Sever e}} (8 out of 21) Obesity 962528952 E66.9 BMI 37.6 [id number] MD Gokul Webb (Adult Med) [address] [place] [phone] 08/23/2024 09:51:57 08/24/2024 14:35:01 Acute gout 826115291 M10.042 Pt to get labs done from last OV todayDepo medrol 40mg x 2 mls todayIncre ase colchicine to 1.2 mg PO x1, then 0.6 mg PO 1h later x1C/w allopurino lDiscussed with patient low ourine diet Obesity 080924713 E66.9 BMI 37.8 [id number] MD Gokul Webb (Adult Med) [address] [place] [phone] 09/11/2024 15:30:02 09/18/2024 12:04:25 Screening mammography 89571694 Z12.31 Screening for malignant neoplasm of colon 372464718 Z12.11 Type 2 margo betes mellitus 73699593 E11.9 A1C: 5.7 (07/24/24), 5.8 (06/03/23), 5.9 (03/02/23) Current taking Ozempic 2mg once weekly and metformin 500 mg once dailyStati n: atorvastat in 40 mgACE: lisinopril 40 mgFoot exam: NL 03/03/2023 Eye exam: 11/24/2021 No longer drinking soda and has stopped eating fast food- C/w ozempic 2 mg once weekly-c/w metformin and lisinopril RTC 6 months Essential hypertension 31069450 I10 BP today: 134/82BP Goal: {{Less than [...] a year see dentist every 6 months History of total knee arthroplasty 3659025603 105 Z96.659 L knee- c/w PT and with appts with orthoNo signs of infectionc /w hydrocodon e 5mg to BID instead of ONCE a day for 30 days.Will see soon if she can get right knee arthroplas ty Neuropathy 104659614 G62 .9 c/w cyclobenza bushra tabletc/w gabapentin tablet Depressive disorder 4517 900 F32.A Be physically active. Getting 30 minutes [...] the numbers for these national suicide hotlines: 1-613-969- TALK (1-685-033 -2245) and 4-068-SUIC CARLOS (3-979-429 -7865). If you or someone you know talks about suicide or feeling hopeless, get help right away. -C/W fluoxetine 20mgDenies SI/HI Vitamin D deficiency 347 16763 E55.9 c/w vitamin D Depression screening 171 564104 Z13.31 PHQ9- {{Negative Positive Mild* Mode rate Sever e}} (6 out of 27)Taking fluoxetine . Denies SI/HI Mental hea [facility] screening 594420617 Z13.39 GAD7- {{Negative * Positive Mild Mode rate Sever e}} (2 out of 21) Obesity 887174269 E66.9 BMI 38.4 Dental caries 85898649 K 02.9 [facility] does not want referrals faxed. Informatio n given to patient to call dental office and schedule appointmen t. Health Concerns Section Related Observation LastModified by Organization Detai ls LastModified Time None Recorded Concern Status LastModified by Organization Details LastModified Time None Recorded Advance Directives Directive N: Payers Encounter Date Sequence Insurance Name Policy Number Policy Gilmore Covered Member ID Gilmore Member ID Guarantor Name 05/03/2024 2 [place] WHEN MEDICARE OR MEDICARE REPLACEMENT PRIMARY) Aliza Handy [id number] Ailza Handy 05/03/2024 1 [facility] (MEDICARE REPLACEMENT/AD VANTAGE - PPO) [id number] Aliza M Handy [id number] Aliza Handy 07/24/2024 1 [facility] (MEDICARE REPLACEMENT/AD VANTAGE - PPO) [id number] Aliza M Handy [id number] Aliza Handy 08/02/2024 1 [facility] (MEDICARE REPLACEMENT/AD VANTAGE - PPO) [id number] Aliza M Handy [id number] Aliza Handy 08/23/2024 1 [facility] (MEDICARE REPLACEMENT/AD VANTAGE - PPO) [id number] Aliza M Handy [id number] Aliza Handy 09/11/2024 1 [facility] (MEDICARE REPLACEMENT/AD VANTAGE - PPO) [id number] Aliza M Handy [id number] Aliza Handy Notes Date Note Type Note Provider Name and Address Organization Details Recorded Time 05/03/2024 text/html A 54 y/o Hispani c [...] SOB, NVD, MAGALLANES JAVI BREWSTER PA-C Attn: [employer],[address] , [place], [address], [facility] 05/03/2024 17:20:04 07/24/2024 text/html 54 y/o F here for f/u chronic conditions. Pt states she is doing well on all current medications. Pt has surgery scheduled for this month for R knee replacement. Pt denies SOB, CP, MAGALLANES, N/V/D at this time. JAVI BREWSTER PA-C Attn: [employer] [facility], [place], [address], [facility] 07/24/2024 16:47:03 08/02/2024 text/html [...] nose. JAVI BREWSTER PA-C Attn: [employer] [facility], [place], [address], [facility] 08/02/2024 17:55:32 08/23/2024 text/html 54-year-old fema le here complaining of pain to left hand due to gout. Pain described as 100/10. States that hydrocodone has not done anything and has gone one week pain, tingling sensation. She was given medication for gout that has not helped at all. JAVI BREWSTER PA-C Attn: [employer] [facility], [place], [address], [facility] 08/23/2024 17:39:26 09/11/2024 text/html This is a 54 yea r old female here today for a wellness check and follow up on multiple chronic conditions. She is taking metformin here and there for her diabetes. She is taking atorvastatin, allopurinol, cyclobenzaprine, fluoxetine, gabapentin, lisinopril as directed. She notes that she is on Ozempic 2 mg but notes no change in weight and she is growing extremely frustrated. She notes decrease in appetite but still no change in her weight. Denies fever, chills, N/V/D, changes in bowels, inner ear pain, sore throat, hair loss, night sweats, SOB, CP, palpitations. JAVI BREWSTER PA-C Attn: [address] [place], [address], [facility] 09/11/2024 17:23:49 OBGyn Episode No OBEpisode recorded.
--- OUTSIDE RECORDS SUMMARY | 2024-10-11 12:46 | XMS_ITS | Clinical Summary ---
Author Organization [facility] Facility Address [address] [place] [address] Care Team Providers Care Resort Manager Name Role Phone Leonor Graves PA-C Primary Care Provider + [phone] Allergies No known active allergies Medications acetaminophen (TYLENOL) 500 MG tablet Take 1,000 mg by mouth every 8 (eight) hours Active metFORMIN (GLUCOPHAGE) 500 MG tablet Take 500 mg by mouth 2 (two) times a day Active famotidine (PEPCID) 20 MG tablet Take 20 mg by mouth every 12 (twelve) hours Active Alcohol Swabs pads Active ergocalciferol 1.25 MG (19293 UT) capsule Take 50,000 Units by mouth [...] Active Active Problems No known active problems Encounters Date Type Department Care Team Description 10/06/2024 Documentation Only [facility] [address] [place] [address] Murray Cervantes MD 09/18/2024 10:00 AM CDT Office Visit [facility] [address] [place] [address] Murray Cervantes MD Stage 3a chronic kidney disease (HCC) (Primary Dx); Hypertension; Type 2 diabetes mellitus with diabetic nephropathy (HCC); Hypertensive chronic kidney disease, unspecified, with chronic kidney disease stage I through stage IV, or unspecified; Type 2 diabetes mellitus with diabetic chronic kidney disease (HCC) 09/18/2024 Documentation Only [facility] [address] [place] [address] Murray Cervantes MD 09/13/2024 Documentation Only [facility] [address] [place] [address] Murray Cervantes MD 09/13/2024 Documentation Only [facility] [address] [place] [address] Murray Cervantes MD 09/07/2024 Documentation Only [facility] [address] [place] [address] Murray Cervantes MD 09/04/2024 Orders Only [facility] [address] [place] [address] Corine Gibbons RN from Last 3 Months Family History Medical History Relation Comments Cancer [...] 09/01/2022 1:46 PM CDT Plan of Treatment Upcoming Encounters Date Type Department Care Team (Late st Contact Info) Description 03/26/2025 10:00 AM PRECISION AGRONOMIST Office Visit [facility] [address] [place] [address] Murray Cervantes MD [address] [place] [address] Health Maintenance Due Date Last Done Comments Breast Cancer Screening 1969 Hepatitis B Vaccine (1 of 3 - 19+ 3-dose series) 1988 Pneumococcal Vaccine: 50+ Ye ars (1 of 2 - PCV) 1988 Colorectal Cancer Screening: Annual FOBT 2018 Colorectal Cancer Screening: Colonoscopy 2018 Colorectal Cancer Screening: Sigmoidoscopy 2018 Diabetes: Ophthalmology Exam 03/04/2021 Diabetes: Pedal Pulse Checked 03/04/2021 Diabetes: Sensory Foot Exam 03/04/2021 Diabetes: Visual Foot Exam 03/04/2021 Diabetes: Hemoglobin A1C 12/02/2024 025, 09/09/2023, 10/25/2022, Additional history exists Influenza Vaccine (Season Ended) 2025 03/07/20 21 Procedures Procedure Name Priority Date/Time Associated Diagnosis Comments HEMOGLOBIN A1C Routine 08/28/2022 from Last 3 Months or Most Recently Relevant to Health Maintenance Results * Hemoglobin A1c (08/28/2022) Hemoglobin A1C 5.7 4.0 - 6.0 Blood specimen (specimen) Venous blood / Unknown 08/28/2022 [facility] Provider LAB BLOOD ORDERABLES Juani l Result from Last 3 Months or Most Recently Relevant to Health Maintenance Insurance [place] [employer] Care Teams Resort Manager Relationship Specialty Start Date End Date Leonor Graves PA-C PCP - General Physician Boat Tester 04/15/21
--- OUTSIDE RECORDS SUMMARY | 2024-10-11 12:46 | XMS_ITS | Encounter Summary ---
Author Organization [facility] Address [address] [place] [address] Care Team Providers Care Senior Construction Estimator Name Role Phone Unavailable Primary Care Provider Unavailabl e Encounter Details Date Type Department Care Team (Late st Contact Info) Description 05/09/2021 Telephone [facility] [address] [place] [address] Baldemar Abdi MD [address] [facility] [facility] [place] [id number] Social History Tobacco Use Types Packs/Day Years Used Date Smoking Tobacco: Every Day Cigarettes Smokeless Tobacco: Never Alcohol Use Standard Drinks/Week Comments Not Currently 0 (1 standard drink = 0.6 oz pur e alcohol) Comments No Sex and Gender Information Value Date Recorded Sex Assigned at Not on file 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
--- OUTSIDE RECORDS SUMMARY | 2024-10-11 12:46 | XMS_ITS | Encounter Summary ---
Author Organization [facility] Address [address] [facility] [place] [address] Care Team Providers Care Cupboard Builder Name Role Phone Unavailable Primary Care Provider Unavailabl e Encounter Details Date Type Department Care Team (Late st Contact Info) Description 05/08/2021 Telephone [facility] [address] [place] [address] Baldemar Abdi MD [address] [facility] [address] 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
--- OUTSIDE RECORDS SUMMARY | 2024-10-11 12:46 | XMS_ITS | Data Portability ---
Author Organization [place] [facility], Main Office Address [address] [place] [address] Assessment Encounter Date Assessment Date Assessment LastModified [...] - PLEASE CALL PATIENT TO SCHEDULE [facility] [address] , [address], [place], [address], 11:04:01 Procedures None recorded. Surgeries None recorded. Imaging XR, knee, 3 view 2023 024 [facility] [place], [address], [place], [address], 17:04:27 Medication Orders None recorded. Patient TargetsNo [...] resul t No observ ation record ed. [id number] [facility] Add On Lab Orders [address] [place], [address], 07/22/2022 12:49:53 12/30/19 22 12/19/2021 CT, abdom en + pelvi s, w/o contr ast No observ ation record ed. [id number] Not Available 07/22/2022 12:49:53 01/26/20 24 XR, knee, 3 view No observ ation record ed. [facility] [place] [address], [place], [address], 01/26/2024 14:23:39 Result Notes None recorded. Problems Name Problem SNOMED Code Status Onset Date Resolution Date Notes Provider Name and Address Organization Details Recorded Time Osteoarthr itis 644324494 Active Not Available [facility] 3 12:46:01 Ventral incisional hernia 873031550 Active 2022 Brooks bernabe MD [address], [facility] [address], [place], [address] , [facility] [employer] [facility] 3 14:55:29 Pain of bilateral knee joints 2053064789055 04 Active 2023 Alysa Andino, RMMiguel Angel null, [facility] [employer] [facility] 4 14:23:26 Bilateral osteoarthr itis of knees 7857439185725 07 Active 2023 Laxmi Abad null, [facility] [employer] [facility] 4 14:57:48 Problem Notes None recorded. Procedures Surgical History None recorded. Imaging Results Imaging Date Name Status LastModified by Organiz ation Details LastModified Time 12/22/2021 imaging/diagn ostic result completed [id number] [facility] Add On Lab Orders [address] [place], [address], 07/22/2022 12:49:53 12/19/2021 CT, abdomen + pelvis, w/o contrast completed [id number] Information not available 07/22/2022 12:49:53 01/26/2024 XR, knee, 3 view completed [facility] [place] [address], [place], [address], 01/26/2024 14:23:39 Procedure Notes None recorded. Medical [...] administ ered by the provider 01/12 completed [facility]: [id number] 4-20 Not Available Not [...] administ ered by the provider 01/12 completed [facility]: [id number] 6-17 Not Available Not [...] Updated DateTime 03/11/2021 45.4 kg/m2 170.18 cm 011537.79 g Not Available [facility] 07/22/2022 12:45:30 Date Recorded Body mass index (BMI) Body height Oxygen saturation Oxygen saturation in Arterial blood by Pulse oximetry Heart rate Respiratory rate Body temperature Body weight Systolic blood pressure Diastolic blood pressure Provider Name and Address Organization Details Last Updated DateTime 45.4 kg/m2 170.18 cm 97 % 97 % 100 /min 20 /min 97 [degF] 566282. 79 g 140 mm[Hg] 80 mm[Hg] Not Available [facility] 3 12:45:29 Date Recorded Body mass index (BMI) Body height Oxygen saturation Oxygen saturation in Arterial blood by Pulse oximetry Heart rate Respiratory rate Body temperature Body weight Systolic blood pressure Diastolic blood pressure Provider Name and Address Organization Details Last Updated DateTime 2 45.4 kg/m2 170.18 cm 97 % 97 % 100 /min 18 /min 97.1 [degF] 127317. 79 g 130 mm[Hg] 82 mm[Hg] Not Available [facility] 3 12:45:29 Date Recorded Body height Body mass index (BMI) Body weight Heart rate Body temperature Respiratory rate Oxygen saturation Oxygen saturation in Arterial blood by Pulse oximetry Systolic blood pressure Diastolic blood pressure Provider Name and Address Organization Details Last Updated DateTime 3 170.18 cm 43.1 kg/m2 763075. 9 g 100 /min 97 [degF] 18 /min 96 % 96 % 140 mm[Hg] 90 mm[Hg] Ayesha Esquivel [place] [facility] 3 12:29:59 Date Recorded Body height Body mass index (BMI) Body weight Provider Name and Address Organization Details Last Updated DateTime 01/26/2024 170.18 cm 35.2 kg/m2 673412.28 g Alysa Andino [facility] [employer] [facility] 01/26/2024 14:18:13 Social History Question Answer Notes LastModified by Organizat ion Details LastModified Time Tobacco Smoking Status Current Every Day Smoker Not Available [facility] 07/22/2022 12:45:11 What Was The Date Of Your Most Recent Tobacco Screening? 01/26/2024 [email or web address] Information not available 01/26/2024 How Much Tobacco Do You Smoke? 0.25 PPD [id number] 26 Information not available 07/22/2022 How Many Years Have You Smoked Tobacco? 6 [id number] 26 Information not available 07/22/2022 Have You Recently Traveled Abroad? No [id number] Information not available 07/22/2022 Sex: Unknown Functional Status None recorded. Mental Status None recorded. Family History Relationship Description Onset Age of this Age Resolved Age Notes LastModified by Organization Details LastModified Time Unspecified Relation Diabetes mellitus [id number] Not available 07/22/2022 12:45:19 Unspecified Relation Hypertensive disorder [id number] Not available 07/22/2022 12:45:19 Medical History Condition Response DIABETES, TYPE Y URINARY/BLADDER/KIDNEY PROBLEMS Y OBESITY Y HIGH CHOLESTEROL / HYPERLIPIDEMIA Y Gynecological HistoryNo gynecological history recorded. Obstetrics History GPAL:G 0 P 0 0 0 0 Past Encounters Encounter ID Performer Location Encounter Start Date Encounter Closed Date Diagnosis/Indication Diagnosis SNOMED-CT Code Diagnosis ICD10 Code Diagnosis Note [id number] BRITANY Neil [address] [address] 09/24/2020 00:00:00 09/24/2020 10:16:06 [id number] Alec Medrano MD [address] [address] 03/11/2021 00:00:00 03/11/2021 10:17:38 [id number] Brooks bernabe MD [facility] General Surgery [address] [address] 05/01/2021 00:00:00 05/01/2021 13:07:17 [id number] Brooks bernabe MD [facility] General Surgery [address] [place] [address] 01/06/2022 00:00:00 01/06/2022 11:14:03 [id number] Brooks bernabe MD [facility] General Surgery [address] [address] 11/10/2022 12:02:34 11/12/2022 13:27:28 Ventral incisional hernia 184677366 K43.2 [id number] Dennis Bautista MD [facility] [address] [place] [address] 01/26/2024 13:50:25 01/26/2024 15:08:45 Pain of bilateral knee joints 7847353621 00070 M25.569 Bilateral osteoarthritis of knees 7832115566 13563 M17.0 Health Concerns Section Related Observation LastModified by Organization Detai ls LastModified Time None Recorded Concern Status LastModified by Organization Details LastModified Time None Recorded Advance Directives Directive None Recorded Payers Encounter Date Sequence Insurance Name Policy Number Policy Gilmore Covered Member ID Gilmore Member ID Guarantor Name 11/10/2022 1 [facility] (MEDICAID HMO) [id number] Aliza Handy [id number] Aliza Handy 01/26/2024 1 [facility] (MEDICARE REPLACEMENT/A DVANTAGE - PPO) [id number] Aliza Handy [id number] Aliza Handy 01/26/2024 2 [place] [facility] Aliza Handy [id number] Aliza Handy Notes Date Note Type Note Provider Name and Address Organization Details Recorded Time 11/10/2022 text/html Patient presents to clinic to discuss ventral hernia. Hx of gastric ulcer perforation. Noticed a bulge at the anterior abdomen about 1-2 months ago. Intermittent constipation . No blood in stool. No nausea/vomiting/di arrhea. Brooks Blackburn MD [address] [place] [address], [place], [address], [facility] 11/10/2022 14:55:39 OBGyn Episode No OBEpisode recorded.
--- OUTSIDE RECORDS SUMMARY | 2024-10-11 12:46 | XMS_ITS | Clinical Summary ---
Author Organization 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
[2024-10-11 13:25] LABS: Basophils Absolute Auto 0.1 K/mm3 (0.0-0.1); Basophils Percent Auto 0.7 % (0.2-1.2); Eosinophils Absolute Auto 0.4 K/mm3 (0-0.3); Eosinophils Percent Auto 4.7 % (0-4.4); Hemoglobin 12.6 g/dL (12.0-15.0); Immature Granulocyte Absolute 0.02 K/mm3 (0.00-0.031); Immature Granulocyte Percent A 0.2 % (0-0.5); Lymphocytes Absolute Auto 2.47 K/mm3 (0.9-3.2); Mean Corpuscular HGB Conc 31.5 g/dl (32-36); Mean Corpuscular Hemoglobin 27.4 pg (26-34); Mean Platelet Volume 8.5 fl (7.4-10.4); Monocytes Absolute Auto 0.5 K/mm3 (0.1-0.6); Monocytes Percent Auto 5.6 % (2.6-8.5); Neutrophils Absolute Auto 5.1 K/mm3 (1.3-6.7); Neutrophils Percent Auto 59.8 % (45.5-73.1); Platelet Count Result 266 k/mm3 (150-375); Red Cell Distribution Width 14.3 % (11.5-14.5); White Blood Count 8.5 K/mm3 (4.5-10.0)
[2024-10-11 13:39] LABS: Partial Thromboplastin Time 27.4 Seconds (22.3-36.8)
[2024-10-11 13:45] LABS: Prothrombin Time 13.4 Seconds (11.1-14.7)
[2024-10-11 13:51] LABS: Albumin Level 4.4 g/dL (3.5-5.1)
[2024-10-11 13:54] LABS: Anion Gap 10 mmol/L (4-12); Blood Urea Nitrogen 21 mg/dL (7-17); Calcium 9.1 mg/dL (8.4-10.2); Carbon Dioxide 23 mmol/L (22-30); Chloride 108 mmol/L (98-107); Estimated Glomerular Filt Rate 47; Glucose 74 mg/dL (65-110); Potassium 3.9 mmol/L (3.4-5.0); Sodium 141 mmol/L (137-145)
[2024-10-11 14:34] LABS: MRSA (PCR) NOT DETECTED (NOT DETECTE)
[2024-10-11 15:46] LABS: Urine Cotinine NEGATIVE
[2024-10-11 16:54] LABS: Hemoglobin A1C 4.9 % (<5.7)
== END 2024-10-11 12:41 | disposition home or self-care (01) ==
LOC: ANHSURGERY 12:43
PROVIDERS: Anesthesiology; PCP Physician Assistant Medical; Visit Provider Orthopaedic Surgery
DX: Z01.812 Encounter for preprocedural laboratory examination (principal); M17.11 Unilateral primary osteoarthritis, right knee; E11.9 Type 2 diabetes mellitus without complications; N17.9 Acute kidney failure, unspecified
CPT/HCPCS: 36415; 80048; 80307; 82040; 83036; 85025; 85610; 85730; 86850; 86900; 86901; 87641

== ENCOUNTER 2024-10-18 00:08 | Day surgery (SDC) | payer MEDICARE, MEDICAID, SELFPAY ==
[2024-07-27 10:24] VITALS: BP 147/95; PULSE 99; RESP 16; TEMP 37.2; O2SAT 100; BMI 38.2
--- NOTE | 2024-07-27 10:36 | PC.NURSE ---
Addendum entered by Corine Smart RN 10/05/24 15:49: Pt called and reviewed history and status, reconciled meds, pt was cleared by Nephrology per Dr Cervantes and I will call for office note to be faxed for us. Pt rescheduled for 10/18/24 at 1000am for RTKR. All instructions refreshed w pt and she verbalizes understanding. Pt to come in for preop testing soon, PAT visit over phone. Report to the Outpatient Waiting Room, entrance under the green pavilion located off [employer], at time __08:00am on date __10/18/24 . Planned Procedure Time: _10:00am___ Patients may have clear liquids (water, carbonated beverages, clear teas, apple juice) until 3 hours prior to surgery with a maximum of 20 ounces. - No food from midnight until time of surgery and no smoking, or chewing tobacco (or any form of nicotine). No chewing gum, candy or mints. (0700am) Take only the following medications with a SIP of water on the morning of surgery:Escitalopram, Fluoxetine, Gabapentin, Hydrocodone and Tylenol as needed DO NOT STOP ANY OF YOUR OTHER PRESCRIPTION MEDICATIONS PRIOR TO SURGERY EXCEPT THE FOLLOWING Hold all vitamins and supplements for 3 days per anesthesiologist.Date to take last dose__10/14/24 Original Note: Report to the Outpatient Waiting Room, entrance under the green pavilion located off [employer], at time __0600am on date __08/09/24 . Planned Procedure Time: _0730am .? Time changes happen often and if your time is changed the preop area will call you the afternoon before. - You and your visitor will be asked to self-screen and do not enter if you have any COVID symptoms. Please call surgeon if you need to reschedule. - A mask is optional within the hospital at this time. Patients may have clear liquids (water, carbonated beverages, clear teas, apple juice) until 3 hours prior to surgery with a maximum of 20 ounces. - No food from midnight until time of surgery and no smoking, or chewing tobacco (or any form of nicotine). No chewing gum, candy or mints. (0430am) Take only the following medications with a SIP of water on the morning of surgery: Cyclobenziprine, escitalopram, Fluoxetine, Gabapentin, Hydrocodone and Tylenol as needed DO NOT STOP ANY OF YOUR OTHER PRESCRIPTION MEDICATIONS PRIOR TO SURGERY EXCEPT THE FOLLOWING Hold all vitamins and supplements for 3 days per anesthesiologist.Date to take last dose__08/05/25 Medications to discontinue per physician None Date to take last dose None Please no make-up, nail macedonian, hairspray, perfume, deodorant, or body powder the day of surgery.? No jewelry (including any body piercings) or valuables the day of surgery, leave them at home.? Please take a shower or bath the night before, or the morning of, surgery with an antibacterial soap.? Wear comfortable, loose fitting clothing.? Children are encouraged to wear pajamas. - Jewelry must be removed prior to entering the operating room.? Rings and piercings that are not removed may be cut off. - The hospital will not accept responsibility for valuables.? - Please leave all valuables, including medications, at home the day of surgery. If you are going home after surgery, a licensed entry level truck driver must drive you home.? - NO public transportation without another adult if you receive anesthesia. - We recommend that an adult stay with you for 24 hours following discharge. - We also recommend that you do not drive, make important decision, drink alcoholic beverages, or take any drugs that were not prescribed by your health care provider for at least 24 hours after your discharge time. Follow any additional instructions given to you from your surgeon. Telephone instructions given to __Patient and asked if any additional questions and then verbalized understanding. Patient advised to call surgeon office or pre surgery nurse liaison [phone] if any additional questions.
--- OUTSIDE RECORDS SUMMARY | 2024-08-09 00:36 | XMS_ITS | Referral Summary ---
Author Organization [facility] Address [address] [place] [address] Care Team Providers Care Copyright Clerk Name Role Phone Leonor Graves Primary Care Provider [phone] Allergies Active Allergy Reactions Criticality Noted Date [...] times a day Active lancets 30 gauge [facility] OneTouch Delica Plus Lancet 30 gauge USE TO CHECK BLOOD SUGAR EVERY DAY Active blood-glucose meter [facility] OneTouch Verio Flex Meter USE TO CHECK [...] 1 capsule (20 mg total) by mouth courier driver before breakfast 4 Active triamcinolone (KENALOG) 0.1 [...] placed, decreased to 1ml/h for hypotension, continue RELOCATION ASSOCIATE 09/29 pain controlled, epidural resumed @ 6ml/h + RELOCATION ASSOCIATE 09/30 hypotensive with epidural titration, discussed with [...] care, Cultures in process. Health Insurance Coverage: [employer] and IDPA Prescription Coverage: yes Pharmacy: [id number] - [place] [id number] [address] [place] [address] [facility] [phone] No PCP noted Assessment & Plan (10/04/2023 [...] with TAR, retrorectus mesh --- NPO/NGT, epidural, realtime court reporter, hernandez, arbf 09/27 AFVSS, wbc 9 from [...] - Continue pain control with p.r.n. Tylenol, [place] - General surgery consulted in ED, per [...] Tobacco: Never Tobacco Cessation:Counseling Given: Not Answered [facility] Utilities Answer Date Recorded In the past 12 months has e [email or web address], gas, oil, or water POW threatened to shut off services in your [...] often do you attend chur ch or anabaptism services? Never 10/03/2023 Do you belong to any clubs o r organizations such as scientology groups, unions, fraternal or athletic groups, or [...] care, and heating? Not very hard 10/03/2023 [facility] - [...] place to sleep or slept in a alf (including now)? No 10/03/2023 Personal Safety Answer Date Recorded Have you ever been in or are you currently in a harmful physical or emotional relationship or is someone making you feel afraid or unsafe? Denies 12/15/2023 Comments No Sex and Gender Information Value Date Recorded Sex Assigned at Not on file Legal Sex Female 7:01 PM ROBOTICS APPLICATION ENGINEER Gender Identity Not on file Sexual Orientation [...] 9:58 AM CDT Height 170.2 cm (5' 7) 03/21/2024 9:58 AM CDT Body Mass Index 36.81 03/21/2024 9:58 AM CDT Plan of Treatment Not on file Medical Devices Implanted Type Area Project Coordinator Device Identifier Shelf Expiration Date Model / Serial / Lot [employer]/C R Bard [id number] Monofilament Soft Lightweight Low Profile Square - [id number] Implanted:Qty: 1 on 09/27/2023 by Benito Jha MD at [facility] N/A: Abdomen [employer] Bard [id number] 12/19/2027 [id number] / / [id number] Procedures Procedure Name Priority Date/Time Associated Diagnosis Comments EGFR Routine 11/19/2023 3:07 AM CDT POCT HEMOGLOBIN A1C Routine 09/09/2023 3 :08 PM CDT LIPID PANEL Routine 07/24/2022 5:20 AM ROBOTICS APPLICATION ENGINEER PAP AND HIGH RISK HPV, REFLEX TO [...] Kelley MD LAB BLOOD ORDERABLES Final Result [facility] Department [place] [address] * POCT hemoglobin A1c (09/09/2023 3:08 PM CDT) Hgb A1C, POC 5.4 4.0 - 5.6 % Est Average Gluc POC 108 mg/dL [facility] Comment: The ADA recommends reporting an estimated Average Glucose (eAG) with all Hemoglobin A1c results using the equation derived from a study of 507 normal and diabetic adults. Minority populations were underrepresented and children were not included. (Diabetes Care 31:2088-2790, 2008). The eAG is not equivalent to a fasting glucose. Blood 09/09/2023 3:08 PM CDT 09/09/2023 3:08 PM CDT Benito Grady Jha MD POINT OF CARE TEST O RDERABLES Final Result [facility] Department [place] [address] * (ABNORMAL) Lipid panel (07/24/2022 5:20 AM ROBOTICS APPLICATION ENGINEER) Cholesterol 135 30 - 199 mg/dL [facility] [...] last revised on 2018. Chol/HDL ratio 4 [facility] Blood 07/24/2022 5:20 AM ROBOTICS APPLICATION ENGINEER 07/24/2022 6:24 AM ROBOTICS APPLICATION ENGINEER us Jamie Reyes MD LAB BLOOD ORDERABLES Final Result [facility] Department [place] [address] * Pap and High Risk HPV, reflex to Genotyping (10/06/2021 1:55 PM CDT) Thin prep (Pap test) 10/06/2021 1:55 PM CDT 10/06/2021 3:55 PM CDT Narrative PATHOLOGY [facility] - 10/10/2021 2:16 PM CDT EPIC results best viewed via link to PDF [facility] Carly Ma[facility] [place] [address] Note to Patients: This report may contain [...] Gender: F : 1970 (Age: 51) Address: [address] [place] [address] Hospital #: [id number] Service: BANQUET COORDINATOR Location: [facility] Patient Type: [facility] Ref Lab Taken: 10/06/2021 Received: 10/06/2021 [...] 67. This HPV test was performed at [facility] in [place], [place] utilizing the Gen-Probe Aptima assay. j/10/10/2021 [...] negative. The HPV test was performed by [facility], [address] [place] [address]. Report Images and scanned documents, if included only viewable in PDF version The performance characteristics of some immunohistochemical stains, in-situ hybridization and fluorescence in-situ hybridization tests and immunophenotyping by flow cytometry cited in this report (if any) were determined by the Surgical Pathology Department at [facility] as part of an ongoing clinical quality analyst program and in compliance with federally mandated [...] determined by the Surgical Pathology Department of [facility]. It has not been cleared or approved by the U. S. Food and Drug Administration. Ama Byrnse MD LAB CYTOLOGY ORDERABLES Final Re sult PATHOLOGY [facility] 3rd Floor [place], [place] [phone] from Last 3 Months or Most Recently Relevant to Health Maintenance Insurance MEDICARE SOLUTIONS MEDICARE SOLUTIONS Advance Directives For more information, please contact: [phone] * Full Code (Latest Code Status on [...] 11:20 PM 12/11/2022 8:38 PM Care Teams Copyright Clerk Relationship Specialty [place] [address] [place] [address] PCP - General 03/04/21
--- OUTSIDE RECORDS SUMMARY | 2024-08-09 00:36 | XMS_ITS | CONTINUITY OF CARE DOCUMENT ---
Author Name luc calle Address Unknown Organization [facility] Address [address] [place] [address] Phone [phone] Care Team Providers Care Marketing Operations Specialist Name Role Phone Willy Cleaning MD Unavailable BRE LINDA MD Unavailable INSURANCE PROVIDERS Payer name Policy type / Coverage type Funmilayo red democrat [place] MEDICA[place] Medicaid [id number]
--- OUTSIDE RECORDS SUMMARY | 2024-08-09 00:36 | XMS_ITS | Clinical Summary ---
Author Organization [facility] Address [address] [place] [address] [place] [address] Care Team Providers Care Hanger Off Name Role Phone Unavailable Primary Care Provider Unavailabl e Source Comments [facility],non-owned Affiliates and Associated Physician Practices is amultiple site organization consisting of ambulatory clinics and hospital sitesin [place], [place], [place] and [place]. This disclosure is being madepursuant to the Care Everywhere program and may not contain all information available regarding this patient. Last updated 18.[employer] Allergies No known active allergies Medications * [...] tablet 01/17/2021 Active ergocalciferol (DRISDOL) 1.25 MG (49063 UT) capsule ergocalciferol (vitamin D2) 1,250 mcg [...] Immunizations Name Administration Dates Next Due [employer] primary monoval ent 12+ yr 0.3mL Purple [...] Comments Blood Pressure 147/92 07/02/2021 1:34 PM SHOOTER'S HELPER Pulse 88 07/02/2021 1:34 PM SHOOTER'S HELPER Temperature 36.8 C (98.2 F) 07/02/2021 1:34 PM SHOOTER'S HELPER Respiratory Rate 20 07/02/2021 1:34 PM SHOOTER'S HELPER Oxygen Saturation 96% 05/14/2021 12:54 PM SHOOTER'S HELPER Inhaled Oxygen Concentration - - Weight 127.5 kg (281 lb) 07/02/2021 1:34 PM SHOOTER'S HELPER Height 165.1 cm (5' 5) 07/02/2021 1:34 PM SHOOTER'S HELPER Body Mass Index 46.76 07/02/2021 1:34 PM SHOOTER'S HELPER Plan of Treatment Health Maintenance Due Date [...] complete this topic MENINGOCOCCAL (Group B) VACCINE SHARED DECISION-MAKING Aged Out No longer eligible based on patient's age to complete this topic MENINGOCOCCAL GROUPS A/C/Y/W VACCINE Aged Out No longer eligible based on patient's age to complete this topic Medical Devices Implanted Type Area Bulbs Farmworker Device Identifier Shelf Expiration Date Model / Serial / Lot Mesh Srg Ventralight St Sepra 8x6in Implanted:Qty: 1 on 05/12/2021 by Baldemar Abdi MD at [facility] Abdomen [employer] 02/18/2022 [id number] / / [id number] Sys Fx 37cm Cpsr Str Ss Peek Perm Hndl Implanted:Qty: 1 on 05/12/2021 by Baldemar Abdi MD at [facility] Abdomen [employer] 03/20/2023 [id number] / / [id number] Sys Fx Optifix 15 Absb Fstnr Artc Implanted:Qty: 1 on 05/12/2021 by Baldemar Abdi MD at [facility] Abdomen [employer] 11/18/2022 [id number] / / [id number] Procedures Procedure Name Priority Date/Time Associated Diagnosis Comments GLUCOSE - POINT OF CARE Routine 05/14/2021 11:40 AM SHOOTER'S HELPER HPV DETECTION HIGH RISK SOWMYA Routine 07/11/2020 4:00 PM SHOOTER'S HELPER Cervical cancer screening from Last 3 Months or Most Recently Relevant to Health Maintenance Results * (ABNORMAL) GLUCOSE - POINT OF CARE (05/14/2021 11:40 AM SHOOTER'S HELPER) Pathologist [facility] Glucose WB/POC 118(H) 70 - 106 mg/dL 05/14/2021 11:46 AM SHOOTER'S HELPER [facility] Specimen Type Cap Fingerstick 2020 11:46 AM SHOOTER'S HELPER [facility] Blood BLOOD SPECIMEN / Unknown 05/14/2021 11:40 AM SHOOTER'S HELPER 05/14/2021 11:46 AM SHOOTER'S HELPER Baldemar Abdi MD LAB - POINT OF CARE ORDERABLES Performing Organization Address City/State/[facility] Co de Phone Number [facility] [address] [place] [address] * HPV DETECTION HIGH RISK SOWMYA (07/11/2020 4:00 PM SHOOTER'S HELPER) Pathologist [facility] High Risk Human Papilloma Result Not detected Not detected 07/17/2020 2:51 PM SHOOTER'S HELPER [facility] High Risk Human Papilloma Interp 07/17/2020 2:51 PM SHOOTER'S HELPER [facility] Comment:High Risk Human Ryder lloma Virus was Not Detected. Pathology/Cytolo gy MISCELLANEOUS SAMPLES / Unknown 07/11/2020 4:00 PM SHOOTER'S HELPER 07/15/2020 8:50 AM SHOOTER'S HELPER Narrative [facility] - 07/17/2020 2:51 PM SHOOTER'S HELPER Nucleic acid isolated from the specimen was analyzed with a nucleic acid amplification test (FDA approved Gen-Probe HPV Assay) to detect high risk human papilloma virus (Types: 16, 18, 31, 33, 35, 39, 45, 51, 52, 56, 58, 59, 66, and 68). The reference range is Not Detected. Comment: These test results should not be used as the sole basis for clinical assessment and treatment of patients. These results should always be correlated with other available data (cytology, histology, and clinical information). Ritika Sims MD LAB - MICROBIOLOGY ORDERABLES [facility] [address] [place], [place] [address] [phone] from Last 3 Months or Most Recently Relevant to Health Maintenance Advance Directives * Full Code (Latest Code Status on File) Date Activated Date Inactivated Comments 05/12/2021 6:57 PM 05/14/2021 7:23 PM * Full Code Date Activated Date Inactivated Comments 12/27/2020 8:36 AM 12/30/2020 6:49 PM
--- OUTSIDE RECORDS SUMMARY | 2024-08-09 00:36 | XMS_ITS | Clinical Summary ---
Author Organization [facility] Address [address] [place] [address] Care Team Providers Care Foreign Language Interpreter Name Role Phone Leonor Graves Primary Care Provider [phone] Allergies Active Allergy Reactions Criticality Noted Date [...] times a day Active lancets 30 gauge [facility] OneTouch Delica Plus Lancet 30 gauge USE TO CHECK BLOOD SUGAR EVERY DAY Active blood-glucose meter [facility] OneTouch Verio Flex Meter USE TO CHECK [...] 1 capsule (20 mg total) by mouth concrete layer before breakfast 4 Active triamcinolone (KENALOG) 0.1 [...] placed, decreased to 1ml/h for hypotension, continue BUS TRANSPORTATION MANAGER 09/29 pain controlled, epidural resumed @ 6ml/h + BUS TRANSPORTATION MANAGER 09/30 hypotensive with epidural titration, discussed with [...] in process. Health Insurance Coverage: [facility] Medicare Solutions and IDPA Prescription Coverage: yes Pharmacy: [id number] - [place] [phone] [address] [facility] [phone] No PCP noted Assessment & Plan (10/04/2023 [...] with TAR, retrorectus mesh --- NPO/NGT, epidural, master plumber, hernandez, arbf 09/27 AFVSS, wbc 9 from [...] - Continue pain control with p.r.n. Tylenol, [facility] - General surgery consulted in ED, per [...] Tobacco: Never Tobacco Cessation:Counseling Given: Not Answered [employer] Answer Date Recorded In the past 12 months has [employer], oil, or water [employer] threatened to shut off services in your [...] often do you attend chur ch or zoroastrianism services? Never 10/03/2023 Do you belong to any clubs o r organizations such as christian groups, unions, fraternal or athletic groups, or [...] care, and heating? Not very hard 10/03/2023 [facility] - Occupational [...] place to sleep or slept in a chcf (including now)? No 10/03/2023 Personal Safety Answer Date Recorded Have you ever been in or are you currently in a harmful physical or emotional relationship or is someone making you feel afraid or unsafe? Denies 12/15/2023 Comments No Sex and Gender Information Value Date Recorded Sex Assigned at Not on file Legal Sex Female 7:01 PM DEAN OF INSTRUCTION Gender Identity Not on file Sexual Orientation [...] history exists Medical Devices Implanted Type Area Testing Manager Device Identifier Shelf Expiration Date Model / Serial / Lot [employer]/C R Bard [id number] Monofilament Soft Lightweight Low Profile Square - [id number] Implanted:Qty: 1 on 09/27/2023 by Benito Jha MD at [facility] N/A: Abdomen [employer] [id number] 12/19/2027 [id number] / / [id number] Procedures Procedure Name Priority Date/Time Associated Diagnosis Comments EGFR Routine 11/19/2023 3:07 AM CDT POCT HEMOGLOBIN A1C Routine 09/09/2023 3 :08 PM CDT LIPID PANEL Routine 07/24/2022 5:20 AM DEAN OF INSTRUCTION PAP AND HIGH RISK HPV, REFLEX TO [...] Kelley MD LAB BLOOD ORDERABLES Final Result [facility] Department [place] [address] * POCT hemoglobin A1c (09/09/2023 3:08 PM CDT) Hgb A1C, POC 5.4 4.0 - 5.6 % Est Average Gluc POC 108 mg/dL [facility] Comment: The ADA recommends reporting an estimated Average Glucose (eAG) with all Hemoglobin A1c results using the equation derived from a study of 507 normal and diabetic adults. Minority populations were underrepresented and children were not included. (Diabetes Care 31:5268-0094, 2008). The eAG is not equivalent to a fasting glucose. Blood 09/09/2023 3:08 PM CDT 09/09/2023 3:08 PM CDT us Benito Grady Jha MD POINT OF CARE TEST O RDERABLES Final Result [facility] Department [place] [address] * (ABNORMAL) Lipid panel (07/24/2022 5:20 AM DEAN OF INSTRUCTION) Cholesterol 135 30 - 199 mg/dL [facility] [...] on 2018. HDL 36(L) >=40 mg/dL [facility] Comment: Interpretive Data Ages < or = [...] 2018. LDL, calculated 68 <=129 mg/dL [facility] Comment: Interpretive Data Ages < or = [...] revised on 2018. Non-HDL Cholesterol 99 mg/dL [facility] Comment: Interpretive Data Ages < or = [...] last revised on 2018. Chol/HDL ratio 4 [facility] Blood 07/24/2022 5:20 AM DEAN OF INSTRUCTION 07/24/2022 6:24 AM DEAN OF INSTRUCTION us Jamie Reyes MD LAB BLOOD ORDERABLES Final Result [facility] Department [place] [address] * Pap and High Risk HPV, reflex to Genotyping (10/06/2021 1:55 PM CDT) Thin prep (Pap test) 10/06/2021 1:55 PM CDT 10/06/2021 3:55 PM CDT Narrative PATHOLOGY [facility] - 10/10/2021 2:16 PM CDT EPIC results best viewed via link to PDF [facility] Carly Maher [facility] [place] [address] Note to Patients: This report may contain [...] Gender: F : 1970 (Age: 51) Address: [address] [place] [address] Hospital #: [id number] Service: RADIOTELEGRAPHIST Location: [facility] Patient Type: [facility] Ref Lab Taken: 10/06/2021 Received: 10/06/2021 Accessioned: [...] 67. This HPV test was performed at [facility] in [place], [place] utilizing the Gen-Probe Aptima assay. j/10/10/2021 [...] negative. The HPV test was performed by [facility], [address] [place] [address]. Report Images and scanned documents, if included only viewable in PDF version The performance characteristics of some immunohistochemical stains, in-situ hybridization and fluorescence in-situ hybridization tests and immunophenotyping by flow cytometry cited in this report (if any) were determined by the Surgical Pathology Department at [facility] as part of an ongoing quality assurance consultant program and in compliance with federally mandated [...] determined by the Surgical Pathology Department of [facility]. It has not been cleared or approved by the U. S. Food and Drug Administration. Ama Byrnes MD LAB CYTOLOGY ORDERABLES Final Re sult PATHOLOGY [facility] 3rd Floor [place], [place] [phone] from Last 3 Months or Most Recently Relevant to Health Maintenance Insurance MEDICARE SOLUTIONS MEDICARE SOLUTIONS Advance Directives For more information, please contact: [phone] * Full Code (Latest Code Status on [...] 11:20 PM 12/11/2022 8:38 PM Care Teams Foreign Language Interpreter Relationship Specialty [place] [address] [place] [id number] PCP - General 03/04/21
--- OUTSIDE RECORDS SUMMARY | 2024-08-09 00:37 | XMS_ITS | Data Portability ---
Author Organization [place] [employer], Main Office Address [address] [place] [address] Assessment Encounter Date Assessment Date Assessment LastModified by Organization Details LastModified Time 11/10/2022 11/10/2022 Ventral incisional hernia measuring 4.4x9cm. Reducible today. Explained surgical risks and strongly emphasized smoking cessation prior to surgery; patient agreeable. Will f/u in three months after smoking cessation and after GI f/u to plan for surgical repair. She will be referred to Dr. Thurston in the meantime. She has not had f/u endoscopy since GI bleed s/p gastric ulcer repair. [email or web address] Not available 11/10/2022 13:02:30 01/26/2024 01/26/2024 53-year-old female presents for evaluation of her bilateral knees. She has a history of bilateral knee osteoarthritis and previously saw Dr. Medrano. She was unable to get surgery because of her elevated BMI but has lost some weight since then. She currently rates her pain as 10/10. Both are equally bad. She is currently on disability for her back and her knees. She has previously done cortisone injections and physical therapy without significant improvement. Review of systems per patient questionnaire Physical exam: She has tenderness palpation of the medial joint line also over the anterior knee. Range of motion 10-120 bilaterally. She does have crepitus. Sensation intact to light touch. X-rays of the knees were reviewed, demonstrating severe degenerative changes with joint space narrowing, sclerosis, osteophytes bilaterally She has bilateral knee osteoarthritis. She has failed a course conservative management and wants to proceed with surgery for knee arthroplasty. We will refer her to Dr. Munoz who is our joint replacement specialists in this group. She may follow-up with us as needed. [email or web address] Not available 01/26/2024 16:57:40 Plan of Treatment Reminders Order Date Submit Date Provider Last Modified By Organization Details Last Modified Time Details Appointments None recorded. Lab None recorded. Referral orthopedic surgeon referral - PLEASE CALL PATIENT TO SCHEDULE 2023 [facility], [address] , [address], [place], [address], 11:04:01 Procedures None recorded. Surgeries None recorded. Imaging XR, knee, 3 view 2023 024 [facility] [place], [address], [place], [address], 17:04:27 Medication Orders None recorded. Patient TargetsNo targets recorded. Patient InstructionsNo instructions recorded. Reason for Referral Orthopedic Surgeon Referral for Bilateral osteoarthritis of knees PLEASE CALL PATIENT TO SCHEDULE Referring Physician: Dennis Bautista, Orthopedic Surgery, Encounter Date: 01/26/2024 Results Created Date Observation Date Name Description Value Unit Range Abnormal Flag Note LastModifiedBy Organization Detail LastModifiedTime 12/23/19 22 12/22/2021 imagi ng/di agnos tic resul t No observ ation record ed. [id number] [facility] Add On Lab Orders [address] [place], [address], 07/22/2022 12:49:53 12/30/19 22 12/19/2021 CT, abdom en + pelvi s, w/o contr ast No observ ation record ed. [id number] Not Available 07/22/2022 12:49:53 01/26/20 24 XR, knee, 3 view No observ ation record ed. [email or web address] [facility] [place] [address], [place], [address], 01/26/2024 14:23:39 Result Notes None recorded. Problems Name Problem SNOMED Code Status Onset Date Resolution Date Notes Provider Name and Address Organization Details Recorded Time Osteoarthr itis 885392945 Active Not Available [facility] 3 12:46:01 Ventral incisional hernia 132001037 Active 2022 Brooks bernabe MD [address], [facility] [address], [place], [address] , [facility] [employer] [facility] 3 14:55:29 Pain of bilateral knee joints 2576884950364 04 Active 2023 Alysa Andino, RMMiguel Angel null, [facility] [employer] [facility] 4 14:23:26 Bilateral osteoarthr itis of knees 2959737318418 07 Active 2023 Laxmi Abad null, [facility] [employer] [facility] 4 14:57:48 Problem Notes None recorded. Procedures Surgical History None recorded. Imaging Results Imaging Date Name Status LastModified by Organiz ation Details LastModified Time 12/22/2021 imaging/diagn ostic result completed [id number] [facility] Add On Lab Orders [address] [place], [address], 07/22/2022 12:49:53 12/19/2021 CT, abdomen + pelvis, w/o contrast completed [id number] Information not available 07/22/2022 12:49:53 01/26/2024 XR, knee, 3 view completed [email or web address] [facility] [place] [address], [place], [address], 01/26/2024 14:23:39 Procedure Notes None recorded. Medical Equipment None Reported. Allergies No known drug allergies Medications Name Sig Start Date Stop Date Status Note LastModified by Organization Details LastModified Time cyclobenz aprine 10 mg tablet TAKE 1 TABLET BY MOUTH EVERY NIGHT AT BEDTIME NEEDED FOR MUSCLE SPASMS 01/17 completed Not Available Not Available Not Available atorvasta tin 40 mg tablet TAKE 1 TABLET BY MOUTH EVERY DAY AT BEDTIME active Not Available Not Available No t Available metformin 500 mg tablet 01/25 completed Not Available Not Available Not Available nystatin 100,000 unit/mL oral suspensio n take 5ml BY MOUTH FOUR TIMES DAILY DIRECTED FOR SEVEN DAYS 01/17 completed Not Available Not Available Not Available nicotine 14 mg/24 hr daily transderm al patch UNWRAP AND APPLY 1 PATCH TO SKIN ONCE DAILY 01/12 completed Not Available Not Available Not Available hydrocodo ne 5 mg-acetam inophen 325 mg tablet TAKE 1 TABLET BY MOUTH EVERY DAY NEEDED FOR SEVERE PAIN 01/17 completed Not Available Not Available Not Available ondansetr on HCl 8 mg tablet TAKE ONE TABLET BY MOUTH AT 11AM FOR NAUSEA. TAKE ONE ADDITION AL TABLET EVERY 6 HOURS NEEDED FOR NAUSEA 01/25 completed Not Available Not Available Not Available meloxicam 15 mg tablet Take 1 tablet every day by oral route. 01/12 completed Not Available Not Available Not Available ondansetr on HCl 4 mg tablet TAKE 1 TABLET BY MOUTH EVERY 6 HOURS NEEDED FOR NAUSEA OR VOMITING 01/12 completed Not Available Not Available Not Available metronida zole 500 mg tablet TAKE TWO TABLETS BY MOUTH AT 1PM, 2PM, AND 10PM THE DAY PRIOR TO SURGERY DIRECTED active Not Available Not Available No t Available ciproflox acin 250 mg tablet TAKE 1 TABLET BY MOUTH TWICE DAILY 01/12 completed Not Available Not Available Not Available ciproflox acin 500 mg tablet 01/12 completed Not Available Not Available Not Available sulfameth oxazole 800 mg-trimet hoprim 160 mg tablet TAKE 1 TABLET BY MOUTH TWICE DAILY FOR 7 DAYS 01/25 completed Not Available Not Available Not Available tramadol 50 mg tablet TAKE 1 TABLET BY MOUTH EVERY DAY FOR PAIN 01/17 completed Not Available Not Available Not Available acetamino phen 500 mg tablet TAKE ONE TABLET BY MOUTH EVERY 6 HOURS NEEDED FOR mild pain (1-3) OR FEVER 01/25 completed Not Available Not Available Not Available oxycodone -acetamin ophen 5 mg-325 mg tablet TAKE 1 TABLET BY MOUTH EVERY 6 HOURS NEEDED FOR PAIN 01/12 completed Not Available Not Available Not Available amoxicill in 875 mg tablet TAKE 1 TABLET BY MOUTH TWICE DAILY UNTIL ALL TAKEN 01/25 completed Not Available Not Available Not Available famotidin e 20 mg tablet TAKE 1 TABLET BY MOUTH EVERY 12 HOURS 09/24 completed Not Available Not Available Not Available Kenalog 10 mg/mL suspensio n for injection In office injectio n administ ered by the provider 01/12 completed [facility]: [phone] Not Available Not Available Not Available doxycycli ne monohydra te 100 mg capsule TAKE 1 CAPSULE BY MOUTH EVERY 12 HOURS FOR 5 DAYS 01/12 completed Not Available Not Available Not Available cephalexi n 500 mg capsule TAKE 1 CAPSULE BY MOUTH EVERY 6 HOURS FOR 7 DAYS active Not Available Not Available No t Available pantopraz ole 40 mg tablet,de layed release TAKE 1 TABLET BY MOUTH EVERY 12 HOURS active Not Available Not Available No t Available fluoxetin e 20 mg tablet 01/25 completed Not Available Not Available Not Available triamcino lone acetonide 0.1 % topical ointment APPLY THIN LAYER TO AFFECTED AREAS TWICE DAILY FOR 7 DAYS TAKE 7 DAY BREAK BETWEEN USE active Not Available Not Available No t Available lidocaine 5 % topical patch APPLY ONE PATCH TO THE SKIN EVERY DAY (MAY WEAR UP TO 12 HOURS) 01/17 completed Not Available Not Available Not Available metronida zole 0.75 % topical cream APPLY THIN LAYER TO AFFECTED AREAS TOPICALL Y TWICE DAILY IN THE MORNING AND EVENING AVOID THE EYES active Not Available Not Available No t Available gabapenti n 300 mg capsule TAKE 1 CAPSULE BY MOUTH THREE TIMES DAILY DIRECTED active Not Available Not Available No t Available hydrocort isone 2.5 % topical cream apply a thin layer TO AFFECTED AREAS TWICE DAILY FOR 7 to 10 DAYS during flare, take break between USE 01/17 completed Not Available Not Available Not Available bisacodyl 5 mg tablet,de layed release TAKE TWO TABLETS BY MOUTH AT 10AM AND 12 NOON THE DAY BEFORE SURGERY DIRECTED 01/25 completed Not Available Not Available Not Available hydrochlo rothiazid e 25 mg tablet TK 1 T PO ONCE D PRF PEDAL EDEMA 09/23 completed Not Available Not Available Not Available mupirocin 2 % topical ointment APPLY A SMALL AMOUNT TO THE TO THE AFFECTED AREA THREE TIMES DAILY active Not Available Not Available No t Available ergocalci ferol (vitamin D2) 1,250 mcg (50,000 unit) capsule TAKE ONE CAPSULE BY MOUTH WEEKLY FOR VITAMIN DEFICEIN CY active Not Available Not Available No t Available polyethyl yennifer glycol 3350 17 gram/dose oral powder MIX 17 GRAMS (1 CAPFUL) IN 8 OUNCES OF LIQUID AND DRINK STARTING AT 11AM, MIX AND DRINK 17GM EVERY 15 MINUTES UNTIL ENTIRE BOTTLE IS GONE DIRECTED 01/25 completed Not Available Not Available Not Available levofloxa olegario 750 mg tablet 01/25 completed Not Available Not Available Not Available methylpre dnisolone 4 mg tablets in a dose pack FOLLOW PACKAGE DIRECTIO NS 01/17 completed Not Available Not Available Not Available neomycin 500 mg tablet active Not Available Not Available Not Available lisinopri l 40 mg tablet TAKE 1 TABLET BY MOUTH EVERY DAY 01/17 completed Not Available Not Available Not Available ondansetr on 4 mg disintegr ating tablet DISSOLVE ONE TABLET BY MOUTH EVERY 6 NEEDED FOR FORNAUSE A AND VOMITING 01/12 completed Not Available Not Available Not Available cefdinir 300 mg capsule TK 1 C PO BID 09/24 completed Not Available Not Available Not Available fluoxetin e 20 mg capsule TAKE 1 CAPSULE BY MOUTH EVERY DAY active Not Available Not Available No t Available metformin ER 500 mg tablet,ex tended release 24 hr TAKE 1 TABLET BY MOUTH EVERY DAY WITH A MEAL FOR DIABETES 01/25 completed Not Available Not Available Not Available heparin (porcine) 5,000 unit/mL injection solution 01/25 completed Not Available Not Available Not Available naproxen 500 mg tablet 09/23 completed Not Available Not Available Not Available oxycodone 5 mg tablet TAKE TWO TABLETS BY MOUTH EVERY 4 HOURS NEEDED FOR PAIN 01/25 completed Not Available Not Available Not Available escitalop harjinder 10 mg tablet TAKE ONE TABLET BY MOUTH EVERY MORNING 01/25 completed Not Available Not Available Not Available escitalop harjinder 20 mg tablet TAKE 1 TABLET BY MOUTH EVERY MORNING active Not Available Not Available No t Available cyclobenz aprine 5 mg tablet active Not Available Not Available No t Available Alcohol Prep Pads USE TO CLEAN INJECTIO N SITE OF INSULIN AND WHEN CHECKING BLOOD SUGAR 01/25 completed Not Available Not Available Not Available nitrofura ntoin monohydra te/macroc rystals 100 mg capsule TAKE ONE CAPSULE BY MOUTH TWICE DAILY FOR 7 DAYS active Not Available Not Available No t Available Tylenol 01/12 completed tylenol codeine Not Available Not Available Not Available metformin 10 mg 01/12 completed Not Available Not Available Not Available lidocaine (PF) 10 mg/mL (1 %) injection solution In office injectio n administ ered by the provider 01/12 completed [facility]: [phone] 6-17 Not Available Not Available Not Available OneTouch Verio test strips USE TO CHECK BLOOD SUGAR EVERY DAY 01/25 completed Not Available Not Available Not Available TRUEplus Lancets 33 gauge 01/17 completed Not Available Not Available Not Available OneTouch Verio Flex Meter USE TO CHECK BLOOD SUGAR EVERY DAY 01/17 completed Not Available Not Available Not Available Ozempic 0.25 mg or 0.5 mg (2 mg/1.5 mL) subcutane ous pen injector INJECT 0.5 MG UNDER THE SKIN EVERY WEEK 01/25 completed Not Available Not Available Not Available OneTouch Delica Plus Lancet 30 gauge USE TO CHECK BLOOD SUGAR EVERY DAY 01/25 completed Not Available Not Available Not Available Ozempic 1 mg/dose (4 mg/3 mL) subcutane ous pen injector INJECT 1 MG UNDER THE SKIN ONE DAY A WEEK. DISCONTI NUE 0.5 MG DOSE 01/25 completed Not Available Not Available Not Available Ozempic 2 mg/dose (8 mg/3 mL) subcutane ous pen injector INJECT 2 MG DOSE ONCE A WEEK UNDER THE SKIN. 01/25 completed Not Available Not Available Not Available Ozempic 0.25 mg or 0.5 mg (2 mg/3 mL) subcutane ous pen injector INJECT 0.5MG UNDER THE SKIN EVERY WEEK 01/17 completed Not Available Not Available Not Available Vitals Date Recorded Body mass index (BMI) Body height Body weight Provider Name and Address Organization Details Last Updated DateTime 03/11/2021 45.4 kg/m2 170.18 cm 403166.79 g Not Available [facility] 07/22/2022 12:45:30 Date Recorded Body mass index (BMI) Body height Oxygen saturation Oxygen saturation in Arterial blood by Pulse oximetry Heart rate Respiratory rate Body temperature Body weight Systolic blood pressure Diastolic blood pressure Provider Name and Address Organization Details Last Updated DateTime 45.4 kg/m2 170.18 cm 97 % 97 % 100 /min 20 /min 97 [degF] 953006. 79 g 140 mm[Hg] 80 mm[Hg] Not Available [facility] 3 12:45:29 Date Recorded Body mass index (BMI) Body height Oxygen saturation Oxygen saturation in Arterial blood by Pulse oximetry Heart rate Respiratory rate Body temperature Body weight Systolic blood pressure Diastolic blood pressure Provider Name and Address Organization Details Last Updated DateTime 2 45.4 kg/m2 170.18 cm 97 % 97 % 100 /min 18 /min 97.1 [degF] 146432. 79 g 130 mm[Hg] 82 mm[Hg] Not Available [facility] 3 12:45:29 Date Recorded Body height Body mass index (BMI) Body weight Heart rate Body temperature Respiratory rate Oxygen saturation Oxygen saturation in Arterial blood by Pulse oximetry Systolic blood pressure Diastolic blood pressure Provider Name and Address Organization Details Last Updated DateTime 3 170.18 cm 43.1 kg/m2 423013. 9 g 100 /min 97 [degF] 18 /min 96 % 96 % 140 mm[Hg] 90 mm[Hg] Ayesha Esquivel [facility] 3 12:29:59 Date Recorded Body height Body mass index (BMI) Body weight Pain severity - 0-10 verbal numeric rating [Score] - Reported Provider Name and Address Organization Details Last Updated DateTime 01/26/2024 170.18 cm 35.2 kg/m2 260527.28 g 10 Alysa Andino Miguel [facility] 01/26/2024 14:18:15 Social History Question Answer Notes LastModified by Organizat ion Details LastModified Time Tobacco Smoking Status Current Every Day Smoker Not Available [facility] 07/22/2022 12:45:11 What Was The Date Of Your Most Recent Tobacco Screening? 01/26/2024 [email or web address] Information not available 01/26/2024 How Much Tobacco Do You Smoke? 0.25 PPD [id number] Information not available 07/22/2022 How Many Years Have You Smoked Tobacco? 6 [id number] 26 Information not available 07/22/2022 Have You Recently Traveled Abroad? No [id number] Information not available 07/22/2022 Sex: Unknown Functional Status None recorded. Mental Status None recorded. Family History Relationship Description Onset Age of this Age Resolved Age Notes LastModified by Organization Details LastModified Time Unspecified Relation Diabetes mellitus [id number] Not available 07/22/2022 12:45:19 Unspecified Relation Hypertensive disorder [id number] Not available 07/22/2022 12:45:19 Medical History Condition Response DIABETES, TYPE Y HIGH CHOLESTEROL / HYPERLIPIDEMIA Y OBESITY Y URINARY/BLADDER/KIDNEY PROBLEMS Y Gynecological HistoryNo gynecological history recorded. Obstetrics History GPAL:G 0 P 0 0 0 0 Past Encounters Encounter ID Performer Location Encounter Start Date Encounter Closed Date Diagnosis/Indication Diagnosis SNOMED-CT Code Diagnosis ICD10 Code Diagnosis Note [id number] [facility] [address] [place] [address] 09/24/2020 00:00:00 09/24/2020 10:16:06 [id number] [facility] [address] [address] 03/11/2021 00:00:00 03/11/2021 10:17:38 [id number] [facility] [address] [facility] [address] [address] 05/01/2021 00:00:00 05/01/2021 13:07:17 [id number] [facility] [address] [facility] [address] 01/06/2022 00:00:00 01/06/2022 11:14:03 [id number] Brooks bernabe MD [facility] [address] [facility] [address] 11/10/2022 12:02:34 11/12/2022 13:27:28 Ventral incisional hernia 441819236 K43.2 [id number] Dennis Bautista MD [facility] [place] [address] [place] [address] 01/26/2024 13:50:25 01/26/2024 15:08:45 Pain of bilateral knee joints 7975089904 34966 M25.569 Bilateral osteoarthritis of knees 8167010979 83350 M17.0 Health Concerns Section Related Observation LastModified by Organization Detai ls LastModified Time None Recorded Concern Status LastModified by Organization Details LastModified Time None Recorded Advance Directives Directive None Recorded Payers Encounter Date Sequence Insurance Name Policy Number Policy Gilmore Covered Member ID Gilmore Member ID Guarantor Name 11/10/2022 1 [facility] (MEDICAID HMO) [id number] Aliza Handy [id number] Aliza Handy 01/26/2024 1 [facility] (MEDICARE REPLACEMENT/A DVANTAGE - PPO) [id number] Aliza Handy [id number] Aliza Handy 01/26/2024 2 [place] [facility] Aliza Handy [id number] Aliza Handy Notes Date Note Type Note Provider Name and Address Organization Details Recorded Time 11/10/2022 text/html Patient presents to clinic to discuss ventral hernia. Hx of gastric ulcer perforation. Noticed a bulge at the anterior abdomen about 1-2 months ago. Intermittent constipation . No blood in stool. No nausea/vomiting/di arrhea. Brooks Blackburn MD [address] [place] [address], [place] [address], [place], [address], [place] [facility] 11/10/2022 14:55:39 OBGyn Episode No OBEpisode recorded.
--- OUTSIDE RECORDS SUMMARY | 2024-08-09 00:37 | XMS_ITS | Encounter Summary ---
Author Organization [facility] Address [address] [facility] [place] [address] Care Team Providers Care House Decorator Name Role Phone Unavailable Primary Care Provider Unavailabl e Encounter Details Date Type Department Care Team (Late st Contact Info) Description 05/09/2021 Telephone [facility] [address] [place] [address] Baldemar Abdi MD [address] [facility] [address] [facility] [place] [id number] Social History Tobacco Use Types Packs/Day Years [...]
--- OUTSIDE RECORDS SUMMARY | 2024-08-09 00:37 | XMS_ITS | Clinical Summary ---
Author Organization [facility] Address [address] [place] [address] Phone Care Team Providers Care Watch Assembler Name Role Phone Star Leonor Brett PAC Primary Care Provider [phone] Social History Tobacco Use Types Packs/Day Years [...] age to complete this topic Insurance MEDICAID [place] Care Teams Watch Assembler Relationship Specialty Start Date End Date Leonor Graves, PAC [address] [place] [address] PCP - General Physician Taper Machine 03/07/21
--- OUTSIDE RECORDS SUMMARY | 2024-08-09 00:37 | XMS_ITS | Encounter Summary ---
Author Organization [facility] Address [address] [place] [address] Care Team Providers Care Mechanic Senior Name Role Phone Unavailable Primary Care Provider Unavailabl e Encounter Details Date Type Department Care Team (Late st Contact Info) Description 05/08/2021 Telephone [facility] [address] [place] [address] Baldemar Abdi MD [address] [facility] [address] [facility] [place] [phone] Social History Tobacco Use Types Packs/Day Years [...]
--- OUTSIDE RECORDS SUMMARY | 2024-08-09 00:37 | XMS_ITS | Data Portability ---
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 over the last month Diarrhea 87176004 R19.7 Ongoing diarrhea x few weeks with umbilical hernia. Will check labs to assess hydration status. Scheduled to see surgeon for hernia repair on 05/01/2021. Depressive disorder 2228 9001 F32.A Mood remains unchanged. Notes days of praying she doesn't wake up due to pain and medical conditions . - Discussed at length with patient about the importance of good mental health. Encouraged follow up with counselor and discussed medication adjuncts.- Appointmen t with counseling in 2 days. Re-iterate d importance that patient keeps this appointmen t. [id number] [facility] (Adult Med) [address] [place] [address] 05/29/2021 10:32:04 05/30/2021 13:24:37 Umbilical hernia 395307268 K42.9 Patient underwent umbilical hernia repair on 12/26/20.CT 04/21/2021 : Large umbilical fat filled hernia without bowel content. Fascial defect measuring 2.4 cm in AP direction and 5.3 cm in transverse direction. Hernia repaired for a second time at [facility] on 05/12/21 by same physician who performed [...] have a f/u appointmen t scheduled with surgeon. ill having diarrhea like she was before the surgery.- will send short course of tramadol to help with residual pain but pain should only continue to improve over the next few weeks- f/u with me after quarantine so I can evaluate post-op Cramp in lower limb 4968 73210 R25.2 Was complainin g of bilateral leg cramping after being in bed for almost an entire month due to the pain from the herniaCK and Cr both elevated but levels were improving with fluids, stopping cholestero l medication , and increased movement- plan to repeat labs again to monitor once she can return to office after quarantine SARS-CoV-2 470692917 U07 .1 She had COVID exposure over [...] for BAM infusion Vitamin D deficiency 347 02855 E55.9 -cont Vit. D supplement s- plan to recheck levels in 6 months [id number] BRITANY VALENTINO [facility] (Adult Med) [address] [place] [address] 06/17/2021 13:50:12 06/18/2021 11:41:33 Sxrdl-dw-mklsvpd renal failure 757702536 N17.9 She went to [facility] ER about 1 week ago for severe low back pain and dysuria, CT scan showed no acute findings, labs showed AIDEE, and urine showed possible UTI. IV fluids given in the ER- plans to call nepology for f/u appointmen t- UA and repeat BMP today to check levels and make sure they came back down Creatine k inase level above reference range 265512463 R74.8 CK recently elevated to 700 after [...] repeat in 1 week Low back pain 219275019 M54.50 She went to [facility] ER about 1 week ago for [...] need PT Acute urin kathy tract infection 374123561 N39.0 She went to [facility] ER about 1 week ago for [...] get xray of lumbar spine Uterine prolapse 0529271 5 N81.4 History of uterine prolapse, plan is to complete hysterecto my after she completed her hernia repair surgery- encouraged her to call OBGYN for f/u, plan to get this surgery completed next Osteoarthr itis of knee 387152236 M17.9 Severe OA of both knees causing severe pain, patient has to walk with walkerWork ing with disability currentlyF ollowing with ortho, knee surgery is possible but patient needs weight loss before procedure- after hysterecto my, plan to help patient with weight loss via medication to get her in range goal per ortho's recs so she can have knee replacemen t surgery [id number] BRITANY VALENTINO [facility] (Adult Med) [facility] [place] [address] 10/10/2021 15:00:09 10/13/2021 17:47:21 Degeneration of lumbar intervertebral disc 13038985 M51.36 MRI of lumbar spine showed Severe [...] she can ambulate without severe pain Neuropathy 914695429 G62 .9 Patient says since last visit [...] medication s prescribed today before the weekend [id number] BRITANY VALENTINO (Adult Med) [address] [place] [address] 12/08/2021 10:38:56 12/09/2021 09:04:52 Fatigue 39875631 R53.83 Pt has been fatigued for several [...] philomena santillan Swelling of lower leg 44 8990115 R22.40 Pt endorses swelling of bilateral legs [...] Creatine k inase level above reference range 742225436 R74.8 CK was elevated to 700 after [...] per day to stay hydrated. Uterine prolapse 4023060 5 N81.4 History of uterine prolapse, plan is to complete hysterecto my after she completed her hernia repair surgery.[facility] 09/2021, plan is for surgery but patient [...] testing if needed Osteoarthr itis of knee 568061687 M17.9 Severe OA of both knees causing severe pain, patient has to walk with walkerWork ing with disability currently. Following with ortho, knee surgery is possible but patient needs weight loss before procedure. - Rx Ozempic to facilitate weight loss, per orthopedic s recs Type 2 margo betes mellitus 61469407 E11.9 Last Hgb A1C: 6.1 (), 6.8 (01/14/21) 6.6 (11/2019) Fasting [...] recommende d for future surgeries. Depressive disorder 8569 1597 F32.A Mood continues to remain in a [...] first- f/u in 1 month Essential hypertension 46954611 I10 BP today 110/72. -Continue w/ lisinopril 40mg Neuropathy 735518583 G62 .9 Severe DDD with disc herniation [...] on weight loss Vitamin D deficiency 347 42707 E55.9 -cont Vit. D supplement s- plan to recheck levels as needed. Chronic ki dney disease stage 3 791143863 N18.30 Uncontroll ed HTN and controlled diabetes- keep blood pressure controlled w/ lisinopril 40mg qd- Continue following with Nephrology , who are currently treating CKD- will try to get recent records from Nephrology and labs, need to consider stopping Metformin due kidney function [id number] BRITANY VALENTINO (Adult Med) [address] [place] [address] 01/09/2022 10:55:07 01/13/2022 08:32:24 Gastric ulcer with perforation 4875341 K25.5 Pt presenting for f/u from ER [...] to ER if abdominal pain worsens Anemia 740039621 D64.9 While in hospital, pt;s Hgb dropped to 7.1 and she received a transfusio n.-Repeat labs as below to assess for persistent vs resolved anemia; will contact pt with results and proceed accordingl y Serum crea tinine above reference range 819933469 R79.89 At hospital; serum creatinine raised to 1.30-Repea t BMP to assess for persistent vs resolved elevation of serum creatinine Muscle weakness 96891565 M62.81 Pt reporting muscle weakness due to continual abdominal pain and inability to ambulate well-PT referral sent [id number] BRITANY VALENTINO (Adult Med) [address] [place] [address] 02/09/2022 11:19:20 02/10/2022 08:58:23 Osteoarthritis of knee 102641418 M17.9 Severe OA of both knees causing severe pain, patient has to walk with walkerWork ing with disability currently. Following with ortho, knee surgery is possible but patient needs weight loss before procedure. - Rx Ozempic to facilitate weight loss, per orthopedic s recs- c/w pain medication PRN for now, pt states it is helping- c/w PT Type 2 margo betes mellitus 02346496 E11.9 Last Hgb A1C: 6.5 (12/10/21), 6.1 [...] future surgeries. Gastric ul cer with perforation 1430229 K25.5 Pt admitted on 01/02/22 due to [...] NSAIDs as these will exacerbate ulcers Anemia 551584865 D64.9 While in hospital, pt;s Hgb dropped to 7.1 and she received a transfusio n.Hgb back to 10.1 01/09/22Sti ll complainin g of generalize d weakness and fatigue- will repeat levels to ensure they did not drop again Serum crea tinine above reference range 984085911 R79.89 At hospital; serum creatinine raised to 1.30, repeat was 1.25- will check today with other labs Muscle weakness 30371433 M62.81 Has been attending regularly to help regain strength. States she has been able to walk faster, better.- keep up with PT and home exercises Morbid obesity 595499877 E66.01 BMI 41.6 today, lost 18 pounds in the last month by eating healthyShe was approved for Gastric Sleeve 05/13 but was told she needed to lose 50 lbs before it can be done. Patient provided healthy lifestyle modificati ons to aid in weight loss.- c/w good work Depressive disorder 9011 9007 F32.A Escitalopr am helping greatly, feeling more positive and has more motivation to get her health back on track. Patient appears overall very happy today and in great spirits compared to prior visits - c/w medication Atopic dermatitis 913591 01 L20.9 Complainin g of new onset [...] cream- f/u if rash does not improve [id number] BRITANY VALENTINO (Adult Med) [address] [place] [address] 03/04/2022 10:47:50 03/05/2022 11:14:39 Chronic kidney disease stage 3 756985146 N18.30 Uncontroll ed HTN and controlled diabetesSp [...] labs and evaluation after surgery Uterine prolapse 9449629 5 N81.4 History of uterine prolapse, plan is to complete hysterect[facility] with [facility] tomorrowFe eling well today with no complaints , vitals are stable in the office today Acute inju ry of kidney 0132617934 4148446 N17.9 Acute on chronic kidney diseaseAKI seen on pre-op labs, Cr jumped up to 2.2Pre-op labs also showed + Ecoli UTICurrent ly being treated for UTI with cephalexin , already seen an improvemen t in her symptomsRe peat labs yesterday showed Cr back down to 1.56 and eGFR 40Rental US normal- discussed results with patient- will fax records to [facility] team- c/w abx [id number] BRITANY VALENTINO [facility] (Adult Med) [address] [place] [address] 03/18/2022 11:01:34 03/19/2022 12:08:53 Chronic kidney disease stage 3 503727871 N18.30 Uncontroll ed HTN and controlled diabetesSa [...] my can be reconsider ed Uterine prolapse 1107877 5 N81.4 She was scheduled for a total hysterecto my at [facility] for her uterine prolapse a few weeks [...] one she has already tried Morbid obesity 582079241 E66.01 Gained a few pounds back since last visit, admits her mood has been decreased since surgery was cancelled which has caused her to eat differentl y and move lessAurelia was approved for Gastric Sleeve 05/13 but was told she needed to lose 50 lbs before it can be done. Patient provided healthy lifestyle modificati ons to aid in weight loss.- encouraged her to stay positive, keep moving, eat healthy, c/w ozempic Osteoarthr itis of knee 555079928 M17.9 Severe OA of both knees causing severe pain, patient has to walk with walkerWork ing with disability currently. Following with ortho, knee surgery is possible but patient needs weight loss before procedure. - Rx Ozempic to facilitate weight loss, per orthopedic s recs- c/w pain medication PRN for now, pt states it is helping- c/w PT Cramp in lower limb 7099 07452 R25.2 Having cramps in her lower extremitie s at night intermitte ntly after long days of traveling or walking- discussed supportive care to help with muscle spasms including massage, stretching , gradual increase in activity, and muscle relaxer PRN at night Atopic dermatitis 077580 01 L20.9 - appears inflammato ry, atopic dermatitis vs psoriasis. C/w topical hydrocorti sone cream PRN, use daily during flares. Use good face lotion such as Cetaphil, Aquaphor, etc.- avoid long-term daily use of steroid cream- f/u if rash does not improve [id number] BRITANY VALENTINO (Adult Med) [address] [place] [address] 07/16/2022 12:11:54 07/20/2022 14:16:16 Osteoarthritis of knee 039926986 M17.9 Severe OA of both knees causing severe pain, patient has to walk with walkerWork ing with disability currently. Following with ortho, knee surgery is possible but patient needs weight loss before procedure. - Rx Ozempic to facilitate weight loss, per orthopedic s recs- c/w pain medication PRN for now, pt states it is helping Type 2 margo demarcus mellitus 20534162 E11.9 Last Hgb A1C: 5.8 today (07/16/2022 [...] elevated 02/17/2021, due at next visit, [facility] Eye exam: none yet [...] recommende d for future surgeries. Uterine prolapse 5701930 5 N81.4 She is scheduled for her hysterecto my finally 07/23/2022, she is very excited to get this surgery completed. She has completed all the necessary steps and believes surgery clearance has already been approved.- f/u with me in 08/2022 after surgery and after f/u with OBGYN team early 08/2022 Morbid obesity 497349316 E66.01 Gained a few pounds back since [...] loss after her upcoming surgery Sore throat 964947615 J0 2.9 Complainin g of sore throat [...] let us know if any better Neuropathy 223231859 G62 .9 Severe DDD with disc herniation [...] NSAIDS.- Work on weight loss Essential hypertension 11930040 I10 BP today 124/80 -Continue w/ lisinopril 40mg Vitamin D deficiency 347 65401 E55.9 -cont Vit. D supplement s- plan to recheck levels as needed. Depressive disorder 9840 9007 F32.A Escitalopr am helping greatly, feeling more positive and has more motivation to get her health back on track. Patient appears overall very happy today and in great spirits compared to prior visits - c/w medication [id number] BRITANY VALENTINO (Adult Med) [address] [place] [address] 08/25/2022 10:18:50 08/31/2022 10:06:16 Uterine prolapse 55171627 N81.4 She underwent a total hysterecto my and pelvic floor reconstruc tion on 07/23/[address] [facility]. The procedure went well and has upcoming apt with OBGYN. She is still having mild urinary incontinen ce but much improved compared to before her surgery.- keep upcoming f/u with OBGYN team Gay 803749530 L71.9 Hx of intermitte nt redness and pimples to her cheeks on her face over the last few years. States she has been trying to put hydorcorti sone cream on the bumps but states it is making her skin burn.- likely rosacea- stop the steroid cream on the face- start metronidaz ole cream BID Ventral in cisional hernia 718658390 K43.2 About 1 week after surgery she [...] they develop, go to the ER Xerostomia 07927670 R68. 2 Complainin g of very dry [...] improvemen t of dry mouth Morbid obesity 454664237 E66.01 Gained a few pounds back since [...] on weight loss after her upcoming surgery [id number] BRITANY VALENTINO (Adult Med) [address] [place] [address] 11/27/2022 10:10:57 11/30/2022 16:14:14 Ventral incisional hernia 866848020 K43.2 About 1 week after surgery she [...] saw second surgeon- advised to wait for [facility] instead of [place] for safety concerns with size of herniation , but do not cancel [place] appointmen t in case need comes up- will consider abdominal binder to aid in slowing increase in size- Reviewed red flags (fever, drastic increase in pain, prolonged time without pooping) that would mean she needs to go to the ER- will increase amount of hydrocodon e short-term until hernia surgery Acute inju ry of kidney 2744318830 0505036 N17.9 Acute on chronic kidney diseaseAKI seen in the ER, recommende d f/u BMP after dischargeP rior renal US normal- redraw labs today History of total hysterectomy 135091113 Z90.710 States went well without complicati ons, had recent f/u with OBGYN which went well Depressive disorder 3548 9007 F32.A Escitalopr am no longer helping, struggling with mood and hope during these health complicati ons. - increase dose from 10mg to 20mg Constipation 82909607 K5 9.00 Current narcotic pain medication while awaiting surgical fixation of hernia, having to strain for BMs with possible hemorrhoid s, Miralax has provided relief. Samples given in office as well. Type 2 margo betes mellitus 05903636 E11.9 Needs medication s refilled today, will recheck her levels again at next visit Neuropathy 900866555 G62 .9 Severe DDD with disc herniation [...] on weight loss Vitamin D deficiency 347 02327 E55.9 -cont Vit. D supplement s- plan to recheck levels as needed. Essential hypertension 28144424 I10 BP today 118/78 -Continue w/ lisinopril 40mg Osteoarthr itis of knee 730234020 M17.9 Severe OA of both knees causing severe pain, patient has to walk with walkerWork ing with disability currently. Following with ortho, knee surgery is possible but patient needs weight loss before procedure. - Rx Ozempic to facilitate weight loss, per orthopedic s recs- c/w pain medication PRN for now, pt states it is helping Gastric ul cer with perforation 6285610 K25.5 Hx of ulcer on 01/02/22 due to melena s/p emergency stomach ulcer perforatio n surgery done on 12/19/21. Taking PPI and following with GI. -pantopraz ole rx renewed as below-Pt educated to not use high amounts of NSAIDs as these will exacerbate ulcers Nummular eczema 28293083 L30.0 Physical exam suggestive of nummular eczema, did not resolve with topical hydrocodon e.-begin triamcinol one applicatio ns, take week break between use and avoid eyelids Morbid obesity 052149893 E66.01 - encouraged her to stay positive, keep moving, eat healthy, c/w ozempic for now- plan to work more on weight loss after her upcoming surgery [id number] BRITANY VALENTINO (Adult Med) [address] [place] [address] 03/02/2023 14:47:57 03/05/2023 14:57:14 Ventral incisional hernia 440673542 K43.2 CT showed 10 cm ventral incisional [...] next month Type 2 margo betes mellitus 27209234 E11.9 HgbA1c is 5.9 todayCurre nt taking [...] consider coming off Metformin if needed Neuropathy 213588776 G62 .9 Severe DDD with disc herniation [...] on weight loss Osteoarthr itis of knee 647380272 M17.9 Severe OA of both knees causing severe pain, patient has to walk with walkerWork ing with disability currently. Following with ortho, knee surgery is possible but patient needs weight loss before procedure. - Rx Ozempic to facilitate weight loss, per orthopedic s recs- c/w pain medication PRN for now, pt states it is helping Morbid obesity 289015429 E66.01 - encouraged her to stay positive, keep moving, eat healthy, c/w ozempic for now- plan to work more on weight loss after her upcoming surgery- b12 injection given today to help with energy and metabolism Long-term current use of opiate analgesic drug 0451365370 46111 Z79.891 Due for UDS- ordered today [id number] JAVI BREWSTER PA-C [facility] (Adult Med) [address] [place] [address] 06/03/2023 10:58:36 06/04/2023 15:53:56 Type 2 diabetes mellitus 41579513 E11.9 A1C: 5.8 today, 5.9 (03/02/23) Current [...] coming off Metformin if needed Morbid obesity 369753526 E66.01 Has lost 4 pounds since last visit in FebruaryMI 41.8 Depression screening 171 638472 Z13.31 PHQ9- Positive (17 out of 27) [facility] screening 058554228 Z13.39 GAD7- Positive (13 out of 21) Osteoarthr itis of knee 709518356 M17.9 Severe OA of both knees causing [...] with joint health and weight loss Neuropathy 606873805 G62 .9 Essential hypertension 60418176 I10 BP 122/84BP Goal: {{Less than 140/90* [...] see dentist every 6 months Depressive disorder 4911 3910 F32.A Be physically active. Getting 30 minutes [...] thoughts with statements such as I am hopeful; Things will get better; and I can ask for the help [...] the numbers for these national suicide hotlines: 1-403-273- TALK (0-120-180 -4359) and 9-526-SUIC CARLOS (9-355-090 -3535). If you or someone you know talks about suicide or feeling hopeless, get help right away. -D/C escitalopr am-start fluoxetine 20mg-rtc 6 weeks Vitamin D deficiency 347 25905 E55.9 Ventral in cisional hernia 221241998 K43.2 CT showed 10 cm ventral incisional [...] ozempic to help with weight loss goal [id number] [facility] (Adult Med) [address] [place] [address] 07/15/2023 14:25:27 07/20/2023 12:23:32 Depression screening 623464620 Z13.31 PHQ9- Positive (14 out of 27) [facility] screening 639110461 Z13.39 GAD7- Positive (16 out of 21) Body mass index 30+ - obesity 373470563 Z68.39 BMI 39.4 was 41.8 on 06/03/23-16 lbs since last visit on 06/14/23 Depressive disorder 0010 9006 F32.A Be physically active. Getting 30 minutes [...] thoughts with statements such as I am hopeful; Things will get better; and I can ask for the help [...] the numbers for these national suicide hotlines: 2-663-856- TALK (1-108-112 -4762) and 6-410-SUIC CARLOS (7-672-047 -5557). If you or someone you know talks about suicide or feeling hopeless, get help right away. - fluoxetine 20mg-rtc 3 months Osteoarthr itis of knee 830777160 M17.9 Severe OA of both knees causing [...] help with joint health and weight loss [id number] [facility] (Adult Med) [address] [place] [phone] 10/12/2023 14:26:09 10/15/2023 14:30:15 Type 2 diabetes mellitus 18235282 E11.9 A1C: 5.8 (06/03/23), 5.9 (03/02/23) Current taking Ozempic 1 mg once weekly and metformin 500 mg once dailyStati n: atorvastat in 40 mgACE: lisinopril 40 mgFoot exam: NL 03/03/2023 Eye exam: 11/24/2021 No longer drinking soda and has stopped eating fast food- keep up great work- C/w ozempic 2 mg once weeklyRTC 6 months Essential hypertension 79630909 I10 BP today: 128/82BP Goal: {{Less than [...] every 6 months Osteoarthr itis of knee 902819009 M17.9 Severe OA of both knees causing [...] medication today, last refill 09/15/23 Morbid obesity 281896867 E66.01 Has lost 44 pounds since last visit in JuneMI 37.2 Neuropathy 969344560 G62 .9 Ventral in cisional hernia 297410826 K43.2 CT showed 10 cm ventral incisional hernia-Her maylin was repaired Depressive disorder 5008 5211 F32.A Be physically active. Getting 30 minutes [...] thoughts with statements such as I am hopeful; Things will get better; and I can ask for the help [...] the numbers for these national suicide hotlines: 1-442-500- TALK (0-688-677 -6464) and 3-886-SUIC CARLOS (6-007-290 -2013). If you or someone you know talks about suicide or feeling hopeless, get help right away. -C/W fluoxetine 20mg Vitamin D deficiency 347 48052 E55.9 Depression screening 171 578037 Z13.31 PHQ9- {{Negative Positive Mild Moder ate* Sever e}} (11 out of 27) Mental hea lt screening 394700044 Z13.39 GAD7- {{Negative * Positive Mild Mode rate Sever e}} (0 out of 21) Wound of skin 887687478 T14.8XXA Culture of wound taken and sent to labWound cleaned using normal saline and bandaged- instructed patient to clean with warm water and soapPt to call surgeons office to get seen sooner than Wednesday10/15/23a rt mupirocin 2% TIDStart cephalexin 500mg every 6 hours x 7 days [id number] [facility] (Adult Med) [address] [place] [phone] 12/06/2023 14:25:53 12/11/2023 15:13:25 Depression screening 251750736 Z13.31 PHQ9- {{Negative Positive Mild Moder ate* Sever e}} (15 out of 27) Mental hea lth screening 723313442 Z13.39 GAD7- {{Negative Positive Mild* Mode rate Sever e}} (8 out of 21) Obesity 360289540 E66.8 BMI 35.3 History of hernia repair [id number] 9109 Z98.890 Ventral hernia repair on 09/27/23Woun d dehiscence - admitted to [facility] 11/15/23- Dehiscence of surgical wound 16931299 T81.30XA Ventral hernia repair wound dehiscence , 2cmPatient to keep clean and packedAdvi sed patient to return to ER if signs of infectionC /W antibiotic s given at hospitalKe ep appointmen t on Wednesday12/10/23 with surgeon [id number] [facility] (Adult [facility]) [address] [place] [phone] 01/13/2024 10:04:11 01/14/2024 12:14:18 Osteoarthritis of knee 183526100 M17.9 Severe OA of both knees causing [...] for knee replacemen t Scar of skin 40928228 L9 0.5 Apply mederma topical gel daily x 8 weeks. Obesity 655564300 E66.8 BMI 35.1 Depression screening 171 156861 Z13.31 PHQ9- {{Negative Positive Mild Moder ate Severe *}} (20 out of 27) Mental hea lth screening 538401695 Z13.39 GAD7- {{Negative Positive Mild Moder ate Severe *}} (16 out of 21) [id number] [facility] (Adult [facility]) [address] [place] [phone] 05/03/2024 14:23:02 05/04/2024 14:50:27 Obesity 496574218 E66.9 BMI 37.5 History of total knee arthroplasty 9604243530 105 Z96.659 L knee- c/w PT and with appts with orthoNo signs of infectionP t taking 2 hydrocodon e 7.5 mg every 2 hours for pain currentlyW ill increase hydrocodon e 5mg to BID instead of ONCE a day for 30 days.Labs ordered today Depression screening 171 240373 Z13.31 PHQ9- {{Negative Positive Mild Moder ate* Sever e}} (13 out of 27) Mental hea lt screening 398499062 Z13.39 GAD7- {{Negative Positive Mild Moder ate* Sever e}} (11 out of 21) [id number] [facility] (Adult Med) [address] [place] [address] 07/24/2024 15:45:50 07/25/2024 13:45:34 Type 2 diabetes mellitus 36151465 E11.9 A1C: 5.7 (07/24/24), 5.8 (06/03/23), 5.9 (03/02/23) Current taking Ozempic 2mg once weekly and metformin 500 mg once dailyStati n: atorvastat in 40 mgACE: lisinopril 40 mgFoot exam: NL 03/03/2023 Eye exam: 11/24/2021 No longer drinking soda and has stopped eating fast food- keep up great work- C/w ozempic 2 mg once weeklyRTC 6 months Essential hypertension 84608189 I10 BP today: 134/82BP Goal: {{Less than [...] year see dentist every 6 months Neuropathy 474643283 G62 .9 Depressive disorder 3548 9007 F32.A [...] thoughts with statements such as I am hopeful; Things will get better; and I can ask for the help [...] the numbers for these national suicide hotlines: 6-275-519- TALK (7-244-659 -2390) and 3-375-SUIC CARLOS (8-114-912 -1328). If you or someone you know talks about suicide or feeling hopeless, get help right away. -C/W fluoxetine 20mg Vitamin D deficiency 347 52425 E55.9 Depression screening 171 315155 Z13.31 PHQ9- {{Negative Positive Mild* Mode rate Sever e}} (6 out of 27) Mental hea lth screening 577340839 Z13.39 GAD7- {{Negative * Positive Mild Mode rate Sever e}} (3 out of 21) History of total knee arthroplasty 2757804738 105 Z96.659 L knee- c/w PT and with appts with orthoNo signs of infectionc /w hydrocodon e 5mg to BID instead of ONCE a day for 30 days. Obesity 734243767 E66.9 BMI 37.9 [id number] JAVI BREWSTER PA-C [facility] (Adult Med) [address] [place] [phone] 08/02/2024 15:56:22 08/03/2024 12:59:44 Gout 16592571 M10.9 Labs todaystart allopurino l 100mg Seborrheic dermatitis 50 791201 L21.9 Start ketoconazo le once daily History of total knee arthroplasty 2957622081 105 Z96.659 L knee- c/w PT and with appts with orthoc/w hydrocodon e 5mg to BID instead of ONCE a day for 30 days. Depression screening 171 457804 Z13.31 PHQ9- {{Negative Positive Mild Moder ate* Sever e}} (11 out of 27) Mental hea lth screening 616495290 Z13.39 GAD7- {{Negative Positive Mild* Mode rate Sever e}} (8 out of 21) Obesity 166753103 E66.9 BMI 37.6 Health Concerns Section Related Observation LastModified by Organization Detai ls LastModified Time None Recorded Concern Status LastModified by Organization Details LastModified Time None Recorded Advance Directives Directive N: Payers Encounter Date Sequence Insurance Name Policy Number Policy Gilmore Covered Member ID Gilmore Member ID Guarantor Name 12/06/2023 2 [place] WHEN MED[place]ARE OR MEDICARE REPLACEMENT PRIMARY) Aliza Handy [id number] Aliza Handy 12/06/2023 1 [facility] (MEDICARE REPLACEMENT/AD VANTAGE - PPO) [id number] Aliza M Handy [id number] Aliza Handy 01/13/2024 2 [place]ARE OR MEDICARE REPLACEMENT PRIMARY) Aliza Handy [id number] Aliza Handy 01/13/2024 1 [facility] (MEDICARE REPLACEMENT/AD VANTAGE - PPO) [id number] Aliza M Handy [id number] Aliza Handy 05/03/2024 2 [place]ARE OR MEDICARE REPLACEMENT PRIMARY) Aliza Handy [id number] Aliza Handy 05/03/2024 1 [facility] (MEDICARE REPLACEMENT/AD VANTAGE - PPO) [id number] Aliza M Handy [id number] Aliza Handy 07/24/2024 1 [facility] (MEDICARE REPLACEMENT/AD VANTAGE - PPO) [id number] Aliza M Handy [id number] Aliza Handy 08/02/2024 1 [facility] (MEDICARE REPLACEMENT/AD VANTAGE - PPO) [id number] Aliza M Handy [id number] Aliza Handy Notes Date Note Type Note Provider Name and Address Organization Details Recorded Time 12/06/2023 text/html 53 y/o F here fo [...] CP, MAGALLANES, N/V/D. JAVI BREWSTER PA-C Attn: Accounting,[address] [facility], [place], [address], [facility] 12/06/2023 15:20:06 01/13/2024 text/html 53 y/o F here fo r f/u wound care. Pt is worried d/t her wound not closing. She is also wanting to get refills on pain medication. JAVI BREWSTER PA-C Attn: Accounting, [address] [facility], [place], [address], [facility] 01/13/2024 11:00:46 05/03/2024 text/html A [...] MAGALLANES JAVI BREWSTER PA-C Attn: Accounting, [address] [facility], [place], [address], [facility] 05/03/2024 17:20:04 07/24/2024 text/html 54 y/o F here for f/u chronic conditions. Pt states she is doing well on all current medications. Pt has surgery scheduled for this month for R knee replacement. Pt denies SOB, CP, MAGALLANES, N/V/D at this time. JAVI BREWSTER PA-C Attn: Accounting,[address] [facility], [place], [address], [facility] 07/24/2024 16:47:03 08/02/2024 text/html 54 y/o F here fo r ER f/u. Pt states she woke up with hand starting to swell. Denies injury. Pt states it started getting worse for a couple of days and more painful. Pt went to ER and was told it was gout. Was given medication for it. Swelling has gone down slightly, still painful. Pt is also c/o rash on face, specifically eyebrows and nose. JAVI BREWSTER PA-C Attn: Accounting,[address] [place], [address], [facility] 08/02/2024 17:55:32 OBGyn Episode No OBEpisode recorded.
--- OUTSIDE RECORDS SUMMARY | 2024-08-09 00:37 | XMS_ITS | Clinical Summary ---
Author Organization [facility] Facility Address [address] [place] [address] Care Team Providers Care Italian Tutor Name Role Phone Leonor Graves PA-C Primary Care Provider + [phone] Allergies No known active allergies Medications acetaminophen (TYLENOL) 500 MG tablet Take 1,000 mg by mouth every 8 (eight) hours Active metFORMIN (GLUCOPHAGE) 500 MG tablet Take 500 mg by mouth 2 (two) times a day Active famotidine (PEPCID) 20 MG tablet Take 20 mg by mouth every 12 (twelve) hours Active Alcohol Swabs pads Active ergocalciferol 1.25 MG (08916 UT) capsule Take 50,000 Units by mouth [...] 1:46 PM CDT Height 170.2 cm (5' 7) 09/01/2022 1:46 PM CDT Body Mass Index [...] 4.0 - 6.0 Blood (Blood, Venous) 08/28/2022 [facility] Provider LAB BLOOD ORDERABLES Juani l Result from Last 3 Months or Most Recently Relevant to Health Maintenance Insurance [place] [employer] Care Teams Italian Tutor Relationship Specialty Start Date End Date Leonor Graves PA-C PCP - General Physician Material Movers 04/15/21
--- NOTE | 2024-10-17 07:09 | P.HP_ITS ---
H&P: HPI History of Present Illness Date/Time: 10/17/24 07:09 Chief Complaint: Patient is knee pain right. She has osig-za-pckx arthritis of her right knee. She has failed conservative treatment like to consider knee replacement surgery. I have discussed this with her risks benefits limitations and alternatives in detail. Will proceed per her request. Review of Systems Musculoskeletal: Musculoskeletal: Reports arthralgias, Reports joint swelling and Reports stiffness [facility] Past Medical History Medical History Osteoarthritis of knees, bilateral Chronic, continuous use of opioids norcox1 daily Degenerative joint disease (DJD) of lumbar spine Anxiety PTSD (post-traumatic stress disorder) Hepatic steatosis Chronic anemia Diabetic peripheral neuropathy Depression Essential hypertension Perforated gastric ulcer Chronic kidney disease, stage III (moderate) Diabetes A1c 6.6% on 12/19/2021 Surgical History Surgical History History of total knee arthroplasty (04/19/24) left History of tubal ligation (1994) History of ventral hernia repair X2 in 2020 History of laparotomy (12/17/21) For repair of gastric ulcer Family History Family History Father Diabetes mellitus Hypertension Mother Diabetes mellitus Hypertension Sibling Diabetes mellitus Hypertension Social History Social History (Updated 09/21/24 @ 10:21 by Sonam Loyola CMA) Social History: Code status: Full code Surrogate decision maker: Mother Smoking packs per day: 1 Smoking cigarettes per day: 20.0 Years smoked: 20 Smoking pack-years: 20.00 Smoking status: Former smoker Tobacco type: cigarettes Second hand tobacco smoke exposure: Yes Additional smoking assessment comments: No nicotine use at all pt denies Alcohol intake: never Substance use: never Substance use type: does not use Do You Feel Safe in your Home?: Yes Lack of Transportation: No Lack of Food: Never True Current Housing: I Have Housing Concerned About Future Housing: No Difficulty Paying Gas/Electric Bills: No Difficulty Paying for Meds: No Currently Unemployed: No Education: High School Diploma/GED Living arrangements: with family Additional living arrangements comments: She lives with her mother. She has 3 children the youngest of which was born in 1994. Additional occupation/education comments: She dropped out of high school but went back and got her GED. She got various certificate over a 4 year course at the [employer]. 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 She is now on disability due to her chronic kidney disease, diabetes, DJD and osteoarthritis. Spiritual care concerns: No Meds Home Medications and Allergies Home Medications ?Medication ?Instructions ?Recorded ?Confirmed ?Type escitalopram oxalate 10 mg tablet 20 mg PO DAILY 12/29/21 09/21/24 History gabapentin 300 mg capsule 300 mg PO TID 12/29/21 09/21/24 History lisinopril 40 mg tablet 40 mg PO DAILY 12/29/21 09/21/24 History metformin 500 mg tablet,extended 500 mg PO DAILY 12/29/21 09/21/24 History release 24 hr acetaminophen 500 mg tablet 500 mg PO Q6H PRN Mild Pain (1-3) 01/02/22 09/21/24 Rx Or Fever #20 tabs ergocalciferol (vitamin D2) 1,250 1,250 mcg PO WEEKLY 04/06/24 09/21/24 History mcg (50,000 unit) capsule fluoxetine 20 mg capsule 20 mg PO DAILY 04/06/24 09/21/24 History cyclobenzaprine 10 mg tablet 10 mg PO Q8H #30 tabs 04/24/24 09/21/24 Rx hydrocodone 7.5 mg-acetaminophen 1 tablet PO Q4H PRN pain #40 tabs 04/28/24 09/21/24 Rx 325 mg tablet atorvastatin 40 mg tablet 40 mg PO QPM 07/27/24 09/21/24 History semaglutide 0.25 mg or 0.5 mg (2 2 mg subcut WEEKLY 09/21/24 10/05/24 History mg/1.5 mL) subcutaneous pen injector (Ozempic) Allergies Allergy/AdvReac Type Severity Reaction Status Date / Time VINEGAR AdvReac Intermediate Dyspnea / Uncoded 10/05/24 15:40 SOB Exam Narrative: On exam she has motion of her RIGHT knee from about 5-110 degrees. She has varus deformity. Grinding crepitus and pain with any manipulation. She walks with an antalgic gait. Neurologically she appears to be grossly intact. Eyes: General: appearance normal, both eyes and all related structures Neck: Neck: supple Resp: Effort & Inspection: normal respiratory effort Cardio: Rate: regular rate Rhythm: regular rhythm Assessment and Plan Assessment and plan (1) Osteoarthritis of knees, bilateral: Qualifiers: Osteoarthritis type: primary Qualified Code(s): M17.0 - Bilateral primary osteoarthritis of knee Code(s): M17.0 - Bilateral primary osteoarthritis of knee Status: Acute Assessment and Plan: Patient has arthritis of her right knee. She has had a previous left total knee replacement has done well from that. She has varus deformity on this knee with smlt-ip-gwch change. She has failed conservative treatment. She would like to proceed with knee replacement surgery. I discussed risks, benefits, limitations, and alternatives with the patient in detail. Will proceed per her request. Discussed.
[2024-10-18] VITALS (19 sets, daily range): BP systolic 104–141; BP diastolic 66–92; PULSE 62–87; RESP 10–18; TEMP 36.1–36.4; O2SAT 93–100
--- NOTE | ~2024-10-18 | XR_ITS ---
EXAMINATION: [id number] DATE: 10/18/2024 12:38 INDICATION: Postoperative evaluation following right total knee arthroplasty. TECHNIQUE: Anteroposterior and lateral views of the right knee were obtained. COMPARISON: None. FINDINGS: Right total knee arthroplasty with patellar resurfacing appears well seated and in near anatomic alig nment. No fractures identified. Anterior skin ade and expected postoperative subcutaneous, intra medullary and intra-articular gas. IMPRESSION: 1. Right total knee arthroplasty, negative for postoperative purposes. Reviewed, dictated and finalized at location A.
--- OUTSIDE RECORDS SUMMARY | 2024-10-18 00:14 | XMS_ITS | Clinical Summary ---
Author Organization [facility] [employer] Address [address] [place] [address] [place] [address] Care Team Providers Care Finger Grip Machine Operator Name Role Phone Unavailable Primary Care Provider Unavailabl e Source Comments [facility] [employer],non-owned Affiliates and Associated Physician Practices is amultiple site organization consisting of ambulatory clinics and hospital sitesin [place], [place], [place] and [place]. This disclosure is being madepursuant to the Care Everywhere program and may not contain all information available regarding this patient. Last updated 18.[facility]blo Allergies No known active allergies Medications * [...] tablet 1 Active ergocalciferol (DRISDOL) 1.25 MG (77279 UT) capsule ergocalciferol (vitamin D2) 1,250 mcg [...] 12/27/2020 Immunizations Immunization Administration Dates Next Due Flexiant primary monoval ent 12+ yr 0.3mL Purple [...] on file Legal Sex Female 6:14 AM ENGINEERING TECHNICIAN PARKING Gender Identity Not on file Sexual Orientation Not on file Last Filed Vital Signs Vital Sign Reading Time Taken Comments Blood Pressure 147/92 07/02/2021 1:34 PM ENGINEERING TECHNICIAN PARKING Pulse 88 07/02/2021 1:34 PM ENGINEERING TECHNICIAN PARKING Temperature 36.8 C (98.2 F) 07/02/2021 1:34 PM ENGINEERING TECHNICIAN PARKING Respiratory Rate 20 07/02/2021 1:34 PM ENGINEERING TECHNICIAN PARKING Oxygen Saturation 96% 05/14/2021 12:54 PM ENGINEERING TECHNICIAN PARKING Inhaled Oxygen Concentration - - Weight 127.5 kg (281 lb) 07/02/2021 1:34 PM ENGINEERING TECHNICIAN PARKING Height 165.1 cm (5' 5) 07/02/2021 1:34 PM ENGINEERING TECHNICIAN PARKING Body Mass Index 46.76 07/02/2021 1:34 PM ENGINEERING TECHNICIAN PARKING Plan of Treatment Health Maintenance Due Date [...] this topic Medical Devices Implanted Type Area Motorcycle Repairer Device Identifier Shelf Expiration Date Model / Serial / Lot Mesh Srg Ventralight St Sepra 8x6in Implanted:Qty: 1 on 05/12/2021 by Baldemar Abdi MD at [facility] Abdomen [employer] 02/18/2022 [id number] / / [id number] Sys Fx 37cm Cpsr Str Ss Peek Perm Hndl Implanted:Qty: 1 on 05/12/2021 by Baldemar Abdi MD at [facility] Abdomen [employer] 03/20/2023 [id number] / / [id number] Sys Fx Optifix 15 Absb Fstnr Artc Implanted:Qty: 1 on 05/12/2021 by Baldemar Abdi MD at [facility] Abdomen [employer] 11/18/2022 [id number] / / [id number] Procedures Procedure Name Priority Date/Time Associated Diagnosis Comments GLUCOSE - POINT OF CARE Routine 05/14/2021 11:40 AM ENGINEERING TECHNICIAN PARKING HPV DETECTION HIGH RISK SOWMYA Routine 07/11/2020 4:00 PM ENGINEERING TECHNICIAN PARKING Cervical cancer screening from Last 3 Months or Most Recently Relevant to Health Maintenance Results * (ABNORMAL) GLUCOSE - POINT OF CARE (05/14/2021 11:40 AM ENGINEERING TECHNICIAN PARKING) Pathologist [facility] Glucose WB/POC 118(H) 70 - 106 mg/dL 05/14/2021 11:46 AM ENGINEERING TECHNICIAN PARKING [facility] Specimen Type Cap Fingerstick 2020 11:46 AM ENGINEERING TECHNICIAN PARKING [facility] Blood BLOOD SPECIMEN / Unknown 05/14/2021 11:40 AM ENGINEERING TECHNICIAN PARKING 05/14/2021 11:46 AM ENGINEERING TECHNICIAN PARKING Baldemar Abdi MD LAB - POINT OF CARE ORDERABLES F inal Result Performing Organization Address City/State/[facility] Co de Phone Number [facility] [address] [place] [address] * HPV DETECTION HIGH RISK SOWMYA (07/11/2020 4:00 PM ENGINEERING TECHNICIAN PARKING) [facility] High Risk Human Papilloma Result Not detected Not detected 07/17/2020 2:51 PM ENGINEERING TECHNICIAN PARKING [facility] High Risk Human Papilloma Interp 07/17/2020 2:51 PM ENGINEERING TECHNICIAN PARKING [facility] Comment:High Risk Human Ryder lloma Virus was Not Detected. Pathology/Cytolo gy MISCELLANEOUS SAMPLES / Unknown 07/11/2020 4:00 PM ENGINEERING TECHNICIAN PARKING 07/15/2020 8:50 AM ENGINEERING TECHNICIAN PARKING Narrative [facility] - 07/17/2020 2:51 PM ENGINEERING TECHNICIAN PARKING Nucleic acid isolated from the specimen was [...] LAB - MICROBIOLOGY ORDERABL ES Final Result [facility] [address] [place] [address], [facility] [phone] from Last 3 Months or Most Recently Relevant to Health Maintenance Insurance Advance Directives * Full Code (Latest Code Status on File) Date Activated Date Inactivated Comments 05/12/2021 6:57 PM 05/14/2021 7:23 PM * Full Code Date Activated Date Inactivated Comments 12/27/2020 8:36 AM 12/30/2020 6:49 PM
--- OUTSIDE RECORDS SUMMARY | 2024-10-18 00:14 | XMS_ITS | CONTINUITY OF CARE DOCUMENT ---
Author Name luc calle Address Unknown Organization [facility] Address [address] [place] [address] Phone [phone] Care Team Providers Care Phlebotomy Technologist Name Role Phone Willy Cleaning MD Unavailable [phone] BRE LINDA MD Unavailable INSURANCE PROVIDERS Payer name Policy type / Coverage type [employer]milayo red alliance party ID [place] MEDICAID Medicaid [id number]
--- OUTSIDE RECORDS SUMMARY | 2024-10-18 00:14 | XMS_ITS | Clinical Summary ---
Author Organization [facility] Address [address] [place] [address] Care Team Providers Care Field Marketer Name Role Phone Leonor Graves Primary Care Provider Allergies Active Allergy Reactions Criticality Noted Date [...] times a day Active lancets 30 gauge [facility] OneTouch Delica Plus Lancet 30 gauge USE TO CHECK BLOOD SUGAR EVERY DAY Active blood-glucose meter [facility] OneTouch Verio Flex Meter USE TO CHECK [...] 1 capsule (20 mg total) by mouth early childhood education specialist before breakfast 4 Active triamcinolone (KENALOG) 0.1 [...] placed, decreased to 1ml/h for hypotension, continue RECORD CHANGER 09/29 pain controlled, epidural resumed @ 6ml/h + RECORD CHANGER 09/30 hypotensive with epidural titration, discussed with [...] care, Cultures in process. Health Insurance Coverage: [facility] Medicare Solutions and IDPA Prescription Coverage: yes Pharmacy: [id number] - [place] [phone] [address] [facility] [id number] No PCP noted Assessment & Plan (10/04/2023 [...] with TAR, retrorectus mesh --- NPO/NGT, epidural, cheese processor, hernandez, arbf 09/27 AFVSS, wbc 9 from [...] - Continue pain control with p.r.n. Tylenol, [place] - General surgery consulted in ED, per [...] Team Description 09/02/2024 10:35 AM CDT Lab [address] [address] from Last 3 Months Surgical History Surgery [...] Tobacco: Never Tobacco Cessation:Counseling Given: Not Answered [facility] [employer] Answer Date Recorded In the past [address] [facility] [employer], oil, or water [employer] threatened to shut off services in your [...] How often do you attend chur or nondenominational services? Never 10/03/2023 Do you belong to any clubs o r organizations such as synagogue groups, unions, fraternal or athletic groups, or [...] care, and heating? Not very hard 10/03/2023 [facility] - Occupational Stress Questionnaire Answer Date [...] place to sleep or slept in a jail (including now)? No 10/03/2023 Personal Safety Answer Date Recorded Have you ever been in or are you currently in a harmful physical or emotional relationship or is someone making you feel afraid or unsafe? Denies 12/15/2023 Comments No Sex and Gender Information Value Date Recorded Sex Assigned at Not on file Legal Sex Female 7:01 PM FIELD CARE ADVOCATE Gender Identity Not on file Sexual Orientation [...] history exists Medical Devices Implanted Type Area Autism Specialist Device Identifier Shelf Expiration Date Model / Serial / Lot [employer]ol Inc/C R Bard [id number] Monofilament Soft Lightweight Low Profile Square - [id number] Implanted:Qty: 1 on 09/27/2023 by Benito Jha MD at [facility] N/A: Abdomen [employer]/C R Bard [id number] 12/19/2027 [id number] / / [id number] Procedures Procedure Name Priority Date/Time Associated Diagnosis [...] CDT LIPID PANEL Routine 07/24/2022 5:20 AM FIELD CARE ADVOCATE PAP AND HIGH RISK HPV, REFLEX TO [...] BLOOD ORDERABLES Final Re sult [facility] ([place]) [address] [facility] Department [place] [address] * (ABNORMAL) eGFR (09/02/2024 10:47 AM CDT) [...] BLOOD ORDERABLES Final Re sult [facility] ([place]) [address] [facility] Department [place] [address] * Differential, auto (09/02/2024 10:47 AM CDT) Neutrophil abs 6.00 1.50 - 6.50 K/cumm Imm gran abs 0.03 0.00 - 0.10 K/cumm [facility] ([place]) Lymphocyte abs 3.15 0.80 - 3.30 K/cumm [facility] ([place]) Monocyte abs 0.60 0.20 - 0.80 K/cumm [facility] ([place]) Eosinophil abs 0.43 0.00 - 0.50 K/cumm [facility] ([place]) Basophil abs 0.06 0.00 - 0.10 K/cumm [facility] ([place]) Neutrophil pct 58.4 % [facility] ([place]) Comment: Interpretive Data Percent cell count reference ranges are not reported, since discordance with absolute values may lead to misinterpretation of CBC data. Current Interpretive Data was last revised on 2017. Imm gran pct 0.3 % [facility] ([place]) Comment: Interpretive Data Percent cell count reference ranges are not reported, since discordance with absolute values may lead to misinterpretation of CBC data. Current Interpretive Data was last revised on 2017. Lymphocyte pct 30.7 % [facility] ([place]) Comment: Interpretive Data Percent cell count reference ranges are not reported, since discordance with absolute values may lead to misinterpretation of CBC data. Current Interpretive Data was last revised on 2017. Monocyte pct 5.8 % [facility] ([place]) Comment: Interpretive Data Percent cell count reference ranges are not reported, since discordance with absolute values may lead to misinterpretation of CBC data. Current Interpretive Data was last revised on 2017. Eosinophil pct 4.2 % [facility] ([place]) Comment: Interpretive Data Percent cell count reference ranges are not reported, since discordance with absolute values may lead to misinterpretation of CBC data. Current Interpretive Data was last revised on 2017. Basophil pct 0.6 % [facility] ([place]) Comment: Interpretive Data Percent cell count reference ranges are not reported, since discordance with absolute values may lead to misinterpretation of CBC data. Current Interpretive Data was last revised on 2017. Blood 09/02/2024 10:4 7 AM CDT 09/02/2024 11:07 AM CDT Murray Cervantes MD LAB BLOOD ORDERABLES Final Re sult Performing Organization Address [facility] Co de Phone Number [facility] ([place]) [address] [facility] [place] [address] * (ABNORMAL) Iron profile w/ IBC (09/02/2024 10:47 AM CDT) Iron 58 35 - 145 mcg/dL TIBC 332 250 - 400 mcg/dL [facility] ([place]) Transferrin saturation 17(L) 20 - 50 % [facility] ([place]) Blood 09/02/2024 10:4 7 AM CDT 09/02/2024 11:07 AM CDT Murray Cervantes MD LAB BLOOD ORDERABLES Final Re sult Performing Organization Address [facility] Co de Phone Number [facility] ([place] [address] [facility] [place] [address] * (ABNORMAL) Urinalysis reflex to microscopic (09/02/2024 10:47 AM CDT) Color, ur Yellow Yellow Clarity, ur Clear Clear [facility] Michelle ([place]) Specific gravity, ur 1.016 1.003 - 1.030 [facility] ([place]) pH, urine 6.5 [facility] ([place]) Comment: Interpretive Data U rine pH is affected by diet, medications, systemic acid-base disturbances, and renal tubular function. pH may affect urinary stone formation. For example, urine pH below 6.0 may help reduce the tendency for calcium phosphate stones and pH greater than 6.0 may reduce the tendency for uric acid stone formation. Source: [facility] Current Interpretive Data was last revised [...] Final Re sult [facility] ([place]) [address] [facility] Department [place] [address] * (ABNORMAL) CBC with auto differential (09/02/2024 [...] RDW CV 14.5 11.1 - 14.9 % [facility] ([place]) RDW SD 43.8 35.7 - 48.1 fL [facility] ([place]) NRBC abs 0.00 0.00 - 0.01 K/cumm [facility] ([place]) Blood 09/02/2024 10:4 7 AM CDT 09/02/2024 11:07 AM CDT Murray Cervantes MD LAB BLOOD ORDERABLES Final Re sult Performing Organization Address City/[facility]/ZIP Co de Phone Number [facility] ([place]) 1 [facility] [place] [address] * (ABNORMAL) Protein / creatinine ratio, urine, random (09/02/2024 10:47 AM CDT) Protein, ur, quant 32.3 mg/dL Comment: Interpretive Data No reference range established. Current interpretive data was last revised 2018. Creatinine Ur 144.5 mg/dL [facility] ([place]) Comment: Interpretive Data No reference range established. Current interpretive data was last revised 2018. Protein/creatinin e ratio 223.5(H) 0.0 - 180.0 mg/g CR [facility] ([place]) Urine 09/02/2024 10:4 7 AM CDT 09/02/2024 11:23 AM CDT Murray Cervantes MD LAB URINE ORDERABLES Final Re sult [facility] ([place]) [address] [facility] [employer] [place] [address] * (ABNORMAL) Urinalysis, microscopic only (09/02/2024 10:47 AM CDT) WBC, ur 11-20(A) 0 - 5 /HPF RBC, ur 0-2 0 - 2 /HPF [facility] ([place]) Epithelial cells, squamous, ur 1-5 0 - 5 /HPF [facility] ([place]) Bacteria, ur 1+(A) [facility] ([place]) Mucous, ur Present(A) [facility] A ([place]) Hyaline casts, ur 1-5 0 - 10 /LPF [facility] ([place]) Urine 09/02/2024 10:4 7 AM CDT 09/02/2024 11:23 AM CDT Murray Cervantes MD LAB URINE ORDERABLES Final Re sult Performing Organization Address [facility] de Phone Number [facility] ([place]) [address] [facility] [place] [address] * (ABNORMAL) PTH (09/02/2024 10:47 AM CDT) PTH 66(H) 15 - 65 pg/mL Blood 09/02/2024 10:4 7 AM CDT 09/02/2024 11:07 AM CDT Murray Cervantes MD LAB BLOOD ORDERABLES Final Re sult Performing Organization Address [facility] de Phone Number [facility] ([place]) [address] [facility] [place] [address] * Hemoglobin A1c (09/02/2024 10:47 AM CDT) Hgb A1C 5.4 4.0 - 5.6 % Estimated Average Glucose 108 mg/dL [facility] ([place]) Comment: The ADA recommends reporting an estimated Average Glucose (eAG) with all Hemoglobin A1c results using the equation derived from a study of 507 normal and diabetic adults. Minority populations were underrepresented and children were not included. (Diabetes Care 31:8306-6650, 2008). The eAG is not equivalent to a fasting glucose. Blood 09/02/2024 10:4 7 AM CDT 09/02/2024 11:07 AM CDT us Murray Cervantes MD LAB BLOOD ORDERABLES Final Re sult [facility] ([place]) [address] [facility] Department [place] [address] * (ABNORMAL) Creatinine (09/02/2024 10:47 AM CDT) Creatinine 1.25(H) 0.60 - 1.10 mg/dL Urine/Blood 09/02/2024 10:4 7 AM CDT 09/02/2024 11:07 AM CDT Murray Cervantes MD LAB BLOOD ORDERABLES Final Re sult Performing Organization Address City/[facility]/ZIP Co de Phone Number [facility] ([place]) [address] [facility] [place] [address] * (ABNORMAL) Renal function panel (09/02/2024 10:47 [...] Phosphorus, pl 3.3 2.3 - 4.5 mg/dL [facility] ([place]) Albumin 3.9 3.5 - 5.0 g/dL [facility] ([place]) Blood 09/02/2024 10:4 7 AM CDT 09/02/2024 11:07 AM CDT Murray Cervantes MD LAB BLOOD ORDERABLES Final Re sult [facility] ([place]) [address] [facility] [place] [address] * Volume and period, urine, 24 hour (09/02/2024 9:06 AM CDT) Volume, ur 2,300 mL Period, Urine Collection 1,416 min [facility] ([place]) Urine/Blood 09/02/2024 9:06 AM CDT 09/02/2024 12:06 PM CDT Murray Cervantes MD LAB URINE ORDERABLES Final Re sult Performing Organization Address [facility] Co de Phone Number [facility] ([place]) [address] [facility] [place] [address] * Creatinine clearance, urine, 24 hour (09/02/2024 9:06 AM CDT) Creatinine Clearance 73 60 - 130 mL/min Creatinine, 24 hr, ur 1.3 0.6 - 1.5 g/24H [facility] ([place]) Urine/Blood 09/02/2024 9:06 AM CDT 09/02/2024 12:06 PM CDT Murray Cervantes MD LAB URINE ORDERABLES Final Re sult Performing Organization Address City/[facility]/ZIP Co de Phone Number [facility] ([place]) [address] [facility] [place] [address] * (ABNORMAL) Lipid panel (07/24/2022 5:20 AM FIELD CARE ADVOCATE) Cholesterol 135 30 - 199 mg/dL [facility] Comment: Interpretive Data Ages < or [...] revised on 2018. Triglycerides 155(H) <=149 mg/dL [facility] Comment: Interpretive Data Ages < or [...] revised on 2018. HDL 36(L) >=40 mg/dL [facility] Comment: Interpretive Data Ages < or [...] on 2018. LDL, calculated 68 <=129 mg/dL [facility] Comment: Interpretive Data Ages < or [...] revised on 2018. Non-HDL Cholesterol 99 mg/dL [facility] Comment: Interpretive Data Ages < or [...] last revised on 2018. Chol/HDL ratio 4 [facility] Blood 07/24/2022 5:20 AM FIELD CARE ADVOCATE 07/24/2022 6:24 AM FIELD CARE ADVOCATE Jamie Reyes MD LAB BLOOD ORDERABLES Final Result [facility] [place] [address] * Pap and High Risk HPV, reflex to Genotyping (10/06/2021 1:55 PM CDT) Thin prep (Pap test) 10/06/2021 1:55 PM CDT 10/06/2021 3:55 PM CDT Narrative PATHOLOGY [facility] - 10/10/2021 2:16 PM CDT EPIC results best viewed via link to PDF [facility] Carly Maher Laboratory of Surgical Pathology [place], [place] [id number] Note to Patients: This report may contain [...] Gender: F : 1970 (Age: 51) Address: [address] [place] [address] Hospital #: [id number] Service: 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 Patient Type: [facility] Ref Lab Taken: 10/06/2021 Received: 10/06/2021 [...] 67. This HPV test was performed at [facility] in [place], [place] utilizing the Gen-Probe Aptima assay. jx/10/10/2021 [...] negative. The HPV test was performed by [facility], [address] [place] [address]. Report Images and scanned documents, if included only viewable in PDF version The performance characteristics of some immunohistochemical stains, in-situ hybridization and fluorescence in-situ hybridization tests and immunophenotyping by flow cytometry cited in this report (if any) were determined by the Surgical Pathology Department at [facility] as part of an ongoing auditor/quality program and in compliance with federally mandated [...] determined by the Surgical Pathology Department of [facility]. It has not been cleared or approved by the U. S. Food and Drug Administration. Ama Byrnes MD LAB CYTOLOGY ORDERABLES Final Re sult PATHOLOGY [facility] 3rd Floor [place], [place] [phone] from Last 3 Months or Most Recently Relevant to Health Maintenance Insurance [facility] MEDICARE ADVANTAGE [facility] MEDICARE ADVANTAGE Advance Directives For more information, please contact: [phone] * Full Code (Latest Code Status on [...] 11:20 PM 12/11/2022 8:38 PM Care Teams Field Marketer Relationship Specialty [place] [address] [place] [id number] PCP - General 03/04/21
--- OUTSIDE RECORDS SUMMARY | 2024-10-18 00:15 | XMS_ITS | Referral Summary ---
Author Organization [facility] al Address [address] [place] [address] Care Team Providers Care Production Technologist Name Role Phone Leonor Graves Primary Care Provider [phone] Encounters Date Type Department Care Team Description 09/02/2024 10:35 AM CDT Lab [address] [phone] from Last 3 Months Allergies Active Allergy [...] times a day Active lancets 30 gauge [facility] [place] [place] OneTouch Delica Plus Lancet 30 gauge USE TO CHECK BLOOD SUGAR EVERY DAY Active blood-glucose meter [facility] [place] OneTouch Verio Flex Meter USE TO [...] 1 capsule (20 mg total) by mouth solution manager before breakfast 4 Active triamcinolone (KENALOG) 0.1 [...] placed, decreased to 1ml/h for hypotension, continue MATERIALS SCHEDULER 09/29 pain controlled, epidural resumed @ 6ml/h + MATERIALS SCHEDULER 09/30 hypotensive with epidural titration, discussed with [...] care, Cultures in process. Health Insurance Coverage: [facility] Medicare Solutions and IDPA Prescription Coverage: yes Pharmacy: [id number] - [place], [place] - [address] [facility] [id number] No PCP noted Assessment & Plan (10/04/2023 [...] with TAR, retrorectus mesh --- NPO/NGT, epidural, cable placer, hernandez, arbf 09/27 AFVSS, wbc 9 from [...] - Continue pain control with p.r.n. Tylenol, Winona - General surgery consulted in ED, per [...] - Encouraged patient to follow up for [facility] outpatient as able - Consulted RD for [...] Tobacco Cessation:Counseling Given: Not Answered [facility] Utilities Answer Date Recorded In the past 12 months has e Xention, gas, oil, or water [employer] threatened to shut off services in your [...] often do you attend chur ch or restorationism services? Never 10/03/2023 Do you belong to any clubs o r organizations such as mormonism groups, unions, fraternal or athletic groups, or [...] place to sleep or slept in a group home (including now)? No 10/03/2023 Personal Safety Answer Date Recorded Have you ever been in or are you currently in a harmful physical or emotional relationship or is someone making you feel afraid or unsafe? Denies 12/15/2023 Comments No Sex and Gender Information Value Date Recorded Sex Assigned at Not on file Legal Sex Female 7:01 PM BUILDING ENGINEER Gender Identity Not on file Sexual [...] on file Medical Devices Implanted Type Area Consulting Analyst Device Identifier Shelf Expiration Date Model / Serial / Lot [employer]/C R Bard [id number] Monofilament Soft Lightweight Low Profile Square - [id number] Implanted:Qty: 1 on 09/27/2023 by Benito Jha MD at [facility] N/A: Abdomen [employer] R Bard [id number] 12/19/2027 [id number] / / [id number] Procedures Procedure Name Priority Date/Time Associated Diagnosis [...] CDT LIPID PANEL Routine 07/24/2022 5:20 AM BUILDING ENGINEER PAP AND HIGH RISK HPV, REFLEX [...] LAB BLOOD ORDERABLES Final Re sult [facility] ([place]) 1 [facility] Department of Laboratories [place], [place] [id number] * (ABNORMAL) eGFR (09/02/2024 10:47 AM CDT) [...] BLOOD ORDERABLES Final Re sult [facility] ([place]) 1 [facility] Department [place] [address] * Differential, auto (09/02/2024 10:47 AM CDT) Neutrophil abs 6.00 1.50 - 6.50 K/cumm Imm gran abs 0.03 0.00 - 0.10 K/cumm [facility] ([place]) Lymphocyte abs 3.15 0.80 - 3.30 K/cumm [facility] ([place]) Monocyte abs 0.60 0.20 - 0.80 K/cumm [facility] ([place]) Eosinophil abs 0.43 0.00 - 0.50 K/cumm [facility] ([place]) Basophil abs 0.06 0.00 - 0.10 K/cumm [facility] ([place]) Neutrophil pct 58.4 % [facility] ([place]) Comment: Interpretive Data Percent cell count reference [...] Final Re sult Performing Organization Address City/[facility]/ZIP Co de Phone Number [facility] ([place]) [address] [place] [address] [place] [address] * (ABNORMAL) Iron profile w/ IBC (09/02/2024 10:47 AM CDT) Iron 58 35 - 145 mcg/dL TIBC 332 250 - 400 mcg/dL [facility] ([place]) Transferrin saturation 17(L) 20 - 50 % [facility] ([place]) Blood 09/02/2024 10:4 7 AM CDT 09/02/2024 11:07 AM CDT Murray Cervantes MD LAB BLOOD ORDERABLES Final Re sult Performing Organization Address City/[facility]/ZIP Co de Phone Number [facility] ([place]) [address] [place] [address] [place] [address] * (ABNORMAL) Urinalysis reflex to microscopic (09/02/2024 [...] tendency for uric acid stone formation. Source: [facility] [employer] Current Interpretive Data was last revised on [...] MD LAB URINE ORDERABLES Final Re sult [facility] ([place]) 1 [facility] Department [place] [address] * (ABNORMAL) CBC with auto differential (09/02/2024 [...] ([place]) MCHC 31.9(L) 32.3 - 35.7 g/dL [facility] ([place]) RDW CV 14.5 11.1 - 14.9 % [facility] ([place]) RDW SD 43.8 35.7 - 48.1 fL [facility] ([place]) NRBC abs 0.00 0.00 - 0.01 K/cumm [facility] ([place]) Blood 09/02/2024 10:4 7 AM CDT 09/02/2024 11:07 AM CDT Murray Cervantes MD LAB BLOOD ORDERABLES Final Re sult Performing Organization Address City/[facility]/ZIP Co de Phone Number [facility] ([place]) 1 [facility] [place] [address] * (ABNORMAL) Protein / creatinine ratio, urine, random (09/02/2024 10:47 AM CDT) Protein, ur, quant 32.3 mg/dL Comment: Interpretive Data No reference range established. Current interpretive data was last revised 2018. Creatinine Ur 144.5 mg/dL [facility] ([place]) Comment: Interpretive Data No reference range established. Current interpretive data was last revised 2018. Protein/creatinin e ratio 223.5(H) 0.0 - 180.0 mg/g CR [facility] ([place]) Urine 09/02/2024 10:4 7 AM CDT 09/02/2024 11:23 AM CDT Murray Cervantes MD LAB URINE ORDERABLES Final Re sult [facility] ([place]) 1 [facility] [place] [address] * (ABNORMAL) Urinalysis, microscopic only (09/02/2024 10:47 AM CDT) WBC, ur 11-20(A) 0 - 5 /HPF RBC, ur 0-2 0 - 2 /HPF [facility] ([place]) Epithelial cells, squamous, ur 1-5 0 - 5 /HPF [facility] ([place]) Bacteria, ur 1+(A) [facility] ([place]) Mucous, ur Present(A) [facility] ([place]) Hyaline casts, ur 1-5 0 - 10 /LPF [facility] ([place]) Urine 09/02/2024 10:4 7 AM CDT 09/02/2024 11:23 AM CDT Murray Cervantes MD LAB URINE ORDERABLES Final Re sult [facility] ([place]) 1 [facility] [place] [address] * (ABNORMAL) PTH (09/02/2024 10:47 AM CDT) PTH 66(H) 15 - 65 pg/mL Blood 09/02/2024 10:4 7 AM CDT 09/02/2024 11:07 AM CDT Murray Cervantes MD LAB BLOOD ORDERABLES Final Re sult Performing Organization Address [facility] Co de Phone Number [facility] ([place]) 1 [facility] [place] [address] * Hemoglobin A1c (09/02/2024 10:47 AM CDT) Hgb A1C 5.4 4.0 - 5.6 % Estimated Average Glucose 108 mg/dL [facility] ([place]) Comment: The ADA recommends reporting an estimated Average Glucose (eAG) with all Hemoglobin A1c results using the equation derived from a study of 507 normal and diabetic adults. Minority populations were underrepresented and children were not included. (Diabetes Care 31:4243-3560, 2008). The eAG is not equivalent to a fasting glucose. Blood 09/02/2024 10:4 7 AM CDT 09/02/2024 11:07 AM CDT us Murray Cervantes MD LAB BLOOD ORDERABLES Final Re sult [facility] ([place]) 1 [facility] [place] [address] * (ABNORMAL) Creatinine (09/02/2024 10:47 AM CDT) Creatinine 1.25(H) 0.60 - 1.10 mg/dL Urine/Blood 09/02/2024 10:4 7 AM CDT 09/02/2024 11:07 AM CDT Murray Cervantes MD LAB BLOOD ORDERABLES Final Re sult Performing Organization Address [facility] Co de Phone Number [facility] ([place]) 1 [facility] [place] [address] * (ABNORMAL) Renal function panel (09/02/2024 10:47 AM CDT) Sodium 137 135 - 145 mmol/L Potassium, pl 4.5 3.3 - 4.9 mmol/L [facility] ([place]) Chloride 101 97 - 110 mmol/L [facility] ([place]) CO2 23 22 - 32 mmol/L [facility] ([place]) Anion gap 14 2 - 15 mmol/L [facility] ([place]) BUN 25 6 - 25 mg/dL [facility] ([place]) Creatinine 1.24(H) 0.60 - 1.10 mg/dL [facility] ([place]) Glucose 97 70 - 199 mg/dL [facility] ([place]) Comment: Interpretive Data Fasting [...] 2022. Calcium 9.5 8.5 - 10.3 mg/dL [facility] ([place]) Phosphorus, pl 3.3 2.3 - 4.5 mg/dL [facility] ([place]) Albumin 3.9 3.5 - 5.0 g/dL [facility] ([place]) Blood 09/02/2024 10:4 7 AM CDT 09/02/2024 11:07 AM CDT Murray Cervantes MD LAB BLOOD ORDERABLES Final Re sult [facility] ([place]) 1 [facility] [place] [address] * Volume and period, urine, 24 hour (09/02/2024 9:06 AM CDT) Volume, ur 2,300 mL Period, Urine Collection 1,416 min [facility] ([place]) Urine/Blood 09/02/2024 9:06 AM CDT 09/02/2024 12:06 PM CDT Murray Cervantes MD LAB URINE ORDERABLES Final Re sult Performing Organization Address [facility] Co de Phone Number [facility] ([place]) 1 [facility] [place] [address] * Creatinine clearance, urine, 24 hour (09/02/2024 9:06 AM CDT) Creatinine Clearance 73 60 - 130 mL/min Creatinine, 24 hr, ur 1.3 0.6 - 1.5 g/24H [facility] ([place]) Urine/Blood 09/02/2024 9:06 AM CDT 09/02/2024 12:06 PM CDT us Murray Cervantes MD LAB URINE ORDERABLES Final Re sult Performing Organization Address City/[facility]/ZIP Co de Phone Number [facility] ([place]) 1 [facility] [place] [address] * (ABNORMAL) Lipid panel (07/24/2022 5:20 AM BUILDING ENGINEER) Cholesterol 135 30 - 199 mg/dL [facility] Comment: Interpretive Data Ages < or [...] revised on 2018. Triglycerides 155(H) <=149 mg/dL [facility] Comment: Interpretive Data Ages < or [...] revised on 2018. HDL 36(L) >=40 mg/dL [facility] Comment: Interpretive Data Ages < or [...] 2018. LDL, calculated 68 <=129 mg/dL [facility] Comment: Interpretive Data Ages < or [...] revised on 2018. Non-HDL Cholesterol 99 mg/dL [facility] Comment: Interpretive Data Ages < [...] last revised on 2018. Chol/HDL ratio 4 [facility] Blood 07/24/2022 5:20 AM BUILDING ENGINEER 07/24/2022 6:24 AM BUILDING ENGINEER us Jamie Reyes MD LAB BLOOD ORDERABLES Final Result [facility] Department [place] [address] * Pap and High Risk HPV, reflex to Genotyping (10/06/2021 1:55 PM CDT) Thin prep (Pap test) 10/06/2021 1:55 PM CDT 10/06/2021 3:55 PM CDT Narrative PATHOLOGY [facility] - 10/10/2021 2:16 PM CDT EPIC results best viewed via link to PDF [facility] [place] [address] Note to Patients: This report may contain [...] Gender: F : 1970 (Age: 51) Address: [address] [place] [address] Hospital #: [id number] Service: SUPERVISOR GRADING Location: [facility] Patient Type: [facility] Ref Lab Taken: 10/06/2021 Received: [...] 67. This HPV test was performed at [facility] in [place], [place] utilizing the Gen-Probe Aptima assay. jx/10/10/2021 [...] negative. The HPV test was performed by [facility], [address] [place] [address]. Report Images and scanned documents, if included only viewable in PDF version The performance characteristics of some immunohistochemical stains, in-situ hybridization and fluorescence in-situ hybridization tests and immunophenotyping by flow cytometry cited in this report (if any) were determined by the Surgical Pathology Department at [facility] as part of an ongoing senior quality control inspector program and in compliance with federally mandated [...] determined by the Surgical Pathology Department of [facility]. It has not been cleared or approved by the U. S. Food and Drug Administration. Ama Byrnes MD LAB CYTOLOGY ORDERABLES Final Re sult PATHOLOGY [facility] 3rd Floor [place], [place] [phone] from Last 3 Months or Most Recently Relevant to Health Maintenance Insurance [facility] MEDICARE ADVANTAGE [facility] MEDICARE ADVANTAGE Advance Directives For more information, please contact: [phone] * Full Code (Latest Code Status on [...] 11:20 PM 12/11/2022 8:38 PM Care Teams Production Technologist Relationship Specialty [place] [address] [place] [phone] PCP - General 03/04/21
--- OUTSIDE RECORDS SUMMARY | 2024-10-18 00:15 | XMS_ITS | Encounter Summary ---
Author Organization [facility] Address [address] [facility] [place] [address] Care Team Providers Care Rigging Supervisor Name Role Phone Unavailable Primary Care Provider Unavailabl e Encounter Details Date Type Department Care Team (Late st Contact Info) Description 05/09/2021 Telephone [facility] [address] [place] [address] Baldemar Abdi MD [address] [facility] [place] [id number] Social History Tobacco Use Types Packs/Day Years Used Date Smoking Tobacco: Every Day Cigarettes Smokeless Tobacco: Never Alcohol Use Standard Drinks/Week Comments Not Currently 0 (1 standard drink = 0.6 oz pur e alcohol) Comments No Sex and Gender Information Value Date Recorded Sex Assigned at Not on file Legal Sex Female 6:14 AM LEARNING AND DEVELOPMENT COORDINATOR Gender Identity Not on file Sexual Orientation Not on file documented as of this encounter Plan of Treatment Not on file documented as of this encounter Visit Diagnoses Not on filedocumented in this encounter
--- OUTSIDE RECORDS SUMMARY | 2024-10-18 00:15 | XMS_ITS | Data Portability ---
Author Organization [facility] Storm GOMES Address [address] [place] [address] Care Team Providers Care Workers Compensation Claims Examiner Name Role Phone [facility] Orthopedist JAVI BREWSTER Primary Care Provider Assessment Encounter Date Assessment Date Assessment LastModified by Organization Details LastModified Time 05/03/2024 05/03/2024 ROGER Khalil [email or web address] Not available 05/03/2024 14:59:53 Plan of Treatment Reminders Order Date Submit Date Provider Last Modified By Organization Details Last Modified Time Details Appointments ANY 30 2024 02:30P M JAVI BREWSTER PA-C Not available Not available Not available Lab noninva sive colorec mary cancer DNA + occult blood screeni ng, QL, stool 2024 025 [facility]), [address], [address], [place], [address], 09/11/2024 16:35:29 uric acid, serum or plasma 2024 025 [facility], [address] [address], [address], [place], [address], 08/24/2024 08:29:54 HbA1c (hemogl obin A1c), blood 2024 025 [email or web address] In-Office Order, Internal Use Only DO Not Attach Compendium DO Not Attach Compendium, Do Not Delete/merge, [id number] 07/24/2024 16:45:58 albumin /creati nine, mass ratio, urine 2024 025 [facility], [address], [address], [place], [address], 08/24/2024 11:14:48 CMP, serum or plasma 2024 025 [facility], [address] [place], [place] [address], [address], [place], [address], 08/24/2024 11:14:50 CBC w/ auto diff 2024 025 [facility], [address] [place] [address], [address], [place], [address], 08/24/2024 11:14:53 TSH, ultra-s ensitiv e, serum 2024 025 [facility], [address] [place] [address], [address], [place], [address], 08/24/2024 11:14:52 lipid panel, serum 2024 025 [facility], [address] [place], [place] [address], [address], [place], [address], 08/24/2024 11:14:49 drug screen, urine 2023 024 [facility], [address] [place] [address], [address], [place], [address], 05/05/2024 06:17:07 Referral nutriti onist/d nelsy mccarthy 2024 025 [facility] [employer], [address] [place] [address], [address], 10/05/2024 10:56:50 diabeti c ophthal mology referra l 2024 025 [facility], [address] , [place], [address], 09/15/2024 14:32:03 Procedures None recorde d. Surgeries None recorde d. Imaging MAMMO, screeni ng, bildickson al 2024 025 [facility] ([facility] Sched[facility]), [address], [place], [address], 10/11/2024 15:01:11 Medication Orders Depo-Me drol 40 mg/mL suspens ion for injecti on 2024 025 [email or web address] Not available 08/23/2024 10:48:01 colchic ine 0.6 mg tablet 2024 025 [facility] #14533, [address], [place], [place], [id number], 08/23/2024 10:26:20 allopur inol 100 mg tablet 2024 025 [facility] #43570, [address], [place], [place], [id number], 08/02/2024 16:34:58 hydroco done 5 mg-acet aminoph en 325 mg tablet 2024 025 [facility] #35297, [address], [place], [place], [id number], 08/02/2024 16:43:06 ketocon azole 2 % topical cream 2024 025 [facility] #14987, [address], [place], [place], [id number], 08/02/2024 16:34:58 Ozempic 2 mg/dose (8 mg/3 mL) subcuta neous pen injecto r 2024 025 [facility] #75763, [address] , [place], [place], [id number], 07/24/2024 16:46:17 metform in ER 500 mg tablet, extende d release 24 hr 2024 [facility] #22528, [address] , [place], [place], [id number], 07/24/2024 16:46:28 atorvas tatin 40 mg tablet 2024 [facility] #95517, [address] , [place], [place], [id number], 07/24/2024 16:46:28 hydroco done 5 mg-acet aminoph en 325 mg tablet 2024 [facility] #16917, [address] , [place], [place], [id number], 07/24/2024 16:46:49 ergocal ciferol (vitami n D2) 1,250 mcg (50,000 unit) capsule 2024 [facility] #11037, [address] , [place], [place], [id number], 07/24/2024 16:46:16 lisinop ril 40 mg tablet 2024 [facility] #95613, [address] , [place], [place], [id number], 07/24/2024 16:46:19 fluoxet ine 20 mg capsule 2024 025 [facility] #51049, [address] , [place], [place], [id number], 07/24/2024 16:46:27 gabapen tin 300 mg capsule 2024 025 [facility] #36366, [address], [place], [place], [id number], 07/24/2024 16:46:18 cyclobe nzaprin e 10 mg tablet 2024 025 [facility] #94198, [address], [place], [place], [id number], 07/24/2024 16:46:17 hydroco done 5 mg-acet aminoph en 325 mg tablet 2023 024 [facility] #76713, [address], [place], [place], [id number], 05/03/2024 15:06:28 Patient TargetsNo targets recorded. Patient Instructions Encounter Date Encounter Id Patient Instructions Last Modified By Organization Details Last Modified Time 05/03/2024 [id number] A healthy lifestyle: care instructions [email or web address] Not available 05/03/2024 15:06:11 07/24/2024 [id number] learning about type 2 diabetes [email or web address] Not available 07/24/2024 16:45:58 type 2 diabetes: care instructions [email or web address] Not available 07/24/2024 16:45:58 A healthy lifestyle: care instructions [email or web address] Not available 07/24/2024 16:45:59 08/02/2024 [id number] gout: care instructions Not available 08/02/2024 16:34:49 A healthy lifestyle: care instructions [email or web address] Not available 08/02/2024 17:55:07 seborrheic dermatitis: care instructions [email or web address] Not available 08/02/2024 16:34:50 08/23/2024 [id number] A healthy lifestyle: care instructions [email or web address] Not available 08/23/2024 17:39:11 gout: care instructions Not available 08/23/2024 10:27:13 purine-restricte d diet: care instructions [email or web address] Not available 08/23/2024 10:27:13 09/11/2024 [id number] A healthy lifestyle: care instructions [email or web address] Not available 09/11/2024 16:35:19 mammogram: about this test [email or web address] Not available 09/11/2024 16:35:19 tooth decay: car e instructions [email or web address] Not available 09/11/2024 16:35:19 learning about type 2 diabetes [email or web address] Not available 09/11/2024 16:35:19 type 2 diabetes: care instructions [email or web address] Not available 09/11/2024 16:35:19 Reason for Referral Diabetic Ophthalmology Refer ral for Type 2 diabetes mellitus Referring Physician: Javi Brewster [facility], Encounter Date: 07/24/2024 Yarn Spinner/dietitian Refer ral for Obesity Referring Physician: Javi Brewster [facility], Encounter Date: 09/11/2024 Results Created Date Observation Date Name Description Value Unit Range Abnormal Flag Note LastModifiedBy Organization Detail LastModifiedTime 05/03/20 24 05/04/2024 [id number] 9 10 DRUG- BUND amphetamines , urine NEGATI VE NG/mL cutoff =1000 Amphe tamin e test inclu karli Amphe tamin e and Metha mphet amine . Not Available [facility] ([facility]) [address] [place], [address], 05/05/2024 06:17:07 05/03/20 24 05/04/2024 [id number] 9 10 DRUG- BUND barbiturates NEGATI VE NG/mL cutoff =200 Not Available [facility] ([facility]) [address] [place], [address], 05/05/2024 06:17:07 05/03/20 24 05/04/2024 [id number] 9 10 DRUG- BUND benzodiazepi ananth NEGATI VE NG/mL cutoff =200 Not Available [facility] ([facility]) [address] [place], [address], 05/05/2024 06:17:07 05/03/20 24 05/04/2024 [id number] 9 10 DRUG- BUND cannabinoid NEGATI VE NG/mL cutoff =50 Not Available [facility] ([facility]) [address] [place], [address], 05/05/2024 06:17:07 05/03/20 24 05/04/2024 [id number] 9 10 DRUG- BUND cocaine (metab.) NEGATI VE NG/mL cutoff =300 Not Available [facility] ([facility]) [address] [facility], [place], [address], 05/05/2024 06:17:07 05/03/20 24 05/04/2024 [id number] 9 10 DRUG- BUND methaqualone NEGATI VE NG/mL cutoff =300 Not Available [facility] ([facility]) [address] [facility], [place], [address], 05/05/2024 06:17:07 05/03/20 24 05/04/2024 [id number] 9 10 DRUG- BUND opiates NEGATI VE NG/mL cutoff =2000 Opiat e test inclu karli Codei ne and Morph ine only. Not Available [facility] ([facility]) [address] [place], [address], 05/05/2024 06:17:07 05/03/20 24 05/04/2024 [id number] 9 10 DRUG- BUND phencyclidin e NEGATI VE NG/mL cutoff =25 Not Available [facility] ([facility]) [address] [place], [address], 05/05/2024 06:17:07 05/03/20 24 05/04/2024 [id number] 9 10 DRUG- BUND methadone screen, urine NEGATI VE NG/mL cutoff =300 Not Available [facility] ([facility]) [address] [place], [address], 05/05/2024 06:17:07 05/03/20 24 05/04/2024 [id number] 9 10 DRUG- BUND propoxyphene , urine NEGATI VE NG/mL cutoff =300 Not Available [facility] ([facility]) [address] [facility], [place], [address], 05/05/2024 06:17:07 07/25/19 25 07/24/2024 HbA1c (hemo globi n A1c), blood HbA1c 5.7% Not Available In-Office Order Internal Use Only DO Not Attach Compendium DO Not Attach Compendium, Do Not Delete/merge, [id number] 07/24/2024 16:27:31 08/24/19 25 08/24/2024 URIC ACID uric acid 9.1 mg/dL 3.0-7. 2 above high normal Thera peuti c targe t for gout patie nts: <6.0 Not Available [facility] ([facility]) [address] [facility], [place], [address], 08/24/2024 08:29:53 08/24/19 25 08/24/2024 ALBUM IN/CR EATIN INE RATIO ,URIN E creatinine, urine 168.5 mg/dL notest ab. Not Available [facility] ([facility]) [address] [place], [address], 08/24/2024 11:14:48 08/24/19 25 08/24/2024 ALBUM IN/CR EATIN INE RATIO ,URIN E albumin, urine 173.9 ug/mL notest ab. Not Available [facility] ([facility]) [address] [place], [address], 08/24/2024 11:14:48 08/24/19 25 08/24/2024 ALBUM IN/CR EATIN INE RATIO ,URIN E alb/creat ratio 103 mg/g_ creat 0-29 above high normal Kareen l: 0 - 29 Moder ately incre ased: 30 - 300 Sever rosemary incre ased: >300 Not Available [facility] ([facility]) [address] [place], [address], 08/24/2024 11:14:48 08/24/19 25 08/24/2024 LIPID PANEL cholesterol, total 191 mg/dL 100-19 9 Not Available [facility] ([facility]) [address] [place], [address], 08/24/2024 11:14:49 08/24/19 25 08/24/2024 LIPID PANEL triglyceride s 150 mg/dL 0-149 above high normal Not Available [facility] ([facility]) [address] [place], [address], 08/24/2024 11:14:49 08/24/19 25 08/24/2024 LIPID PANEL HDL cholesterol 50 mg/dL >39 Not Available [facility] ([facility]) [address] [place], [address], 08/24/2024 11:14:49 08/24/19 25 08/24/2024 LIPID PANEL VLDL cholesterol rolanda 26 mg/dL 5-40 Not Available [facility] ([facility]) [address] [place], [address], 08/24/2024 11:14:49 08/24/19 25 08/24/2024 LIPID PANEL LDL chol calc ([facility]) 115 mg/dL 0-99 above high normal Not Available [facility] ([facility]) [address] [place], [address], 08/24/2024 11:14:49 08/24/19 25 08/24/2024 COMP. METAB OLIC PANEL (14) glucose 80 mg/dL 70-99 Not Available [facility] ([facility]) [address] [place], [address], 08/24/2024 11:14:50 08/24/19 25 08/24/2024 COMP. METAB OLIC PANEL (14) BUN 16 mg/dL 6-24 Not Available [facility] ([facility]) [address] [place], [address], 08/24/2024 11:14:50 08/24/19 25 08/24/2024 COMP. METAB OLIC PANEL (14) creatinine 1.04 mg/dL 0.57-1 .00 above high normal Not Available [facility] ([facility]) [address] [facility], [place], [address], 08/24/2024 11:14:50 08/24/19 25 08/24/2024 COMP. METAB OLIC PANEL (14) eGFR 63 mL/mi n/1.7 3 >59 Not Available [facility] ([facility]) [address] [facility], [place], [address], 08/24/2024 11:14:50 08/24/19 25 08/24/2024 COMP. METAB OLIC PANEL (14) BUN/creatini ne ratio 15 9-23 Not Available [facility] ([facility]) [address] [facility], [place], [address], 08/24/2024 11:14:50 08/24/19 25 08/24/2024 COMP. METAB OLIC PANEL (14) sodium 140 mmol/ L 134-14 4 Not Available [facility] ([facility]) [address] [place], [address], 08/24/2024 11:14:50 08/24/19 25 08/24/2024 COMP. METAB OLIC PANEL (14) potassium 4.6 mmol/ L 3.5-5. 2 Not Available [facility] ([facility]) [address] [place], [address], 08/24/2024 11:14:50 08/24/19 25 08/24/2024 COMP. METAB OLIC PANEL (14) chloride 104 mmol/ L 96-106 Not Available [facility] ([facility]) [address] [place], [address], 08/24/2024 11:14:50 08/24/19 25 08/24/2024 COMP. METAB OLIC PANEL (14) carbon dioxide, total 21 mmol/ L 20-29 Not Available [facility] ([facility]) [address] [facility], [place], [address], 08/24/2024 11:14:50 08/24/19 25 08/24/2024 COMP. METAB OLIC PANEL (14) calcium 9.6 mg/dL 8.7-10 .2 Not Available [facility] ([facility]) [address] [facility], [place], [address], 08/24/2024 11:14:50 08/24/19 25 08/24/2024 COMP. METAB OLIC PANEL (14) protein, total 8.4 g/dL 6.0-8. 5 Not Available [facility] ([facility]) [address] [facility], [place], [address], 08/24/2024 11:14:50 08/24/19 25 08/24/2024 COMP. METAB OLIC PANEL (14) albumin 3.9 g/dL 3.8-4. 9 Not Available [facility] ([facility]) [address] [facility], [place], [address], 08/24/2024 11:14:50 08/24/19 25 08/24/2024 COMP. METAB OLIC PANEL (14) globulin, total 4.5 g/dL 1.5-4. 5 Not Available [facility] ([facility]) [address] [facility], [place], [address], 08/24/2024 11:14:50 08/24/19 25 08/24/2024 COMP. METAB OLIC PANEL (14) bilirubin, total <0.2 mg/dL 0.0-1. 2 Not Available [facility] ([facility]) [address] [facility], [place], [address], 08/24/2024 11:14:50 08/24/19 25 08/24/2024 COMP. METAB OLIC PANEL (14) alkaline phosphatase 93 IU/L 44-121 Not Available [facility] ([facility]) [address] [facility], [place], [address], 08/24/2024 11:14:50 08/24/19 25 08/24/2024 COMP. METAB OLIC PANEL (14) AST (SGOT) 18 IU/L 0-40 Not Available [facility] ([facility]) [address] [facility], [place], [address], 08/24/2024 11:14:50 08/24/19 25 08/24/2024 COMP. METAB OLIC PANEL (14) ALT (SGPT) 11 IU/L 0-32 Not Available [facility] ([facility]) [address] [facility], [place], [address], 08/24/2024 11:14:50 08/24/19 25 08/24/2024 TSH RFX ON ABNOR MAL TO FREE T4 TSH 1.560 uIU/m L 0.450- 4.500 Not Available [facility] ([facility]) [address] [facility], [place], [address], 08/24/2024 11:14:52 08/24/19 25 08/24/2024 CBC WITH DIFFE RENTI AL/PL ATELE T WBC 8.6 x10e3 /uL 3.4-10 .8 Not Available [facility] ([facility]) [address] [facility], [place], [address], 08/24/2024 11:14:53 08/24/19 25 08/24/2024 CBC WITH DIFFE RENTI AL/PL ATELE T RBC 4.47 x10e6 /uL 3.77-5 .28 Not Available [facility] ([facility]) [address] [facility], [place], [address], 08/24/2024 11:14:53 08/24/19 25 08/24/2024 CBC WITH DIFFE RENTI AL/PL ATELE T hemoglobin 11.9 g/dL 11.1-1 5.9 Not Available [facility] ([facility]) [address] [facility], [place], [address], 08/24/2024 11:14:53 08/24/19 25 08/24/2024 CBC WITH DIFFE RENTI AL/PL ATELE T hematocrit 37.5 % 34.0-4 6.6 Not Available [facility] ([facility]) [address] [facility], [place], [address], 08/24/2024 11:14:53 08/24/19 25 08/24/2024 CBC WITH DIFFE RENTI AL/PL ATELE T MCV 84 fL 79-97 Not Available [facility] ([facility]) [address] [facility], [place], [address], 08/24/2024 11:14:53 08/24/19 25 08/24/2024 CBC WITH DIFFE RENTI AL/PL ATELE T MCH 26.6 pg 26.6-3 3.0 Not Available [facility] ([facility]) [address] [facility], [place], [address], 08/24/2024 11:14:53 08/24/19 25 08/24/2024 CBC WITH DIFFE RENTI AL/PL ATELE T MCHC 31.7 g/dL 31.5-3 5.7 Not Available [facility] ([facility]) [address] [facility], [place], [address], 08/24/2024 11:14:53 08/24/19 25 08/24/2024 CBC WITH DIFFE RENTI AL/PL ATELE T RDW 14.6 % 11.7-1 5.4 Not Available [facility] ([facility]) [address] [facility], [place], [address], 08/24/2024 11:14:53 08/24/19 25 08/24/2024 CBC WITH DIFFE RENTI AL/PL ATELE T platelets 346 x10e3 /uL 150-45 0 Not Available [facility] ([facility]) [address] [facility], [place], [address], 08/24/2024 11:14:53 08/24/19 25 08/24/2024 CBC WITH DIFFE RENTI AL/PL ATELE T neutrophils 55 % notest ab. Not Available [facility] ([facility]) [address] [facility], [place], [address], 08/24/2024 11:14:53 08/24/19 25 08/24/2024 CBC WITH DIFFE RENTI AL/PL ATELE T lymphs 31 % notest ab. Not Available [facility] ([facility]) [address] [facility], [place], [address], 08/24/2024 11:14:53 08/24/19 25 08/24/2024 CBC WITH DIFFE RENTI AL/PL ATELE T monocytes 7 % notest ab. Not Available [facility] ([facility]) [address] [facility], [place], [address], 08/24/2024 11:14:53 08/24/19 25 08/24/2024 CBC WITH DIFFE RENTI AL/PL ATELE T eos 6 % notest ab. Not Available [facility] ([facility]) [address] [facility], [place], [address], 08/24/2024 11:14:53 08/24/19 25 08/24/2024 CBC WITH DIFFE RENTI AL/PL ATELE T basos 1 % notest ab. Not Available [facility] ([facility]) [address] [facility], [place], [address], 08/24/2024 11:14:53 08/24/19 25 08/24/2024 CBC WITH DIFFE RENTI AL/PL ATELE T neutrophils (absolute) 4.7 x10e3 /uL 1.4-7. 0 Not Available [facility] ([facility]) [address] [facility], [place], [address], 08/24/2024 11:14:53 08/24/19 25 08/24/2024 CBC WITH DIFFE RENTI AL/PL ATELE T lymphs (absolute) 2.6 x10e3 /uL 0.7-3. 1 Not Available [facility] ([facility]) [address] [facility], [place], [address], 08/24/2024 11:14:53 08/24/19 25 08/24/2024 CBC WITH DIFFE RENTI AL/PL ATELE T monocytes(ab solute) 0.6 x10e3 /uL 0.1-0. 9 Not Available [facility] ([facility]) [address] [facility], [place], [address], 08/24/2024 11:14:53 08/24/19 25 08/24/2024 CBC WITH DIFFE RENTI AL/PL ATELE T eos (absolute) 0.5 x10e3 /uL 0.0-0. 4 above high normal Not Available [facility] ([facility]) [address] [facility], [place], [address], 08/24/2024 11:14:53 08/24/19 25 08/24/2024 CBC WITH DIFFE RENTI AL/PL ATELE T baso (absolute) 0.1 x10e3 /uL 0.0-0. 2 Not Available [facility] ([facility]) [address] [facility], [place], [address], 08/24/2024 11:14:53 08/24/19 25 08/24/2024 CBC WITH DIFFE RENTI AL/PL ATELE T immature granulocytes 0 % notest ab. Not Available [facility] ([facility]) [address] [facility], [place], [address], 08/24/2024 11:14:53 08/24/19 25 08/24/2024 CBC WITH DIFFE RENTI AL/PL ATELE T immature grans (abs) 0.0 x10e3 /uL 0.0-0. 1 Not Available [facility] ([facility]) [address], [place], [address], 08/24/2024 11:14:53 04/19/20 24 04/19/2024 XR, knee No observ ation record ed. [email or web address], [place], [address], 04/25/2024 17:44:01 07/31/19 25 07/30/2024 XR, hand No observ ation record ed. [email or web address], [place], [address], 08/02/2024 16:20:09 Result Notes None recorded. Problems Name Problem SNOMED Code Status Onset Date Resolution Date Notes Provider Name and Address Organization Details Recorded Time Liver enzymes level above referenc e range 783485769 Active 2019 Not Available [facility] 4 15:41:48 Type 2 diabetes mellitus 31978167 Active 2019 Not Available [facility] 4 15:41:48 History of pneumoni a 718871888 Active 2019 Not Available [facility] 4 15:41:47 Smoker 96560579 Active 2019 Not Available [facility] 4 15:41:48 Nodule of lung 119294522 Active 2019 4.5 mm RUL noncalci fied pulmonar y nodule seen at the hospital Not Available [facility] 4 15:41:48 Steatoti c liver disease 883356497 Active [address] in the hospital . Negative hepatiti s panel. 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 46788097 Active 2019 Not Available [facility] 4 15:41:48 Umbilica l hernia 675777091 Active 2019 Not Available [facility] 4 15:41:48 Osteoart hritis of knee 306852686 Active 2020 Not Available [facility] 4 15:41:48 Uterine prolapse 03251224 Active 2021 Not Available [facility] 4 15:41:48 Degenera tion of lumbar interver tebral disc 28549719 Active 2021 Not Available [facility] 4 15:41:48 Bilatera l arthriti s of sacroili ac joint 93221710659 371805 Active 2021 Not Available [facility] 4 15:41:47 Chronic kidney disease stage 3 947617637 Active 2021 Not Available [facility] 4 15:41:48 Anemia of chronic disease 025326469 Active 2021 Not Available [facility] 4 15:41:47 Morbid obesity 729580916 Active 2022 Not Available [facility] 4 15:41:47 Rosacea 308559381 Active 2022 JAVI BREWSTER PA-C Attn: Accounting ,[address] [place], [place], [address] [place] [address] , [facility] 4 10:50:28 Ventral incision al hernia 496462114 Active 2022 [facility] Available [facility] 4 15:41:48 History of total hysterec ana paula 068611664 Active 2022 Not Available [facility] 4 15:41:48 Urinary complica tion 63961606 Active 2023 JAVI BREWSTER PA-C Attn: Accounting ,[address] [place], [place], [address] [place] [address] , [facility] 4 15:50:30 Urinary incontin ence 918478783 Active 2023 JAVI BREWSTER PA-C Attn: Accounting ,[address] [place], [place], [address] [place] [address] , [facility] 4 15:50:39 History of total knee arthropl asty 95743176158 05 Active 2024 JAVI BREWSTER PA-C Attn: Accounting ,[address] [place], [address] , [place] [facility] 5 16:32:20 [facility] hyper[facility]icky 68668935 Active 2024 JAVI BREWSTER PA-C Attn: Accounting ,[address] [facility], [place], [address] , [facility] 5 16:34:20 Disorder of nipple 681918653 Active 2014 both breasts Not Available [facility] 4 15:41:47 Galactor tawnya [facility] Active Not Available [facility] 4 15:41:48 Urinary tract infectio us disease 67593723 Completed 12/06/2019 BRITANY VALENTINO Attn: Accounting ,[address] [facility], [place], [address] , [facility] 0 15:19:10 Notes:Some problems listed i n Documents: #[id number], #[id number] could not be added to this patient's chart. Please review these documents and add these problems to the patient's chart manually as needed. Problem Notes None recorded. Procedures Surgical History Date Name Laterality Status Provider Name and Address Organization Details Recorded Time 04/19/20 24 Knee Surgery completed Yelena Sinclair [place] 05/03/2024 14:37:55 09/27/19 24 Hernia Repair completed Zaida Gomez MA [place] - [facility] 10/12/2023 14:37:03 07/24/19 23 total hysterectomy via vaginal approach completed BRITANY VALENTINO Attn: Accounting,[address] [facility], [place], [address], [place] - [facility] 07/24/2022 14:05:30 05/12/20 21 Hernia repair w/mesh completed BRITANY VALENTINO Attn: Accounting,[address] [facility], [place], [address], [facility] - [facility] 05/29/2021 19:06:01 01/10/20 21 hernia repair completed BRITANY VALENTINO Attn: Accounting,[address] [facility], [place], [address], [facility] 01/16/2021 13:14:09 02/07/20 15 Date of Last Pap Smear completed Yelena Sinclair MA [place] - [facility] 02/06/2015 13:07:19 05/13/19 94 Caesarean Section completed Yelena Sinclair MA [facility] 02/06/2015 10:46:24 Imaging Results None recorded. Procedure Notes None recorded. Medical Equipment None [...] blood by Pulse oximetry Heart rate Systolic And Diastolic Provider Name and Address Organization Details Last Updated DateTime 5 170.18 cm 37.9 kg/m2 916036. 35 g 96 % 96 % 98 /min 134/82 mm[Hg] Zaida Gomez MA [place] - [facility] 5 16:21:03 Date Recorded Body height Body mass index (BMI) Body weight Body temperature Oxygen saturation Oxygen saturation in Arterial blood by Pulse oximetry Heart rate Systolic And Diastolic Provider Name and Address Organization Details Last Updated DateTime 5 170.18 cm 37.6 kg/m2 812276. 25 g 97.9 [degF] 98 % 98 % 118 /min 122/86 mm[Hg] Zaida Gomez MA [facility] 5 16:13:03 Date Recorded Body height Body mass index (BMI) Body weight Body temperature Oxygen saturation Oxygen saturation in Arterial blood by Pulse oximetry Heart rate Systolic And Diastolic Provider Name and Address Organization Details Last Updated DateTime 5 170.18 cm 37.8 kg/m2 147703. 48 g 98 [degF] 97 % 97 % 95 /min 126/86 mm[Hg] Zaida Gomez MA [facility] 5 10:04:48 Date Recorded Body mass index (BMI) Body weight Oxygen saturation Oxygen saturation in Arterial blood by Pulse oximetry Heart rate Systolic And Diastolic Provider Name and Address Organization Details Last Updated DateTime 5 38.4 kg/m2 904069. 13 g 95 % 95 % 84 /min 126/86 mm[Hg] Zaida Gomez MA [facility] 5 15:42:06 Date Recorded Body height Provider Name an d Address Organization Details Last Updated DateTime 09/11/2024 170.18 cm Stefani Heredia MA [facility] 09/11/2024 15:34:12 Date Recorded Body height Body mass index (BMI) Body weight Oxygen saturation Oxygen saturation in Arterial blood by Pulse oximetry Heart rate Systolic And Diastolic Provider Name and Address Organization Details Last Updated DateTime 4 170.18 cm 37.5 kg/m2 272749. 33 g 99 % 99 % 101 /min 100/72 mm[Hg] Yelena Sinclair MA [facility] 4 14:39:40 Social History Question Answer Notes LastModified by Organizat ion Details LastModified Time Tobacco Smoking Status Former Smoker Stefani Heredia MA null, [facility] 11/27/2022 10:23:51 Do You Have An [...] not available 02/06/2015 What is your occupation? [employer] Information not available 04/25/2021 Do you or [...] N Blood Diseases N Hyperthyroidism N Blood Transfusion N Blood disorders N MRSA N Emphysema N COPD N Blood Clots N Depression N Pneumonia N Premature N Peripheral Arterial Disease N Edema N TIA N Headaches/Migraines N Anxiety Disorder N Obesity N Infertility N Polyps N Acid Reflux (GERD) N Hematuria N [...] N Thyroid Disease N Colon Cancer N Glaucoma N Lung Disease N Developmental or Behavioral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 Osteoarthr itis of knee 079210602 M17.9 Severe OA of both knees causing severe pain, patient has to walk with walkerWork ing with disability currently. Following with ortho, knee surgery is possible but patient needs weight loss before procedure. - Rx Ozempic to facilitate weight loss, per orthopedic s recs- c/w pain medication PRN for now, pt states it is helping Morbid obesity 588255731 E66.01 - encouraged her to stay positive, keep moving, eat healthy, c/w ozempic for now- plan to work more on weight loss after her upcoming surgery- b12 injection given today to help with energy and metabolism Long-term current use of opiate analgesic drug 0562736775 30048 Z79.891 Due for UDS- ordered today [id number] MD Gokul Webb (Adult Med) [address] [place] [address] 06/03/2023 10:58:36 06/04/2023 15:53:56 Type 2 diabetes mellitus 59645045 E11.9 A1C: 5.8 today, 5.9 (03/02/23) Current [...] coming off Metformin if needed Morbid obesity 116050131 E66.01 Has lost 4 pounds since last visit in FebruaryMI 41.8 Depression screening 171 433851 Z13.31 PHQ9- Positive (17 out of 27) Mental hea lt screening 360903666 Z13.39 GAD7- Positive (13 out of 21) Osteoarthr itis of knee 718620873 M17.9 Severe OA of both knees causing [...] with joint health and weight loss Neuropathy 584520383 G62 .9 Essential hypertension 98726513 I10 BP 122/84BP Goal: Less than 140/90BP Controlled : yesHealthy Weight: 5'7= 121-158 lbsDiscuss ed: Low sodium balanced diet, moderate exercise at least 3-4 times per week for an average of 40 minutes, limiting alcohol to 1 drink per day (F) or 2 drinks per day (M), and smoking cessation if currently smoking. Next Visit: 6month(s) Uncontroll ed Hypertensi on potential risks, heart attack, , stroke, kidney failure etc. Hypertensi on is the silent Killer Take your Hypertensi on medication daily keep appointmen ts stop concentrat ed sugars--fo llow 1500 meal plan exercise 50-60 minutes daily on most days see eye doctor once a year see dentist every 6 months Depressive disorder 1246 9040 F32.A Be physically active. Getting 30 minutes [...] the numbers for these national suicide hotlines: 2-759-273- TALK (0-628-179 -7614) and 6-908-SUIC CARLOS (5-433-930 -5551). If you or someone you know talks about suicide or feeling hopeless, get help right away. -D/C escitalopr am-start fluoxetine 20mg-rtc 6 weeks Vitamin D deficiency 347 07493 E55.9 Ventral in cisional hernia 754906907 K43.2 CT showed 10 cm ventral incisional [...] ozempic to help with weight loss goal [id number] MD Gokul Webb (Adult Med) [address] [place] [address] 07/15/2023 14:25:27 07/20/2023 12:23:32 Depression screening 625479266 Z13.31 PHQ9- Positive (14 out of 27) [facility] screening 189629247 Z13.39 GAD7- Positive (16 out of 21) Body mass index 30+ - obesity 378329853 Z68.39 BMI 39.4 was 41.8 on 06/03/23-16 lbs since last visit on 06/14/23 Depressive disorder 3548 9007 F32.A Be physically [...] the numbers for these national suicide hotlines: -245-727- TALK (3-967-601 -2387) and 0-836-SUIC CARLOS (8-350-533 -0622). If you or someone you know talks about suicide or feeling hopeless, get help right away. - fluoxetine 20mg-rtc 3 months Osteoarthr itis of knee 896895000 M17.9 Severe OA of both knees causing [...] help with joint health and weight loss [id number] Callie Carty MD [facility] (Adult Med) [address] [place] [address] 10/12/2023 14:26:09 10/15/2023 14:30:15 Type 2 diabetes mellitus 59054423 E11.9 A1C: 5.8 (06/03/23), 5.9 (03/02/23) Current taking Ozempic 1 mg once weekly and metformin 500 mg once dailyStati n: atorvastat in 40 mgACE: lisinopril 40 mgFoot exam: NL 03/03/2023 Eye exam: 11/24/2021 No longer drinking soda and has stopped eating fast food- keep up great work- C/w ozempic 2 mg once weeklyRTC 6 months Essential hypertension 58642060 I10 BP today: 128/82BP Goal: Less than 140/90BP Controlled : yesHealthy Weight: 5'7= 121-158 lbsDiscuss ed: Low sodium balanced diet, moderate exercise at least 3-4 times per week for an average of 40 minutes, limiting alcohol to 1 drink per day (F) or 2 drinks per day (M), and smoking cessation if currently smoking. Next Visit: 6month(s) Uncontroll ed Hypertensi on potential risks, heart attack, , stroke, kidney failure etc. Hypertensi on is the silent Killer Take your Hypertensi on medication daily keep appointmen ts stop concentrat ed sugars--fo llow 1500 meal plan exercise 50-60 minutes daily on most days see eye doctor once a year see dentist every 6 months Osteoarthr itis of knee 496215303 M17.9 Severe OA of both knees causing [...] medication today, last refill 09/15/23 Morbid obesity 136267076 E66.01 Has lost 44 pounds since last visit in JuneMI 37.2 Neuropathy 344011789 G62 .9 Ventral in cisional hernia 187242812 K43.2 CT showed 10 cm ventral incisional hernia-Her maylin was repaired Depressive disorder 0675 7440 F32.A Be physically active. Getting 30 minutes [...] the numbers for these national suicide hotlines: 6-965-383- TALK (2-734-546 -4427) and 2-096-RVMO CARLOS (2-922-873 -3232). If you or someone you know talks about suicide or feeling hopeless, get help right away. -C/W fluoxetine 20mg Vitamin D deficiency 347 97868 E55.9 Depression screening 171 963791 Z13.31 PHQ9- Moderate (11 out of 27) Mental hea lth screening 161196059 Z13.39 GAD7- Negative (0 out of 21) Wound of skin 317187774 T14.8XXA Culture of wound taken and sent to labWound cleaned using normal saline and bandaged- instructed patient to clean with warm water and soapPt to call surgeons office to get seen sooner than Wednesday10/15/23Sta rt mupirocin 2% TIDStart cephalexin 500mg every 6 hours x 7 days [id number] MD Gokul Webb (Adult Med) [address] [place] [address] 12/06/2023 14:25:53 12/11/2023 15:13:25 Depression screening 300218353 Z13.31 PHQ9- Moderate (15 out of 27) Mental hea lth screening 199221870 Z13.39 GAD7- Mild (8 out of 21) Obesity 965948654 E66.8 BMI 35.3 History of hernia repair 8252896312 9109 Z98.890 Ventral hernia repair on 09/27/23Woun d dehiscence - admitted to [facility] 11/15/23- Dehiscence of surgical wound 47063389 T81.30XA Ventral hernia repair wound dehiscence , 2cmPatient to keep clean and packedAdvi sed patient to return to ER if signs of infectionC /W antibiotic s given at hospitalKe ep appointmen t on Wednesday12/10/23 with surgeon [id number] MD Gokul Webb (Adult Med) [address] [place] [address] 01/13/2024 10:04:11 01/14/2024 12:14:18 Osteoarthritis of knee 549435379 M17.9 Severe OA of both knees causing [...] for knee replacemen t Scar of skin 20537949 L9 0.5 Apply mederma topical gel daily x 8 weeks. Obesity 149709679 E66.8 BMI 35.1 Depression screening 171 065564 Z13.31 PHQ9- Severe (20 out of 27) Mental hea lth screening 610882077 Z13.39 GAD7- Severe (16 out of 21) [id number] MD Gokul Webb (Adult Med) [address] [place] [address] 05/03/2024 14:23:02 05/04/2024 14:50:27 Obesity 504191650 E66.9 BMI 37.5 History of total knee arthroplasty 9832565448 105 Z96.659 L knee- c/w PT and with appts with orthoNo signs of infectionP t taking 2 hydrocodon e 7.5 mg every 2 hours for pain currentlyW ill increase hydrocodon e 5mg to BID instead of ONCE a day for 30 days.Labs ordered today Depression screening 171 322647 Z13.31 PHQ9- Moderate (13 out of 27) Mental hea lth screening 547296532 Z13.39 GAD7- Moderate (11 out of 21) [id number] [facility] [address] [place] [address] 07/24/2024 15:45:50 07/25/2024 13:45:34 Type 2 diabetes mellitus 65199808 E11.9 A1C: 5.7 (07/24/24), 5.8 (06/03/23), 5.9 (03/02/23) Current taking Ozempic 2mg once weekly and metformin 500 mg once dailyStati n: atorvastat in 40 mgACE: lisinopril 40 mgFoot exam: NL 03/03/2023 Eye exam: 11/24/2021 No longer drinking soda and has stopped eating fast food- keep up great work- C/w ozempic 2 mg once weeklyRTC 6 months Essential hypertension 90335143 I10 BP today: 134/82BP Goal: Less than 140/90BP Controlled : yesHealthy Weight: 5'7= 121-158 lbsDiscuss ed: Low sodium balanced diet, moderate exercise at least 3-4 times per week for an average of 40 minutes, limiting alcohol to 1 drink per day (F) or 2 drinks per day (M), and smoking cessation if currently smoking. Next Visit: 6month(s) Uncontroll ed Hypertensi on potential risks, heart attack, , stroke, kidney failure etc. Hypertensi on is the silent Killer Take your Hypertensi on medication daily keep appointmen ts stop concentrat ed sugars--fo llow 1500 meal plan exercise 50-60 minutes daily on most days see eye doctor once a year see dentist every 6 months Neuropathy 314935813 G62 .9 Depressive disorder 3548 9007 F32.A [...] the numbers for these national suicide hotlines: 5-611-296- TALK (2-250-428 -3850) and 5-869-SUIC CARLOS (4-881-518 -5536). If you or someone you know talks about suicide or feeling hopeless, get help right away. -C/W fluoxetine 20mg Vitamin D deficiency 347 56358 E55.9 Depression screening 171 483661 Z13.31 PHQ9- Mild (6 out of 27) Mental hea lt screening 924862494 Z13.39 GAD7- Negative (3 out of 21) History of total knee arthroplasty 8706996166 105 Z96.659 L knee- c/w PT and with appts with orthoNo signs of infectionc /w hydrocodon e 5mg to BID instead of ONCE a day for 30 days. Obesity 364899330 E66.9 BMI 37.9 [id number] Callie Carty MD [facility] (Adult [facility]) [address] [place] [address] 08/02/2024 15:56:22 08/03/2024 12:59:44 Gout 42279174 M10.9 Labs todaystart allopurino l 100mg Seborrheic dermatitis 50 327475 L21.9 Start ketoconazo le once daily History of total knee arthroplasty 3316078397 105 Z96.659 L knee- c/w PT and with appts with orthoc/w hydrocodon e 5mg to BID instead of ONCE a day for 30 days. Depression screening 171 810828 Z13.31 PHQ9- Moderate (11 out of 27) Mental hea lt screening 628232603 Z13.39 GAD7- Mild (8 out of 21) Obesity 371694901 E66.9 BMI 37.6 [id number] Callie Carty MD [facility] (Adult Med) [address] [place] [address] 08/23/2024 09:51:57 08/24/2024 14:35:01 Acute gout 535473879 M10.042 Pt to get labs done from last OV todayDepo medrol 40mg x 2 mls todayIncre ase colchicine to 1.2 mg PO x1, then 0.6 mg PO 1h later x1C/w allopurino lDiscussed with patient low ourine diet Obesity 555940946 E66.9 BMI 37.8 [id number] Callie Carty MD [facility] (Adult Med) [address] [place] [address] 09/11/2024 15:30:02 09/18/2024 12:04:25 Screening mammography 40030135 Z12.31 Screening for malignant neoplasm of colon 471323813 Z12.11 Type 2 margo betes mellitus 16710985 E11.9 A1C: 5.7 (07/24/24), 5.8 (06/03/23), 5.9 (03/02/23) Current taking Ozempic 2mg once weekly and metformin 500 mg once dailyStati n: atorvastat in 40 mgACE: lisinopril 40 mgFoot exam: NL 03/03/2023 Eye exam: 11/24/2021 No longer drinking soda and has stopped eating fast food- C/w ozempic 2 mg once weekly-c/w metformin and lisinopril RTC 6 months Essential hypertension 58298550 I10 BP today: 134/82BP Goal: Less than 140/90BP Controlled : yesHealthy Weight: 5'7= 121-158 lbsDiscuss ed: Low sodium balanced diet, moderate exercise at least 3-4 times per week for an average of 40 minutes, limiting alcohol to 1 drink per day (F) or 2 drinks per day (M), and smoking cessation if currently smoking. Next Visit: 6month(s) Uncontroll ed Hypertensi on potential risks, heart attack, , stroke, kidney failure etc. Hypertensi on is the silent Killer Take your Hypertensi on medication daily keep appointmen ts stop concentrat ed sugars--fo llow 1500 meal plan exercise 50-60 minutes daily on most days see eye doctor once a year see dentist every 6 months History of total knee arthroplasty 5240437962 105 Z96.659 L knee- c/w PT and with appts with orthoNo signs of infectionc /w hydrocodon e 5mg to BID instead of ONCE a day for 30 days.Will see soon if she can get right knee arthroplas ty Neuropathy 192703394 G62 .9 c/w cyclobenza bushra tabletc/w gabapentin tablet Depressive disorder 8464 9007 F32.A Be physically active. Getting 30 [...] the numbers for these national suicide hotlines: 0-893-273- TALK (0-130-670 -9883) and 9-180-SUIC CARLOS (3-695-791 -7162). If you or someone you know talks about suicide or feeling hopeless, get help right away. -C/W fluoxetine 20mgDenies SI/HI Vitamin D deficiency 347 95608 E55.9 c/w vitamin D Depression screening 171 822626 Z13.31 PHQ9- Mild (6 out of 27)Taking fluoxetine . Denies SI/HI [facility] screening 331082352 Z13.39 GAD7- Negative (2 out of 21) Obesity 573242482 E66.9 BMI 38.4 Dental caries 26095636 K 02.9 [facility] does not want [...] MEDICARE OR MEDICARE REPLACEMENT PRIMARY) Aliza Handy [id number] Aliza Handy 05/03/2024 1 [facility] (MEDICARE REPLACEMENT/AD VANTAGE - PPO) [id number] Aliza M Handy [id number] Aliza Handy 07/24/2024 1 [facility] (MEDICARE REPLACEMENT/AD VANTAGE - PPO) [id number] Aliza M Handy [id number] Aliza Handy 08/02/2024 1 [facility] (MEDICARE REPLACEMENT/AD VANTAGE - PPO) [id number] Aliza M Handy [id number] Aliza Handy 08/23/2024 1 [facility] (MEDICARE REPLACEMENT/AD VANTAGE - PPO) [id number] Aliza M Handy [id number] Aliza Handy 09/11/2024 1 [facility] (MEDICARE REPLACEMENT/AD VANTAGE - PPO) [id number] Aliza M Handy [id number] Aliza Handy Notes Date Note Type Note [...] MAGALLANES JAVI BREWSTER PA-C Attn: Accounting,[address] [facility], [place], [address], [facility] 05/03/2024 17:20:04 07/24/2024 text/html 54 y/o F here for f/u chronic conditions. Pt states she is doing well on all current medications. Pt has surgery scheduled for this month for R knee replacement. Pt denies SOB, CP, MAGALLANES, N/V/D at this time. JAVI BREWSTER PA-C Attn: Accounting, [address] [place], [address], [facility] 07/24/2024 16:47:03 08/02/2024 text/html 54 y/o F [...] eyebrows and nose. JAVI BREWSTER PA-C Attn: Accounting, [address] [place], [address], [facility] 08/02/2024 17:55:32 08/23/2024 text/html 54-year-old fema le here complaining of pain to left hand due to gout. Pain described as 100/10. States that hydrocodone has not done anything and has gone one week pain, tingling sensation. She was given medication for gout that has not helped at all. JAVI BREWSTER PA-C Attn: Accounting, [address] [place], [address], [facility] 08/23/2024 17:39:26 09/11/2024 text/html This is a [...] SOB, CP, palpitations. JAVI BREWSTER PA-C Attn: Accounting, [address], [place], [address], [place] [facility] 09/11/2024 17:23:49 OBGyn Episode No OBEpisode recorded.
--- OUTSIDE RECORDS SUMMARY | 2024-10-18 00:15 | XMS_ITS | Data Portability ---
Author Organization [place], Main Office Address [address] [place] [address] Assessment Encounter Date Assessment Date Assessment LastModified [...] - PLEASE CALL PATIENT TO SCHEDULE [facility], [address] , [address], [place], [address], 11:04:01 Procedures None recorded. Surgeries None recorded. Imaging XR, knee, 3 view 2023 024 [facility] [place], [address], [place], [address], 17:04:27 Medication Orders None recorded. Patient TargetsNo [...] resul t No observ ation record ed. [id number] [facility] Add On Lab Orders [address] [place], [address], 07/22/2022 12:49:53 12/30/19 22 12/19/2021 CT, abdom en + pelvi s, w/o contr ast No observ ation record ed. [id number] Not Available 07/22/2022 12:49:53 01/26/20 24 XR, knee, 3 view No observ ation record ed. [email or web address] [facility] [place] [address], [place], [address], 01/26/2024 14:23:39 Result Notes None recorded. Problems Name Problem SNOMED Code Status Onset Date Resolution Date Notes Provider Name and Address Organization Details Recorded Time Osteoarthr itis 847209018 Active Not Available [facility] 3 12:46:01 Ventral incisional hernia 001579162 Active 2022 Brooks bernabe MD [address] [facility], [facility] [address], [place], [address] , [facility] [employer] [facility] 3 14:55:29 Pain of bilateral knee joints 4848325545902 04 Active 2023 COBY White null, [place] [facility] [employer] [facility] 4 14:23:26 Bilateral osteoarthr itis of knees 9850309373599 07 Active 2023 Laxmi Abad null, [place] [facility] [employer] [facility] 4 14:57:48 Problem Notes None recorded. Medical Equipment None Reported. [...] 6 HOURS NEEDED FOR NAUSEA OR VOMITING 08/22 /2022 completed Not Available Not Available Not Available [...] administ ered by the provider 01/12 completed [facility]: [id number] 4-20 Not Available Not Available [...] administ ered by the provider 01/12 completed [facility]: [id number] 6-17 Not Available Not Available [...] in Arterial blood by Pulse oximetry Systolic And Diastolic Provider Name and Address Organization Details Last Updated DateTime 3 170.18 cm 43.1 kg/m2 194543. 9 g 100 /min 97 [degF] 18 /min 96 % 96 % 140/90 mm[Hg] Ayesha Esquivel [facility] 3 12:29:59 Date Recorded Body mass index (BMI) Body height Oxygen saturation Oxygen saturation in Arterial blood by Pulse oximetry Heart rate Respiratory rate Body temperature Body weight Systolic And Diastolic Provider Name and Address Organization Details Last Updated DateTime 2 45.4 kg/m2 170.18 cm 97 % 97 % 100 /min 18 /min 97.1 [degF] 260657. 79 g 130/82 mm[Hg] Not Available [facility] 3 12:45:29 Date Recorded Body height Body mass index (BMI) Body weight Provider Name and Address Organization Details Last Updated DateTime 01/26/2024 170.18 cm 35.2 kg/m2 679179.28 g COBY White [facility] 01/26/2024 14:18:13 Date Recorded Body mass index (BMI) Body height Body weight Provider Name and Address Organization Details Last Updated DateTime 03/11/2021 45.4 kg/m2 170.18 cm 251864.79 g Not Available [facility] 07/22/2022 12:45:30 Date Recorded Body mass index (BMI) Body height Oxygen saturation Oxygen saturation in Arterial blood by Pulse oximetry Heart rate Respiratory rate Body temperature Body weight Systolic And Diastolic Provider Name and Address Organization Details Last Updated DateTime 45.4 kg/m2 170.18 cm 97 % 97 % 100 /min 20 /min 97 [degF] 644148. 79 g 140/80 mm[Hg] Not Available [facility] 12:45:29 Social History Question Answer Notes LastModified by Organizat ion Details LastModified Time Tobacco Smoking Status Current Every Day Smoker Not Available [facility] 07/22/2022 12:45:11 What Was The Date Of Your Most Recent Tobacco Screening? 01/26/2024 Information not available 01/26/2024 How Much Tobacco Do You Smoke? 0.25 PPD [id number] Information not available 07/22/2022 How Many Years Have You Smoked Tobacco? 6 [id number] Information not available 07/22/2022 Have You Recently Traveled Abroad? No [id number] Information not available 07/22/2022 Sex: Unknown Functional Status None recorded. Mental Status None recorded. Family History Relationship Description Onset Age of this Age Resolved Age Notes LastModified by Organization Details LastModified Time Unspecified Relation Diabetes mellitus [id number] Not available 07/22/2022 12:45:19 Unspecified Relation Hypertensive disorder [id number] Not available 07/22/2022 12:45:19 Medical History Condition Response DIABETES, TYPE Y HIGH CHOLESTEROL / HYPERLIPIDEMIA Y OBESITY Y URINARY/BLADDER/KIDNEY PROBLEMS Y Gynecological HistoryNo gynecological history recorded. Obstetrics History GPAL:G 0 P 0 0 0 0 Past Encounters Encounter ID Performer Location Encounter Start Date Encounter Closed Date Diagnosis/Indication Diagnosis SNOMED-CT Code Diagnosis ICD10 Code Diagnosis Note [id number] BRITANY Neil [facility] [address] [place] [address] 09/24/2020 00:00:00 09/24/2020 10:16:06 [id number] Alec Medrano MD [facility] [address] [place] [phone] 03/11/2021 00:00:00 03/11/2021 10:17:38 [id number] Brooks bernabe MD [facility] General Surgery [address] [address] 05/01/2021 00:00:00 05/01/2021 13:07:17 [id number] Brooks bernabe MD [facility] General Surgery [address] [address] 01/06/2022 00:00:00 01/06/2022 11:14:03 [id number] Brooks bernabe MD [facility] General Surgery [address] [address] 11/10/2022 12:02:34 11/12/2022 13:27:28 Ventral incisional hernia 259962307 K43.2 [id number] Dennis Bautista MD [facility] [place] [address] [place] [address] 01/26/2024 13:50:25 01/26/2024 15:08:45 Pain of bilateral knee joints 3623557173 83860 M25.569 Bilateral osteoarthritis of knees 3498703784 20017 M17.0 Health Concerns Section Related Observation LastModified by Organization Detai ls LastModified Time None Recorded Concern Status LastModified by Organization Details LastModified Time None Recorded Advance Directives Directive None Recorded Payers Encounter Date Sequence Insurance Name Policy Number Policy Gilmore Covered Member ID Gilmore Member ID Guarantor Name 11/10/2022 1 [facility] (MEDICAID HMO) [id number] Aliza Handy [id number] Aliza Handy 01/26/2024 1 [facility] (MEDICARE REPLACEMENT/A DVANTAGE - PPO) [id number] Aliza Handy [id number] Aliza Handy 01/26/2024 2 [place] Aliza Handy [id number] Aliza Handy Notes Date Note Type Note Provider Name and Address Organization Details Recorded Time 11/10/2022 text/html Patient presents to clinic to discuss ventral hernia. Hx of gastric ulcer perforation. Noticed a bulge at the anterior abdomen about 1-2 months ago. Intermittent constipation . No blood in stool. No nausea/vomiting/di arrhea. Brooks Blackburn MD [address] [place] [address], [place], [address], [place] [employer] [facility] 11/10/2022 14:55:39 OBGyn Episode No OBEpisode recorded.
--- OUTSIDE RECORDS SUMMARY | 2024-10-18 00:15 | XMS_ITS | Clinical Summary ---
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
--- OUTSIDE RECORDS SUMMARY | 2024-10-18 00:15 | XMS_ITS | Clinical Summary ---
Author Organization [facility] Facility Address [address] [place] [address] Care Team Providers Care Gleason Gear Generator Name Role Phone Leonor Graves PA-C Primary Care Provider [phone] Allergies No known active allergies Medications acetaminophen (TYLENOL) 500 MG tablet Take 1,000 mg by mouth every 8 (eight) hours Active metFORMIN (GLUCOPHAGE) 500 MG tablet Take 500 mg by mouth 2 (two) times a day Active famotidine (PEPCID) 20 MG tablet Take 20 mg by mouth every 12 (twelve) hours Active Alcohol Swabs pads Active ergocalciferol 1.25 MG (77156 UT) capsule Take 50,000 Units by mouth [...] Department Care Team Description 10/06/2024 Documentation Only [facility] [address] [place] [address] Murray Cervantes MD 09/18/2024 10:00 AM CDT Office Visit [facility] [address] [place] [address] Murray Cervantes MD Stage 3a chronic kidney disease (HCC) (Primary Dx); Hypertension; Type 2 diabetes mellitus with diabetic nephropathy (HCC); Hypertensive chronic kidney disease, unspecified, with chronic kidney disease stage I through stage IV, or unspecified; Type 2 diabetes mellitus with diabetic chronic kidney disease (HCC) 09/18/2024 Documentation Only [facility] [address] [place] [address] Murray Cervantes MD 09/13/2024 Documentation Only [facility] [address] [place] [address] Murray Cervantes MD 09/13/2024 Documentation Only [facility] [address] [place] [address] Murray Cervantes MD 09/07/2024 Documentation Only [facility] [address] [place] [address] Murray Cervantes MD 09/04/2024 Orders Only [facility] 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 [facility] [address] [place] [address] Murray Cervantes MD [address] [facility] [address] [place] [address] Health Maintenance Due Date Last Done Comments [...] specimen (specimen) Venous blood / Unknown 08/28/[address] [facility] Provider LAB BLOOD ORDERABLES Juani l Result from Last 3 Months or Most Recently Relevant to Health Maintenance Insurance [place] Medicaid Care Teams Gleason Gear Generator Relationship Specialty Start Date End Date Leonor Graves PA-C PCP - General Physician Temperature Control Inspector 04/15/21
--- OUTSIDE RECORDS SUMMARY | 2024-10-18 00:16 | XMS_ITS | Encounter Summary ---
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 Name Role Phone Unavailable Primary Care Provider Unavailabl e Encounter Details Date Type Department Care Team (Late st Contact Info) Description 05/08/2021 Telephone [facility] [address] [place] [address] Baldemar Abdi MD [address] [facility] [address] [facility] [place] [place] [address] Social History Tobacco Use Types Packs/Day Years Used Date Smoking Tobacco: Every Day Cigarettes Smokeless Tobacco: Never Alcohol Use Standard Drinks/Week Comments Not Currently 0 (1 standard drink = 0.6 oz pur e alcohol) Comments No Sex and Gender Information Value Date Recorded Sex Assigned at Not on file 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
[2024-10-18] MEDS: ACETAMINOPHEN 500 MG TABLET 1000 MG PO (08:10)
[2024-10-18] MEDS: LACTATED RINGERS 1,000 ML 30 ML IV CONT ×2 (08:15→12:00)
[2024-10-18] MEDS: TRANEXAMIC ACID 1,000MG/ISO100 1,000 MG/100 ML BAG 200 MG IVPB (08:15)
[2024-10-18] MEDS: VANCOMYCIN 1,750 MG/NS 500 ML 1,750 MG/500 ML BAG 250 MG IVPB (08:20)
[2024-10-18 08:22] LABS: Glucose Point of Care 92 mg/dl (65-105)
--- NOTE | 2024-10-18 09:08 | WPDHPUPDATE1 ---
History and Physical Update Update Date/Time: 10/18/24 09:08 History and Physical has been reviewed, including an updated exam of the patient. There are NO changes in the patient's condition. Risks, benefits, and alternatives have been discussed and questions answered. Patient agrees to proceed with procedure.
--- NOTE | 2024-10-18 09:10 | P.PNAN_ITS ---
Anes - Initial Pre Proc Eval Procedure: Operation Date: 10/18/24 10:00 Proposed Procedures p Right Total Knee Arthroplasty - Alec Medrano MD Date/Time: 10/18/24 09:10 Surgeon: Alec Medrano MD Pre Op Diagnosis: O A Right Knee Patient Data Age: 54 Gender: F Height: 1.7 m Weight: 112.3 kg Last Vital Signs Temp 97.0 F L 10/18/24 08:06 Pulse 87 10/18/24 08:06 Resp 18 10/18/24 08:06 BP 116/70 10/18/24 08:06 Pulse Ox 99 10/18/24 08:06 O2 Del Method Room Air 10/18/24 08:06 Allergies Allergy/AdvReac Type Severity Reaction Status Date / Time VINEGAR AdvReac Intermediate Dyspnea / Uncoded 10/18/24 08:23 SOB Home Medications ?Medication ?Instructions ?Recorded ?Confirmed ?Type escitalopram oxalate 10 mg tablet 20 mg PO DAILY 12/29/21 10/18/24 History gabapentin 300 mg capsule 300 mg PO TID 12/29/21 10/18/24 History lisinopril 40 mg tablet 40 mg PO DAILY 12/29/21 10/18/24 History metformin 500 mg tablet,extended 500 mg PO DAILY 12/29/21 10/18/24 History release 24 hr acetaminophen 500 mg tablet 500 mg PO Q6H PRN Mild Pain (1-3) 01/02/22 09/21/24 Rx Or Fever #20 tabs ergocalciferol (vitamin D2) 1,250 1,250 mcg PO WEEKLY 04/06/24 10/18/24 History mcg (50,000 unit) capsule fluoxetine 20 mg capsule 20 mg PO DAILY 04/06/24 10/18/24 History cyclobenzaprine 10 mg tablet 10 mg PO Q8H #30 tabs 04/24/24 10/18/24 Rx hydrocodone 7.5 mg-acetaminophen 1 tablet PO Q4H PRN pain #40 tabs 04/28/24 09/21/24 Rx 325 mg tablet atorvastatin 40 mg tablet 40 mg PO QPM 07/27/24 10/18/24 History semaglutide 0.25 mg or 0.5 mg (2 2 mg subcut WEEKLY 09/21/24 10/18/24 History mg/1.5 mL) subcutaneous pen injector (Ozempic) Laboratory Tests 10/18/24 08:18 POC Capillary Glucose 92 mg/dl (65-105) Patient hx anesthesia problems: none Family hx anesthesia problems: none Results Review: All pre-operative results and documents have been reviewed as part of the pre- operative evaluation. [facility] Past Medical History Medical History Osteoarthritis of knees, bilateral Chronic, continuous use of opioids norcox1 daily Degenerative joint disease (DJD) of lumbar spine Anxiety PTSD (post-traumatic stress disorder) Hepatic steatosis Chronic anemia Diabetic peripheral neuropathy Depression Essential hypertension Perforated gastric ulcer Chronic kidney disease, stage III (moderate) Diabetes A1c 6.6% on 12/19/2021 Surgical History Surgical History History of total knee arthroplasty (04/19/24) left History of tubal ligation (1994) History of ventral hernia repair X2 in 2020 History of laparotomy (12/17/21) For repair of gastric ulcer Family History Family History Father Diabetes mellitus Hypertension Mother Diabetes mellitus Hypertension Sibling Diabetes mellitus Hypertension Social History Social History Social History: Code status: Full code Surrogate decision maker: Mother Smoking packs per day: 1 Smoking cigarettes per day: 20.0 Years smoked: 20 Smoking pack-years: 20.00 Smoking status: Former smoker Tobacco type: cigarettes Second hand tobacco smoke exposure: Yes Additional smoking assessment comments: No nicotine use at all pt denies Alcohol intake: never Substance use: never Substance use type: does not use Do You Feel Safe in your Home?: Yes Lack of Transportation: No Lack of Food: Never True Current Housing: I Have Housing Concerned About Future Housing: No Difficulty Paying Gas/Electric Bills: No Difficulty Paying for Meds: No Currently Unemployed: No Education: High School Diploma/GED Living arrangements: with family Additional living arrangements comments: She lives with her mother. She has 3 children the youngest of which was born in 1994. Additional occupation/education comments: She dropped out of high school but went back and got her GED. She got various certificate over a 4 year course at the [facility] [employer] [employer]. 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 She is now on disability due to her chronic kidney disease, diabetes, DJD and osteoarthritis. Spiritual care concerns: No Anes - Eval Final PreProcedure Day of Procedure 10/18/24 09:10 Patient weight: obese Lungs: normal air movement Airway: Mallampati scale class III Neurological: alert and oriented Last oral intake: >/= 8 hours ASA classification: III Emergent: no Anesthetic plan: proceed Anesthesia type and monitoring: general ETT and standard monitoring Results Review: All pre-operative results and documents have been reviewed as part of the pre- operative evaluation. HTN, hyperlipidemia, DM fsbs 92, GLP 1 last dose 10/16/24. Informed Consent: The patient's anesthetic plan and its attendant risks and benefits were discussed with the patient/family/POA. Questions were solicited and answers provided to the satisfaction of the patient/family/POA.
[2024-10-18] MEDS: ceFAZolin 2 GM/D5W 50 ML 2 GM/50 ML BAG IVPB ×2 (09:56→20:49)
[2024-10-18] MEDS: SODIUM CHLORIDE 0.9% IV 37.7 ML, MORPHINE SULFATE INJ (*CRX) 2 MG, ROPivacaine HCL 1% 2... INFILTRATE (10:29)
[2024-10-18] MEDS: GENTAMICIN BONE CEMENT REFOBACIN 1 EACH TOPICAL (10:55)
[2024-10-18] MEDS: TRANEXAMIC ACID 1,000 MG/10 ML AMPUL 1000 MG IV PUSH (11:26)
--- NOTE | 2024-10-18 11:35 | W.PM.PROC2 ---
Procedure Note - Detailed Date of Procedure 10/18/24 Pre-op Diagnosis Osteoarthritis Right Knee Post-op Diagnosis Same Procedure Performed RIGHT Total Knee arthroplasty Surgeon Alec Medrano MD Anesthesia General Indications Pain and Arthritis Description of Procedure The patient was brought to operating room #7. A general anesthetic was administered. Placed on the operating table and sterilely prepped and draped in usual manner. A longitudinal incision was made. Tourniquet inflated to 300 mmHg for a total of 45 minutes. Dissection was carried down to the fascia. Medial parapatellar incision was made and the patella subluxated laterally. Patella cut from 23 to 15 mm. The tibia was cut perpendicular to the long axis and femur cut in 5 degrees of valgus. The components were trialed and the knee was noted to be stable with excellent motion. The soft tissues balanced, hemostasis obtained. All [address], 65 tibia, 67 femur, 34 mm patella, and 13 mm poly. Motion was 0-125 degrees with good stability in both flexion and extension. The wound was closed with #2 Vicryl, 2-0 Vicryl and ade. Surgery was made particularly difficult by the deformity and scarring in the knee. [employer] Estimated Blood Loss 200 Drains No Packing No Pathology None sent Complications No immediate complications Condition Stable Disposition PACU [facility] Billing Surgery - Charge Forward: Surgery Billing ([id number] TKA)
[2024-10-18 12:09] LABS: Glucose Point of Care 119 mg/dl (65-105)
[2024-10-18] MEDS: fentaNYL CITRATE INJ (*CRX) 100 MCG/2 ML VIAL 25 MCG IV PUSH ×4 (12:12→12:22)
[2024-10-18] MEDS: HYDROmorphone HCL INJ (*CRX) 1 MG/ML SYR 0.25 MG IV PUSH ×4 (12:28→13:55)
--- NOTE | 2024-10-18 13:05 | WPDANESPNB ---
Anes - Peripheral Nerve Block Date/Time: 10/18/24 13:05 I have discussed with the patient/family/POA the placement of a peripheral nerve block for post-operative pain management, including associated risks, benefits, complications, and side effects. Alternative methods of post-operative analgesia were detailed. Questions were solicited and answers provided to the satisfaction of the patient/family/POA. Time-Out: A pre-procedural Time-Out was completed immediately before starting the procedure and confirmed: Patient Identification, Site, Procedure, Patient Position and the Availability of Requisite Equipment. Clinical Indications: Acute post-operative pain management requested by the operative surgeon. Nerve Block Insertion Note Anes-nerve block: adductor canal right Patient position: supine Skin prep: chlorhexidine Needle: 22 gauge, stimulating, insulated echogenic needle. Needle length: 80 mm Technique: ultrasound Injectate: other (Bupiv 0.5% 15 mls. ) Observations: tolerated well Complications: none Procedure start time:: 1254 Procedure end time:: 1300 Procedure done in PACU due to US not available in preop.
--- NOTE | 2024-10-18 13:45 | SUR.PHASEI ---
Patient meets criteria to go to inpatient room. No floor bed available at this time patient is being sent to outpatient recovery to wait for bed assignment. Delay started at 1345.
[2024-10-18] MEDS: IBUPROFEN IV 800 MG/200 ML 800 MG/200 ML BAG 400 MG IVPB (15:18)
[2024-10-18 16:27] LABS: Glucose Point of Care 142 mg/dl (65-105)
[2024-10-18] MEDS: ATORVASTATIN 40 MG TABLET PO (18:09)
[2024-10-18] MEDS: CELECOXIB 200 MG CAPSULE PO (18:09)
[2024-10-18] MEDS: HYDROcodone/acetaminophen (*CRX) 7.5-325 MG TABLET 1 TAB PO ×2 (18:10→22:19)
[2024-10-18] MEDS: RIVAROXABAN 10 MG TABLET PO (18:10)
[2024-10-18] MEDS: SENNA/DOCUSATE SODIUM TABLET 2 TAB PO (18:10)
--- NOTE | 2024-10-18 18:30 | ADMGEN ---
This patient, Aliza Handy, was admitted to 3 [facility] Surg Room 301-01. Patient/family oriented to hospital policies and general routines including ID bracelet, bed and alarms, visiting hours, pain management, procedures, bathroom and other care routines, personal items, smoking policy, room service/diet, and visiting hours. Information on how to activate the Rapid Response Team has been discussed. Patient/Family are encouraged to report perceived risks to care and to ask questions if they do not understand what they are told or what they should do.
--- NOTE | 2024-10-18 18:39 | PM.IMCN ---
Assessment and Plan Assessment and plan (1) Osteoarthritis of knees, bilateral: Qualifiers: Osteoarthritis type: primary Qualified Code(s): M17.0 - Bilateral primary osteoarthritis of knee Code(s): M17.0 - Bilateral primary osteoarthritis of knee Status: Acute Assessment and Plan: Total right knee arthroplasty done on 10/18 with Mitchell KELLEY. Primary management through orthopedic team. - ambulate with assistance and up to chair - use IS - neurovasc checks - see order for intervals - SCDs and TEDs - analgesics and antiemetics p.r.n. - monitor labs in AM - CBC and BMP - bowel regimen: docusate/senna, polyethylene glycol - maintenance fluids: NS 125 mL/hr x8 hrs - PT/OT (2) Anemia: Qualifiers: Anemia type: iron deficiency Iron deficiency anemia type: chronic blood loss Qualified Code(s): D50.0 - Iron deficiency anemia secondary to blood loss (chronic) Code(s): D64.9 - Anemia, unspecified Status: Chronic Assessment and Plan: - Hgb 12.6 on 10/11/2024 - transfuse if <7 - trend CBC (3) Diabetes: Qualifiers: Chronic kidney disease stage: stage 3 (moderate) Chronic kidney disease stage 3 subtype: unspecified whether 3a or 3b Diabetes mellitus complication detail: with chronic kidney disease Diabetes mellitus complication status: with kidney complications Diabetes mellitus retirement insulin use: without intermediate accountant use Diabetes mellitus type: type 2 Qualified Code(s): E11.22 - Type 2 diabetes mellitus with diabetic chronic kidney disease; N18.30 - Chronic kidney disease, stage 3 unspecified Code(s): E11.9 - Type 2 diabetes mellitus without complications Status: Chronic Assessment and Plan: - hypoglycemia protocol - POC blood glucose ACHS - home medication: hold metformin in case of need for contrast, hold Ozempic (NF) - correct regimen ordered - high dose TIDWM, based off BMI - A1C 4.9% on 10/11/2024 (4) Chronic kidney disease, stage III (moderate): Qualifiers: Chronic kidney disease stage 3 subtype: unspecified whether 3a or 3b Qualified Code(s): N18.30 - Chronic kidney disease, stage 3 unspecified Code(s): N18.30 - Chronic kidney disease, stage 3 unspecified Status: Chronic Assessment and Plan: - creatinine 1.19 and GFR 47, previously 1.32 and GFR - trend renal function - trend electrolytes, correct as needed (5) Essential hypertension: Code(s): I10 - Essential (primary) hypertension Status: Chronic Assessment and Plan: - chronic, currently 116/73 - continue home medications: lisinopril - monitor Plan Diet: Regular GI Prophylaxis: Not currently indicated DVT Prophylaxis: SCDs, ROBERT. Starting Xarelto on 10/18 Lines: Peripheral Code Status: Full code HPI Date of Consult Consult date: 10/18/24 Requesting Physician: Alec Medrano MD Primary Care Provider: Javi Brewster, PA Consult Narrative Reason for consult: Medical Management Narrative: 54 y/o F presents here for a right total knee arthroplasty with PMH of chronic anemia, CKD stage 3, DM, HTN, PTSD, and anxiety/depression. The patient presented here for a total right knee arthroplasty which was done on 10/18 with Mitchell KELLEY. The patient pre-operatively reported bilateral knee pain that has been present for over a year. She reports the pain was previously worse on the left compared to the right. She underwent a left knee total arthroplasty in March of 2024 with good results and a unremarkable recovery. She reports she has failed conservative treatment. Given that she is happy with results from her previous surgery on her left knee, she elected to move forward with surgical management. Post-operatively she is reporting mild pain to the effected knee, numbness to her right foot, no nausea or vomiting. Denies any recent changes to her past medical history or home medications. Preop VS: 99? F, HR 99, R 16, 137/95, and 100% on RA. Preop workup: No leukocytosis, no anemia, normal coags, creatinine 1.19 and GFR 47 (previously 1.32 and GFR 42 on 07/27/2024), A1c 4.9% on 10/11/2024. Review of Systems Review of Systems: All systems reviewed & are unremarkable except as noted in HPI and below PMFSH Past Medical History Medical History Osteoarthritis of knees, bilateral Chronic, continuous use of opioids norcox1 daily Degenerative joint disease (DJD) of lumbar spine Anxiety PTSD (post-traumatic stress disorder) Hepatic steatosis Chronic anemia Diabetic peripheral neuropathy Depression Essential hypertension Perforated gastric ulcer Chronic kidney disease, stage III (moderate) Diabetes A1C 4.9% 09/2024 Surgical History Surgical History History of total knee arthroplasty (04/19/24) left History of tubal ligation (1994) History of ventral hernia repair X2 in 2020 History of laparotomy (12/17/21) For repair of gastric ulcer Family History Family History Father Diabetes mellitus Hypertension Mother Diabetes mellitus Hypertension Sibling Diabetes mellitus Hypertension Social History Social History Social History: Code status: Full code Surrogate decision maker: Mother Smoking packs per day: 1 Smoking cigarettes per day: 20.0 Years smoked: 20 Smoking pack-years: 20.00 Smoking status: Former smoker Tobacco type: cigarettes Second hand tobacco smoke exposure: Yes Additional smoking assessment comments: No nicotine use at all pt denies Alcohol intake: never Substance use: never Substance use type: does not use Do You Feel Safe in your Home?: Yes Lack of Transportation: No Lack of Food: Never True Current Housing: I Have Housing Concerned About Future Housing: No Difficulty Paying Gas/Electric Bills: No Difficulty Paying for Meds: No Currently Unemployed: No Education: High School Diploma/GED Difficulty w/ Childcare or Family Care: No Living arrangements: with family Additional living arrangements comments: She lives with her mother. She has 3 children the youngest of which was born in 1994. Additional occupation/education comments: She dropped out of high school but went back and got her GED. She got various certificate over a 4 year course at the [email or web address]. 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 She is now on disability due to her chronic kidney disease, diabetes, DJD and osteoarthritis. Spiritual care concerns: No Meds Home Medications and Allergies Home Medications ?Medication ?Instructions ?Recorded ?Confirmed ?Type escitalopram oxalate 10 mg tablet 20 mg PO DAILY 12/29/21 10/18/24 History gabapentin 300 mg capsule 300 mg PO TID 12/29/21 10/18/24 History lisinopril 40 mg tablet 40 mg PO DAILY 12/29/21 10/18/24 History metformin 500 mg tablet,extended 500 mg PO DAILY 12/29/21 10/18/24 History release 24 hr acetaminophen 500 mg tablet 500 mg PO Q6H PRN Mild Pain (1-3) 01/02/22 09/21/24 Rx Or Fever #20 tabs ergocalciferol (vitamin D2) 1,250 1,250 mcg PO WEEKLY 04/06/24 10/18/24 History mcg (50,000 unit) capsule fluoxetine 20 mg capsule 20 mg PO DAILY 04/06/24 10/18/24 History cyclobenzaprine 10 mg tablet 10 mg PO Q8H #30 tabs 04/24/24 10/18/24 Rx hydrocodone 7.5 mg-acetaminophen 1 tablet PO Q4H PRN pain #40 tabs 04/28/24 09/21/24 Rx 325 mg tablet atorvastatin 40 mg tablet 40 mg PO QPM 07/27/24 10/18/24 History semaglutide 0.25 mg or 0.5 mg (2 2 mg subcut WEEKLY 09/21/24 10/18/24 History mg/1.5 mL) subcutaneous pen injector (Ozempic) Allergies Allergy/AdvReac Type Severity Reaction Status Date / Time VINEGAR AdvReac Intermediate Dyspnea / Uncoded 10/18/24 08:23 SOB Vital Signs Vital Signs - 24 hr 10/18/24 08:06 10/18/24 12:00 10/18/24 12:15 Temperature 97.0 F L 97.4 F L Pulse Rate 87 84 71 Respiratory Rate 18 12 12 Blood Pressure 116/70 122/75 141/87 H Pulse Oximetry 99 95 98 Oxygen Delivery Room Air Simple Face Mask Simple Face Mask Oxygen Flow Rate 8 8 10/18/24 12:30 10/18/24 12:40 10/18/24 12:45 Temperature Pulse Rate 74 78 Respiratory Rate 12 12 Blood Pressure 137/92 H 135/89 Pulse Oximetry 98 93 Oxygen Delivery Simple Face Mask Room Air Room Air Oxygen Flow Rate 8 10/18/24 13:00 10/18/24 13:15 10/18/24 13:30 Temperature Pulse Rate 84 64 65 Respiratory Rate 16 10 L 10 L Blood Pressure 123/81 124/80 121/82 Pulse Oximetry 99 96 97 Oxygen Delivery Nasal Cannula Nasal Cannula Nasal Cannula Oxygen Flow Rate 2 2 2 10/18/24 13:45 10/18/24 13:46 10/18/24 14:15 Temperature Pulse Rate 67 70 62 Respiratory Rate 10 L 12 14 Blood Pressure 105/71 127/86 112/78 Pulse Oximetry 98 100 Oxygen Delivery Nasal Cannula Nasal Cannula Nasal Cannula Oxygen Flow Rate 2 2 2 10/18/24 14:30 10/18/24 15:00 10/18/24 15:19 Temperature Pulse Rate 76 62 Respiratory Rate 14 14 Blood Pressure 104/66 118/69 Pulse Oximetry 100 99 Oxygen Delivery Nasal Cannula Nasal Cannula Room Air Oxygen Flow Rate 2 2 10/18/24 15:30 10/18/24 16:00 10/18/24 16:06 Temperature 97.4 F L Pulse Rate 64 64 Respiratory Rate 15 16 Blood Pressure 120/68 122/68 Pulse Oximetry 99 99 Oxygen Delivery Room Air Room Air Room Air Oxygen Flow Rate 10/18/24 16:30 10/18/24 17:00 10/18/24 17:29 Temperature Pulse Rate 80 78 68 Respiratory Rate 16 16 16 Blood Pressure 104/72 110/70 116/73 Pulse Oximetry 97 99 100 Oxygen Delivery Room Air Room Air Room Air Oxygen Flow Rate Exam Const: General: comfortable and no acute distress Other: , female, nontoxic appearance HENMT: Face/Nose/Sinus: Normal nares present Mouth: Yes moist mucous membranes Eyes: General: appearance normal, both eyes and all related structures Sclera: sclerae normal Pupils: Equal, round and reactive pupils present EOM: EOMs intact bilaterally Resp: Effort & Inspection: normal respiratory effort Auscultation: clear to auscultation bilaterally Cardio: Rate: regular rate Rhythm: regular rhythm Other: S1-S2 present without murmur, rub, ectopy GI: Other: Abdomen soft, nondistended, nontender. Normoactive bowel sounds in all quadrants. Skin: General skin exam: normal color and no rashes or lesions noted Wounds: wounds noted ( Postsurgical incision to right knee, dressing CDI) Neuro: Speech: normal speech Other: significantly decreased sensation to right foot. Modestly reduced sensation to right knee. poor plantar flexion and dorsiflexion to the right foot (underwent a nerve block around 04-23) . A&O x4. Extrem: General: normal exam except as noted ( Postsurgical incision to right knee. Dressing CDI.) Psych: Mental Status: mental status grossly normal Affect: normal affect Other: good insight and judgment, pleasant Quality VTE Prophylaxis VTE prophylaxis: mechanical ordered and pharmacologic ordered Hospitalist MIPS Advance Care Plan I have confirmed that the patient's Advanced Care Plan is present, code status is documented, or surrogate decision maker is listed in patient medical record.: Yes Medication Reconciliation I have utilized all available resources to obtain, update and review the patients current medications (includes all prescriptions, OTC, herbals, cannabis, and nutritional supplements).: Yes
[2024-10-18] MEDS: lisinopriL 20 MG TABLET 40 MG PO (20:40)
--- NOTE | 2024-10-18 20:40 | PC.NURSE ---
Assisted Pt. to bathroom with walker. Pt. stated 'I don't want to drink too much as I don't want to have to get up to go to the bathroom.' Informed Pt. that we would like her to maintain her oral intake of fluids and if she didn't think she could drink fluids that we would start IV fluids as ordered. Encouraged Pt. to take PO fluids.
[2024-10-18 21:36] LABS: Glucose Point of Care 185 mg/dl (65-105)
[2024-10-19 00:47] VITALS: BP 96/53; PULSE 81; RESP 16; TEMP 36.8; O2SAT 99
[2024-10-19 01:11] VITALS: BP 94/56
[2024-10-19] MEDS: HYDROcodone/acetaminophen (*CRX) 7.5-325 MG TABLET 1 TAB PO ×2 (02:40→08:10)
[2024-10-19] MEDS: ceFAZolin 2 GM/D5W 50 ML 2 GM/50 ML BAG IVPB (03:53)
[2024-10-19 04:11] VITALS: BP 107/70; PULSE 85; RESP 16; TEMP 36.3; O2SAT 96
[2024-10-19] MEDS: HYDROmorphone HCL INJ (*CRX) 2 MG/ML VIAL 1 MG IV PUSH (04:11)
[2024-10-19 06:45] LABS: Basophils Percent Auto 0.3 % (0.2-1.2); Eosinophils Percent Auto 0.3 % (0-4.4); Hematocrit 30.7 % (37.0-47.0); Hemoglobin 9.7 g/dL (12.0-15.0); Immature Granulocyte Absolute 0.04 K/mm3 (0.00-0.031); Immature Granulocyte Percent A 0.4 % (0-0.5); Lymphocytes Absolute Auto 1.52 K/mm3 (0.9-3.2); Lymphocytes Percent Auto 15.7 % (18.3-44.2); Mean Corpuscular HGB Conc 31.6 g/dl (32-36); Mean Corpuscular Volume 85.5 fl (80-100); Mean Platelet Volume 8.9 fl (7.4-10.4); Monocytes Absolute Auto 0.8 K/mm3 (0.1-0.6); Monocytes Percent Auto 7.7 % (2.6-8.5); Neutrophils Absolute Auto 7.3 K/mm3 (1.3-6.7); Neutrophils Percent Auto 75.6 % (45.5-73.1); Platelet Count Result 220 k/mm3 (150-375); Red Blood Count 3.59 M/mm3 (4.2-5.4); Red Cell Distribution Width 14.1 % (11.5-14.5); White Blood Count 9.7 K/mm3 (4.5-10.0)
[2024-10-19 06:53] LABS: Anion Gap 8 mmol/L (4-12); Blood Urea Nitrogen 25 mg/dL (7-17); Calcium 8.8 mg/dL (8.4-10.2); Carbon Dioxide 21 mmol/L (22-30); Chloride 108 mmol/L (98-107); Estimated CRCL calculation 61 ml/min; Estimated Glomerular Filt Rate 46; Glucose 94 mg/dL (65-110); Sodium 137 mmol/L (137-145)
--- NOTE | 2024-10-19 07:20 | PM.IMPN ---
Progress Note: A&P Assessment and Plan (1) Osteoarthritis of knees, bilateral: Qualifiers: Osteoarthritis type: primary Qualified Code(s): M17.0 - Bilateral primary osteoarthritis of knee Code(s): M17.0 - Bilateral primary osteoarthritis of knee Status: Acute Assessment and Plan: Total right knee arthroplasty done on 10/18 with Mitchell KELLEY. Primary management through orthopedic team. - ambulate with assistance and up to chair - use IS - neurovasc checks - see order for intervals - SCDs and TEDs - analgesics and antiemetics p.r.n. - monitor labs in AM - CBC and BMP - bowel regimen: docusate/senna, polyethylene glycol - maintenance fluids: NS 125 mL/hr x8 hrs - PT/OT (2) Anemia: Qualifiers: Anemia type: iron deficiency Iron deficiency anemia type: chronic blood loss Qualified Code(s): D50.0 - Iron deficiency anemia secondary to blood loss (chronic) Code(s): D64.9 - Anemia, unspecified Status: Chronic Assessment and Plan: - Hgb 12.6 on 10/11/2024 - H/H 9.7/30.7 - Consider Iron if continues to fall - transfuse if <7 - trend CBC (3) Diabetes: Qualifiers: Chronic kidney disease stage: stage 3 (moderate) Chronic kidney disease stage 3 subtype: unspecified whether 3a or 3b Diabetes mellitus complication detail: with chronic kidney disease Diabetes mellitus complication status: with kidney complications 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: without equipment operator intermodal yard use Diabetes mellitus type: type 2 Qualified Code(s): E11.22 - Type 2 diabetes mellitus with diabetic chronic kidney disease; N18.30 - Chronic kidney disease, stage 3 unspecified Code(s): E11.9 - Type 2 diabetes mellitus without complications Status: Chronic Assessment and Plan: - hypoglycemia protocol - POC blood glucose ACHS - home medication: hold metformin in case of need for contrast, hold Ozempic (NF) - correct regimen ordered - high dose TIDWM, based off BMI - A1C 4.9% on 10/11/2024 - Glucose 94 (4) Chronic kidney disease, stage III (moderate): Qualifiers: Chronic kidney disease stage 3 subtype: unspecified whether 3a or 3b Qualified Code(s): N18.30 - Chronic kidney disease, stage 3 unspecified Code(s): N18.30 - Chronic kidney disease, stage 3 unspecified Status: Chronic Assessment and Plan: - creatinine 1.19 and GFR 47, previously 1.32 and GFR - trend renal function - trend electrolytes, correct as needed - Creatinine 1.21 today (5) Essential hypertension: Code(s): I10 - Essential (primary) hypertension Status: Chronic Assessment and Plan: - chronic, currently 116/73 - continue home medications: lisinopril - monitor - Current BP 118/76 Plan Diet: Regular GI Prophylaxis: Not currently indicated DVT Prophylaxis: SCDs, ROBERT. Starting Xarelto on 10/18 Lines: Peripheral Code Status: Full code Time Spent With Patient Time: 39 minutes Subjective Date/time seen: 10/19/24 07:20 Interval history: 10/19/2024 She is laying in bed. Knee suture is exposed with ade. No swelling. Island dressing applied. No complaints of chest pain, shortness of breath, nausea, vomiting. She did state that she cried all night due to the pain, will give a onetime dose of toradol. 10/18/2024 54 y/o F presents here for a right total knee arthroplasty with PMH of chronic anemia, CKD stage 3, DM, HTN, PTSD, and anxiety/depression. The patient presented here for a total right knee arthroplasty which was done on 10/18 with Mitchell KELLEY. The patient pre-operatively reported bilateral knee pain that has been present for over a year. She reports the pain was previously worse on the left compared to the right. She underwent a left knee total arthroplasty in March of 2024 with good results and a unremarkable recovery. She reports she has failed conservative treatment. Given that she is happy with results from her previous surgery on her left knee, she elected to move forward with surgical management. Post-operatively she is reporting mild pain to the effected knee, numbness to her right foot, no nausea or vomiting. Denies any recent changes to her past medical history or home medications. Preop VS: 99? F, HR 99, R 16, 137/95, and 100% on RA. Preop workup: No leukocytosis, no anemia, normal coags, creatinine 1.19 and GFR 47 (previously 1.32 and GFR 42 on 07/27/2024), A1c 4.9% on 10/11/2024. Review of Systems Review of Systems: All systems reviewed & are unremarkable except as noted in HPI and below Exam Narrative: General: well-nourished, 54-year-old female, sitting up in bed, comfortable, NARD Neuro: awake, alert and oriented x4, speech clear, no focal neuro deficits noted HEENMT: normocephalic, atraumatic, EOMI, sclerae anicteric, moist oral mucosa Respiratory: Clear to auscultation bilaterally without crackles, rhonchi or wheezes, nonlabored breathing Cardio: regular rate, regular rhythm with S1-S2 Abdomen: nondistended, normoactive bowel sounds, soft, nontender to palpation Extremities: Right knee with dressing clean dry and intact Skin: no rashes or lesions, warm and dry Psych: appropriate mood and affect, judgment and insight intact Objective Data Vital Signs Vital Signs: Vital Signs - 24 hr 10/18/24 08:06 10/18/24 12:00 10/18/24 12:15 Temperature 97.0 F L 97.4 F L Pulse Rate 87 84 71 Respiratory Rate 18 12 12 Blood Pressure 116/70 122/75 141/87 H Pulse Oximetry 99 95 98 Oxygen Delivery Room Air Simple Face Mask Simple Face Mask Oxygen Flow Rate 8 8 10/18/24 12:30 10/18/24 12:40 10/18/24 12:45 Temperature Pulse Rate 74 78 Respiratory Rate 12 12 Blood Pressure 137/92 H 135/89 Pulse Oximetry 98 93 Oxygen Delivery Simple Face Mask Room Air Room Air Oxygen Flow Rate 8 10/18/24 13:00 10/18/24 13:15 10/18/24 13:30 Temperature Pulse Rate 84 64 65 Respiratory Rate 16 10 L 10 L Blood Pressure 123/81 124/80 121/82 Pulse Oximetry 99 96 97 Oxygen Delivery Nasal Cannula Nasal Cannula Nasal Cannula Oxygen Flow Rate 2 2 2 10/18/24 13:45 10/18/24 13:46 10/18/24 14:15 Temperature Pulse Rate 67 70 62 Respiratory Rate 10 L 12 14 Blood Pressure 105/71 127/86 112/78 Pulse Oximetry 98 100 Oxygen Delivery Nasal Cannula Nasal Cannula Nasal Cannula Oxygen Flow Rate 2 2 2 10/18/24 14:30 10/18/24 15:00 10/18/24 15:19 Temperature Pulse Rate 76 62 Respiratory Rate 14 14 Blood Pressure 104/66 118/69 Pulse Oximetry 100 99 Oxygen Delivery Nasal Cannula Nasal Cannula Room Air Oxygen Flow Rate 2 2 10/18/24 15:30 10/18/24 16:00 10/18/24 16:06 Temperature 97.4 F L Pulse Rate 64 64 Respiratory Rate 15 16 Blood Pressure 120/68 122/68 Pulse Oximetry 99 99 Oxygen Delivery Room Air Room Air Room Air Oxygen Flow Rate 10/18/24 16:30 10/18/24 17:00 10/18/24 17:29 Temperature Pulse Rate 80 78 68 Respiratory Rate 16 16 16 Blood Pressure 104/72 110/70 116/73 Pulse Oximetry 97 99 100 Oxygen Delivery Room Air Room Air Room Air Oxygen Flow Rate 10/18/24 20:52 10/19/24 00:47 10/19/24 01:11 Temperature 97.6 F 98.3 F Pulse Rate 86 81 Respiratory Rate 16 16 Blood Pressure 127/67 96/53 L 94/56 L Pulse Oximetry 96 99 Oxygen Delivery Oxygen Flow Rate 10/19/24 04:11 Temperature 97.4 F L Pulse Rate 85 Respiratory Rate 16 Blood Pressure 107/70 Pulse Oximetry 96 Oxygen Delivery Oxygen Flow Rate Intake/Output Intake/Output: Intake & Output 10/16/24 10/17/24 10/18/24 10/19/24 23:59 23:59 23:59 23:59 Intake Total 300 600 Balance 300 600 Meds/Results Medications: Active Medications Generic Name Dose Route Start Last Admin Trade Name Freq PRN Reason Stop Dose Admin Hydrocodone Bitart/Acetaminophen 1 tab 10/18/24 14:01 Hydrocodone/Acetaminophen (*Crx) 5-325 Mg Tablet PO Q4H PRN Pain Rated 4-6 Hydrocodone Bitart/Acetaminophen 1 tab 10/18/24 14:01 10/19/24 02:40 Hydrocodone/Acetaminophen (*Crx) 7.5-325 Mg Tablet PO 1 tab Q4H PRN Administration Pain Rated 7-10 Atorvastatin Calcium 40 mg 10/18/24 18:00 10/18/24 18:09 Atorvastatin 40 Mg Tablet PO 40 mg QPM GREG Administration Celecoxib 200 mg 10/18/24 17:34 10/18/24 18:09 Celecoxib 200 Mg Capsule PO 200 mg BIDWM GREG Administration Dextrose 12.5 gm 10/18/24 18:44 Dextrose 50% 25 Gm/50 Ml Syringe IV PUSH PRN PRN Hypoglycemia Protocol Diphenhydramine HCl 25 mg 10/18/24 14:01 Diphenhydramine Hcl Inj 50 Mg/Ml Vial IV PUSH Q6H PRN Itching Glucagon 1 mg 10/18/24 18:44 Glucagon For Inj 1 Mg Vial IM PRN PRN Hypoglycemia Protocol Glucose 15 gm 10/18/24 18:44 Glucose Oral Gel 15 Gm Of Glucse In 37.5 Gm Tube PO PRN PRN Hypoglycemia Protocol Hydromorphone HCl 1 mg 10/19/24 04:02 10/19/24 04:11 Hydromorphone Hcl Inj (*Crx) 2 Mg/Ml Vial IV PUSH 1 mg Q2H PRN Administration Breakthrough Pain Rated 7-10 or NPO Hydromorphone HCl 0.5 mg 10/19/24 04:03 Hydromorphone Hcl Inj (*Crx) 2 Mg/Ml Vial IV PUSH Q2H PRN Breakthrough Pain Rated 4-6 or NPO Ibuprofen 800 mg in 200 mls @ 400 mls/hr 10/18/24 14:01 10/18/24 15:48 Caldolor 800 Mg/200 Ml IVPB Infused Q6H PRN Infusion Breakthrough Pain Rated 1-3 or NPO Dextrose 1,000 mls @ 100 mls/hr 10/18/24 18:44 Dextrose 5% 1,000 Ml IVPB PRN PRN Hypoglycemia Protocol Cefazolin Sodium 2 gm in 50 mls @ 100 mls/hr 10/18/24 20:00 10/19/24 04:23 Ancef 2 Gm/D5w 50 Ml IVPB 10/19/24 12:29 Infused Q8H GREG Infusion Insulin Aspart 4 - 8 units 10/19/24 08:00 Insulin Aspart (*Bkc) 100 Units/Ml SUB-Q TIDWM [facility] Protocol Lisinopril 40 mg 10/18/24 18:50 10/18/24 20:40 Lisinopril 20 Mg Tablet PO 40 mg DAILY GREG Administration Naloxone HCl 0.1 mg 10/18/24 14:01 Naloxone Hcl 0.4 Mg/Ml Vial IV PUSH Q2M PRN Opiate Reversal Ondansetron HCl 4 mg 10/18/24 14:01 Ondansetron Inj 4 Mg/2 Ml Vial IV PUSH Q4H PRN Nausea And Vomiting Polyethylene Glycol 17 gm 10/19/24 09:00 Polyethylene Glycol 3350 17 Gm Powd.Pack PO QAM [facility] Rivaroxaban 10 mg 10/18/24 17:34 10/18/24 18:10 Rivaroxaban 10 Mg Tablet PO 10/29/24 17:01 10 mg DAILY@17 [facility] Administration Senna/Docusate Sodium 2 tab 10/18/24 17:34 10/18/24 18:10 Senna/Docusate Sodium Tablet PO 2 tab BID [facility] Administration Tramadol HCl 50 mg 10/18/24 14:01 Tramadol Hcl (*Crx) 50 Mg Tablet PO Q4H PRN Pain Rated 1-3 Radiology Results: ITS Impressions Knee X-Ray 10/18/24 12:58 IMPRESSION: 1. Right total knee arthroplasty, negative for postoperative purposes. Labs Labs: Laboratory Results - last 24 hr 10/18/24 10/18/24 10/18/24 08:18 12:07 16:21 WBC RBC Hgb Hct MCV MCH MCHC RDW Plt Count MPV Immature Gran % (Auto) Neut % (Auto) Lymph % (Auto) [place] % (Auto) Eos % (Auto) Baso % (Auto) Lymph # (Auto) [place] # (Auto) Eos # (Auto) Baso # (Auto) Abs Immat Gran (auto) Absolute Neuts (auto) Absolute Nucleated RBC Nucleated RBC % Sodium Potassium Chloride Carbon Dioxide Anion Gap BUN Creatinine Estim Creat Clear Calc Estimated GFR Glucose POC Capillary Glucose 92 119 H 142 H Calcium 10/18/24 10/19/24 20:55 06:09 WBC 9.7 RBC 3.59 L Hgb 9.7 L Hct 30.7 L MCV 85.5 MCH 27.0 MCHC 31.6 L RDW 14.1 Plt Count 220 MPV 8.9 Immature Gran % (Auto) 0.4 Neut % (Auto) 75.6 H Lymph % (Auto) 15.7 L [place] % (Auto) 7.7 Eos % (Auto) 0.3 Baso % (Auto) 0.3 Lymph # (Auto) 1.52 [place] # (Auto) 0.8 H Eos # (Auto) 0.0 Baso # (Auto) 0.0 Abs Immat Gran (auto) 0.04 H Absolute Neuts (auto) 7.3 H Absolute Nucleated RBC 0.000 Nucleated RBC % 0.0 Sodium 137 Potassium 4.0 Chloride 108 H Carbon Dioxide 21 L Anion Gap 8 BUN 25 H Creatinine 1.21 H Estim Creat Clear Calc 61 Estimated GFR 46 L Glucose 94 POC Capillary Glucose 185 H Calcium 8.8 Quality VTE Prophylaxis VTE prophylaxis: mechanical ordered and pharmacologic ordered
[2024-10-19 08:00] VITALS: BP 118/76; PULSE 81; RESP 16; TEMP 36.6; O2SAT 98
[2024-10-19 08:09] LABS: Glucose Point of Care 93 mg/dl (65-105)
[2024-10-19] MEDS: CELECOXIB 200 MG CAPSULE PO (08:10)
[2024-10-19] MEDS: SENNA/DOCUSATE SODIUM TABLET 2 TAB PO (08:10)
[2024-10-19] MEDS: polyethylene glycoL 3350 17 GM POWD.PACK PO (08:10)
[2024-10-19] MEDS: KETOROLAC 15 MG/ML VIAL (*BKC) IV PUSH (10:35)
== END 2024-10-19 12:20 | disposition home or self-care (01) ==
LOC: ANHSURGERY 07:47 → ANH3MEDSUR 17:55
PROVIDERS: PCP Physician Assistant Medical; Visit Provider Orthopaedic Surgery
PROC: (CPT 27447; principal; 2024-10-18 10:00)
DX: M17.11 Unilateral primary osteoarthritis, right knee (principal); G89.18 Other acute postprocedural pain; D50.0 Iron deficiency anemia secondary to blood loss (chronic); I12.9 Hypertensive chronic kidney disease with stage 1 through stage 4 chronic kidney disease, or unspecified chronic kidney disease; E11.22 Type 2 diabetes mellitus with diabetic chronic kidney disease; N18.30 Chronic kidney disease, stage 3 unspecified; Z87.891 Personal history of nicotine dependence; E66.9 Obesity, unspecified; Z68.38 Body mass index [BMI] 38.0-38.9, adult
CPT/HCPCS: 27447; 64447; 36415; 73560; 80048; 82948; 85025; 97110; 97116; 97161; 97165; 97530; 97535; A9270; C1713; C1776; J0171; J0690; J1100; J1171; J1741; J1885; J2003; J2250; J2270; J2405; J2704; J2795; J3010; J3370; J7120